=== PATIENT | male | born 1955 | race Caucasian/White ===

== ENCOUNTER 2021-02-18 14:30 | Outpatient (RCR) | payer MEDICARE, SELFPAY ==
[2021-02-10 12:07] VITALS: BMI 35.0
[2021-02-10 12:09] VITALS: BMI 35.0
== END 2021-04-06 13:52 | disposition home or self-care (01) ==
LOC: ANHDMC 14:30
PROVIDERS: PCP Family Medicine Adolescent Medicine; Visit Provider Family Medicine Adolescent Medicine
DX: E11.65 Type 2 diabetes mellitus with hyperglycemia (principal); Z71.89 Other specified counseling; Z71.3 Dietary counseling and surveillance
CPT/HCPCS: 97802; 99199; G0108; G0109

== ENCOUNTER 2021-04-21 11:14 | Outpatient (RCR) | payer MEDICARE, SELFPAY | END 2021-04-21 14:58 | disposition home or self-care (01) | LOC: ANHDMC 11:14 | PROVIDERS: PCP Family Medicine Adolescent Medicine; Visit Provider Family Medicine Adolescent Medicine | DX: E11.65 Type 2 diabetes mellitus with hyperglycemia (principal); Z71.89 Other specified counseling | CPT/HCPCS: G0108 ==

== ENCOUNTER 2021-04-26 16:53 | Emergency (ER) | payer OTHER, MEDICARE, BC, SELFPAY ==
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
[2021-04-26 16:54] VITALS: BP 166/64; PULSE 76; RESP 15; TEMP 36.5; O2SAT 100
--- NOTE | 2021-04-26 16:59 | PC.NURSE ---
C-collar applied prior to arrival by EMS.
[2021-04-26 19:33] VITALS: BP 147/72; PULSE 82; RESP 17; TEMP 36.2; O2SAT 94
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
== END 2021-04-26 21:48 | disposition home or self-care (01) ==
PROVIDERS: Emergency Provider Emergency Medicine; PCP Family Medicine Adolescent Medicine
DX: S16.1XXA Strain of muscle, fascia and tendon at neck level, initial encounter (principal); J44.9 Chronic obstructive pulmonary disease, unspecified; E11.9 Type 2 diabetes mellitus without complications; Z87.891 Personal history of nicotine dependence; M47.812 Spondylosis without myelopathy or radiculopathy, cervical region; M43.06 Spondylolysis, lumbar region; E27.8 Other specified disorders of adrenal gland; Z79.82 Long term (current) use of aspirin; Z79.84 Long term (current) use of oral hypoglycemic drugs; V53.5XXA Driver of pick-up truck or van injured in collision with car, pick-up truck or van in traffic accident, initial encounter
CPT/HCPCS: 70450; 72125; 72131; 99284

== ENCOUNTER 2021-06-11 09:34 | Outpatient (CLI) | payer OTHER, MEDICARE, BC, SELFPAY ==
--- NOTE | ~2021-06-11 | MR_ITS ---
EXAMINATION: MR cervical spine wo con EXAM DATE: 06/11/2021 10:35 INDICATION: Neck Pain. TECHNIQUE: Multi-sequential, multiplanar MR images of the cervical spine were obtained without contra st. Axial T2, axial T2 MERGE sequence. Sagittal T1, T2, T2 fat saturation images also obtained. Cor relation is made to CT cervical spine 04/26/2021. FINDINGS: There is moderate disc disease at C5-6, and C7-T1, mild to moderate at C3-4, 4-5 and C6-7. Cord is being flattened at C4-5, C5-6 and 6-7, but no definite cord edema suspected, no acute cord c ompression. The vertebral bodies are aligned in the AP dimension. There are no suspicious marrow sign al abnormalities. Paraspinal soft tissue is unremarkable. Level by level evaluation: C2-C3: Disc does not extend beyond the endplate margin. Uncovertebral joint arthropathy: None. Facet joint arthropathy: Moderate bilateral. Neural foraminal stenosis: No stenosis. Central canal stenosis: No stenosis. C3-C4: There is a minimal diffuse disc bulge. Uncovertebral joint arthropathy: Mild bilateral. Facet joint arthropathy: Moderate to severe right, mild to moderate left. Neural foraminal stenosis: Mild to moderate right, mild left. Central canal stenosis: Mild. C4-C5: There is a moderate diffuse disc bulge asymmetric to the right Uncovertebral joint arthropathy: Moderate to severe right, moderate left. Facet joint arthropathy: Moderate bilateral. Neural foraminal stenosis: Moderate to severe right. Central canal stenosis: Moderate . Central canal measures 6 mm in mid sagittal AP diameter . C5-C6: There is a moderate diffuse disc bulge. Uncovertebral joint arthropathy: Severe right, moderate to severe left. Facet joint arthropathy: Moderate right, mild to moderate left. Neural foraminal stenosis: Severe right, moderate left. Central canal stenosis: Moderate . Central canal measures 6 mm in mid sagittal AP diameter . C6-C7: There is a moderate diffuse disc bulge. Uncovertebral joint arthropathy: Moderate right, mild to moderate left. Facet joint arthropathy: Mild bilateral. Neural foraminal stenosis: Mild to moderate bilateral. Central canal stenosis: Mild to moderate. C7-T1: There is a mild to moderate diffuse disc bulge. Uncovertebral joint arthropathy: Severe right, moderate to severe left. Facet joint arthropathy: Mild. Neural foraminal stenosis: Moderate to severe right, moderate left. Central canal stenosis: Mild. IMPRESSION: Moderate to severe cervical spondylosis as detailed above. Reviewed, dictated and finalized at location G.
--- NOTE | ~2021-06-11 | MR_ITS ---
EXAMINATION: MR lumbar spine wo [facility] EXAM DATE: 06/11/2021 10:35 INDICATION: Lumbar radiculopathy. TECHNIQUE: Multi-sequential, multiplanar MR images of the lumbar spine were obtained without contrast . Sagittal T1, T2, T2 fat saturation images. Axial T2 weighted images. Comparison is made to prior examination from 07/28/2017. FINDINGS: There is moderate loss of the L4-5 disc height, mild to moderate at L3-4. Otherwise mild natali mbar disc disease. The conus medullaris terminates at the L1/2 level and has normal signal intensity and morphology. There are no suspicious marrow signal abnormalities. Paraspinal soft tissue is unrem arkable. Level by level evaluation: T12-L1: Disc does not extend beyond the endplate margin. Facet arthropathy: Mild. Neural foraminal stenosis: No stenosis. Central canal stenosis: No stenosis. L1-L2: There is a minimal diffuse disc bulge. Facet arthropathy: Mild to moderate. Neural foraminal stenosis: No stenosis. Central canal stenosis: No stenosis. L2-L3: There is a mild diffuse disc bulge. Facet arthropathy: Mild to moderate. Neural foraminal stenosis: Mild bilateral. Central canal stenosis: No stenosis. L3-L4: There is a moderate diffuse disc bulge. Facet arthropathy: Moderate. Neural foraminal stenosis: Mild to moderate bilateral. Central canal stenosis: Mild to moderate. L4-L5: There is a moderate to large diffuse disc bulge asymmetric to the left Facet arthropathy: Moderate. Neural foraminal stenosis: Moderate right, mild to moderate left. Central canal stenosis: Mild to moderate. L5-S1: There is a mild diffuse disc bulge. Facet arthropathy: Mild. Neural foraminal stenosis: Mild to moderate left, mild right. Central canal stenosis: No stenosis. Mild interval progression compared to 2018 examination. IMPRESSION: 1. Moderate lower lumbar spondylosis. Reviewed, dictated and finalized at location G.
== END 2021-06-11 09:35 | disposition home or self-care (01) ==
LOC: ANHIMG 09:38
PROVIDERS: PCP Family Medicine Adolescent Medicine
DX: M54.16 Radiculopathy, lumbar region (principal); M54.2 Cervicalgia; M47.816 Spondylosis without myelopathy or radiculopathy, lumbar region; M47.812 Spondylosis without myelopathy or radiculopathy, cervical region
CPT/HCPCS: 72141; 72148

== ENCOUNTER 2021-06-20 16:28 | Emergency (ER) | payer MEDICARE, BC, SELFPAY ==
--- NOTE | 2021-06-20 16:30 | ED.URI ---
HPI - URI/Sore Throat General Chief Complaint: Upper Respiratory Infection Stated Complaint: sorethroat,rt ear pain Time Seen by Provider: 06/20/21 16:40 Source: patient Mode of arrival: ambulatory Limitations: no limitations History of Present Illness HPI Narrative: Mr. Hartley is a 65-year-old male patient presenting to the clinic today with complaints of productive cough, sore throat, right ear pain, and generalized weakness for the past 2 days. He does not know if he has had any fever or chills. No known exposure to anyone with Covid or influenza. Does have a history of COPD and is a former smoker. Reports that he has had a productive cough with green phlegm. Denies any increased shortness of breath currently. Denies any chest pain. MD elicited complaint: sore throat, nasal congestion and other (right ear pain) Related Data Home Medications Medication Instructions Recorded Confirmed aspirin 325 mg tablet 325 mg PO DAILY 10/01/20 06/20/21 atorvastatin 20 mg tablet 20 mg PO DAILY 10/01/20 06/20/21 enalapril maleate 20 mg tablet 20 mg PO DAILY 10/01/20 06/20/21 magnesium 250 mg tablet 250 mg PO DAILY 10/01/20 06/20/21 melatonin 10 mg tablet,extended 10 mg PO HS 10/01/20 06/20/21 release trazodone 100 mg tablet 100 mg PO QHS 10/01/20 06/20/21 insulin glargine 100 unit/mL (3 70 unit SUBCUT QPM ml 05/19/21 06/20/21 mL) subcutaneous pen Allergies Allergy/AdvReac Type Severity Reaction Status Date / Time No Known Allergies Allergy Verified 06/20/21 16:48 Review of Systems Review of Systems: Pertinent positives per HPI. Patient denies any fever, chills, rash, headache, visual changes, dizziness, cough, shortness of breath, chest pain, palpitations, nausea, vomiting, diarrhea, constipation, abdominal pain, or any urinary issues. [facility] Past Medical History Medical History Chronic low back pain COPD (chronic obstructive pulmonary disease) Diabetes Diabetes type 2, uncontrolled Erectile dysfunction Generalized anxiety disorder GERD (gastroesophageal reflux disease) Hepatic steatosis History of colon polyps Hypertension Insomnia Long-term use of aspirin therapy Mixed hyperlipidemia Obstructive sleep apnea on CPAP Personal history of nicotine dependence Testicular hypofunction Surgical History Surgical History History of carpal tunnel surgery 2002 History of vasectomy 2001 Family History Family History Father Lung cancer Hypertension Mother Diabetes mellitus Heart disease Sibling Lung cancer Other Alcoholism Grandparent Alcoholism Grandparent FHx: kidney cancer Other Family history of malignant neoplasm Social History Social History Years smoked: 45 Smoking status: Former smoker Second hand tobacco smoke exposure: No Smoking end date: 04/19/17 Alcohol intake: current Alcohol use details: Rarely Substance use: never Substance use type: does not use Gender identity (if verbalized by the patient): Male Sexual Orientation (if Verbalized by the Patient): Straight or Heterosexual Spiritual care concerns: No Agree to blood products: Yes Comments At the time of my signature, I reviewed and agree with the nursing past medical, surgical, social, and family history. There is no relevant family history pertinent to the patient complaint. Exam Narrative: General: Well-developed, obese, in no apparent distress Head: Normocephalic, atraumatic Eyes: Pupils equally round and reactive to light bilaterally, EOM intact, sclera and conjunctive clear, no discharge, lids normal Ears: Right TMs intact, mild bulging, and cloudy, left TM intact and clear, ear canals clear, no drainage, grossly hearing normal. Nose: Nares paten
[2021-06-20 16:39] VITALS: BP 156/51; PULSE 85; RESP 18; TEMP 36.6; O2SAT 98
== END 2021-06-20 17:13 | disposition home or self-care (01) ==
PROVIDERS: Emergency Provider Nurse Practitioner Family; PCP Family Medicine Adolescent Medicine
DX: J44.0 Chronic obstructive pulmonary disease with (acute) lower respiratory infection (principal); J20.9 Acute bronchitis, unspecified; H69.91 Unspecified Eustachian tube disorder, right ear; Z20.822 Contact with and (suspected) exposure to COVID-19; Z87.891 Personal history of nicotine dependence; E11.9 Type 2 diabetes mellitus without complications; K21.9 Gastro-esophageal reflux disease without esophagitis; I10 Essential (primary) hypertension; E78.2 Mixed hyperlipidemia; G47.33 Obstructive sleep apnea (adult) (pediatric); Z98.52 Vasectomy status; Z79.82 Long term (current) use of aspirin; Z79.4 Long term (current) use of insulin; F41.1 Generalized anxiety disorder
CPT/HCPCS: 87081; 87426; 87804; 87880; 99213; C9803; G0463

== ENCOUNTER 2022-05-13 13:26 | Outpatient (CLI) | payer MEDICARE, SELFPAY ==
--- NOTE | 2022-05-13 13:38 | ECHO_ITS ---
Patient Info Name: Devante Hartley Age: 66 years : 1955 Gender: Male Ht: 69 in Wt: 248 lbs BSA: 2.38 m2 HR: 86 bpm BP: 154 / 81 mmHg Heart Rhythm: Sinus Rhythm Technical Quality: Fair Exam Date: 05/13/2022 1:50 PM Exam Location: [facility] Patient Status: Outpatient Admit Date: 05/13/2022 Staff Ordering Physician: Josie Mcleod PA-C Casino [employer]ot Supervisor: Promise Rivera RDCS Attending Provider: Josie Mcleod PA-C Referring Physician: Harsha HE; Exam Type: CA echo doppler color flow Study Info Indications R01.1 - Cardiac murmur, unspecified Complete two-dimensional, color flow and Doppler transthoracic echocardiogram is performed. Summary 1. Complete two-dimensional, color flow and Doppler transthoracic echocardiogram is performed. 2. Left ventricular chamber dimension is normal. 3. Left ventricular systolic function is normal, estimated at 60-65%. 4. There is mildly increased left ventricular wall thickness. 5. The left ventricular diastolic function is grade I diastolic dysfunction. 6. Left atrial chamber dimension is mildly enlarged. 7. There is mild mitral valve regurgitation. 8. There is mild tricuspid valve regurgitation. Left Ventricle Left ventricular chamber dimension is normal. Left ventricular systolic function is normal, estimated at 60-65%. There is mildly increased left ventricular wall thickness. The left ventricular diastolic function is grade I diastolic dysfunction. Right Ventricle Right ventricular chamber dimension is normal. Right ventricular systolic function is normal. Left Atria Left atrial chamber dimension is mildly enlarged. Right Atria Right atrial chamber dimension is normal. Atrial Septum Intact interatrial septum visualized by color flow imaging. Aortic Valve The aortic valve is trileaflet. There is mild aortic valve sclerosis. There is no aortic valve stenosis. There is trace aortic valve regurgitation. Pulmonic Valve The pulmonic valve is normal. There is no pulmonic valve stenosis. There is trace pulmonic regurgitation. Mitral Valve The mitral valve has normal leaflets. There is no mitral valve stenosis. There is mild mitral valve regurgitation. Tricuspid Valve The tricuspid valve leaflets are normal. There is no significant tricuspid valve stenosis. There is mild tricuspid valve regurgitation. No pulmonary hypertension, estimated pulmonary arterial systolic pressure is 26 mmHg. Pericardium/Pleural The pericardium appears normal. There is trivial pericardial effusion. Inferior Vena Cava Normal inferior vena cava with >50% collapse upon inspiration consistent with normal right atrial pressure, 10 mmHg. Aorta The aortic root size at the sinus of Valsalva is normal. The prox ascending aorta size is normal. Left Ventricular Outflow Tract Name Value Normal LVOT 2D LVOT Diameter 2.1 cm LVOT Doppler LVOT Peak Gradient 5 mmHg LVOT Mean Gradient 3 mmHg LVOT VTI 22 cm LVOT VTI/AV VTI Ratio
== END 2022-05-13 13:27 | disposition home or self-care (01) ==
PROVIDERS: PCP Family Medicine Adolescent Medicine; Visit Provider Physician Assistant
DX: R06.02 Shortness of breath (principal); R01.1 Cardiac murmur, unspecified; I08.1 Rheumatic disorders of both mitral and tricuspid valves
CPT/HCPCS: 93306

== ENCOUNTER 2023-09-29 06:38 | Outpatient (CLI) | payer MEDICARE, SELFPAY ==
--- NOTE | ~2023-09-29 | CT_ITS ---
CT Scan of the Chest without Contrast: Clinical Indication: Lung cancer screening, nicotine dependence Technique: Contiguous sections were acquired throughout the chest without intravenous contrast. Dose reduction technique was used on this scan by utilizing automated exposure control and iterative recon struction technique. The dose-length product (DLP) was 362.61 mGy-cm. Findings: Enrique calcite mediastinal lymph nodes are present. Coronary artery calcifications are present. No aortic aneurysm. There is no evidence of pleural or pericardial effusion. 3 mm posterior right upper lobe pulmonary nodule present. Images through the upper abdomen reveal no abnormalities. Impression: Lung RADS 2: Benign appearance. 12 month follow-up screening CT advised. Reviewed, dictated and finalized at location . Impression: Lung RADS 2: Benign appearance. 12 month follow-up screening CT advised.
--- NOTE | 2023-09-29 13:38 | P.PCNPFT_ITS ---
PFT Procedure Performed PFT Procedure Performed Spirometry with Pre/Post Bronchodilator Plethysmography (Lung Vol) Diffusing Cap (DLCO) Flow Vol Loop PFT Interpretation This is a pulmonary function test with pre and post-bronchodilator spirometry, plethysmography and diffusing capacity. The test was performed and results interpreted in accordance with the 2019 and 2005 ATS/ERS Task Force guidelines respectively using the Global Lung Function Initiative-2012 reference equations. Patient demonstrated good effort and cooperation. Reproducibility criteria were met. The quality of the pre bronchodilator spirometry maneuver was Grade B and post bronchodilator spirometry maneuver was Grade A. Findings: Spirometry:There is decreased maximal expiratory airflow at low lung volumes with a concave expiratory flow tracing. The contour the inspiratory flow tracing is normal. The pre bronchodilator FVC is 2.15 L, 53% predicted. The pre bronchodilator FEV1 is 1.63 L, 53% predicted. The pre bronchodilator FEV1: FVC ratio 75%. The post bronchodilator FVC is 2.06 L, representing a 5% decrease. The post bronchodilator FEV1 is 1.59 L, representing a 2% decrease. The post bronchodilator FEV1: FVC ratio 77%. Plethysmography: The total lung capacity is 6.61 L, 100% predicted. The functional residual capacity is 4.16 L, 119% predicted. The residual volume is 4.09 L, 177% predicted. The residual volume: Total lung capacity ratio 62%. The slow vital capacity is 2.52 L. Diffusing capacity: The diffusing capacity unadjusted for hemoglobin and carboxyhemoglobin is 12.8, 50% predicted. The diffusing capacity adjusted for alveolar volume is 3.56, 86% predicted. In comparison to previous pulmonary function testing on 06/06/2017 in which only pre bronchodilator spirometry was performed the pre bronchodilator FVC has decreased from 2.66 L to 2.15 L. The pre bronchodilator FEV1 has decreased from 2.05 L to 1.63 L. the pre bronchodilator FEV1: FVC ratio is unchanged from 77% to 75%. the total lung capacity is decreased from 7.39 L to 6.61 L. The functional residual capacity is decreased from 5.34 L to 4.16 L. The residual volume is unchanged from 4.58 L to 4.09 L. The residual volume: Total lung capacity ratio is unchanged from 62% to 62%. the slow vital capacity is unchan ged from 2.81 L to 2.52 L. The diffusing capacity unadjusted for hemoglobin and carboxyhemoglobin is decreased from 17.5 to 12.8. The diffusing capacity adjusted for alveolar volume is decreased from 4.63 to 3.56. Impression: The slow vital capacity is greater than forced vital capacity with a mildly concave expiratory tracing and a normal FEV1: FVC ratio with a moderately severe decreased FVC and FEV1. This is suggestive of small airways disease. There is no significant improvement after inhaling a single dose of albuterol. The increase in residual volume to total lung volume ratio is consistent with hyperinflation from an obstructive abnormality. The diffusing capacity unadjusted for hemoglobin and carboxyhemoglobin is moderately decreased and normalizes when adjusted for alveolar volume. In comparison to previous pulmonary function testing on 06/06/2017 there has been a greater than anticipated time dependent decrease in the FVC, FEV1, total lung capacity, functional residual capacity and DLCO with no significant change in the FEV1: FVC ratio, residual volume, residual volume: Total lung capacity ratio or slow vital capacity. Clinical correlation is recommended.
--- NOTE | 2023-09-29 13:51 | WPDSIXMINUTE ---
Six Minute Walk Procedure Procedure Performed Pulmonary Stress Test (6 min walk) Six Minute Walk Six Minute Walk: This is a 6 minute walk test. The test was performed and interpreted in accordance with the 2014 ERS/ATS task force guidelines. Findings: The patient's resting room air oxygen saturation measured by pulse oximetry was 97% and heart rate was 91 bpm. Patient ambulated for 365 meters and oxygen saturation remained 92 to 94%. Heart rate at the end of the study was 121 bpm. The patient did not qualify for supplemental oxygen at rest or with ambulation. There are no prior studies for comparison.
== END 2023-09-29 06:39 | disposition home or self-care (01) ==
LOC: ANHIMG 06:41
PROVIDERS: PCP Family Medicine Adolescent Medicine; Visit Provider Nurse Practitioner Family
DX: J44.9 Chronic obstructive pulmonary disease, unspecified (principal); R06.09 Other forms of dyspnea; Z87.891 Personal history of nicotine dependence
CPT/HCPCS: 71271; 94060; 94618; 94726; 94729

== ENCOUNTER 2023-11-11 07:32 | Outpatient (CLI) | payer MEDICARE, SELFPAY ==
--- NOTE | ~2023-11-11 | NM_ITS ---
EXAMINATION: NM ky stress w perfusion DATE: 11/11/2023 12:40 INDICATION: Other forms of dyspnea TECHNIQUE: Rest images were obtained following intravenous administration of 9.44 mCi Tc99m tetrofosm in (Myoview). The patient was infused intravenously with Lexiscan (Regadenoson). Then, 31.8 mCi Tc99m tetrofosmin (Myoview) was administered intravenously, and stress images were obtained. Data was ray nstructed into short axis and horizontal and vertical long axis SPECT images. Gated SPECT images were also obtained. COMPARISON: None. FINDINGS: There is no definite reversible or fixed perfusion abnormality to suggest ischemia or infar ction. There is normal left ventricular chamber size, wall motion and ejection fraction. Left ventr icular ejection fraction measures 69%. IMPRESSION: 1. Normal myocardial perfusion at rest and during stress. 2. Left ventricular ejection fraction measuring 69%. Reviewed, dictated and finalized at location A.
--- NOTE | 2023-11-11 07:45 | ECHO_ITS ---
Patient Info Name: Devante Hartley Age: 68 years : 1955 Gender: Male Ht: 68 in Wt: 245 lbs BSA: 2.36 m2 BP: 158 / 68 mmHg Technical Quality: Fair Exam Date: 11/11/2023 7:55 AM Exam Location: Echo Lab Patient Status: Outpatient Admit Date: 11/11/2023 Staff Ordering Physician: Hermann Benitez DO Mold Preparer: Flor Swann RDCS Attending Provider: Hermann Benitez DO Referring Physician: Emmanuel ASHFORD; Exam Type: CA echo doppler color flow Study Info Indications R06.09 - Other forms of dyspnea Complete two-dimensional, color flow and Doppler transthoracic echocardiogram is performed. Summary 1. Complete two-dimensional, color flow and Doppler transthoracic echocardiogram is performed. 2. Left ventricular chamber dimension is normal. 3. Left ventricular systolic function is hyperdynamic, estimated at >70%. 4. There is mild concentric increased left ventricular wall thickness. 5. The left ventricular diastolic function is abnormal. 6. E/e' 13 is mildly elevated. 7. Left atrial chamber dimension is moderately enlarged. 8. Right atrial chamber dimension is moderately enlarged. 9. There is mild aortic valve sclerosis. 10. There is trace aortic valve regurgitation. 11. There is mild mitral valve regurgitation. 12. There is trace tricuspid valve regurgitation. 13. Moderate pulmonary hypertension, estimated pulmonary arterial systolic pressure is 53 mmHg. 14. There is trivial pericardial effusion. Left Ventricle E/e' 13 is mildly elevated. Left ventricular chamber dimension is normal. Left ventricular systolic function is hyperdynamic, estimated at >70%. There is mild concentric increased left ventricular wall thickness. The left ventricular diastolic function is abnormal. Right Ventricle Right ventricular systolic function is normal and with normal TAPSE 2.7 cm. Right ventricular chamber dimension is normal. Left Atria Left atrial chamber dimension is moderately enlarged. Right Atria Right atrial chamber dimension is moderately enlarged. Aortic Valve The aortic valve is trileaflet. There is mild aortic valve sclerosis. There is no aortic valve stenosis. There is trace aortic valve regurgitation. Pulmonic Valve There is no pulmonic regurgitation. Mitral Valve There is no mitral valve stenosis. There is mild mitral valve regurgitation. Tricuspid Valve There is trace tricuspid valve regurgitation. Moderate pulmonary hypertension, estimated pulmonary arterial systolic pressure is 53 mmHg. Pericardium/Pleural There is trivial pericardial effusion. Inferior Vena Cava Normal inferior vena cava with >50% collapse upon inspiration consistent with normal right atrial pressure, 5 mmHg. Aorta The aortic root size at the sinus of Valsalva is normal. Left Ventricular Outflow Tract Name Value Normal LVOT 2D LVOT Diameter 2.0 cm LVOT Doppler LVOT Peak Gradient 6 mmHg LVOT Mean Gradient 4 mmHg LVOT VTI 27 cm LVOT VTI/AV VTI Ratio 0.6 LVOT Stroke Volume 87 ml LVOT CO 7.1 l/min LVOT CI
--- NOTE | 2023-11-11 07:45 | EST_ITS ---
Patient Info Name: Devante Hartley Age: 68 years : 1955 Gender: Male Ht: 68 in Wt: 245 lbs BSA: 2.36 m2 HR: 85 bpm BP: 148 / 66 mmHg Exam Date: 11/11/2023 9:45 AM Exam Location: Echo Lab Patient Status: Outpatient Admit Date: 11/11/2023 Staff Ordering Physician: Hermann Benitez DO Attending Provider: Hermann Benitez DO Exercise Technologist: Selena Freeman RDCS Exercise Physician: Hermann Benitez DO Exam Type: CA stress ky w NM Study Info A regadenoson stress test was performed. Summary 1. 1. Negative lexiscan stress test for ischemic ST changes by ECG criteria. 2. 2. Baseline hypertension. 3. 3. Nuclear scan to follow and will be reported separately. Please correlate with it. 4. 4. Patient informed of the above results. Protocol: Lexiscan Stress ECG Details Stage: REST Duration (min): 1 min : 44 sec HR (bpm): 86 SBP (mmHg): 148 DBP (mmHg): 66 Stage: REST Duration (min): 7 min : 14 sec HR (bpm): 85 SBP (mmHg): 148 DBP (mmHg): 66 Stage: STAGE 1 Duration (min): 0 min : 59 sec HR (bpm): 97 SBP (mmHg): 148 DBP (mmHg): 66 Stage: RECOVERY Duration (min): 1 min : 0 sec HR (bpm): 97 SBP (mmHg): 152 DBP (mmHg): 65 Stage: RECOVERY Duration (min): 2 min : 0 sec HR (bpm): 95 SBP (mmHg): 152 DBP (mmHg): 65 Stage: RECOVERY Duration (min): 2 min : 52 sec HR (bpm): --- SBP (mmHg): 156 DBP (mmHg): 66 Rest HR: 85 bpm Peak HR: 99 bpm Rest Sys BP: 148 mmHg Peak Sys BP: 156 mmHg Max Pred HR: 152 bpm % Max Pred HR: 65 % Target HR: 129 bpm Max RPP: 15,444 bpm*mmHg Termination Reason: Completed protocol Cardiac Symptoms: Shortness of breath Total Time: 1 min : 0 sec Rest Spears BP: 66 mmHg Peak Spears BP: 66 mmHg Total Dose: 0.4 mg Resting ECG Sinus rhythm. Stress ECG No ST changes. Arrhythmias None. Report Signatures
== END 2023-11-11 07:33 | disposition home or self-care (01) ==
LOC: ANHCARD 07:35
PROVIDERS: PCP Family Medicine Adolescent Medicine; Visit Provider Internal Medicine Cardiovascular Disease
DX: R06.09 Other forms of dyspnea (principal); I08.3 Combined rheumatic disorders of mitral, aortic and tricuspid valves
CPT/HCPCS: 78452; 93017; 93306; A9502; J2785

== ENCOUNTER 2024-03-08 12:54 | Emergency (ER) | payer MEDICARE, SELFPAY ==
[2024-03-08 12:56] VITALS: BP 105/83; PULSE 96; RESP 18; TEMP 36.6; O2SAT 95
[2024-03-08 13:13] VITALS: BP 154/82; O2SAT 97
--- NOTE | 2024-03-08 13:23 | ED_ITS ---
HPI - General Adult General Chief complaint: Urogenital-Male Stated complaint: urinary retention Time Seen by Provider: 03/08/24 13:09 History of Present Illness HPI narrative: 68-year-old male presents to the emergency department for evaluation for urinary retention. Patient states that Tuesday he began having some increased urinary retention. Patient did present to Urgent Care was started on Bactrim for a presumed urinary tract infection. Patient denies any prior history of urinary retention but states he has had decreased urinary caliber over the last week. Related Data Home Medications ?Medication ?Instructions ?Recorded ?Confirmed ?Last Taken ?Type albuterol sulfate 2.5 mg/3 mL 2.5 mg inhalation Q4H PRN 01/10/23 02/20/24 Unknown History (0.083 %) solution for nebulization shortness of breath or wheezing aspirin 81 mg tablet,delayed 81 mg PO DAILY 09/23/23 02/20/24 Unknown History release (Adult Low Dose Aspirin) Allergies Allergy/AdvReac Type Severity Reaction Status Date / Time No Known Allergies Allergy Verified 02/20/24 13:18 Review of Systems Review of Systems: All systems reviewed & are unremarkable except as noted in HPI and below PMFSH Past Medical History Medical History (Updated 03/08/24 @ 15:26 by Armond Guzmán MD) Erectile dysfunction Hypertension Personal history of nicotine dependence Chronic low back pain Long-term use of aspirin therapy Hepatic steatosis Generalized anxiety disorder Insomnia Obstructive sleep apnea on CPAP Testicular hypofunction GERD (gastroesophageal reflux disease) Diabetes type 2, uncontrolled Mixed hyperlipidemia History of colon polyps COPD (chronic obstructive pulmonary disease) Surgical History Surgical History History of fusion of cervical spine (08/2021) C2-T2 History of carpal tunnel surgery 2002 History of vasectomy 2002 Family History Family History Father Lung cancer Hypertension Mother Diabetes mellitus Heart disease Sibling Lung cancer Other Alcoholism Grandparent Alcoholism Grandparent FHx: kidney cancer Other Family history of malignant neoplasm Social History Social History Smoking packs per day: 2 Smoking cigarettes per day: 40.0 Years smoked: 50 Smoking pack-years: 100.00 Smoking status: Former smoker Second hand tobacco smoke exposure: No Smoking end date: 04/19/17 Alcohol intake: current Alcohol use details: Rarely Substance use: never Substance use type: does not use Do You Feel Safe in your Home?: Yes Lack of Transportation: No Lack of Food: Never True Current Housing: I Have Housing Concerned About Future Housing: No Difficulty Paying Gas/Electric Bills: No Difficulty Paying for Meds: No Currently Unemployed: No Education: High School Diploma/GED Difficulty w/ Childcare or Family Care: No Living arrangements: with family Occupation/Education: retired Gender identity (if verbalized by the patient): Male Sexual Orientation (if Verbalized by the Patient): Straight or Heterosexual Spiritual care concerns: No Agree to blood products: Yes Exam Narrative: APPEARANCE: Well appearing, no pain, no distress, well-nourished. HEAD: normocephalic, atraumatic. EYES: PERRLA/EOMI, conjunctivae clear. NOSE: Normal no drainage EARS:TMS clear with good light reflex. THROAT: Pharynx clear, no exudate. NECK: Supple. No adenopathy, no masses. RESPIRATORY: Airway patent, respirations nonlabored. Clear to auscultation bilaterally, no rales, rhonchi, wheezing. CARDIOVASCULAR: Regular rate and rhythm without murmurs rubs or gallops. ABDOMINAL: Soft, nontender, nondistended, normal bowel sounds MUSCULOSKELETAL: Moves all extremities. Strength/ROM intact, No edema, No calf tenderness. NEURO: Alert. Cranial nerves II through XII intact. SKIN: Warm, dry. Normal Color Course Vital Signs Vital signs: Vital Signs Temperature 97.8 F 03/08/24 12:56 Pulse Rate 96 03/08/24 12:56 Respiratory Rate 18 03/08/24 12:56 Blood Pressure 105/83 03/08/24 12:56 Pulse Oximetry 95 03/08/24 12:56 Oxygen Delivery Room Air 03/08/24 12:56 Temperature 97.9 F 03/08/24 18:03 Pulse Rate 88 03/08/24 18:03 Respiratory Rate 19 03/08/24 18:03 Blood Pressure 160/93 H 03/08/24 18:03 Pulse Oximetry 97 03/08/24 18:03 Oxygen Delivery Room Air 03/08/24 12:56 Medical Decision Making MDM Narrative Medical decision making narrative: 60-year-old male presents emergency department for evaluation for urinary retention. On bedside bladder scan patient did have 620 mL postvoid. Méndez catheter was placed and patient did feel an improvement. Patient had approximately 650 mL of urinary output. UA was positive for leukocyte esterase and high white blood cells but patient is also currently on Bactrim for another 7 days. Differential Diagnosis Differential Diagnosis: UTI, acute kidney injury, urinary retention, CHF Vital Signs Vital Signs: Vital Signs Temperature 97.8 F 03/08/24 12:56 Pulse Rate 96 03/08/24 12:56 Respiratory Rate 18 03/08/24 12:56 Blood Pressure 105/83 03/08/24 12:56 Pulse Oximetry 95 03/08/24 12:56 Oxygen Delivery Room Air 03/08/24 12:56 Temperature 97.9 F 03/08/24 18:03 Pulse Rate 88 03/08/24 18:03 Respiratory Rate 19 03/08/24 18:03 Blood Pressure 160/93 H 03/08/24 18:03 Pulse Oximetry 97 03/08/24 18:03 Oxygen Delivery Room Air 03/08/24 12:56 Lab Data Labs: Lab Results 03/08/24 Range/Units 14:57 Urine Color Yellow (Yellow) Urine Appearance Clear (Clear) Urine pH 5.0 (5.0-9.0) Ur Specific [place] 1.012 (1.001-1.035) Urine Protein Negative (Negative) mg/dL Urine Glucose (UA) Negative (Negative) mg/dL Urine Ketones Negative (Negative) mg/dL Ur Blood (Man) Negative (Negative) Urine Nitrate Negative (Negative) Urine Bilirubin Negative (Negative) Urine Urobilinogen 1.0 (<2.0) mg/dL Add Ur Microanalysis Reviewed Leukocyte Esterase Rfl 1+ H (Negative) CHRISTIANE/UL Urine RBC 0-2 (0-2) /hpf Urine WBC 11-20 H (0-3) /hpf Ur Squamous Epith Cells None seen (Few) /hpf Urine Bacteria None seen /hpf Urine Casts 6-10 Hyaline Casts Present (None) /lpf Discharge Plan Discharge Clinical Impression: Acute urinary retention Patient Disposition: Home, Self-Care Condition: Stable Instructions: Antibiotic Form, Méndez Catheter Placement and Care (ED) Additional Instructions: Continue to take your antibiotic as directed. Méndez catheter care as directed. You will need to have close follow-up with Urology to have the Méndez catheter removed. Flomax to help with urinary retention. If you have any worsening symptoms then please call or return to the emergency department. Patient Language: Croatian Prescriptions: New tamsulosin [Flomax] 0.4 mg capsule 0.4 mg PO DAILY Qty: 14 0RF No Action albuterol sulfate 2.5 mg /3 mL (0.083 %) solution for nebulization 2.5 mg inhalation Q4H PRN (Reason: shortness of breath or wheezing) aspirin [Adult Low Dose Aspirin] 81 mg tablet,delayed release (DR/EC) 81 mg PO DAILY Trelegy Ellipta 200-62.5-25 mcg blister with device 1 inh inhalation DAILY Qty: 60 0RF albuterol sulfate 90 mcg/actuation HFA aerosol inhaler 2 inh inhalation Q4H PRN (Reason: shortness of breath or wheezing) Qty: 8.5 5RF metformin 500 mg tablet extended release 24 hr See Rx Instructions .ROUTE .COMPLEX Qty: 360 3RF Dose Instruction: TAKE 2 TABLETS BY MOUTH TWICE DAILY Rx Instructions: TAKE 2 TABLETS BY MOUTH TWICE DAILY trazodone 100 mg tablet 100 mg PO QHS Qty: 90 3RF pantoprazole 40 mg tablet,delayed release (DR/EC) 40 mg PO DAILY Qty: 90 1RF sertraline 100 mg tablet 100 mg PO DAILY Qty: 90 1RF (DME) pen needle, diabetic [BD Ultra-Fine Ankita Pen Needle] 32 gauge x 5/32 needle See Rx Instructions .Route Qty: 100 3RF Rx Instructions: use once daily to inject insulin (DME) lancets 30 gauge misc See Rx Instructions .Route Qty: 100 0RF Rx Instructions: As directed insulin glargine [Lantus Solostar U-100 Insulin] 100 unit/mL (3 mL) insulin pen 80 unit subcut QPM Qty: 24 4RF atorvastatin 20 mg tablet 20 mg PO DAILY Qty: 90 2RF clonazepam 1 mg tablet 1 mg PO QHS Qty: 30 2RF Rx Instructions: administer 30 minutes before bedtime enalapril maleate 20 mg tablet See Rx Instructions .ROUTE .COMPLEX Qty: 90 3RF Dose Instruction: TAKE 1 TABLET BY MOUTH DAILY Rx Instructions: TAKE 1 TABLET BY MOUTH DAILY furosemide 40 mg tablet 40 mg PO QAM Qty: 90 3RF pioglitazone 30 mg tablet 30 mg PO DAILY Qty: 90 3RF sulfamethoxazole-trimethoprim [Bactrim DS] 800-160 mg tablet 1 tablet PO Q12H Qty: 20 0RF Follow-up/Referrals: Brenton Cid MD [Physician] - Rip Andrea MD [Primary Care Provider] -
[2024-03-08 13:31] VITALS: BP 145/67; PULSE 86; RESP 19; O2SAT 95
[2024-03-08 15:26] LABS: Add Urine Microscopic? YES; Appearance Urine Clear (Clear); Bacteria Urine None Seen /hpf; Bilirubin Urine Negative (Negative); Blood Urine Negative (Negative); Color Urine Yellow (Yellow); Glucose Urine UA Negative (Negative); Hyaline Casts Urine Present /lpf; Ketones Urine Negative (Negative); Leukocyte Esterase Ur 1+ LEU/UL (Negative); Need Manual Microscopic Reviewed; Nitrate Urine Negative (Negative); Protein Urine Negative (Negative); RBC Urine 0-2 /hpf (0-2); Specific Grav Ur 1.012 (1.001-1.035); Squamous Epithelial Cell Urine None Seen /hpf (Few)
[2024-03-08 15:30] VITALS: BP 144/91; PULSE 83; RESP 19; O2SAT 97
[2024-03-08 17:20] VITALS: BP 152/89; PULSE 70; RESP 21; O2SAT 98
[2024-03-08 18:03] VITALS: BP 160/93; PULSE 88; RESP 19; TEMP 36.6; O2SAT 97
== END 2024-03-08 18:05 | disposition home or self-care (01) ==
PROVIDERS: Emergency Provider Emergency Medicine; PCP Family Medicine Adolescent Medicine
DX: R33.9 Retention of urine, unspecified (principal); Z79.82 Long term (current) use of aspirin; I10 Essential (primary) hypertension; F41.1 Generalized anxiety disorder; G47.33 Obstructive sleep apnea (adult) (pediatric); Z99.89 Dependence on other enabling machines and devices; E78.2 Mixed hyperlipidemia; E11.9 Type 2 diabetes mellitus without complications; J44.9 Chronic obstructive pulmonary disease, unspecified; Z87.891 Personal history of nicotine dependence
CPT/HCPCS: 81001; 87086; 99283

== ENCOUNTER 2024-04-11 10:02 | Outpatient (CLI) | payer MEDICARE, SELFPAY ==
--- NOTE | ~2024-04-11 | XR_ITS ---
Clinical Indication: Dyspnea PA and lateral views of the chest: Comparison: 06/03/2012 Findings: There is small right pleural effusion with hazy bibasilar airspace disease.. Cardiomediast inal silhouette is within normal limits. Bones and soft tissues are unremarkable. Impression: Small right pleural effusion with probable bibasilar pulmonary edema. Correlate clinically for pneumo vicki. Reviewed, dictated and finalized at [facility]. NUE STAMPER Impression: Small right pleural effusion with probable bibasilar pulmonary edema. Correlate clinically for pneumonia.
--- OUTSIDE RECORDS SUMMARY | 2024-04-12 23:02 | XMS_ITS | Encounter Summary ---
Author Organization [facility] Address [address] [place] [address] Care Team Providers Care Towboat Captain Name Role Phone Rip Andrea MD Primary Care Provider + Reason for Visit * Reason Comments Refill Request Encounter Details Date Type Department Care Team (Late st Contact Info) Description 10/07/2021 Refill [facility] Neuro[facility] [address] [place] [address] Rachael Blancas, DIESEL FLEET MECHANIC-LETTER OF CREDIT CLERK [address] [address] Refill Request Social History Tobacco Use Types Packs/Day Years Used Date Smoking Tobacco: Former Cigarettes 0 04/19/1972 - 04/19/2017 Smokeless Tobacco: Never Alcohol Use Standard Drinks/Week Comments Yes 1 (1 standard drink = 0.6 oz pur e alcohol) rarely Hunger Vital Sign Answer Date Recorded Within the past 12 months, y ou worried that your food would run out before you got the money to buy more. Never true 08/24/19 22 Within the past 12 months, t he food you bought just didn't last and you didn't have money to get more. Never true 08/23/2021 Sex and Gender Information Value Date Recorded Sex Assigned at Not on file Gender Identity Not on file Sexual Orientation Not on file documented as of this encounter Functional Status Functional Status Response Date of Assess ment Is person deaf or have serious hearing difficult y? No 08/21/2021 Is person blind or have serious difficulty seein g? No 08/21/2021 Does person have serious dif ficulty walking/climbing stairs? No 08/21/2021 Does person have difficulty dressing/bathing? No 08/21/2021 Does person have difficulty doing errands alone? No 08/21/2021 Cognitive Status Response Date of Assessm ent Does person have difficulty concentrating/remembering/making decisions? No 08/21/2021 documented as of this encounter Plan of Treatment Not on file documented as of this encounter Visit Diagnoses Not on filedocumented in this encounter Care Teams Towboat Captain Relationship Specialty Start Date End Date Rip Andrea MD [address] [address] PCP - General 08/22/17 documented as of this encounter
--- OUTSIDE RECORDS SUMMARY | 2024-04-12 23:02 | XMS_ITS | Encounter Summary ---
Author Organization [facility] Address [address] [place] [address]. [place] [address] [place] [address] Care Team Providers Care Metal Hanger Name Role Phone Rip Andrea MD Primary Care Provider [phone] Encounter Details Date Type Department Care Team (Late st Contact Info) Description 07/14/2020 Telephone [facility] [place], [place] [id number] Blanca Gold MD [address] [facility] [address] [place] [address] Social History Tobacco Use Types Packs/Day Years Used Date Smoking Tobacco: Former Cigarettes Q uit: 04/18/2016 Smokeless Tobacco: Never Comments:Quit March 2017 w ith use of Chantix. Encouraged to remain off cigarettes. 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
--- OUTSIDE RECORDS SUMMARY | 2024-04-12 23:02 | XMS_ITS | Encounter Summary ---
Author Organization [facility] Address [address] [place] [address] Care Team Providers Care Credit Coordinator Name Role Phone Rip Andrea MD Primary Care Provider + Reason for Visit * Reason Comments Refill Request Encounter Details Date Type Department Care Team (Late st Contact Info) Description 10/03/2021 Refill [facility] Neurosurgery [address] [place] [address] Rachael Blancas, DIRECTOR OUTPATIENT SERVICES-BUSINESS SYSTEMS DEVELOPER [address] [address] Refill Request Social History Tobacco Use Types [...] on filedocumented in this encounter Care Teams Credit Coordinator Relationship Specialty Start Date End Date Rip Andrea MD [address] [address] PCP - General 08/22/17 documented as of this encounter
--- OUTSIDE RECORDS SUMMARY | 2024-04-12 23:02 | XMS_ITS | Referral Summary ---
Author Organization [facility] Address [address] [place] [address] Care Team Providers Care Crystal Gazer Name Role Phone Rip Andrea MD Primary Care Provider + Source Comments [facility],non-owned Affiliates and Associated Physician Practices is amultiple site organization consisting of ambulatory clinics and hospital sitesin [place], [place], [place] and [place]. This disclosure is being madepursuant to the Care Everywhere program and may not contain all information available regarding this patient. Last updated 17.[facility] Allergies No known active allergies Medications * Be aware that medications may not be up to date on this document. Alwaysverify current medications with the patient. Medication Sig Dispensed Refills Start Date End Date Status atorvastatin (LIPITOR) 20 MG tablet Take 1 (one) tablet by mouth once daily 2 8 Active metFORMIN (GLUCOPHAGE) 500 MG tablet Take 1 (one) tablet by mouth 2 times daily 3 8 Active pantoprazole EC (PROTONIX) 40 MG tablet Take 1 (one) tablet by mouth once daily Active enalapril (VASOTEC) 20 MG tablet Take 1 (one) tablet by mouth once daily Active sertraline (ZOLOFT) 100 MG tablet Take 1 (one) tablet by mouth once daily Active BREZTRI AEROSPHERE 160-9-4.8 MCG/ACT AERO Inhale 2 puffs by mouth 2 times daily 2 Active Basaglar KwikPen (BASAGLAR) pen Inject 80 (eighty) Units subcutaneously at bedtime 2 Active traZODone (DESYREL) 100 MG tablet Take 1 (one) tablet by mouth once daily 1 Active magnesium 250 MG tablet Take 250 mg by mouth once daily Active melatonin 10 MG capsule Take 1 (one) capsule by mouth at bedtime Active tadalafil (CIALIS) 20 MG tablet Take 20 mg by mouth once daily 2 Active calcium carbonate (TUMS) 500 MG chew tablet Take 1 (one) tablet by mouth every 4 hours as needed 2 Active Additional Information Patient not taking.Reported on 10/05/2023 diphenhydrAMINE (BENADRYL ALLERGY) 25 MG capsule Take 1 (one) capsule by mouth every 6 hours as needed for Allergies or Insomnia 2 Active Additional Information Patient not taking.Reported on 03/31/2022 bisacodyl (DULCOLAX) 10 MG suppository Insert 1 (one) suppository into the rectum once daily as needed for Constipation 2 Active Additional Information Patient not taking.Reported on 03/31/2022 polyethylene glycol 3350 (MIRALAX) 17 g packetIndications:Ce rvical radiculopathy Take 17 (seventeen) g by mouth once daily as needed for Constipation 2 Active Additional Information Patient not taking.Reported on 03/31/2022 multivitamin daily tabletIndications:Ce rvical radiculopathy Take 1 (one) tablet by mouth once daily 2 Active LORazepam (ATIVAN) 1 MG tablet TAKE 1 TABLET BY MOUTH EVERY DAY AT BEDTIME NEEDED FOR SLEEP 2 Active Algramo CONTOUR NEXT TEST test strip FOR E11.9 TEST BLOOD SUGAR DAILY 2 Active hydrOXYzine HCl (ATARAX) 25 MG tablet Take 25 mg by mouth Activ e gabapentin (NEURONTIN) 300 MG capsule Take 1 (one) capsule by mouth 3 times daily 90 capsule 2 Active Additional Information Patient not taking.Reported on 03/31/2022 oxyCODONE-Acetaminop hen (PERCOCET PO) Take 325 mg by mouth once daily Active BACLOFEN PO Take 10 mg by mouth 3 times daily Active Cyclobenzaprine HCl (FLEXERIL PO) Take 5 mg by mouth 3 times daily Active Nerve Stimulator (TENS THERAPY PAIN RELIEF) DEVIIndications:Fusi on of spine of cervicothoracic region Use 1 device as needed (Apply to posterior spine as needed) 1 device 2 Active Additional Information Patient not taking.Reported on 10/05/2023 Elastic Bandages & Supports (ADJUSTABLE ARM SLING) MISCIndications:Righ t arm weakness,Fusion of spine of cervicothoracic region Use 1 device as needed 1 Each 2 Active Additional Information Patient not taking.Reported on 10/05/2023 gabapentin (NEURONTIN) 300 MG capsule Take 1 (one) capsule by mouth 3 times daily 270 capsule 2 2 Active Additional Information Patient not taking.Reported on 10/05/2023 oxyCODONE-acetaminop hen (PERCOCET) 5-325 MG tablet Take 1 (one) tablet by mouth every 8 hours as needed for Pain 90 tablet 2 Active Additional Information Patient not taking.Reported on 10/05/2023 Farxiga 10 MG tablet Take 1 (one) tablet by mouth once daily 2 Active BD Pen Needle Micro U/F 32G X 6 MM MISC USE ONE DAILY TO INJECT INSULIN 2 Active cyclobenzaprine (Flexeril) 5 MG tabletIndications:Sp asm of muscle TAKE 1 TABLET BY MOUTH THREE TIMES A DAY NEEDED 90 tablet 1 2 Active Additional Information Patient not taking.Reported on 10/05/2023 tiZANidine (Zanaflex) 2 MG capsuleIndications:S pasm of muscle TAKE 1 CAPSULE BY MOUTH EVERY 8 HOURS NEEDED FOR MUSCLE SPASMS 60 capsule 3 Active Additional Information Patient not taking.Reported on 10/05/2023 albuterol HFA (Proventil; Ventolin; Proair) 108 (90 Base) MCG/ACT inhaler Inhale 2 (two) puffs by mouth every 6 hours as needed for Shortness of Breath (As needed) 3 Active clonazePAM (KlonoPIN) 1 MG tablet Take 1 (one) tablet by mouth daily with breakfast 4 Active furosemide (Lasix) 40 MG tablet Take 1 (one) tablet by mouth every morning 4 Active pioglitazone (Actos) 30 MG tablet Take 1 (one) tablet by mouth once daily 4 Active Active Problems Problem Noted Date Diagnosed Date Cervical radiculopathy 07/01/2021 Lumbar radiculopathy 01/16/2018 Cervical myelopathy Immunizations Name Administration Dates Next Due Nubia Ortiz primary monoval ent 12+ yr 0.3mL Purple cap 12/19/2020,06/06/2020,05/16/2020 INFLUENZA VACCINE 01/15/2022,12/19/2020 Social History Tobacco Use Types Packs/Day Years Used Date Smoking Tobacco: Former Cigarettes 0 04/19/1972 - 04/19/2017 Smokeless Tobacco: Never Tobacco Cessation:Counseling Given: No Alcohol Use Standard Drinks/Week Comments Yes 1 [...] on file Sexual Orientation Not on file Last Filed Vital Signs Vital Sign Reading Time Taken Comments Blood Pressure 147/72 10/05/2023 10:17 AM CDT Patient reports he took BP meds today. Stated he is always short of breath, but no blurred vision nor dizziness. Pulse 93 10/05/2023 10:15 AM CDT Temperature 36.6 ??C (97.9 ??F) 10/05/2023 1 0:15 AM CDT Respiratory Rate 18 10/14/2021 9:54 AM CDT Oxygen Saturation 93% 10/05/2023 10: 15 AM CDT Inhaled Oxygen Concentration - - Weight 112.9 kg (249 lb) 10/05/2023 10: 15 AM CDT Height 172.7 cm (5' 8 ) 10/05/2023 10:1 5 AM CDT Body Mass Index 37.86 10/05/2023 10:15 AM CDT Functional Status Functional Status Response Date of [...] person have difficulty concentrating/remembering/making decisions? No 08/21/2021 Plan of Treatment Not on file Medical Devices Implanted Type Area Client Experience Administrator Device Identifier Shelf Expiration Date Model / Serial / Lot Stimulan Rapid Cure Implanted:Qty: 1 on 08/21/2021 by Karson Fournier MD at [facility] N/A: Spine Cervical Biocompstes 03/20/2024 620-005 / / [id number] Description:MIXED WITH 500MG VANCOMYCIN POWDER Screw 4.5mm 28mm Ma Spne Bone Implanted:Qty: 3 on 08/21/2021 by Karson Fournier MD at [facility] N/A: Spine Cervical Med[employer]onic Inc [id number] / / Dayo Spnl 240mm 3.5mm Std Implanted:Qty: 2 on 08/21/2021 by Karson Fournier MD at [facility] N/A: Spine Cervical Med[employer]onic Inc [id number] / / Lev Bone Void 10ml Dbm Grftn Algrf Ptty - [id number] Implanted:Qty: 1 on 08/21/2021 by Karson Fournier MD at [facility] N/A: Spine Cervical Med[employer]onic Inc 06/30/2024 [id number] / [id number] / Screw Set M6 Spne Oc Upr Thor Infnt Implanted:Qty: 16 on 08/21/2021 by Karson Fournier MD at [facility] N/A: Spine Cervical Medtronic Sofamor Danek Spine [id number] / / Screw 4mm 26mm Ma Spne Bone Implanted:Qty: 1 on 08/21/2021 by Karson Fournier MD at [facility] N/A: Spine Cervical Med[employer]onic Inc [id number] / / Screw 4mm 22mm Ma Spne Bone Implanted:Qty: 1 on 08/21/2021 by Karson Fournier MD at [facility] N/A: Spine Cervical Med[employer]onic Inc [id number] / / Screw 3.5mm 16mm Ma Spne Bone Implanted:Qty: 3 on 08/21/2021 by Karson Fournier MD at [facility] N/A: Spine Cervical Med[employer]onic Inc [id number] / / Screw 3.5mm 18mm Ma Spne Bone Implanted:Qty: 2 on 08/21/2021 by Karson Fournier MD at [facility] N/A: Spine Cervical Med[employer]onic Inc [id number] / / Screw 3.5mm 20mm Ma Spne Bone Implanted:Qty: 3 on 08/21/2021 by Karson Fournier MD at [facility] N/A: Spine Cervical Med[employer]onic Inc [id number] / / Screw 3.5mm 22mm Ma Spne Bone Implanted:Qty: 2 on 08/21/2021 by Karson Fournier MD at [facility] N/A: Spine Cervical Med[employer]onic Inc [id number] / / Screw 4.5mm 26mm Ma Spne Bone Implanted:Qty: 1 on 08/21/2021 by Karson Fournier MD at [facility] N/A: Spine Cervical Med[employer]onic Inc [id number] / / Procedures Procedure Name Priority Date/Time Associated Diagnosis Comments GLUCOSE - POINT OF CARE Routine 08/25/2021 1:56 AM CDT from Last 3 Months or Most Recently Relevant to Health Maintenance Results * (ABNORMAL) GLUCOSE - POINT OF CARE (08/25/2021 1:56 AM CDT) Glucose WB/POC 209(H) 70 - 115 mg/dL 08/25/2021 2:00 AM CDT [facility] Specimen Type Cap Fingerstick 2021 2:00 AM CDT [facility] Blood BLOOD SPECIMEN / Unknown 08/25/2021 1:56 AM CDT 08/25/2021 2:00 AM CDT Karson Fournier MD LAB - POINT OF CARE ORDERABLES [facility] [address] [place] [address], [facility] [phone] from Last 3 Months or Most Recently Relevant to Health Maintenance Advance Directives * Full Code (Latest Code Status on File) Date Activated Date Inactivated Comments 08/21/2021 12:41 PM 08/25/2021 2:23 PM Care Teams Crystal Gazer Relationship Specialty Start Date End Date Rip Andrea MD [address] [place] [id number] PCP - General 08/22/17
--- OUTSIDE RECORDS SUMMARY | 2024-04-12 23:02 | XMS_ITS | Clinical Summary ---
Author Organization [facility] Address [address] [place] [address] Care Team Providers Care Binitrotoluene Operator Name Role Phone Rip Andrea MD Primary Care Provider + Source Comments [facility],non-owned Affiliates and Associated Physician Practices is amultiple site organization consisting of ambulatory clinics and hospital sitesin [place], [place], [place] and [place]. This disclosure is being madepursuant to the Care Everywhere program and may not contain all information available regarding this patient. Last updated 17.[facility] Allergies No known active allergies Medications * [...] AT BEDTIME NEEDED FOR SLEEP 2 Active TrendBent CONTOUR NEXT TEST test strip FOR E11.9 [...] Immunizations Name Administration Dates Next Due Nubia Diana primary monoval ent 12+ yr 0.3mL Purple cap 12/19/2020,06/06/2020,05/16/2020 INFLUENZA VACCINE 01/15/2022,12/19/2020 Family History Medical History Relation Name Comments Cancer - Lung Father Hypertension Father Arthritis - Osteo Mother COPD - Chronic Obstructive Pulmonary Disease Mother Diabetes - Type 2 Mother Hearing Loss - Unspecified Mother Other - Cardiac Mother heart diseas e Relation Name Status Comments Father (Age 55) Mother (Age 66) Social History Tobacco Use Types Packs/Day Years [...] Mass Index 37.86 10/05/2023 10:15 AM CDT Plan of Treatment Health Maintenance Due Date Last Done Comments COLOGUARD (AGES 45-75) - COLON CA SCREENING 1955 COLON MONITORING 1955 COLONOSCOPY - COLON CA SCREENING 1955 CT COLONOGRAPHY - COLON CA SCREENING 1955 Colorectal Cancer Screening 1955 FIT - COLON CA SCREENING 1955 FLEX SIG - COLON CA SCREENING 1955 HEPATITIS C SCREENING 09/01/1973 DTAP/TDAP/TD VACCINES (1 - Tdap) 09/05/1974 PNEUMOCOCCAL VACCINE 50+ (1 of 1 - PCV) 09/05/2005 ZOSTER VACCINE (1 of 2) 09/05/2005 Respiratory Syncytial Virus (RSV) Vaccine Pt: or over 60 yrs (1 - Risk 60-74 years 1-dose series) 2015 AAA SCREENING 09/05/2020 COVID-19 VACCINE ( season) 2023 12/19/2020, 06/06/2020, 05/16/2020 INFLUENZA VACCINE (#1) 2023 01/15/2022, 2020 DEPRESSION SCREENING 03/21/2024 MEDICARE AWV ? CALENDAR YEAR 2024 SCREENING FOR DIABETES 08/25/2024 , 08/25/2021, 08/24/2021, Additional history exists HEPATITIS B VACCINE Aged Out No longe r eligible based on patient's age to complete this topic HIB VACCINE Aged Out No longer eligi ble based on patient's age to complete this topic HPV VACCINE Aged Out No longer eligi ble based on patient's age to complete this topic MENINGOCOCCAL (Group B) VACCINE Aged Out No longer eligible based on patient's age to complete this topic MENINGOCOCCAL VACCINE Aged Out No candis rosemary eligible based on patient's age to complete this topic Medical Devices Implanted Type Area Curator Of Manuscripts Device Identifier Shelf Expiration Date Model / Serial / Lot Stimulan Rapid Cure Implanted:Qty: 1 on 08/21/2021 by Karson Fournier MD at [facility] N/A: Spine Cervical Biocompstes 03/20/2024 620-005 / / [id number] Description:MIXED WITH 500MG VANCOMYCIN POWDER Screw 4.5mm 28mm Ma Spne Bone Implanted:Qty: 3 on 08/21/2021 by Karson Fournier MD at [facility] N/A: Spine Cervical Medtronic Inc [id number] / / Dayo Spnl 240mm 3.5mm Std Implanted:Qty: 2 on 08/21/2021 by Karson Fournier MD at [facility] N/A: Spine Cervical Medtronic Inc [id number] / / Lev Bone Void 10ml Dbm Grftn Algrf Ptty - [id number] Implanted:Qty: 1 on 08/21/2021 by Karson Fournier MD at [facility] N/A: Spine Cervical Medtronic Inc 06/30/2024 [id number] / [id number] / Screw Set M6 Spne Oc Upr Thor Infnt Implanted:Qty: 16 on 08/21/2021 by Karson Fournier MD at [facility] N/A: Spine Cervical Medtronic Sofamor Danek Spine [id number] / / Screw 4mm 26mm Ma Spne Bone Implanted:Qty: 1 on 08/21/2021 by Karson Fournier MD at [facility] N/A: Spine Cervical Medtronic Inc [id number] / / Screw 4mm 22mm Ma Spne Bone Implanted:Qty: 1 on 08/21/2021 by Karson Fournier MD at [facility] N/A: Spine Cervical Medtronic Inc [id number] / / Screw 3.5mm 16mm Ma Spne Bone Implanted:Qty: 3 on 08/21/2021 by Karson Fournier MD at [facility] N/A: Spine Cervical Medtronic Inc [id number] / / Screw 3.5mm 18mm Ma Spne Bone Implanted:Qty: 2 on 08/21/2021 by Karson Fournier MD at [facility] N/A: Spine Cervical Medtronic Inc [id number] / / Screw 3.5mm 20mm Ma Spne Bone Implanted:Qty: 3 on 08/21/2021 by Karson Fournier MD at [facility] N/A: Spine Cervical Medtronic Inc [id number] / / Screw 3.5mm 22mm Ma Spne Bone Implanted:Qty: 2 on 08/21/2021 by Karson Fournier MD at [facility] N/A: Spine Cervical Medtronic Inc [id number] / / Screw 4.5mm 26mm Ma Spne Bone Implanted:Qty: 1 on 08/21/2021 by Karson Fournier MD at [facility] N/A: Spine Cervical Medtronic Inc [id number] / / Procedures Procedure Name Priority Date/Time Associated Diagnosis Comments GLUCOSE - POINT OF CARE Routine 08/25/2021 1:56 AM CDT from Last 3 Months or Most Recently Relevant to Health Maintenance Results * (ABNORMAL) GLUCOSE - POINT OF CARE (08/25/2021 1:56 AM CDT) [facility] Glucose WB/POC 209(H) 70 - 115 mg/dL 08/25/2021 2:00 AM CDT [facility] Specimen Type Cap Fingerstick 2021 2:00 AM CDT [facility] Blood BLOOD SPECIMEN / Unknown 08/25/2021 1:56 AM CDT 08/25/2021 2:00 AM CDT Karson Fournier MD LAB - POINT OF CARE ORDERABLES Performing Organization Address [facility]/State/ZIP Co de Phone Number [facility] [address] [place] [id number], [facility] [phone] from Last 3 Months or Most Recently Relevant to Health Maintenance Advance Directives * Full Code (Latest Code Status on File) Date Activated Date Inactivated Comments 08/21/2021 12:41 PM 08/25/2021 2:23 PM Care Teams Binitrotoluene Operator Relationship Specialty Start Date End Date Rip Adnrea MD [address] [address] PCP - General 08/22/17
--- OUTSIDE RECORDS SUMMARY | 2024-04-12 23:02 | XMS_ITS | Clinical Summary ---
Author Organization [facility] Address [address] [place] [address]. [place], [place] [address] [place] [address] Care Team Providers Care Underground Utility Locator Name Role Phone Rip Andrea MD Primary Care Provider [phone] Allergies No known active allergies Medications PROAIR HFA 108 (90 Base) MCG/ACT inhaler INHALE 2 PUFFS PO Q 4 H PRF WHEEZING. 1 11/12/19 18 Active tiotropium bromide-olodatero l (STIOLTO RESPIMAT) 2.5-2.5 MCG/ACT inhaler Inhale 2 puffs into the lungs. 08/12/19 18 Active aspirin 325 MG tablet Take 325 mg by mouth. Active atorvastatin 20 MG tablet Take 1 tablet by mouth. 08/12/19 18 Active BYDUREON 2 MG Suspension Reconstituted ER INJECT 1 VIAL SUBCUTANEOUS WEEKLY UTD 5 03/26/19 18 Active FARXIGA 10 MG Tab TK 1 T PO D 1 12/23/19 18 Active enalapril 20 MG tablet TK 1 T PO D FOR HYPERTENSION 1 12/04/19 18 Active gabapentin 300 MG capsule Take 1 capsule by mouth. 08/27/19 18 Active glimepiride 1 MG tablet Take 1 mg by mouth. Active hydrocodone-aceta minophen 5-325 MG tablet Take 1 tablet by mouth every 4 (four) hours. Active metFORMIN 500 MG tablet TK 2 TS PO BID 3 11/05/19 18 Active pantoprazole 40 MG tablet Take 40 mg by mouth. Active sertraline 100 MG tablet Take 100 mg by mouth. Active trazodone 50 MG tablet Take 1 tablet by mouth. 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 Not on file Not on f ile Not on file Last Filed Vital Signs Vital Sign Reading Time Taken Comments Blood Pressure 132/61 02/23/2018 11:28 AM TILE AND MARBLE SETTER Pulse 80 02/23/2018 11:23 AM TILE AND MARBLE SETTER Temperature 36.8 ??C (98.2 ??F) 02/23/2018 1 0:49 AM TILE AND MARBLE SETTER Respiratory Rate 18 02/23/2018 11:2 3 AM TILE AND MARBLE SETTER Oxygen Saturation 95% 02/23/2018 11: 23 AM TILE AND MARBLE SETTER Inhaled Oxygen Concentration - - Weight 113.9 kg (251 lb 3.2 oz) 018 10:49 AM TILE AND MARBLE SETTER Height 175.3 cm (5' 9 ) 02/23/2018 10:4 9 AM TILE AND MARBLE SETTER Body Mass Index 37.1 02/23/2018 10:49 AM TILE AND MARBLE SETTER Plan of Treatment Health Maintenance Due Date Last Done Comments Colorectal Cancer Screening Colonoscopy (10 Years) 1955 Hepatitis C 09/05/1973 DTaP, Tdap and Td Vaccines ( 1 - Tdap) 09/05/1974 Zoster Vaccines (1 of 2) 09/05/2005 Pneumococcal Vaccine: 65+ Ye ars (1 of 1 - PCV) 09/05/2020 COVID-19 Vaccine ( - 2023-2 5 season) 2023 Influenza Adult (#1) 2023 RSV Immunization or 60+ Years (1 - 1-dose 75+ series) 09/05/2030 Meningococcal Vaccine Aged Out No candis rosemary eligible based on patient's age to complete this topic RSV Immunizations Under 20 Months Aged Out No longer eligible based on patient's age to complete this topic Insurance [facility] Member Subscriber Plan / Payer (Ef fective 2017-Present) Name:Devante BARBER Relation to Subscriber:Self Name:Devante BARBER Payer ID:Not on file Type:Not on file Address: [place] [id number] Care Teams Underground Utility Locator Relationship Specialty Start Date End Date Rip Andrea MD [address] [address] PCP - General FAMILY PRACTICE 01/16/18
--- OUTSIDE RECORDS SUMMARY | 2024-04-12 23:02 | XMS_ITS | Clinical Summary ---
Author Organization [facility] Address [address], [address] [address] Phone Care Team Providers Care Physician Assistant Primary Care Name Role Phone Rip Andrea MD Primary Care Provider + Medications polyethylene glycol (MIRALAX) Powder Use entire bottle of 255 grams of miralax for Colon prep as directed by office. 255 g 06/23/2017 Active Social History Tobacco Use Types Packs/Day Years Used Date Smoking Tobacco: Never Assessed Sex and Gender Information Value Date Recorded Sex Assigned at Not on file Legal Sex Male 7:59 PM CDT Gender Identity Not on file Sexual Orientation Not on file Plan of Treatment Health Maintenance Due Date Last Done Comments Hepatitis C Virus (HCV) Screening 1955 TdaP Immunization 1955 Colonoscopy 09/05/2000 Colorectal Cancer Screening 09/05/2000 Cologuard 09/05/2005 Immunochemical Fecal Occult Blood 09/05/2005 Pneumococcal Immunization (5 0+ years) (1 of 1 - PCV) 09/05/2005 Zoster Immunization (1 of 2) 09/05/2005 PSA Discussion 09/05/2010 Influenza Immunization (#1) 2023 SARS-COV-2 Immunization ( - 2023-25 season) 2023 Respiratory Syncytial Virus (RSV) Immunization (Adult) (1 - 1-dose 75+ series) 09/05/2030 Hepatitis B Immunization Aged Out No longer eligible based on patient's age to complete this topic Meningococcal Immunization (ACWY) Aged Out No longer eligible based on patient's age to complete this topic Rotavirus Immunization Aged Out No lo nger eligible based on patient's age to complete this topic Insurance [facility] Care Teams Physician Assistant Primary Care Relationship Specialty Start Date End Date Rip Andrea MD [address] [place] [address] PCP - General Family Medicine 04/13/17
--- OUTSIDE RECORDS SUMMARY | 2024-04-12 23:02 | XMS_ITS | Continuity of Care Document ---
Author Organization [facility] Address [address] [place] [address] [facility] [address] [place] [address] Phone Care Team Providers Care Jewish History Professor Name Role Phone Brandon Vergara Unavailable Unavailable Procedures Procedure Date Office/outpatient Visit, Est Office/outpatient Visit, Est Eye Exam & Treatment Advance Directives Directive Yes / No Effective Date File Name No Information Encounters Encounter Description Practice Location Reason(s) For Visit Diagnoses Date Provider Providers Copied on Encounter Office/outpat ient Visit, [facility], [address] [place] [address] [address], [place], [place], [id number], tel:[phone] [facility] No Information [address] Krishnasamy Brandon. [address] [place] [address], Formerly named [facility], [place]. tel:[phone] Referring Provider: Rip Andrea MD, [address] [place] [address], [id number]. tel:[phone] Office/outpat ient Visit, [facility], [address] [place] [address] [address], [place], [place], [id number], tel:[phone] [facility] No Information [address] Krishnasamy Brandon. [address] [place] [address], Formerly named [facility], [place]. tel:[phone] Referring Provider: Rip Andrea MD, [address] [place] [address], [id number]. tel:[phone] [facility], [address], [place], [place], [id number], [place] tel:[phone] [facility] No Information 7 William Low. [address] [facility], [address], [place], [place], [id number], [place]. tel:[phone] Referring Provider: Rip Andrea MD, [address] [place] [address], [id number]. tel:[phone] Family History Family Member Type Diagnosis Age At Onset No Information Payers Payer name Insurance type Covered constitution party ID Authoriza tion(s) No Information Social [...]
--- OUTSIDE RECORDS SUMMARY | 2024-04-12 23:02 | XMS_ITS | Patient Health Summary ---
Author Organization [facility] Address [address] [place] [address] Care Team Providers Care Label Pinker Name Role Phone Rip Andrea MD Primary Care Provider + Note from [facility],non-owned Affiliates and Associated Physician Practices is amultiple site organization consisting of ambulatory clinics and hospital sitesin [place], [place], [place] and [place]. This disclosure is being madepursuant to the Care Everywhere program and may not contain all information available regarding this patient. Last updated 17.[facility] Allergies No known active allergies Medications * Be aware that medications may not be up to date on this document. Alwaysverify current medications with the patient. * atorvastatin (LIPITOR) 20 MG tablet(Started 08/11/2017) Take 1 (one) tablet by mouth once daily 2 refills left * metFORMIN (GLUCOPHAGE) 500 MG tablet(Started 08/12/2017) Take 1 (one) tablet by mouth 2 times daily 3 refills left * pantoprazole EC (PROTONIX) 40 MG tablet Take 1 (one) tablet by mouth once daily * enalapril (VASOTEC) 20 MG tablet Take 1 (one) tablet by mouth once daily * sertraline (ZOLOFT) 100 MG tablet Take 1 (one) tablet by mouth once daily * BREZTRI AEROSPHERE 160-9-4.8 MCG/ACT AERO(Started 05/25/2021) Inhale 2 puffs by mouth 2 times daily * Basaglar KwikPen (BASAGLAR) pen(Started 05/15/2021) Inject 80 (eighty) Units subcutaneously at bedtime * traZODone (DESYREL) 100 MG tablet(Started 03/16/2021) Take 1 (one) tablet by mouth once daily * magnesium 250 MG tablet Take 250 mg by mouth once daily * melatonin 10 MG capsule Take 1 (one) capsule by mouth at bedtime * tadalafil (CIALIS) 20 MG tablet(Started 06/18/2021) Take 20 mg by mouth once daily * calcium carbonate (TUMS) 500 MG chew tablet(Started 08/25/2021) Take 1 (one) tablet by mouth every 4 hours as needed * diphenhydrAMINE (BENADRYL ALLERGY) 25 MG capsule(Started 08/25/2021) Take 1 (one) capsule by mouth every 6 hours as needed for Allergies or Insomnia * bisacodyl (DULCOLAX) 10 MG suppository(Started 08/25/2021) Insert 1 (one) suppository into the rectum once daily as needed for Constipation * polyethylene glycol 3350 (MIRALAX) 17 g packet(Started 08/25/2021) Take 17 (seventeen) g by mouth once daily as needed for Constipation * multivitamin daily tablet(Started 08/26/2021) Take 1 (one) tablet by mouth once daily * LORazepam (ATIVAN) 1 MG tablet(Started 09/01/2021) TAKE 1 TABLET BY MOUTH EVERY DAY AT BEDTIME NEEDED FOR SLEEP * KAROL CONTOUR NEXT TEST test strip(Started 07/03/2021) FOR E11.9 TEST BLOOD SUGAR DAILY * hydrOXYzine HCl (ATARAX) 25 MG tablet Take 25 mg by mouth * gabapentin (NEURONTIN) 300 MG capsule(Started 09/10/2021) Take 1 (one) capsule by mouth 3 times daily * oxyCODONE-Acetaminophen (PERCOCET PO) Take 325 mg by mouth once daily * BACLOFEN PO Take 10 mg by mouth 3 times daily * Cyclobenzaprine HCl (FLEXERIL PO) Take 5 mg by mouth 3 times daily * Nerve Stimulator (TENS THERAPY PAIN RELIEF) JANET(Started 10/14/2021) Use 1 device as needed (Apply to posterior spine as needed) * Elastic Bandages & Supports (ADJUSTABLE ARM SLING) MISC(Started 10/14/2021) Use 1 device as needed * gabapentin (NEURONTIN) 300 MG capsule(Started 10/14/2021) Take 1 (one) capsule by mouth 3 times daily 2 refills by 10/14/2022 * oxyCODONE-acetaminophen (PERCOCET) 5-325 MG tablet(Started 10/19/2021) Take 1 (one) tablet by mouth every 8 hours as needed for Pain * Farxiga 10 MG tablet(Started 12/21/2021) Take 1 (one) tablet by mouth once daily * BD Pen Needle Micro U/F 32G X 6 MM MISC(Started 12/22/2021) USE ONE DAILY TO INJECT INSULIN * cyclobenzaprine (Flexeril) 5 MG tablet(Started 02/22/2022) TAKE 1 TABLET BY MOUTH THREE TIMES A DAY NEEDED 1 refill by 02/22/2023 * tiZANidine (Zanaflex) 2 MG capsule(Started 05/03/2022) TAKE 1 CAPSULE BY MOUTH EVERY 8 HOURS NEEDED FOR MUSCLE SPASMS * albuterol HFA (Proventil; Ventolin; Proair) 108 (90 Base) MCG/ACT inhaler (Started 01/29/2023) Inhale 2 (two) puffs by mouth every 6 hours as needed for Shortness of Breath (As needed) * clonazePAM (KlonoPIN) 1 MG tablet(Started 09/15/2023) Take 1 (one) tablet by mouth daily with breakfast * furosemide (Lasix) 40 MG tablet(Started 09/15/2023) Take 1 (one) tablet by mouth every morning * pioglitazone (Actos) 30 MG tablet(Started 08/22/2023) Take 1 (one) tablet by mouth once daily Active Problems Problem Noted Date Diagnosed Date Cervical radiculopathy 07/01/2021 Lumbar radiculopathy 01/16/2018 Cervical myelopathy Immunizations * Covid Pfizer primary monovalent 12+ yr 0.3mL Purple cap(Given 12/19/2020, 06/06/2020, 05/16/2020) * INFLUENZA VACCINE(Given 01/15/2022, 12/19/2020) Social History Tobacco Use Types Packs/Day Years [...] Mass Index 37.86 10/05/2023 10:15 AM CDT Medical Devices Implanted Type Area Shift Mgr Device Identifier Shelf Expiration Date Model / Serial / Lot Stimulan Rapid Cure Implanted:Qty: 1 on 08/21/2021 by Karson Fournier MD at [facility] N/A: Spine Cervical Biocompstes 03/20/2024 [id number] / / [id number] Description:MIXED WITH 500MG VANCOMYCIN POWDER Screw 4.5mm 28mm Ma Spne Bone Implanted:Qty: 3 on 08/21/2021 by Karson Fournier MD at [facility] N/A: Spine Cervical [employer] [id number] / / Dayo Spnl 240mm 3.5mm Std Implanted:Qty: 2 on 08/21/2021 by Karson Fournier MD at [facility] N/A: Spine Cervical [employer] [id number] / / Lev Bone Void 10ml Dbm Grftn Algrf Ptty - [id number] Implanted:Qty: 1 on 08/21/2021 by Karson Fournier MD at [facility] N/A: Spine Cervical [employer] Inc 06/30/2024 [id number] / [id number] / Screw Set M6 Spne Oc Upr Thor Infnt Implanted:Qty: 16 on 08/21/2021 by Karson Fournier MD at [facility] N/A: Spine Cervical Medtronic Sofamor Danek Spine [id number] / / Screw 4mm 26mm Ma Spne Bone Implanted:Qty: 1 on 08/21/2021 by Karson Fournier MD at [facility] N/A: Spine Cervical [employer] [id number] / / Screw 4mm 22mm Ma Spne Bone Implanted:Qty: 1 on 08/21/2021 by Karson Fournier MD at [facility] N/A: Spine Cervical [employer] [id number] / / Screw 3.5mm 16mm Ma Spne Bone Implanted:Qty: 3 on 08/21/2021 by Karson Fournier MD at [facility] N/A: Spine Cervical [employer] [id number] / / Screw 3.5mm 18mm Ma Spne Bone Implanted:Qty: 2 on 08/21/2021 by Karson Fournier MD at [facility] N/A: Spine Cervical [employer] [id number] / / Screw 3.5mm 20mm Ma Spne Bone Implanted:Qty: 3 on 08/21/2021 by Karson Fournier MD at [facility] N/A: Spine Cervical [employer] [id number] / / Screw 3.5mm 22mm Ma Spne Bone Implanted:Qty: 2 on 08/21/2021 by Karson Fournier MD at [facility] N/A: Spine Cervical [employer] [id number] / / Screw 4.5mm 26mm Ma Spne Bone Implanted:Qty: 1 on 08/21/2021 by Karson Fournier MD at [facility] N/A: Spine Cervical [employer] [id number] / / Procedures * XR SKULL TO ANKLE PARUL(Performed 10/05/2023) Performed for Chronic bilateral low back pain without sciatica * XR CERVICAL SPINE 4 OR 5VW(Performed 10/05/2023) Performed for S/P cervical spinal fusion * XR CERVICAL SPINE 2 OR 3VW(Performed 03/31/2022) Performed for Fusion of spine of cervicothoracic region * XR CERVICAL SPINE 2 OR 3VW(Performed 10/14/2021) Performed for S/P cervical spinal fusion * CARDIAC EKG ORDER(Performed 08/28/2021) * GLUCOSE - POINT OF CARE(Performed 08/25/2021) * GLUCOSE - POINT OF CARE(Performed 08/25/2021) * GLUCOSE - POINT OF CARE(Performed 08/24/2021) * GLUCOSE - POINT OF CARE(Performed 08/24/2021) * GLUCOSE - POINT OF CARE(Performed 08/24/2021) * GLUCOSE - POINT OF CARE(Performed 08/24/2021) * PHOSPHORUS BLOOD(Performed 08/24/2021) Performed for Cervical radiculopathy * MAGNESIUM BLOOD(Performed 08/24/2021) Performed for Cervical radiculopathy * CBC W AUTO DIFFERENTIAL(Performed 08/24/2021) Performed for Cervical radiculopathy * BASIC METABOLIC PANEL (CALCIUM TOTAL)(Performed 08/24/2021) Performed for Cervical radiculopathy * GLUCOSE - POINT OF CARE(Performed 08/24/2021) * GLUCOSE - POINT OF CARE(Performed 08/23/2021) * GLUCOSE - POINT OF CARE(Performed 08/23/2021) * GLUCOSE - POINT OF CARE(Performed 08/23/2021) * GLUCOSE - POINT OF CARE(Performed 08/23/2021) * PHOSPHORUS BLOOD(Performed 08/23/2021) Performed for Cervical radiculopathy * MAGNESIUM BLOOD(Performed 08/23/2021) Performed for Cervical radiculopathy * CBC W AUTO DIFFERENTIAL(Performed 08/23/2021) Performed for Cervical radiculopathy * BASIC METABOLIC PANEL (CALCIUM TOTAL)(Performed 08/23/2021) Performed for Cervical radiculopathy * GLUCOSE - POINT OF CARE(Performed 08/23/2021) * GLUCOSE - POINT OF CARE(Performed 08/22/2021) * GLUCOSE - POINT OF CARE(Performed 08/22/2021) * GLUCOSE - POINT OF CARE(Performed 08/22/2021) * XR CERVICAL SPINE 2 OR 3VW(Performed 08/22/2021) Performed for Cervical radiculopathy * GLUCOSE - POINT OF CARE(Performed 08/22/2021) * PHOSPHORUS BLOOD(Performed 08/22/2021) Performed for Cervical radiculopathy * MAGNESIUM BLOOD(Performed 08/22/2021) Performed for Cervical radiculopathy * CBC W AUTO DIFFERENTIAL(Performed 08/22/2021) Performed for Cervical radiculopathy * BASIC METABOLIC PANEL (CALCIUM TOTAL)(Performed 08/22/2021) Performed for Cervical radiculopathy * GLUCOSE - POINT OF CARE(Performed 08/21/2021) * GLUCOSE - POINT OF CARE(Performed 08/21/2021) * FL OARM SURGERY(Performed 08/21/2021) Performed for Cervical radiculopathy * FL KANU SURGERY(Performed 08/21/2021) Performed for Cervical radiculopathy * FUSION POSTERIOR CERVICAL (PCF)(Performed 08/21/2021) Performed for Cervical radiculopathy * PERIPHERAL IV NOTE(Performed 08/21/2021) * ENDOTRACHEAL TUBE NOTE(Performed 08/21/2021) * BLOOD TYPE VERIFICATION(Performed 08/21/2021) * GLUCOSE - POINT OF CARE(Performed 08/21/2021) * TYPE + SCREEN PANEL(Performed 08/21/2021) Performed for Pre-op evaluation * CBC W/O DIFFERENTIAL(Performed 08/19/2021) Performed for Pre-op evaluation * BASIC METABOLIC PANEL (CALCIUM TOTAL)(Performed 08/19/2021) Performed for Pre-op evaluation * EKG 12-LEAD(Performed 08/19/2021) Performed for Pre-op evaluation * XR SKULL TO ANKLE PARUL(Performed 07/01/2021) Performed for Lumbar radiculopathy * XR LUMBAR SPINE 4VW OR MORE(Performed 12/07/2017) Performed for Back pain, unspecified back location, unspecified back pain laterality, unspecified chronicity Results * XR SKULL TO ANKLE PARUL (10/05/2023 11:26 AM CDT) Only the most recent of2 resultswithin the time period is included. Anatomical Region Laterality Modality Radiographic Zenobia ging 10/05/2023 12:4 0 PM CDT Impressions 10/05/2023 12:44 PM CDT IMPRESSION: Instrumented cervicothoracic spinal fusion. Mild thoracolumbar scoliosis. > Interpreting Provider: Logan Porras MD on 10/05/2023 12:44 PM Narrative 10/05/2023 12:44 PM CDT PROCEDURE: ??XR SKULL TO ANKLE PARUL DATE/TIME OF EXAM: ??10/05/2023 11:26 AM CLINICAL INFORMATION: None relevant/not provided if blank. Indication: M54.50: Chronic bilateral low back pain without sciatica G89.29: Chronic bilateral low back pain without sciatica Additional History: COMPARISON: 07/01/2021. TECHNIQUE: FINDINGS: There is dextroscoliosis measuring 12 degrees from the midthoracic to the midlumbar spine. There is posterior instrumented fusion from C2 to T2 with rods and screws. Moderate degenerative changes are present throughout the spine. There is grade 1 anterolisthesis at L5-S1. The visualized skull and lower extremities are unremarkable. A chronic appearing left rib fracture is noted. Procedure Note Logan Porras MD - 10/05/2023 PROCEDURE: XR SKULL TO ANKLE PARUL DATE/TIME OF EXAM: 10/05/2023 11:26 AM CLINICAL INFORMATION: None relevant/not provided if blank. Indication: M54.50: Chronic bilateral low back pain without sciatica G89.29: Chronic bilateral low back pain without sciatica Additional History: COMPARISON: 07/01/2021. TECHNIQUE: FINDINGS: There is dextroscoliosis measuring 12 degrees from the midthoracic tothe midlumbar spine. There is posterior instrumented fusion from C2 to T2with rods and screws. Moderate degenerative changes are present throughoutthe spine. There is grade 1 anterolisthesis at L5-S1. The visualized skulland lower extremities are unremarkable. A chronic appearing left ribfracture is noted. IMPRESSION: Instrumented cervicothoracic spinal fusion. Mild thoracolumbar scoliosis. > Interpreting Provider: Logan Porras MD on 10/05/2023 12:44 PM Karson Fournier MD DIAGNOSTIC IMAGING O RDERABLES * XR CERVICAL SPINE 4 OR 5VW (10/05/2023 9:52 AM CDT) Anatomical Region Laterality Modality Spine Radiographic Zenobia ging 10/05/2023 11:3 6 AM CDT Impressions 10/05/2023 7:05 PM CDT IMPRESSION: 1.Redemonstration of postsurgical changes from posterior decompression and instrumented spinal fusion of C2-T2 with paired rods and associated fixation screws. The hardware is intact and unchanged in alignment compared to prior. 2.Trace retrolisthesis at C3-4, unchanged from prior and without worsening on flexion or extension. Report dictated by Lacho Bill MD (vice president of nursing). IMinh MD have personally reviewed and interpreted this examination/study. > Interpreting Provider: Minh Montes MD on 10/05/2023 7:05 PM Narrative 10/05/2023 7:05 PM CDT PROCEDURE: ??XR CERVICAL SPINE 4 OR 5VW, DATE/TIME OF EXAM: ??10/05/2023 9:53 AM, LOCATION ??[facility] INDICATION: Z98.1: S/P cervical spinal fusion COMPARISON: Cervical spine radiographs 03/31/2022 FINDINGS: There is redemonstration of postsurgical changes from posterior decompression and instrumented spinal fusion of C2-T2 with paired rods and associated fixation screws. The hardware appears intact and unchanged in alignment compared to prior. There is trace retrolisthesis at C3-4, which appears unchanged from prior. No evidence of worsening malalignment with flexion or extension. There is multilevel intervertebral disc space narrowing with associated marginal osteophytic spurring, most prominent at C5-6. No prevertebral soft tissue edema. Prominent calcification in the nuchal ligament. Procedure Note Minh Montes MD - 10/05/2023 PROCEDURE: XR CERVICAL SPINE 4 OR 5VW, DATE/TIME OF EXAM: 49:53 AM, LOCATION [facility] INDICATION: Z98.1: S/P cervical spinal fusion COMPARISON: Cervical spine radiographs 03/31/2022 FINDINGS: There is redemonstration of postsurgical changes from posterior decompression and instrumented spinal fusion of C2-T2 with paired rodsand associated fixation screws. The hardware appears intact and unchanged in alignment compared to prior. There is trace retrolisthesis at C3-4,which appears unchanged from prior. No evidence of worsening malalignment with flexion or extension. There is multilevel intervertebral disc space narrowing with associated marginal osteophytic spurring, most prominentat C5-6. No prevertebral soft tissue edema. Prominent calcification in the nuchal ligament. IMPRESSION: 1.Redemonstration of postsurgical changes from posterior decompressionand instrumented spinal fusion of C2-T2 with paired rods and associated fixation screws. The hardware is intact and unchanged in alignmentcompared to prior. 2.Trace retrolisthesis at C3-4, unchanged from prior and withoutworsening on flexion or extension. Report dictated by Lacho Bill MD (vice president of nursing). IMinh MD have personally reviewed and interpreted this examination/study. > Interpreting Provider: Minh Montes MD on 10/05/2023 7:05 PM Karson Fournier MD DIAGNOSTIC IMAGING O RDERABLES * XR CERVICAL SPINE 2 OR 3VW (03/31/2022 8:52 AM STAFF ATTORNEY) Only the most recent of3 resultswithin the time period is included. Anatomical Region Laterality Modality Spine Radiographic Zenobia ging 03/31/2022 11:0 2 AM STAFF ATTORNEY Impressions 03/31/2022 3:37 PM STAFF ATTORNEY IMPRESSION: 1.Posterior instrumented spinal fusion at C2-T2 levels, unchanged in appearance and alignment. 2.Degenerative disc disease of cervical spine, more prominent at C5-C6 level. Report dictated by Manav Concepcion MD (vice president of nursing). Gilda Livingston MD have personally reviewed and interpreted this examination/study. > Interpreting Provider: Gilda Farmer MD on 03/31/2022 3:37 PM Narrative 03/31/2022 3:37 PM STAFF ATTORNEY PROCEDURE: ??XR CERVICAL SPINE 2 OR 3VW, DATE/TIME OF EXAM: ??03/31/2022 8:53 AM, LOCATION ??[facility] INDICATION: M43.23: Fusion of spine of cervicothoracic region ADDITIONAL CLINICAL INFORMATION: Ordering Provider Reason For Exam: ??C2-T2 PSF COMPARISON: Multiple prior cervical x-rays, with most recent on 10/14/2021. FINDINGS: Again noted, there is posterior instrumented fusion of cervico-thoracic spine at C2-T2 levels, with 2 parallel rods and [address] The surgical hardware appears intact and unchanged in positioning. There is straightening of cervical spine. The vertebral bodies alignment is otherwise unremarkable. No acute fracture or compression deformity is identified. There is moderate decrease in intervertebral disc space at C5-C6 level. The dens is intact and the lateral masses are normally aligned. The predental interval and prevertebral soft tissues are normal. Bone density and texture are normal, other than lack of teeth. Procedure Note Gilda Farmer MD - 03/31/2022 PROCEDURE: XR CERVICAL SPINE 2 OR 3VW, DATE/TIME OF EXAM: 38:53 AM, LOCATION [facility] INDICATION: M43.23: Fusion of spine of cervicothoracic region ADDITIONAL CLINICAL INFORMATION: Ordering Provider Reason For Exam: C2-T2 PSF COMPARISON: Multiple prior cervical x-rays, with most recent on10/14/2021. FINDINGS: Again noted, there is posterior instrumented fusion of cervico-thoracic spine at C2-T2 levels, with 2 parallel rods and 8 [address]. The surgical hardware appears intact and unchanged in positioning. Thereis straightening of cervical spine. The vertebral bodies alignment is otherwise unremarkable. No acute fracture or compression deformity is identified. There is moderate decrease in intervertebral disc space at C5-C6 level. The dens is intact and the lateral masses are normally aligned. The predental interval and prevertebral soft tissues arenormal. Bone density and texture are normal, other than lack of teeth. IMPRESSION: 1.Posterior instrumented spinal fusion at C2-T2 levels, unchanged in appearance and alignment. 2.Degenerative disc disease of cervical spine, more prominent at C5-C6 level. Report dictated by Manav Concepcion MD (vice president of nursing). Gilda Livingston MD have personally reviewed and interpreted this examination/study. > Interpreting Provider: Gilda Farmer MD on 33:37 PM Karson Fournier MD DIAGNOSTIC IMAGING O RDERABLES * CARDIAC EKG ORDER (08/28/2021 1:48 PM CDT) Narrative 08/28/2021 1:48 PM CDT Ordered by an unspecified provider. Scanned Document CARDIAC SERVICES ORD ERABLES * (ABNORMAL) GLUCOSE - POINT OF CARE (08/25/2021 7:51 AM CDT) Only the most recent of19 resultswithin the time period is included. [facility] Glucose WB/POC 180(H) 70 - 115 mg/dL 08/25/2021 7:55 AM CDT [facility] Specimen Type Venous 08/25/2021 7:55 AM [facility] Blood BLOOD SPECIMEN / Unknown 08/25/2021 7:51 AM CDT 08/25/2021 7:55 AM CDT Karson Fournier MD LAB - POINT OF CARE ORDERABLES [address] [id number], [facility] [phone] * (ABNORMAL) CBC W AUTO DIFFERENTIAL (08/24/2021 1:44 AM CDT) Only the most recent of3 resultswithin the time period is included. [facility] WBC 6.2 3.5 - 10.5 10? 3 /uL 08/24/2021 4:05 AM [facility] RBC 4.04(L) 4.30 - 5.70 10? 6 /uL 08/24/2021 4:05 AM [facility] Hemoglobin 9.3(L) 12.0 - 17.6 g/dL 08/24/2021 4:05 AM [facility] Hematocrit 30.7(L) 35.2 - 51.7 % 08/24/2021 4:05 AM [facility] MCV 76.0(L) 80.7 - 98.3 fL 08/24/2021 4:05 AM [facility] MCH 23.0(L) 26.7 - 34.0 pg 08/24/2021 4:05 AM [facility] MCHC 30.3(L) 30.8 - 35.9 g/dL 08/24/2021 4:05 AM [facility] Platelet Count 133(L) 150 - 400 10? 3 /uL 08/24/2021 4:05 AM [facility] RDW-SD 49.4 36.0 - 50.0 fL 08/24/2021 4:05 AM [facility] RDW-CV 18.4(H) 11.2 - 14.8 % 08/24/2021 4:05 AM [facility] MPV 08/24/2021 4:05 AM [facility] Comment:Unable to Report nRBC Absolute 0.00 0 10? 3 /uL 08/24/2021 4:05 AM [facility] nRBC Auto 0.0 0 /100 WBC 08/24/2021 4:05 AM [facility] Neutrophils % 71.2(H) 35.0 - 70.0 % 08/24/2021 4:05 AM [facility] Lymphocytes % 18.0(L) 20.0 - 43.0 % 08/24/2021 4:05 AM [facility] Monocytes % 8.5 5.0 - 13.0 % 08/24/2021 4:05 AM [facility] Eosinophils % 0.7 0.0 - 6.0 % 08/24/2021 4:05 AM [facility] Basophil % 0.5 0.0 - 2.0 % 08/24/2021 4:05 AM [facility] Neutrophils Absolute 4.4 1.6 - 7.0 10? 3 /uL 08/24/2021 4:05 AM [facility] Lymphocyte Absolute 1.1 1.1 - 3.9 10? 3 /uL 08/24/2021 4:05 AM [facility] Monocytes Absolute 0.52 0.26 - 1.07 10? 3 /uL 08/24/2021 4:05 AM [facility] Eosinophils Absolute 0.04 0.00 - 0.47 10? 3 /uL 08/24/2021 4:05 AM [facility] Basophils Absolute 0.03 0.00 - 0.08 10? 3 /uL 08/24/2021 4:05 AM [facility] Immature Granulocytes % 1.1(H) 0.0 - 1.0 % 08/24/2021 4:05 AM [facility] Immature Granulocytes Absolute 0.07 08/24/2021 4:05 AM [facility] Immature Platelet Fraction 4.1 1.1 - 6.2 % 08/24/2021 4:05 AM [facility] Blood BLOOD SPECIMEN / Unknown Lab Venipuncture / Unknown 08/24/2021 1:44 AM CDT 08/24/2021 3:40 AM CDT Karson Fournier MD LAB - HEMATOLOGY ORD ERABLES [facility] [address] [place] [id number], [facility] [phone] * (ABNORMAL) BASIC METABOLIC PANEL (CALCIUM TOTAL) (08/24/2021 1:44 AM CDT) Only the most recent of4 resultswithin the time period is included. BUN 12 7 - 26 mg/dL 08/24/2021 4:14 AM [facility] Creatinine 0.87 0.71 - 1.16 mg/dL 08/24/2021 4:14 AM [facility] Sodium 139 136 - 145 mmol/L 08/24/2021 4:14 AM [facility] Potassium 3.7 3.5 - 4.5 mmol/L 08/24/2021 4:14 AM [facility] Chloride 107 98 - 107 mmol/L 08/24/2021 4:14 AM [facility] CO2 24 22 - 29 mmol/L 08/24/2021 4:14 AM [facility] Glucose 161(H) 70 - 115 mg/dL 08/24/2021 4:14 AM [facility] Calcium 8.5 8.4 - 10.2 mg/dL 08/24/2021 4:14 AM [facility] Anion Gap 12 8 - 18 08/24/2021 4:14 AM [facility] BUN/Creatinine Ratio 14 7 - 23 08/24/2021 4:14 AM [facility] Osmolality Calculated 291 270 - 300 mOsm/kg 08/24/2021 4:14 AM [facility] eGFR by CKD-EPI >90 >=90 mL/min/1.7 3 m2 08/24/2021 4:14 AM [facility] Blood BLOOD SPECIMEN / Unknown Lab Venipuncture / Unknown 08/24/2021 1:44 AM CDT 08/24/2021 3:40 AM CDT Karson Fournier MD LAB - CHEMISTRY GALI SAAVEDRA [facility] [address] [place] [phone], [facility] [phone] * (ABNORMAL) PHOSPHORUS BLOOD (08/24/2021 1:44 AM CDT) Only the most recent of3 resultswithin the time period is included. Phosphorus 2.5(L) 2.8 - 5.1 mg/dL 08/24/2021 4:13 AM T [facility] Blood BLOOD SPECIMEN / Unknown Lab Venipuncture / Unknown 08/24/2021 1:44 AM CDT 08/24/2021 3:40 AM CDT Karson Fournier MD LAB - CHEMISTRY GALI SAAVEDRA [facility] [address] [place] [phone], [facility] [phone] * MAGNESIUM BLOOD (08/24/2021 1:44 AM CDT) Only the most recent of3 resultswithin the time period is included. Magnesium 1.8 1.6 - 2.6 mg/dL 08/24/2021 4:14 AM CDT [facility] Blood BLOOD SPECIMEN / Unknown Lab Venipuncture / Unknown 08/24/2021 1:44 AM CDT 08/24/2021 3:40 AM CDT Karson Fournier MD LAB - CHEMISTRY GALI SAAVEDRA Performing Organization Address [facility] Co de Phone Number [facility] [address] [place] [address], [facility] [phone] * FL OARM SURGERY (08/21/2021 11:48 AM CDT) Narrative [facility] - 08/21/2021 11:49 AM CDT Fluoroscopy was used for this exam in the OR. Please see the Operative report. Karson Fournier MD FLUOROSCOPY ORDERABL ES Performing Organization Address [facility] Co de Phone Number [facility] * FL KANU SURGERY (08/21/2021 11:48 AM CDT) Narrative [facility] - 08/21/2021 11:48 AM CDT Fluoroscopy was used for this exam in the OR. Please see the Operative report. Karson Fournier MD FLUOROSCOPY ORDERABL ES Performing Organization Address [facility] Co de Phone Number [facility] * IV PLACEMENT PERFORMABLE (08/21/2021 8:47 AM CDT) Narrative Jaylen Vargas Anes Asst - 08/21/2021 8:47 AM CDT Jaylen Vargas Anes Asst ? 08/21/2021 ??8:47 AM Peripheral IV Line Placement: Patient Location: ??OR Procedure: IV start ([id number]). Procedure Section: ?? Skin Prep: Chloraprep. Orientation: left Location: antecubital Catheter Gauge: 18 Number of Attempts: 1. Adjuncts: backlight Procedure Tolerance: performed while patient under general anesthesia. Procedure Start Time: 08/21/2021 7:50 AM. Procedure End Time: 08/21/2021 7:50 AM. Procedure Total Time: 0 ??minutes. Staff Section ? Anesthesia Provider: Jaylen Vargas Anes Asst, Performed the procedure Michael Bernard II, DO GENERAL ANESTH ESIA ORDERABLES * ETT LINE PERFORMABLE (08/21/2021 8:10 AM CDT) Narrative Jaylen Vargas Anes Asst - 08/21/2021 8:10 AM CDT Jaylen Vargas Anes Asst ? 08/21/2021 ??8:13 AM Endotracheal Tube Placement: ? Patient Location: OR. Intubation Event Date/Time: ??08/21/2021 7:47 AM Procedure: intubation ([id number]). Procedure Section: ?? Sedation: under general anesthesia. Indications for Airway Management: ??anesthesia Procedure pretreatments used? ??No Induction: standard IV Patient Position: ??supine Mask Ventilation: difficult and required 2 people (2 handed). Blade Type: Adelita Blade Size: 3 Laryngoscopy View: grade 1 (full cords) Tube: endotracheal tube Placement: oral Tube type: cuff - inflated Tube Size (MM): 8 Depth of Insertion (CM): 22.5 Measured From: gums Cuff Inflated With: air Number of Attempts: 1. Placement Verified By: direct visualization CXR Findings: ETT in proper place. Tube secured with: ??ETT sol and adhesive tape. Dentition unchanged? ??Yes Difficult Airway? ??No. Procedure Start Time: 08/21/2021 7:47 AM. Procedure End Time: 08/21/2021 7:47 AM. Procedure Total Time: 0 ??minutes. Staff Section ? Anesthesia Provider: Jaylen Vargas Anes Asst, Performed the procedure Michael Bernard II, DO GENERAL ANESTH ESIA ORDERABLES * BLOOD TYPE VERIFICATION (08/21/2021 6:24 AM CDT) ABO Rh B NEG 08/21/2021 7:2 1 AM CDT [facility] Blood Bank BLOOD SPECIMEN / Unknown Venipuncture / Unknown 08/21/2021 6:24 AM CDT 08/21/2021 6:38 AM CDT Karson Fournier MD LAB - BLOOD BANK ORD ERABLES [facility] [address] [place] [address], [facility] [phone] * TYPE + SCREEN PANEL (08/21/2021 6:02 AM CDT) Antibody Screen NEG 7:01 AM CDT [facility] ABO Rh B NEG 08/21/2021 7:01 AM CDT [facility] Blood Bank BLOOD SPECIMEN / Unknown Venipuncture / Unknown 08/21/2021 6:02 AM CDT 08/21/2021 6:08 AM CDT Suzy Mathias HOUSE PRINCIPAL-RISK ASSESSMENT ANALYST LAB - BLO OD BANK ORDERABLES Performing Organization Address [facility]/ZIP Co de Phone Number [facility] [address] [place] [address], [facility] [phone] * (ABNORMAL) CBC W/O DIFFERENTIAL (08/19/2021 4:15 PM CDT) WBC 7.9 3.5 - 10.5 10? 3 /uL 08/19/2021 5:29 PM CDT [facility] RBC 5.34 4.30 - 5.70 10? 6 /uL 08/19/2021 5:29 PM [facility] Hemoglobin 12.1 12.0 - 17.6 g/dL 08/19/2021 5:29 PM T [facility] Hematocrit 40.0 35.2 - 51.7 % 08/19/2021 5:29 PM T [facility] MCV 74.9(L) 80.7 - 98.3 fL 08/19/2021 5:29 PM T [facility] MCH 22.7(L) 26.7 - 34.0 pg 08/19/2021 5:29 PM [facility] MCHC 30.3(L) 30.8 - 35.9 g/dL 08/19/2021 5:29 PM T [facility] Platelet Count 180 150 - 400 10? 3 /uL 08/19/2021 5:29 PM CDT [facility] RDW-SD 46.6 36.0 - 50.0 fL 08/19/2021 5:29 PM CDT [facility] RDW-CV 18.9(H) 11.2 - 14.8 % 08/19/2021 5:29 PM CDT [facility] MPV 11.5 9.4 - 12.9 fL 08/19/2021 5:29 PM CDT [facility] nRBC Absolute 0.00 0 10? 3 /uL 08/19/2021 5:29 PM CDT [facility] nRBC Auto 0.0 0 /100 WBC 08/19/2021 5:29 PM CDT [facility] Blood BLOOD SPECIMEN / Unknown Lab Venipuncture / Unknown 08/19/2021 4:15 PM CDT 08/19/2021 5:07 PM CDT Suzy Mathias HOUSE PRINCIPAL-RISK ASSESSMENT ANALYST LAB - HEM ATOLOGY ORDERABLES Performing Organization Address City/State/[facility] Co de Phone Number [facility] [address] [place] [phone], [facility] [phone] * EKG 12-LEAD (08/19/2021 3:38 PM CDT) Ventricular Rate 79 BPM [facility] MUSE Atrial Rate 79 BPM [facility] P-R Interval 226 ms [facility] QRS Duration ms 90 ms [facility] Q-T Interval ms 368 ms [facility] QTC Calculation (Bezet) 421 ms [facility] Calculated P [place] 31 degrees [facility] Calculated R [place] 79 degrees [facility] Calculated T [place] 63 degrees [facility] Interpretation EKG SINUS RHYTHM WITH 1ST DEGREE A-V BLOCK POSSIBLE SEPTAL INFARCT , AGE UNDETERMINED ABNORMAL ECG NO PREVIOUS ECGS AVAILABLE Confirmed by fellow CORAZON DAMON MD ([id number]) on 08/20/2021 11:30:48 AM Confirmed by Koby Hernandez ([id number]) on 08/21/2021 8:40:38 AM [facility] 08/19/2021 3:38 PM CDT 08/21/2021 8:40 AM CDT Suzy Mathias HOUSE PRINCIPAL-RISK ASSESSMENT ANALYST ECG ORDER [facility]USE * XR LUMBAR SPINE 4VW OR MORE (12/07/2017 7:29 AM CDT) Anatomical Region Laterality Modality Spine Radiographic Zenobia ging 12/07/2017 8:28 AM CDT Impressions 12/07/2017 1:31 PM CDT IMPRESSION: Grade 1 anterolisthesis of L5 on S1 with mild anterior subluxation on flexion and reduction to neutral on extension. 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 Dictated by Gabe Lazar DO (vice president of nursing). This report was approved ??by Gabe Lazar ?? on 12/07/2017 10:40 AM . I, Dr. Dr. LUIS ANGEL CASAREZ MD have personally reviewed and interpreted this examination/study. This report was electronically signed by Dr. LUIS ANGEL CASAREZ MD ??on 12/07/2017 1:31 PM . Narrative 12/07/2017 1:31 PM CDT EXAMINATION: XR LUMBAR SPINE 4VW OR MORE HISTORY: Back pain COMPARISON: No prior study is available for comparison. FINDINGS: There is grade 1 anterolisthesis of L5 on S1. There is mild anterior subluxation of L5 on S1 on flexion with return to neutral at extension. There is no fracture or compression deformity. There is mild intervertebral disc disease at L4-5. Moderate facet osteoarthritis is present in the lower lumbar spine. The sacroiliac joints are normal. Procedure Note Luis Angel Casarez MD - 12/07/2017 EXAMINATION: XR LUMBAR SPINE 4VW OR MORE HISTORY: Back pain COMPARISON: No prior study is available for comparison. FINDINGS: There is grade 1 anterolisthesis of L5 on S1. There is mild anterior subluxation of L5 on S1 on flexion with return to neutral at extension. There is no fracture or compression deformity. There is mild intervertebral disc disease at L4-5. Moderate facet osteoarthritis is present in the lower lumbar spine. The sacroiliac joints are normal. IMPRESSION: Grade 1 anterolisthesis of L5 on S1 with mild anterior subluxation on flexion and reduction to neutral on extension. 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 Dictated by Gabe Laazr DO (vice president of nursing). This report was approved by Gabe Lazar on 12/07/2017 10:40 AM . I, Dr. Dr. LUIS ANGEL CASAREZ MD have personally reviewed and interpretedthis examination/study. This report was electronically signed by Dr. LUIS ANGEL CASAREZ MD on 12/07/2017 1:31 PM . Carina Montanez PA-C DIAGNOSTIC ZENOBIA GING ORDERABLES Care Teams Label Pinker Relationship Specialty Start Date End Date Rip Andrea MD [address] [address] PCP - General 08/22/17
== END 2024-04-11 10:03 | disposition home or self-care (01) ==
PROVIDERS: PCP Family Medicine Adolescent Medicine; Visit Provider Nurse Practitioner Family
DX: R06.09 Other forms of dyspnea (principal)
CPT/HCPCS: 71046

== ENCOUNTER 2024-06-18 09:00 | Inpatient (IN) | payer MEDICARE, SELFPAY ==
[2024-06-18] VITALS (37 sets, daily range): BP systolic 122–150; BP diastolic 41–75; PULSE 71–102; RESP 15–32; TEMP 36.4–36.9; O2SAT 91–100; BMI 38.7
--- NOTE | ~2024-06-18 | CT_ITS ---
EXAMINATION: CT abdomen pelvis w con DATE: 06/18/2024 15:59 INDICATION: Anemia. TECHNIQUE: Computed tomography (CT) of the abdomen and pelvis was performed with 100 mL Omnipaque 350 intravenous contrast. Automated exposure control and iterative reconstruction technique were employe d. The dose-length product was 1457.55 mGy-cm. COMPARISON: Chest CT 09/29/2023 FINDINGS: The visualized portions of lung bases demonstrate septal thickening, consistent mild pulmon nova edema. There is a small right pleural effusion. Cardiomegaly is noted. There are coronary artery calcifications. There is a small pericardial effusion. The liver and gallbladder are normal. There is mild splenomegaly, which may be secondary to obesity. Calcifications in the spleen are consistent wi th old granulomatous disease. The pancreas, adrenal glands, and kidneys are normal. There is diffuse bladder wall thickening, likely secondary to chronic outlet obstruction from the mildly enlarged pros saul. There is a right inguinal hernia containing fat. There is diverticulosis of the colon without e vidence of diverticulitis. There are no dilated loops of bowel. The appendix is normal. There are no pathologically enlarged lymph nodes. There is a moderate volume of ascites. Body wall edema is noted. There are old left-sided rib fractures. There is severe lumbar spondylosis. IMPRESSION: 1. Mild pulmonary edema. 2. Small right pleural effusion. 3. Small pericardial effusion. 4. Moderate volume of ascites. Reviewed, dictated and finalized at location A.
--- NOTE | ~2024-06-18 | US_ITS ---
EXAMINATION: US paracentesis abd w/image DATE: 06/20/2024 15:56 INDICATION: Ascites. TECHNIQUE: The procedure and its risks and benefits were discussed with the patient. Potential risks discussed included bleeding and infection. The skin was prepped and draped in sterile fashion. 1% lid ocaine was used for local anesthesia. Under ultrasound guidance, a 5 Fr catheter with trochar was adv anced into the ascites in the lateral mid right abdomen. Fluid was aspirated into vacuum bottles. The catheter was removed, and a dressing was applied. There were no immediate complications. FINDINGS: Ultrasound images demonstrate ascites and the catheter within the fluid. IMPRESSION: 1. Successful ultrasound-guided paracentesis yielding 1000 mL of yellow fluid. Reviewed, dictated and finalized at location A.
--- OUTSIDE RECORDS SUMMARY | 2024-06-18 09:35 | XMS_ITS | Continuity of Care Document ---
Author Organization [facility] Address [address] [place] [address] [facility] [address] [place] [address] Phone Care Team Providers Care Bale Breaker Operator Name Role Phone Brandon Vergara Unavailable Unavailable Procedures Procedure Date Office/outpatient Visit, Est Office/outpatient Visit, Est Eye Exam & Treatment Advance Directives Directive Yes / No Effective Date File Name No Information Encounters Encounter Description Practice Location Reason(s) For Visit Diagnoses Date Provider Providers Copied on Encounter Office/outpat ient Visit, [facility], [address] [place] [address] [address], [place], [place], [id number], tel:[phone] [facility] No Information [address] [place] [address], [facility], [place]. tel:[phone] Referring Provider: Rip Andrea MD, [address] [place] [address], [address]. tel:[phone] Office/outpat ient Visit, [facility], [address] [place] [address] [address], [place], [place], [id number], tel:[phone] [facility] No Information [address] [place] [address], [facility], [place]. tel:[phone] Referring Provider: Rip Andrea MD, [address] [place] [address], [address]. tel:[phone] [facility], [address], [place], [place], [id number], [place] tel:[phone] [facility] No Information [address]. [address] [facility], [address], [place], [place], [id number], [place]. tel:[phone] Referring Provider: Rip Andrea MD, [address] [place] [address], [address]. tel:[phone] Family History Family Member Type Diagnosis Age [...]
--- OUTSIDE RECORDS SUMMARY | 2024-06-18 09:35 | XMS_ITS | Clinical Summary ---
Author Organization [facility] Address [address], [address] [address] Phone Care Team Providers Care Retail Merchandising Manager Name Role Phone Rip Andrea MD Primary [...] patient's age to complete this topic Insurance [facility] Care Teams Retail Merchandising Manager Relationship Specialty Start Date End Date Rip Andrea MD [address] [place] [address] PCP - General Family Medicine 04/13/17
--- OUTSIDE RECORDS SUMMARY | 2024-06-18 09:35 | XMS_ITS | Encounter Summary ---
Author Organization [facility] Address [address] [facility] [place] [address] Care Team Providers Care Weaving Supervisor Name Role Phone Rip Andrea MD Primary Care Provider + Reason for Visit * Reason Comments Refill Request Encounter Details Date Type Department Care Team (Late st Contact Info) Description 10/07/2021 Refill [facility] Neurosurgery [address] [place] [address] Rachael Blancas, ERP PROJECT MANAGER-LAY MIDWIFE [address] [address] Refill Request Social History Tobacco Use Types [...] on filedocumented in this encounter Care Teams Weaving Supervisor Relationship Specialty Start Date End Date Rip Andrea MD [address] [address] PCP - General 08/22/17 documented as of this encounter
--- OUTSIDE RECORDS SUMMARY | 2024-06-18 09:35 | XMS_ITS | Clinical Summary ---
Author Organization [facility] Address [address] [place] [address] Care Team Providers Care Sales Mgr Name Role Phone Rip Andrea MD Primary Care Provider + Source Comments [facility],non-owned Affiliates and Associated Physician Practices is amultiple site organization consisting of ambulatory clinics and hospital sitesin [place], [place], [place] and [place]. This disclosure is being madepursuant to the Care Everywhere program and may not contain all information available regarding this patient. Last updated 17.[facility] Allergies No known active allergies Medications * [...] AT BEDTIME NEEDED FOR SLEEP 2 Active [employer] CONTOUR NEXT TEST test strip FOR E11.9 [...] 93 10/05/2023 10:15 AM CDT Temperature 36.6 C (97.9 F) 10/05/2023 10:15 AM CDT Respiratory Rate 18 10/14/2021 9:54 [...] 01/15/2022, 2020 DEPRESSION SCREENING 03/21/2024 MEDICARE AWV CALENDAR YEAR 2024 SCREENING FOR DIABETES 08/25/2024 [...] complete this topic MENINGOCOCCAL (Group B) VACCINE SHARED DECISION-MAKING Aged Out No longer eligible based on patient's age to complete this topic MENINGOCOCCAL GROUPS A/C/Y/W VACCINE Aged Out No longer eligible based on patient's age to complete this topic Medical Devices Implanted Type Area Dye Feeder Device Identifier Shelf Expiration Date Model / Serial / Lot Stimulan Rapid Cure Implanted:Qty: 1 on 08/21/2021 by Karson Fournier MD at [facility] N/A: Spine Cervical Biocompstes 03/20/2024 [id number] / / [id number] Description:MIXED WITH 500MG VANCOMYCIN POWDER Screw 4.5mm 28mm Ma Spne Bone Implanted:Qty: 3 on 08/21/2021 by Karson Fournier MD at [facility] N/A: Spine Cervical [employer] [id number] / / Dayo Spnl 240mm 3.5mm Std Implanted:Qty: 2 on 08/21/2021 by Karson Fournier MD at [facility] N/A: Spine Cervical [employer] [id number] / / Lev Bone Void 10ml Dbm Grftn Algrf Ptty - [id number] Implanted:Qty: 1 on 08/21/2021 by Karson Fournier MD at [facility] N/A: Spine Cervical [employer] Inc 06/30/2024 [id number] / [id number] / Screw Set M6 Spne Oc Upr Thor Infnt Implanted:Qty: 16 on 08/21/2021 by Karson Fournier MD at [facility] N/A: Spine Cervical Medtronic Sofamor Danek Spine [id number] / / Screw 4mm 26mm Ma Spne Bone Implanted:Qty: 1 on 08/21/2021 by Karson Fournier MD at [facility] N/A: Spine Cervical [employer] Inc [id number] / / Screw 4mm 22mm Ma Spne Bone Implanted:Qty: 1 on 08/21/2021 by Karson Fournier MD at [facility] N/A: Spine Cervical [employer] Inc [id number] / / Screw 3.5mm 16mm Ma Spne Bone Implanted:Qty: 3 on 08/21/2021 by Karson Fournier MD at [facility] N/A: Spine Cervical [employer] Inc [id number] / / Screw 3.5mm 18mm Ma Spne Bone Implanted:Qty: 2 on 08/21/2021 by Karson Fournier MD at [facility] N/A: Spine Cervical [employer] Inc [id number] / / Screw 3.5mm 20mm Ma Spne Bone Implanted:Qty: 3 on 08/21/2021 by Karson Fournier MD at [facility] N/A: Spine Cervical [employer] Inc [id number] / / Screw 3.5mm 22mm Ma Spne Bone Implanted:Qty: 2 on 08/21/2021 by Karson Fournier MD at [facility] N/A: Spine Cervical [employer] Inc [id number] / / Screw 4.5mm 26mm Ma Spne Bone Implanted:Qty: 1 on 08/21/2021 by Karson Fournier MD at [facility] N/A: Spine Cervical [employer] Inc [id number] / / Procedures Procedure Name Priority Date/Time Associated Diagnosis Comments GLUCOSE - POINT OF CARE Routine 08/25/2021 1:56 AM CDT from Last 3 Months or Most Recently Relevant to Health Maintenance Results * (ABNORMAL) GLUCOSE - POINT OF CARE (08/25/2021 1:56 AM CDT) [facility] Glucose WB/POC 209(H) 70 - 115 mg/dL 08/25/2021 2:00 AM CDT [facility] Specimen Type Cap Fingerstick 2021 2:00 AM CDT [facility] Blood BLOOD SPECIMEN / Unknown 08/25/2021 1:56 AM CDT 08/25/2021 2:00 AM CDT Karson Fournier MD LAB - POINT OF CARE ORDERABLES Performing Organization Address [facility]/State/ZIP Co de Phone Number [facility] [address] [place] [phone], [facility] [phone] from Last 3 Months or Most Recently Relevant to Health Maintenance Advance Directives * Full Code (Latest Code Status on File) Date Activated Date Inactivated Comments 08/21/2021 12:41 PM 08/25/2021 2:23 PM Care Teams Sales Mgr Relationship Specialty Start Date End Date Rip Andrea MD [address] [place] [address] PCP - General 08/22/17
--- OUTSIDE RECORDS SUMMARY | 2024-06-18 09:35 | XMS_ITS | Clinical Summary ---
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 Not on file Not on f ile Not on file Last Filed Vital Signs Vital Sign Reading Time Taken Comments Blood Pressure 132/61 02/23/2018 11:28 AM SANITARY INSPECTOR Pulse 80 02/23/2018 11:23 AM SANITARY INSPECTOR Temperature 36.8 C (98.2 F) 02/23/2018 10:49 AM SANITARY INSPECTOR Respiratory Rate 18 02/23/2018 11:2 3 AM SANITARY INSPECTOR Oxygen Saturation 95% 02/23/2018 11: 23 AM SANITARY INSPECTOR Inhaled Oxygen Concentration - - Weight 113.9 kg (251 lb 3.2 oz) 018 10:49 AM SANITARY INSPECTOR Height 175.3 cm (5' 9 ) 02/23/2018 10:4 9 AM SANITARY INSPECTOR Body Mass Index 37.1 02/23/2018 10:49 AM SANITARY INSPECTOR Plan of Treatment Health Maintenance Due Date Last Done Comments Colorectal Cancer Screening Colonoscopy (10 Years) 1955 Hepatitis C 09/05/1973 DTaP, Tdap and Td Vaccines ( 1 - Tdap) 09/05/1974 Zoster Vaccines (1 of 2) 09/05/2005 Pneumococcal Vaccine: 65+ Ye ars (1 of 1 - PCV) 09/05/2020 COVID-19 Vaccine ( - 2023-2 5 season) 2023 RSV Immunization or 60+ Years (1 - 1-dose 75+ series) 09/05/2030 Meningococcal B Vaccine Aged Out No l onger eligible based on patient's age to complete this topic Meningococcal Vaccine Aged Out No candis rosemary eligible based on patient's age to complete this topic RSV Immunizations Under 20 Months Aged Out No longer eligible based on patient's age to complete this topic Insurance Care Teams Medical Administrator Relationship Specialty Start Date End Date Rip Andrea MD [address] [address] PCP - General FAMILY PRACTICE 01/16/18
--- OUTSIDE RECORDS SUMMARY | 2024-06-18 09:35 | XMS_ITS | Encounter Summary ---
Author Organization [facility] Address [address] [place] [address] Care Team Providers Care Manager Public Name Role Phone Rip Andrea MD Primary Care Provider + Reason for Visit * Reason Comments Refill Request Encounter Details Date Type Department Care Team (Late st Contact Info) Description 10/03/2021 Refill [facility] Neurosurgery [address] [place] [address] Rachael Blancas, RHEUMATOLOGIST-GROUP HOME PARAPROFESSIONAL [address] [address] Refill Request Social History Tobacco Use Types [...] on filedocumented in this encounter Care Teams Manager Public Relationship Specialty Start Date End Date Rip Andrea MD [address] [address] PCP - General 08/22/17 documented as of this encounter
--- NOTE | 2024-06-18 10:40 | ECG_ITS ---
Test Date: 2024-06-18 10:54:45 Measurements Intervals [place] Rate: 82 P: 144 MT: 177 QRS: 82 QRSD: 93 T: 22 QT: 369 QTc: 433 Interpretive Statements SINUS RHYTHM POSSIBLE INFERIOR MYOCARDIAL INFARCTION , PROBABLY OLD [30 ms Q WAVE IN II/aVF] NONSPECIFIC T-WAVE ABNORMALITY ABNORMAL ECG No previous ECG available for comparison Electronically Signed On 06-18-2024 14:03:54 CDT by Jaylen Perez M.D.
[2024-06-18 11:01] LABS: Basophils Percent Auto 0.5 % (0.2-1.2); Eosinophils Absolute Auto 0.1 K/mm3 (0-0.3); Eosinophils Percent Auto 0.6 % (0-4.4); Immature Granulocyte Absolute 0.05 K/mm3 (0.00-0.031); Immature Granulocyte Percent A 0.6 % (0-0.5); Lymphocytes Absolute Auto 0.59 K/mm3 (0.9-3.2); Lymphocytes Percent Auto 6.9 % (18.3-44.2); Mean Corpuscular HGB Conc 26.4 g/dl (32-36); Mean Corpuscular Hemoglobin 19.8 pg (26-34); Mean Corpuscular Volume 74.9 fl (80-100); Monocytes Absolute Auto 0.4 K/mm3 (0.1-0.6); Monocytes Percent Auto 4.7 % (2.6-8.5); Neutrophils Absolute Auto 7.4 K/mm3 (1.3-6.7); Neutrophils Percent Auto 86.7 % (45.5-73.1); Platelet Count Result 145 k/mm3 (150-375); Red Blood Count 2.63 M/mm3 (4.6-6.20); White Blood Count 8.6 K/mm3 (4.5-10.0)
[2024-06-18 11:12] LABS: INR 1.3; Partial Thromboplastin Time 31.6 Seconds (22.3-36.8); Prothrombin Time 16.4 Seconds (11.1-14.7)
[2024-06-18 11:28] LABS: Alanine Aminotransferase 15 U/L (6-50); Albumin Level 4.2 g/dL (3.5-5.1); Alkaline Phosphatase 70 U/L (38-126); Anion Gap 13 mmol/L (4-12); Aspartate Amino Transferase 20 U/L (17-59); Bilirubin,Total 1.1 mg/dL (0.2-1.3); Blood Urea Nitrogen 31 mg/dL (9-20); Calcium 8.7 mg/dL (8.4-10.2); Carbon Dioxide 21 mmol/L (22-30); Chloride 106 mmol/L (98-107); Estimated CRCL calculation 69 ml/min; Estimated Glomerular Filt Rate > 60; Glucose 125 mg/dL (65-110); Potassium 3.8 mmol/L (3.4-5.0); Sodium 140 mmol/L (137-145)
[2024-06-18 11:29] LABS: Hematocrit 19.7 % (42.0-52.0); Hemoglobin 5.2 g/dL (14.0-18.0)
[2024-06-18 11:34] LABS: Hypochromasia 2+; Microcytosis 1+ (NORMAL); Platelet Estimate Adequate (Adequate); Schistocytes None Seen
[2024-06-18 11:35] LABS: Anisocytosis 2+
--- NOTE | 2024-06-18 11:58 | ED.RECABL ---
HPI - Recheck/Abnormal Lab/Rx General Chief Complaint: Recheck/Abnormal Lab/Rx Stated Complaint: need a blood transfusion Time Seen by Provider: 06/18/24 11:07 Source: patient and family () Mode of arrival: ambulatory Limitations: no limitations History of Present Illness HPI narrative: Patient presents with reportedly needing a blood transfusion. Saw his PCP Dr Lunsford and had routine labs drawn 3 days ago. Told low Hgb. Has been short of breath and had previously seen cardiology and pulmonology for this. He is on a multivitamin, doesn't know if/how much iron it contains. Not taking Pepto Bismol. History of COPD. Has been dizzy and lightheaded and has been feeling very tired. Has never required blood transfusion before .Denies any obvious blood loss - no hematuria, hematochezia, melena, BRBPR or other obvious GIB, no hematemesis or hemoptysis. No prior GIB. No trauma/injury. Denies abdominal pain, fevers. Has been having chills. No night sweats. Last colonoscopy was approximately 5 years ago. Not on anticoagulation, steroids, or NSAIDs, only aspirin. Takes Tylenol for aches/pains/fevers when they occur. Related Data Home Medications ?Medication ?Instructions ?Recorded ?Confirmed ?Last Taken ?Type albuterol sulfate 2.5 mg/3 mL 2.5 mg inhalation Q4H PRN 01/10/23 06/18/24 Unknown History (0.083 %) solution for nebulization shortness of breath or wheezing aspirin 81 mg tablet,delayed 81 mg PO DAILY 09/23/23 06/18/24 06/17/24 21:49 History release (Adult Low Dose Aspirin) enalapril maleate 20 mg tablet 10 mg PO DAILY 06/18/24 06/18/24 06/18/24 20:00 History furosemide 40 mg tablet 40 mg PO BID 06/18/24 06/18/24 06/18/24 20:00 History Allergies Allergy/AdvReac Type Severity Reaction Status Date / Time fluticasone furoate (From AdvReac Intermediate Other Verified 06/18/24 11:00 Trelegy Ellipta) umeclidinium (From Trelegy AdvReac Intermediate Other Verified 06/18/24 11:00 Ellipta) vilanterol (From Trelegy AdvReac Intermediate Other Verified 06/18/24 11:00 Ellipta) [facility] Past Medical History Medical History (Updated 06/19/24 @ 06:08 by Mary Manley DO) Moderate pulmonary hypertension RVSP of 53 on echocardiogram 10/2023 Diastolic dysfunction (04/2022) Echocardiogram October 2023: EF greater than 70, mild concentric increased left ventricular wall thickness, abnormal diastolic dysfunction, E/E mildly elevated 13, moderate biatrial enlargement, trace aortic valve regurgitation, mild mitral valve regurgitation, trace tricuspid regurgitation, moderate pulmonary hypertension with RVSP of 53 Erectile dysfunction Hypertension Chronic low back pain Long-term use of aspirin therapy Hepatic steatosis Generalized anxiety disorder Insomnia Obstructive sleep apnea on CPAP Testicular hypofunction GERD (gastroesophageal reflux disease) Mixed hyperlipidemia History of colon polyps COPD (chronic obstructive pulmonary disease) Surgical History Surgical History H/O colonoscopy ~2019 History of fusion of cervical spine (08/2021) C2-T2 History of carpal tunnel surgery 2001 History of vasectomy 2001 Family History Family History Father Lung cancer Hypertension Mother Diabetes mellitus Heart disease Sibling Lung cancer Other Alcoholism Grandparent Alcoholism Grandparent FHx: kidney cancer Other Family history of malignant neoplasm Social History Social History (Updated 06/19/24 @ 05:37 by Mary Manley DO) Social History: Patient lives with his 31 years, Abbey. He had 3 children 1 of which in a car accident. He still has 1 living son and 1 daughter. He used to smoke up to 3 packs of cigarettes per day but quit in 2017. He used to drink alcohol on the weekends somewhat in moderation to sometimes heavy but quit drinking about 20 years ago. He denies illicit substance use. He used to work for the [employer]. Code status: Full code Surrogate decision maker: Abbey () Smoking packs per day: 3 Smoking cigarettes per day: 60.0 Years smoked: 50 Smoking pack-years: 150.00 Smoking status: Former smoker Tobacco type: cigarettes Second hand tobacco smoke exposure: Yes Smoking end date: 03/21/17 Alcohol intake: former Alcohol use details: Rarely Substance use: never Substance use type: does not use Do You Feel Safe in your Home?: Yes Lack of Transportation: YES Lack of Food: Sometimes True Current Housing: I Have Housing Concerned About Future Housing: YES Difficulty Paying Gas/Electric Bills: YES Difficulty Paying for Meds: YES Currently Unemployed: No Education: High School Diploma/GED Difficulty w/ Childcare or Family Care: No Living arrangements: with family Occupation/Education: retired Gender identity (if verbalized by the patient): Male Sexual Orientation (if Verbalized by the Patient): Straight or Heterosexual Spiritual care concerns: No Agree to blood products: Yes Exam Narrative: GENERAL: Well-appearing, well-nourished, and in no acute distress. HEAD: Normocephalic, atraumatic. EYES: Non injected, non icteric ENT: Nares clear, no rhinorrhea or epistaxis. NECK: Supple. CHEST: Breathing somewhat rapidly after returning from the restroom, slightly labored but able to speak in full sentences. HEART: Tachycardic rate and rhythm. . ABDOMEN: Soft, nondistended. No TTP. TRISHA: Normal rectal tone. No palpable masses. Normal colored stool. FOBT/guiaic negative. EXTREMITIES: Normal range of motion. No lower extremity edema. SKIN: Warm, dry, no rash. NEURO: No focal deficits. Alert and oriented x3. PSYCH: Normal mood and affect. Course Vital Signs Vital signs: Vital Signs Temperature 98.2 F 06/18/24 09:13 Pulse Rate 102 H 06/18/24 09:13 Respiratory Rate 16 06/18/24 09:13 Blood Pressure 130/44 L 06/18/24 09:13 Pulse Oximetry 96 06/18/24 09:13 Temperature 97.1 F L 06/19/24 06:00 Pulse Rate 81 06/19/24 06:00 Respiratory Rate 16 06/19/24 06:00 Blood Pressure 156/70 H 06/19/24 06:00 Pulse Oximetry 93 06/19/24 06:00 Oxygen Delivery CPAP 06/18/24 22:30 MDM - Recheck/Abnormal Lab/Rx MDM Narrative Medical decision making narrative: Patient sent for blood transfusion due to low Hgb on routine labs. Has been short of breath and has seen cardiology and pulmonology. PCP Dr Lunsford. History COPD. Has also been fatigued. No obvious source/etiology. ROS negative. In the emergency department he is afebrile with vital signs notable for mild tachycardia with an acceptable blood pressure although low diastolic, MAP 73mmHg. He has a microcytic anemia and thrombocytopenia. Hgb was 5.7 on 06/15/24 and 5.2 today. Blood product transfusion I have discussed the proposed blood product transfusion with the patient. I have informed the patient regarding potential risks of blood product transfusion which, though rare, include transfusion reaction, hepatitis, and HIV. The patient has been given the opportunity to ask questions about the need to be transfused and possible outcomes of not receiving this treatment. Patient has verbally agreed to undergo transfusion. Nurse will obtain signed consent and place it in the patient's chart. Order was placed for transfusion of 2 units of packed red blood cells. Rest of patient's work up unremarkakble. No obvious blood loss on CT abd/pelvis though there are fiindings as below that I discussed with the patient. Repeat h/H is drawn nearly an hour after 2nd transfusion finished, still <7. Given this, recommend obs admission for 3rd unit and continued monitoring and work up. Pre-transfusion labs had been drawn. Patient verifies understanding and is in agreement. He is nervous about needing to eat given his history of DM, needing nightly insulin (ordered his Lantus 80U QHS, not on short acting), and his CPAP (states his setting is 10, this is also ordered). Discussed with Laure Bravo, hospitalist NAOMY. Differential Diagnosis Differential diagnosis: Likely other (anemia - considered various etiologies (blood loss, production, storage, destruction / maglignancy); considered TTP) Lab Data Attestation: I reviewed the patient's lab results. 06/19/24 07:56 06/19/24 07:56 Labs: Lab Results 06/18/24 06/18/24 06/18/24 Range/Units 10:45 11:29 18:01 WBC 8.6 (4.5-10.0) K/mm3 RBC 2.63 L (4.6-6.20) M/mm3 Hgb 5.2 L* 6.6 L* (14.0-18.0) g/dL Hct 19.7 L* 23.8 L (42.0-52.0) % MCV 74.9 L (80-100) fl MCH 19.8 L (26-34) pg MCHC 26.4 L (32-36) g/dl RDW 21.0 H (11.5-14.5) % Plt Count 145 L (150-375) k/mm3 MPV TNP Immature Gran % (Auto) 0.6 H (0-0.5) % Neut % (Auto) 86.7 H (45.5-73.1) % Lymph % (Auto) 6.9 L (18.3-44.2) % [place] % (Auto) 4.7 (2.6-8.5) % Eos % (Auto) 0.6 (0-4.4) % Baso % (Auto) 0.5 (0.2-1.2) % Lymph # (Auto) 0.59 L (0.9-3.2) K/mm3 [place] # (Auto) 0.4 (0.1-0.6) K/mm3 Eos # (Auto) 0.1 (0-0.3) K/mm3 Baso # (Auto) 0.0 (0.0-0.1) K/mm3 Abs Immat Gran (auto) 0.05 H (0.00-0.031) K/mm3 Absolute Neuts (auto) 7.4 H (1.3-6.7) K/mm3 Absolute Nucleated RBC 0.000 (0.0-0.012) K/mm3 Band Neutrophils % Not Reportable Nucleated RBC % 0.0 (0.0-0.2) % Platelet Estimate Adequate (Adequate) % Immature Plt Fraction 8.0 (0.9-11.2) % Hypochromasia 2+ Anisocytosis 2+ Microcytosis 1+ (NORMAL) Schistocytes None seen PT 16.4 H (11.1-14.7) Seconds INR 1.3 APTT 31.6 (22.3-36.8) Seconds Sodium 140 (137-145) mmol/L Potassium 3.8 (3.4-5.0) mmol/L Chloride 106 (98-107) mmol/L Carbon Dioxide 21 L (22-30) mmol/L Anion Gap 13 H (4-12) mmol/L BUN 31 H (9-20) mg/dL Creatinine 1.13 (0.7-1.3) mg/dL Estim Creat Clear Calc 69 ml/min Estimated GFR > 60 (59 - ) Glucose 125 H (65-110) mg/dL Calcium 8.7 (8.4-10.2) mg/dL Iron 22 L (49-181) ug/dL TIBC 394 (265-497) ug/dL % Saturation 6 L (20-50) % Ferritin 4.92 L (11.1-264) ng/mL Total Bilirubin 1.1 (0.2-1.3) mg/dL AST 20 (17-59) U/L ALT 15 (6-50) U/L Alkaline Phosphatase 70 (38-126) U/L Total Protein 7.0 (6.3-8.2) g/dL Albumin 4.2 (3.5-5.1) g/dL Blood Type B Negative Antibody Screen Negative Crossmatch See Detail Imaging Data Radiologist's impression: Impressions Abdomen/Pelvis CT 06/18/24 16:02 IMPRESSION: 1. Mild pulmonary edema. 2. Small right pleural effusion. 3. Small pericardial effusion. 4. Moderate volume of ascites. ECG Data EKG #1: Attestation: I personally reviewed and interpreted this ECG as follows: ECG completion date: 06/18/24 ECG completion time: 10:54 Interpretation: Normal sinus rhythm at a rate of 82 beats per minute. ME interval 177. QRS 93. QT/QTC 369/408. R-wave progression across the precordial leads. No raisa T-wave inversions of possibly in lead 3 however contiguous inferior leads are normal Discharge Plan Discharge Clinical Impression: Microcytic anemia, Thrombocytopenia, Transfusion of blood during current hospitalisation, Pulmonary edema, Pleural effusion on right, Pericardial effusion Ascites Qualifiers: Ascites type: other type Qualified Code(s): R18.8 - Other ascites Patient Disposition: Still a Patient Condition: Stable
[2024-06-18 12:29] LABS: Iron 22 ug/dL (49-181)
[2024-06-18 12:39] LABS: Percent Iron Saturation 6 % (20-50)
--- OUTSIDE RECORDS SUMMARY | 2024-06-18 12:46 | XMS_ITS | Clinical Summary ---
Author Organization [facility] Address [address] [place] [address] Care Team Providers Care Solvent Station Attendant Name Role Phone Rip Andrea MD Primary Care Provider + Source Comments [facility],non-owned Affiliates and Associated Physician Practices is amultiple site organization consisting of ambulatory clinics and hospital sitesin [place], [place], [place] and [place]. This disclosure is being madepursuant to the Care Everywhere program and may not contain all information available regarding this patient. Last updated 17.[facility] Allergies No known active allergies Medications * [...] AT BEDTIME NEEDED FOR SLEEP 2 Active Hello! Messenger CONTOUR NEXT TEST test strip FOR E11.9 [...] this topic Medical Devices Implanted Type Area Cart Pusher Device Identifier Shelf Expiration Date Model / Serial / Lot Stimulan Rapid Cure Implanted:Qty: 1 on 08/21/2021 by Karson Fournier MD at [facility] N/A: Spine Cervical Biocompstes 03/20/2024 [id number] / / [id number] Description:MIXED WITH 500MG VANCOMYCIN POWDER Screw 4.5mm 28mm Ma Spne Bone Implanted:Qty: 3 on 08/21/2021 by Karson Fournier MD at [facility] N/A: Spine Cervical [employer] Inc [id number] / / Dayo Spnl 240mm 3.5mm Std Implanted:Qty: 2 on 08/21/2021 by Karson Fournier MD at [facility] N/A: Spine Cervical [employer] Inc [id number] / / Lev Bone Void 10ml Dbm Grftn Algrf Ptty - [id number] Implanted:Qty: 1 on 08/21/2021 by Karson Fournier MD at [facility] N/A: Spine Cervical Med[employer] Inc 06/30/2024 [id number] / [id number] / Screw Set M6 Spne Oc Upr Thor Infnt Implanted:Qty: 16 on 08/21/2021 by Karson Fournier MD at [facility] N/A: Spine Cervical Medtronic Sofamor Danek Spine [id number] / / Screw 4mm 26mm Ma Spne Bone Implanted:Qty: 1 on 08/21/2021 by Karson Fournier MD at [facility] N/A: Spine Cervical Med[employer] Inc [id number] / / Screw 4mm 22mm Ma Spne Bone Implanted:Qty: 1 on 08/21/2021 by Karson Fournier MD at [facility] N/A: Spine Cervical Med[employer] Inc [id number] / / Screw 3.5mm 16mm Ma Spne Bone Implanted:Qty: 3 on 08/21/2021 by Karson Fournier MD at [facility] N/A: Spine Cervical Med[employer] Inc [id number] / / Screw 3.5mm 18mm Ma Spne Bone Implanted:Qty: 2 on 08/21/2021 by Karson Fournier MD at [facility] N/A: Spine Cervical Med[employer] Inc [id number] / / Screw 3.5mm 20mm Ma Spne Bone Implanted:Qty: 3 on 08/21/2021 by Karson Fournier MD at [facility] N/A: Spine Cervical Med[employer] Inc [id number] / / Screw 3.5mm 22mm Ma Spne Bone Implanted:Qty: 2 on 08/21/2021 by Karson Fournier MD at [facility] N/A: Spine Cervical Med[employer] Inc [id number] / / Screw 4.5mm 26mm Ma Spne Bone Implanted:Qty: 1 on 08/21/2021 by Karson Fournier MD at [facility] N/A: Spine Cervical Med[employer] Inc [id number] / / Procedures Procedure Name Priority Date/Time Associated Diagnosis Comments GLUCOSE - POINT OF CARE Routine 08/25/2021 1:56 AM CDT from Last 3 Months or Most Recently Relevant to Health Maintenance Results * (ABNORMAL) GLUCOSE - POINT OF CARE (08/25/2021 1:56 AM CDT) [facility] Glucose WB/POC 209(H) 70 - 115 mg/dL 08/25/2021 2:00 AM CDT [facility] Specimen Type Cap Fingerstick 2021 2:00 AM CDT [facility] Blood BLOOD SPECIMEN / Unknown 08/25/2021 1:56 AM CDT 08/25/2021 2:00 AM CDT Karson Fournier MD LAB - POINT OF CARE ORDERABLES Performing Organization Address [facility]/State/ZIP Co de Phone Number [facility] [address] [place] [id number], [facility] [phone] from Last 3 Months or Most Recently Relevant to Health Maintenance Advance Directives * Full Code (Latest Code Status on File) Date Activated Date Inactivated Comments 08/21/2021 12:41 PM 08/25/2021 2:23 PM Care Teams Solvent Station Attendant Relationship Specialty Start Date End Date Rip Andrea MD [address] [place] [id number] PCP - General 08/22/17
--- OUTSIDE RECORDS SUMMARY | 2024-06-18 12:46 | XMS_ITS | Continuity of Care Document ---
Author Organization [facility] Address [address] [place] [address] [facility] [address] [place] [address] Phone Care Team Providers Care Scalehouse Attendant Name Role Phone Brandon Vergara Unavailable Unavailable Procedures Procedure Date Office/outpatient Visit, Est Office/outpatient Visit, Est Eye Exam & Treatment Advance Directives Directive Yes / No Effective Date File Name No Information Encounters Encounter Description Practice Location Reason(s) For Visit Diagnoses Date Provider Providers Copied on Encounter Office/outpat ient Visit, [facility], [address] [place] [address] [address], [place], [place], [id number], tel:[phone] [facility] No Information [address]. [address] [place] [address], [facility], [place]. tel:[phone] Referring Provider: Rip Andrea MD, [address] [place] [address], [address]. tel:[phone] Office/outpat ient Visit, [facility], [address] [place] [address] [address], [place], [place], [id number], tel:[phone] [facility] No Information [address] Krishnasamy Brandon. [address] [place] [address], [facility], [place]. tel:[phone] Referring Provider: Rip Andrea MD, [address] [place] [address], [address]. tel:[phone] [facility], [address], [place], [place], [id number], [place] tel:[phone] [facility] No Information [address]. [address] [facility], [address], [place], [place], [id number], [place]. tel:[phone] Referring Provider: Rip Andrea MD, [address] [place] [address], [address]. tel:[phone] Family History Family Member Type Diagnosis Age [...]
--- OUTSIDE RECORDS SUMMARY | 2024-06-18 12:46 | XMS_ITS | Clinical Summary ---
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 Not on file Not on f ile Not on file Last Filed Vital Signs Vital Sign Reading Time Taken Comments Blood Pressure 132/61 02/23/2018 11:28 AM WARDROBE CUSTODIAN Pulse 80 02/23/2018 11:23 AM WARDROBE CUSTODIAN Temperature 36.8 C (98.2 F) 02/23/2018 10:49 AM WARDROBE CUSTODIAN Respiratory Rate 18 02/23/2018 11:2 3 AM WARDROBE CUSTODIAN Oxygen Saturation 95% 02/23/2018 11: 23 AM WARDROBE CUSTODIAN Inhaled Oxygen Concentration - - Weight 113.9 kg (251 lb 3.2 oz) 018 10:49 AM WARDROBE CUSTODIAN Height 175.3 cm (5' 9 ) 02/23/2018 10:4 9 AM WARDROBE CUSTODIAN Body Mass Index 37.1 02/23/2018 10:49 AM WARDROBE CUSTODIAN Plan of Treatment Health Maintenance Due Date [...] to complete this topic Insurance Care Teams Smelter Operator Relationship Specialty Start Date End Date Rip Andrea MD [address] [address] PCP - General FAMILY PRACTICE 01/16/18
--- OUTSIDE RECORDS SUMMARY | 2024-06-18 12:46 | XMS_ITS | Encounter Summary ---
Author Organization [facility] Address [address] [place] [address] Care Team Providers Care Gasoline Catalyst Operator Name Role Phone Rip Andrea MD Primary Care Provider + Reason for Visit * Reason Comments Refill Request Encounter Details Date Type Department Care Team (Late st Contact Info) Description 10/07/2021 Refill [facility] [address] [place] [address] Rachael Blancas, PROCUREMENT REPRESENTATIVE-BRAZER FURNACE [address] [address] Refill Request Social History Tobacco Use Types [...] on filedocumented in this encounter Care Teams Gasoline Catalyst Operator Relationship Specialty Start Date End Date Rip Andrea MD [address] [address] PCP - General 08/22/17 documented as of this encounter
--- OUTSIDE RECORDS SUMMARY | 2024-06-18 12:46 | XMS_ITS | Clinical Summary ---
Author Organization [facility] Address [address], [address] [address] Phone Care Team Providers Care Survey Research Analyst Name Role Phone Rip Andrea MD Primary [...] patient's age to complete this topic Insurance [facility] Care Teams Survey Research Analyst Relationship Specialty Start Date End Date Rip Andrea MD [address] [place] [address] PCP - General Family Medicine 04/13/17
--- OUTSIDE RECORDS SUMMARY | 2024-06-18 12:46 | XMS_ITS | Encounter Summary ---
Author Organization [facility] Address [address] [place] [address] Care Team Providers Care Energy Efficient Site Manager Name Role Phone Rip Andrea MD Primary Care Provider + Reason for Visit * Reason Comments Refill Request Encounter Details Date Type Department Care Team (Late st Contact Info) Description 10/03/2021 Refill [facility] [address] [place] [address] Rachael Blancas, STREET CLEANER-PERSONNEL AND PAYROLL TECHNICIAN [address] [address] Refill Request Social History Tobacco Use Types [...] on filedocumented in this encounter Care Teams Energy Efficient Site Manager Relationship Specialty Start Date End Date Rip Andrea MD [address] [address] PCP - General 08/22/17 documented as of this encounter
[2024-06-18] MEDS: SODIUM CHLORIDE 0.9% IV 250 ML 30 ML IV CONT ×2 (13:03→19:35)
[2024-06-18] MEDS: TUBING, BLOOD PLUM PUMP TUBING 1 EACH XX ×3 (13:08→19:35)
[2024-06-18 13:27] LABS: Ferritin 4.92 ng/mL (11.1-264)
[2024-06-18 18:08] LABS: Hematocrit 23.8 % (42.0-52.0)
[2024-06-18 18:38] LABS: Hemoglobin 6.6 g/dL (14.0-18.0)
[2024-06-18 20:49] LABS: Glucose Point of Care 65 mg/dl (65-105)
--- NOTE | 2024-06-18 21:01 | ADMGEN ---
This patient, Devante Hartley Angie, was admitted to [facility] Room 312-01. Patient/family oriented to hospital policies and general routines including ID bracelet, bed and alarms, visiting hours, pain management, procedures, bathroom and other care routines, personal items, smoking policy, room service/diet, and visiting hours. Information on how to activate the Rapid Response Team has been discussed. Patient/Family are encouraged to report perceived risks to care and to ask questions if they do not understand what they are told or what they should do.
[2024-06-18] MEDS: IRON SUCROSE COMPLEX 400 MG, IRON SUCROSE COMPLEX 100 MG in SODIUM CHLORIDE 0.9% IV 250 ML 78.57 MG IVPB (22:24)
--- NOTE | 2024-06-18 23:11 | PM.IMHP ---
H&P: HPI History of Present Illness Date/Time: 06/18/24 23:11 Chief Complaint: Low hemoglobin on outpatient labs Narrative: 68-year-old male with a past medical history of COPD, obstructive sleep apnea, GERD, diastolic dysfunction, BPH and type 2 diabetes mellitus on insulin therapy who presented to the ER from home due to low hemoglobin on outpatient labs. The patient reports that he had gone to his primary care doctor just for routine follow-up labs which were drawn on the . His CBC incidentally demonstrated hemoglobin of 5.7. He denies having any hematochezia, melena or hematuria. His Hemoccult performed on rectal exam by ER was negative for occult blood. He reports that he eats red meat frequently. He does not take any iron supplements. He has never had a history of anemia that he knows of any has no prior labs within the system as he usually gets his labs drawn through [facility]. He has not been taking any ibuprofen or naproxen. He had an EGD probably close to 20 years ago or more so that his insurance would pay for PPI therapy. He does not recall when he had his last colonoscopy but he has had several. He denies history of prior GI bleed. He has not been having any abdominal pain. Repeat hemoglobin here was 5.2. He received 2 units of packed red blood cells and repeat hemoglobin was 6.6. 1/3 unit was administered. Iron studies that were obtained prior to the patient receiving transfusion demonstrated ferritin less than 5 and% saturation of 6% and a low iron level of 22. He is only on aspirin for anti-platelet effect and is not on any other blood thinners. He does have a history of diastolic dysfunction. He reports that he has had increased lower extremity swelling for about 6 months. It has not acutely worsened in recent weeks but it was a definite change about 6 months ago. 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 He reports that his weight has been stable at around 250 lb for several months. He does have some dyspnea on exertion that is chronic with occasional episodes of exacerbation. He denies any increased cough. He has not had any fevers or chills. His abdomen is quite distended but he states that this is unchanged from baseline. He states that his lung disease wearing his CPAP he is not short of breath when he lays down. He is compliant with his CPAP. His last polysomnogram was about [address] of the abdomen with contrast Imaging in the ER demonstrated moderate volume of ascites, mild pulmonary edema, small right pleural effusion, small pericardial effusion. He reports that he has been compliant with his cardiac medications. His glucoses were well controlled in the ER. He has not had anything the for most of the day due to his ER visit. He received his full dose of home Lantus in the ER and subsequently on arrival to the IMU he had some mild hypoglycemia. Review of Systems Review of Systems: 12 systems were reviewed with pertinent positives and negatives per HPI. Except as documented in the HPI, all other systems were reviewed and are negative. [facility] Past Medical History Medical History (Updated 06/19/24 @ 06:08 by Mary Manley DO) Moderate pulmonary hypertension RVSP of 53 on echocardiogram 10/2023 Diastolic dysfunction (04/2022) Echocardiogram October 2023: EF greater than 70, mild concentric increased left ventricular wall thickness, abnormal diastolic dysfunction, E/E mildly elevated 13, moderate biatrial enlargement, trace aortic valve regurgitation, mild mitral valve regurgitation, trace tricuspid regurgitation, moderate pulmonary hypertension with RVSP of 53 Erectile dysfunction Hypertension Chronic low back pain Long-term use of aspirin therapy Hepatic steatosis Generalized anxiety disorder Insomnia Obstructive sleep apnea on CPAP Testicular hypofunction GERD (gastroesophageal reflux disease) Mixed hyperlipidemia History of colon polyps COPD (chronic obstructive pulmonary disease) Surgical History Surgical History History of fusion of cervical spine (08/2021) C2-T2 History of carpal tunnel surgery 2002 History of vasectomy 2002 Family History Family History Father Lung cancer Hypertension Mother Diabetes mellitus Heart disease Sibling Lung cancer Other Alcoholism Grandparent Alcoholism Grandparent FHx: kidney cancer Other Family history of malignant neoplasm Social History Social History (Updated 06/19/24 @ 05:37 by Mary Manley DO) Social History: Patient lives with his 31 years, Abbey. He had 3 children 1 of which in a car accident. He still has 1 living son and 1 daughter. He used to smoke up to 3 packs of cigarettes per day but quit in 2018. He used to drink alcohol on the weekends somewhat in moderation to sometimes heavy but quit drinking about 20 years ago. He denies illicit substance use. He used to work for the [employer]. Code status: Full code Surrogate decision maker: Abbey () Smoking packs per day: 3 Smoking cigarettes per day: 60.0 Years smoked: 50 Smoking pack-years: 150.00 Smoking status: Former smoker Tobacco type: cigarettes Second hand tobacco smoke exposure: Yes Smoking end date: 03/21/17 Alcohol intake: former Alcohol use details: Rarely Substance use: never Substance use type: does not use Do You Feel Safe in your Home?: Yes Lack of Transportation: YES Lack of Food: Sometimes True Current Housing: I Have Housing Concerned About Future Housing: YES Difficulty Paying Gas/Electric Bills: YES Difficulty Paying for Meds: YES Currently Unemployed: No Education: High School Diploma/GED Difficulty w/ Childcare or Family Care: No Living arrangements: with family Occupation/Education: retired Gender identity (if verbalized by the patient): Male Sexual Orientation (if Verbalized by the Patient): Straight or Heterosexual Spiritual care concerns: No Agree to blood products: Yes Meds Home Medications and Allergies Home Medications ?Medication ?Instructions ?Recorded ?Confirmed ?Type albuterol sulfate 2.5 mg/3 mL 2.5 mg inhalation Q4H PRN 01/10/23 06/18/24 History (0.083 %) solution for nebulization shortness of breath or wheezing trazodone 100 mg tablet 100 mg PO QHS #90 tabs 08/30/23 06/18/24 Rx aspirin 81 mg tablet,delayed 81 mg PO DAILY 09/23/23 06/18/24 History release (Adult Low Dose Aspirin) sertraline 100 mg tablet 100 mg PO DAILY #90 tabs 12/08/23 06/18/24 Rx pen needle, diabetic 32 gauge x #100 ea 12/09/23 06/14/24 Rx 5/32 (BD Ultra-Fine Ankita Pen Needle) lancets 30 gauge #100 ea 12/29/23 06/14/24 Rx atorvastatin 20 mg tablet 20 mg PO DAILY #90 tabs 01/16/24 06/18/24 Rx pioglitazone 30 mg tablet 30 mg PO DAILY #90 tabs 02/13/24 06/18/24 Rx tamsulosin 0.4 mg capsule (Flomax) 0.4 mg PO DAILY #14 caps 03/08/24 06/18/24 Rx clonazepam 1 mg tablet 1 mg PO QHS #30 tabs 05/17/24 06/18/24 Rx metformin 500 mg tablet,extended See Rx Instructions .Route 05/22/24 06/18/24 Rx release 24 hr .COMPLEX #360 tabs albuterol sulfate 90 mcg/actuation 2 inh inhalation Q4H PRN shortness 05/23/24 06/18/24 Rx aerosol inhaler of breath or wheezing #8.5 grams insulin glargine 100 unit/mL (3 80 unit (0.8 mL) subcut QPM #24 mL 06/06/24 06/18/24 Rx mL) subcutaneous pen (Lantus Solostar U-100 Insulin) enalapril maleate 20 mg tablet 10 mg PO DAILY 06/18/24 06/18/24 History furosemide 40 mg tablet 40 mg PO BID 06/18/24 06/18/24 History pantoprazole 40 mg tablet,delayed 40 mg PO DAILY #90 tabs 06/18/24 06/18/24 Rx release Allergies Allergy/AdvReac Type Severity Reaction Status Date / Time fluticasone furoate (From AdvReac Intermediate Other Verified 06/18/24 11:00 Trelegy Ellipta) umeclidinium (From Trelegy AdvReac Intermediate Other Verified 06/18/24 11:00 Ellipta) vilanterol (From Trelegy AdvReac Intermediate Other Verified 06/18/24 11:00 Ellipta) Vital Signs Vital Signs - 24 hr 06/18/24 09:13 06/18/24 10:44 06/18/24 10:56 Temperature 98.2 F Pulse Rate 102 H 83 82 Respiratory Rate 16 27 H Blood Pressure 130/44 L 142/59 H Pulse Oximetry 96 96 Oxygen Delivery 06/18/24 10:56 06/18/24 10:56 06/18/24 11:01 Temperature Pulse Rate 82 85 Respiratory Rate 22 H 22 H 30 H Blood Pressure 142/59 H 122/49 L Pulse Oximetry 95 95 Oxygen Delivery 06/18/24 12:48 06/18/24 13:02 06/18/24 13:03 Temperature 98.4 F Pulse Rate 89 88 Respiratory Rate 30 H 32 H Blood Pressure 127/52 L 135/49 L 135/49 L Pulse Oximetry 95 95 93 Oxygen Delivery 06/18/24 13:16 06/18/24 13:16 06/18/24 13:18 Temperature 98.4 F Pulse Rate 78 80 78 Respiratory Rate 26 H 30 H 26 H Blood Pressure 131/51 L 131/51 L 128/53 L Pulse Oximetry 92 92 92 Oxygen Delivery 06/18/24 13:18 06/18/24 13:31 06/18/24 14:01 Temperature Pulse Rate 78 77 76 Respiratory Rate 26 H 26 H 29 H Blood Pressure 127/53 L 132/52 L 142/60 H Pulse Oximetry 91 92 94 Oxygen Delivery 06/18/24 14:18 06/18/24 14:18 06/18/24 14:32 Temperature 98.1 F Pulse Rate 80 76 78 Respiratory Rate 24 H 25 H 25 H Blood Pressure 128/53 L 128/53 L 143/62 H Pulse Oximetry 98 97 94 Oxygen Delivery 06/18/24 15:01 06/18/24 15:18 06/18/24 15:18 Temperature 98.2 F Pulse Rate 78 76 78 Respiratory Rate 29 H 24 H 23 H Blood Pressure 131/51 L 123/61 123/41 L Pulse Oximetry 98 98 98 Oxygen Delivery 06/18/24 15:20 06/18/24 16:04 06/18/24 16:06 Temperature 98.0 F Pulse Rate 75 79 75 Respiratory Rate 26 H 28 H 23 H Blood Pressure 123/61 132/56 L 132/56 L Pulse Oximetry 100 96 97 Oxygen Delivery 06/18/24 16:18 06/18/24 16:19 06/18/24 16:20 Temperature 98.0 F 98.0 F Pulse Rate 83 80 80 Respiratory Rate 24 H 24 H 25 H Blood Pressure 126/60 126/60 150/65 H Pulse Oximetry 95 95 96 Oxygen Delivery 06/18/24 16:22 06/18/24 16:31 06/18/24 16:46 Temperature Pulse Rate 78 77 76 Respiratory Rate 25 H 26 H 23 H Blood Pressure 126/60 125/54 L 129/60 Pulse Oximetry 94 97 97 Oxygen Delivery 06/18/24 17:01 06/18/24 17:16 06/18/24 17:19 Temperature 98.2 F Pulse Rate 80 74 83 Respiratory Rate 18 23 H 20 Blood Pressure 137/57 L 136/69 136/75 Pulse Oximetry 96 99 100 Oxygen Delivery 06/18/24 17:19 06/18/24 17:31 06/18/24 17:42 Temperature 98.2 F Pulse Rate 83 75 75 Respiratory Rate 19 24 H 18 Blood Pressure 136/75 140/65 140/65 Pulse Oximetry 100 99 99 Oxygen Delivery 06/18/24 17:47 06/18/24 19:35 06/18/24 19:37 Temperature 98.4 F Pulse Rate 75 72 71 Respiratory Rate 29 H 26 H 27 H Blood Pressure 142/65 H 134/57 L 134/57 L Pulse Oximetry 100 98 100 Oxygen Delivery 06/18/24 19:50 06/18/24 20:08 06/18/24 20:50 Temperature 98.4 F 98.4 F 97.5 F L Pulse Rate 71 72 77 Respiratory Rate 22 H 20 18 Blood Pressure 136/62 139/62 145/58 H Pulse Oximetry 98 100 97 Oxygen Delivery 06/18/24 20:50 06/18/24 21:50 Temperature 97.7 F Pulse Rate 80 Respiratory Rate 15 Blood Pressure 144/61 H Pulse Oximetry 93 Oxygen Delivery Room Air Exam Narrative: Weight 116 kg BMI 38.9 Const: Other: No acute distress, obese, appears stated age HENMT: Other: Large neck circumference, markedly crowded posterior oropharynx, no oral pharyngeal erythema Eyes: Other: Positive conjunctival pallor, no scleral icterus, pupils are equal and reactive Neck: Other: Large neck circumference, no JVD, no lymphadenopathy Resp: Other: Decreased breath sounds at the bases, conversational dyspnea Cardio: Other: Regular rate, regular rhythm, 2+ bilateral radial pedal pulses, no JVD, no murmur GI: Other: Obese, distended, nontender, positive bowel sounds Skin: Other: Mild pallor, non jaundice Neuro: Other: Alert oriented x4, speech is clear, no facial asymmetry, no localizing neurologic deficits noted during the course of conversation Extrem: Other: Patient has pitting edema through the ease into the mid thigh bilaterally, moves all extremities equally, no clubbing, no cyanosis Psych: Other: Appropriate mood and affect, pleasant and cooperative, judgment and insight intact H&P: Results Labs Labs: Laboratory Tests 06/18/24 18:01 06/18/24 10:45 06/18/24 06/18/24 06/18/24 10:45 11:29 18:01 WBC 8.6 RBC 2.63 L Hgb 5.2 L* 6.6 L* Hct 19.7 L* 23.8 L MCV 74.9 L MCH 19.8 L MCHC 26.4 L RDW 21.0 H Plt Count 145 L MPV TNP Immature Gran % (Auto) 0.6 H Neut % (Auto) 86.7 H Lymph % (Auto) 6.9 L Prentiss % (Auto) 4.7 Eos % (Auto) 0.6 Baso % (Auto) 0.5 Lymph # (Auto) 0.59 L Prentiss # (Auto) 0.4 Eos # (Auto) 0.1 Baso # (Auto) 0.0 Abs Immat Gran (auto) 0.05 H Absolute Neuts (auto) 7.4 H Absolute Nucleated RBC 0.000 Band Neutrophils % Not Reportable Nucleated RBC % 0.0 Platelet Estimate Adequate % Immature Plt Fraction 8.0 Hypochromasia 2+ Anisocytosis 2+ Microcytosis 1+ Schistocytes None seen PT 16.4 H INR 1.3 APTT 31.6 Sodium 140 Potassium 3.8 Chloride 106 Carbon Dioxide 21 L Anion Gap 13 H BUN 31 H Creatinine 1.13 Estim Creat Clear Calc 69 Estimated GFR > 60 Glucose 125 H POC Capillary Glucose Calcium 8.7 Iron 22 L TIBC 394 % Saturation 6 L Ferritin 4.92 L Total Bilirubin 1.1 AST 20 ALT 15 Alkaline Phosphatase 70 Total Protein 7.0 Albumin 4.2 Blood Type B Negative Antibody Screen Negative Crossmatch See Detail 06/18/24 20:45 WBC RBC Hgb Hct MCV MCH MCHC RDW Plt Count MPV Immature Gran % (Auto) Neut % (Auto) Lymph % (Auto) Prentiss % (Auto) Eos % (Auto) Baso % (Auto) Lymph # (Auto) Prentiss # (Auto) Eos # (Auto) Baso # (Auto) Abs Immat Gran (auto) Absolute Neuts (auto) Absolute Nucleated RBC Band Neutrophils % Nucleated RBC % Platelet Estimate % Immature Plt Fraction Hypochromasia Anisocytosis Microcytosis Schistocytes PT INR APTT Sodium Potassium Chloride Carbon Dioxide Anion Gap BUN Creatinine Estim Creat Clear Calc Estimated GFR Glucose POC Capillary Glucose 65 Calcium Iron TIBC % Saturation Ferritin Total Bilirubin AST ALT Alkaline Phosphatase Total Protein Albumin Blood Type Antibody Screen Crossmatch Impressions Abdomen/Pelvis CT 06/18/24 16:02 IMPRESSION: 1. Mild pulmonary edema. 2. Small right pleural effusion. 3. Small pericardial effusion. 4. Moderate volume of ascites. [id number] 10:54:45 Measurements Intervals [place] Rate: 82 P: 144 SC: 177 QRS: 82 QRSD: 93 T: 22 QT: 369 QTc: 433 Interpretive Statements SINUS RHYTHM POSSIBLE INFERIOR MYOCARDIAL INFARCTION , PROBABLY OLD [30 ms Q WAVE IN II/aVF] NONSPECIFIC T-WAVE ABNORMALITY ABNORMAL ECG No previous ECG available for comparison Assessment and Plan Assessment and plan (1) Iron deficiency anemia: Qualifiers: Iron deficiency anemia type: unspecified iron deficiency Qualified Code(s): D50.9 - Iron deficiency anemia, unspecified Code(s): D50.9 - Iron deficiency anemia, unspecified Status: Acute (2) Transfusion of blood during current hospitalisation: Status: Acute (3) Pericardial effusion: Code(s): I31.39 - Other pericardial effusion (noninflammatory) Status: Acute (4) Ascites: Qualifiers: Ascites type: other type Qualified Code(s): R18.8 - Other ascites Code(s): R18.8 - Other ascites Status: Acute (5) Hypertension: Qualifiers: Hypertension type: primary hypertension Qualified Code(s): I10 - Essential (primary) hypertension Code(s): I10 - Essential (primary) hypertension Status: Chronic (6) Obstructive sleep apnea on CPAP: Code(s): G47.33 - Obstructive sleep apnea (adult) (pediatric); Z99.89 - Dependence on other enabling machines and devices Status: Chronic (7) BPH loc w urin obs/LUTS: Code(s): N40.1 - Benign prostatic hyperplasia with lower urinary tract symptoms Status: Acute (8) Insulin dependent diabetes mellitus: Status: Acute Plan It is unclear whether not the patient's iron deficiency anemia is due to malabsorption, intermittent microscopic GI losses or just poor iron intake. However it sounds like the patient has adequate iron intake has these plenty of red meat among other fortified foods. He is not on any medications beyond 81 mg aspirin that would precipitate and blood loss. His Hemoccult stool was negative in the ER but patient would likely benefit from eventual evaluation by Gastroenterology whether inpatient versus outpatient given his longstanding history of GERD. He may have some chronic gastritis. Patient received 3 units of blood transfusion. I will order 500 mg of Venofer infusion. Will repeat CBC in a.m.. Patient also has chronic dyspnea on exertion lower extremity swelling and evidence of moderate ascites which patient denies history of previously. Could be due to decompensated heart failure from symptomatic anemia verses ascites being due to some possible cirrhosis. Patient does have a long history of hepatic steatosis. Will consult Gastroenterology. Will hold the patient's oral Lasix and give patient IV Lasix 40 mg b.i.d. to see if this does not help with some of his symptoms as well. It specially in the setting of transfusing multiple units of blood. Will repeat echocardiogram to evaluate cardiac structure and function is if there may have been a change the patient's exam compared to last year. Will monitor strict I&O's and daily weights. Will repeat electrolyte panel in a.m.. Will decrease the patient's Lantus dose down to 70 units while hospitalized. Will add moderate dose sliding scale insulin with Accu-Cheks a.c. HS hypoglycemia protocol has been added as needed. Patient has been admitted as observation status. Quality VTE Prophylaxis VTE prophylaxis: mechanical ordered (SCDs) Hospitalist MIPS Advance Care Plan I have confirmed that the patient's Advanced Care Plan is present, code status is documented, or surrogate decision maker is listed in patient medical record.: Yes Medication Reconciliation I have utilized all available resources to obtain, update and review the patients current medications (includes all prescriptions, OTC, herbals, cannabis, and nutritional supplements).: Yes
[2024-06-18] MEDS: clonazePAM (*CRX) 0.5 MG TABLET 1 MG PO (23:58)
[2024-06-18] MEDS: FUROSEMIDE INJ 40 MG/4 ML VIAL IV PUSH (23:58)
[2024-06-18] MEDS: traZODone HCL 50 MG TABLET 100 MG PO (23:58)
[2024-06-19] VITALS (8 sets, daily range): BP systolic 122–156; BP diastolic 50–70; PULSE 81–99; RESP 16–26; TEMP 36.2–37; O2SAT 88–95
--- NOTE | 2024-06-19 | ECHO_ITS ---
Patient Info Name: Devante Hartley Age: 68 years : 1955 Gender: Male Ht: 68 in Wt: 254 lbs BSA: 2.40 m2 HR: 88 bpm BP: 156 / 70 mmHg Exam Date: 06/19/2024 9:19 AM Exam Location: Echo Lab Patient Status: Outpatient Admit Date: 06/18/2024 Staff Ordering Physician: Mary Manley DO Complaint Specialist: Snow Macias RDCS Attending Provider: Mirza Santana MD Referring Physician: Vineet CALI; Exam Type: CA echo doppler color flow Study Info Indications - CHF Complete two-dimensional, color flow and Doppler transthoracic echocardiogram is performed. Summary 1. Complete two-dimensional, color flow and Doppler transthoracic echocardiogram is performed. 2. Left ventricular chamber dimension is normal. 3. Left ventricular systolic function is normal, estimated at 65-70%. 4. There is moderate concentric increased left ventricular wall thickness. 5. The left ventricular diastolic function is abnormal. 6. E/e' 15 is elevated. 7. Right ventricular chamber dimension is moderately enlarged. 8. Right ventricular systolic function is mildly reduced. 9. Left atrial chamber dimension is moderately enlarged. 10. Right atrial chamber dimension is moderately enlarged. 11. There is mild aortic valve sclerosis. 12. There is mild mitral valve regurgitation. 13. There is mild tricuspid valve regurgitation. 14. Severe pulmonary hypertension, estimated pulmonary arterial systolic pressure is 63 mmHg. 15. There is trivial pericardial effusion. Left Ventricle E/e' 15 is elevated. Left ventricular chamber dimension is normal. Left ventricular systolic function is normal, estimated at 65-70%. There is moderate concentric increased left ventricular wall thickness. The left ventricular diastolic function is abnormal. Right Ventricle Right ventricular systolic function is mildly reduced. Right ventricular chamber dimension is moderately enlarged. Left Atria Left atrial chamber dimension is moderately enlarged. Right Atria Right atrial chamber dimension is moderately enlarged. Aortic Valve The aortic valve is trileaflet. There is mild aortic valve sclerosis. There is no aortic valve stenosis. There is no aortic valve regurgitation. Pulmonic Valve There is no pulmonic regurgitation. Mitral Valve There is no mitral valve stenosis. There is mild mitral valve regurgitation. Tricuspid Valve There is mild tricuspid valve regurgitation. Severe pulmonary hypertension, estimated pulmonary arterial systolic pressure is 63 mmHg. Pericardium/Pleural There is trivial pericardial effusion. Inferior Vena Cava Normal inferior vena cava with >50% collapse upon inspiration consistent with normal right atrial pressure, 5 mmHg. Aorta The aortic root size at the sinus of Valsalva is normal. Left Ventricular Outflow Tract Name Value Normal LVOT 2D LVOT Diameter 2.0 cm LVOT Doppler LVOT Peak Gradient 8 mmHg LVOT Mean Gradient 5 mmHg LVOT VTI 31 cm LVOT VTI/AV VTI Ratio 0.6 LVOT Stroke Volume 97 ml LVOT CO 20.7 l/min LVOT CI 8.6 l/min/m2 Pulmonic Valve Name Value Normal PV Doppler PV Peak Gradient 7 mmHg Mitral Valve Name Value Normal MV Doppler MV Decel Culberson 996 cm/s2 MV PHT 41 ms MV Area (PHT) 5.3 cm2 4.0-5.0 MV Diastolic Function MV E Peak Velocity 141 cm/s MV A Peak Velocity 86 cm/s MV E/A 1.6 MV Decel Time 142 ms MV Annular TDI MV E/e' (Septal) 16.0 <=8.0 MV E/e' (Lateral) 15.8 <=8.0 MV E/e' (Average) 15.9 Tricuspid Valve Name Value Normal TV Regurgitation Doppler TR Peak Velocity 382 cm/s TR Peak Gradient 58 mmHg Estimated PAP/RSVP RA Pressure 5 mmHg <=5 PA Systolic Pressure 63 mmHg <36 RV Systolic Pressure 63 mmHg <36 Aorta Name Value Normal Ascending Aorta Ao Root Diameter (MM) 3.6 cm Ao Root Diam Index (MM) 1.5 cm/m2 Aortic Valve Name Value Normal AV Doppler AV Peak Velocity 239 cm/s AV Peak Gradient 23 mmHg AV Mean Gradient 13 mmHg AV VTI 52 cm AV Area (Cont Eq VTI) 1.9 cm2 >=3.0 AV Area (Cont Eq Marc) 1.9 cm2 AV Regurgitation 2D LVOT Area 3.1 cm2 Ventricles Name Value Normal LV Dimensions 2D/MM IVS Diastolic Thickness (2D) 1.8 cm 0.6-1.0 LVID Diastole (2D) 5.3 cm 4.2-5.8 LVIW Diastolic Thickness (2D) 1.6 cm 0.6-1.0 LVID Systole (2D) 3.2 cm 2.5-4.0 LVOT Diameter 2.0 cm LV Mass (2D Cubed) 425.27 g 88.00-224.00 LV Mass Index (2D Cubed) 177 g/m2 49-115 Relative Wall Thickness (2D) 0.61 LV Fractional Shortening/Ejection Fraction 2D/MM LV Fractional Shortening (2D) 38 % 25-43 LV EF (2D Teicholz) 68 % 52-72 LV Diastolic Volume (4C MOD) 113 ml LV EF (4C MOD) 55 % LV Diastolic Volume (2C MOD) 149 ml LV EF (2C MOD) 65 % LV Diastolic Volume (BP MOD) 132 ml 62-150 LV Diastolic Volume Index (BP MOD) 55 ml/m2 34-74 LV Systolic Volume (BP MOD) 54 ml 21-61 LV Systolic Volume Index (BP MOD) 22 ml/m2 11-31 LV EF (BP MOD) 59 % 52-72 LV Diastolic Length (4C) 8.2 cm LV Systolic Length (4C) 6.3 cm LV Stroke Volume (4C MOD) 62 ml Atria Name Value Normal LA Dimensions LA Dimension (MM) 5.1 cm 3.0-4.1 LA Volume (4C A-L) 87 ml LA Volume (BP A-L) 81 ml RA Dimensions RA Area (4C) 31.0 cm2 <=18.0 Report Signatures
[2024-06-19 07:52] LABS: Glucose Point of Care 123 mg/dl (65-105)
[2024-06-19 08:05] LABS: Basophils Absolute Auto 0.1 K/mm3 (0.0-0.1); Basophils Percent Auto 0.7 % (0.2-1.2); Eosinophils Absolute Auto 0.1 K/mm3 (0-0.3); Eosinophils Percent Auto 1.3 % (0-4.4); Hematocrit 24.5 % (42.0-52.0); Immature Granulocyte Absolute 0.04 K/mm3 (0.00-0.031); Immature Granulocyte Percent A 0.6 % (0-0.5); Immature Platelet Fraction Pct 5.6 % (0.9-11.2); Lymphocytes Absolute Auto 0.73 K/mm3 (0.9-3.2); Lymphocytes Percent Auto 10.6 % (18.3-44.2); Mean Corpuscular HGB Conc 28.6 g/dl (32-36); Mean Corpuscular Hemoglobin 21.9 pg (26-34); Mean Corpuscular Volume 76.6 fl (80-100); Monocytes Absolute Auto 0.5 K/mm3 (0.1-0.6); Monocytes Percent Auto 6.7 % (2.6-8.5); Neutrophils Absolute Auto 5.5 K/mm3 (1.3-6.7); Neutrophils Percent Auto 80.1 % (45.5-73.1); Platelet Count Result 126 k/mm3 (150-375); Red Cell Distribution Width 19.9 % (11.5-14.5); White Blood Count 6.9 K/mm3 (4.5-10.0)
[2024-06-19 08:13] LABS: Platelet Estimate Slightly Decreased (Adequate)
[2024-06-19 08:15] LABS: Hypochromasia 2+; Microcytosis 1+ (NORMAL)
[2024-06-19 08:16] LABS: Anisocytosis 2+; Schistocytes None Seen
[2024-06-19 08:21] LABS: Alanine Aminotransferase 13 U/L (6-50); Alkaline Phosphatase 64 U/L (38-126); Anion Gap 9 mmol/L (4-12); Aspartate Amino Transferase 22 U/L (17-59); Bilirubin,Total 1.5 mg/dL (0.2-1.3); Blood Urea Nitrogen 25 mg/dL (9-20); Calcium 8.9 mg/dL (8.4-10.2); Carbon Dioxide 26 mmol/L (22-30); Chloride 106 mmol/L (98-107); Estimated CRCL calculation 74 ml/min; Estimated Glomerular Filt Rate > 60; Glucose 111 mg/dL (65-110); Magnesium 1.6 mg/dL (1.6-2.3); Sodium 141 mmol/L (137-145)
[2024-06-19] MEDS: ASPIRIN 81 MG ENTERIC TABLET PO (09:15)
[2024-06-19] MEDS: PANTOPRAZOLE 40 MG TABLET PO (09:15)
[2024-06-19] MEDS: ATORVASTATIN 20 MG TABLET PO (09:15)
[2024-06-19] MEDS: TAMSULOSIN HCL 0.4 MG CAPSULE PO (09:15)
[2024-06-19] MEDS: FUROSEMIDE INJ 40 MG/4 ML VIAL IV PUSH ×2 (09:15→17:33)
[2024-06-19] MEDS: SERTRALINE HCL 50 MG TABLET 100 MG PO (09:15)
[2024-06-19] MEDS: ENALAPRIL MALEATE 10 MG TABLET PO (09:15)
[2024-06-19 10:01] LABS: NT Pro B Type Natriuretic Pept 1810 pg/mL (19.9-100)
[2024-06-19] MEDS: MAGNESIUM SULF 2 GM/WATER 50ML 2 GM/50 ML BAG IVPB (10:30)
[2024-06-19 10:54] LABS: IFOB Positive Control Positive; Immunochemical Fecal Occult Bl Positive (N)
[2024-06-19] MEDS: ACETAMINOPHEN 325 MG TABLET 650 MG PO (10:58)
[2024-06-19 11:30] LABS: Glucose Point of Care 114 mg/dl (65-105)
--- NOTE | 2024-06-19 12:13 | P.PNIM_ITS ---
Progress Note: A&P Assessment and Plan (1) Iron deficiency anemia: Qualifiers: Iron deficiency anemia type: unspecified iron deficiency Qualified Code(s): D50.9 - Iron deficiency anemia, unspecified Code(s): D50.9 - Iron deficiency anemia, unspecified Status: Acute Assessment and Plan: * H&H trend: 5.2/19.7>6.6/23.8>7.0/24.5 (post 3 units of PRBc's). Current H&H 7.3/25.4. * Iron 22, TIBC 394, % saturation 6, Ferritin 4.92. Patient received Iron sucrose 400 mg/ iron sucrose 100 mg IVPB x 1. * Trend labs. (2) Transfusion of blood during current hospitalisation: Status: Acute Assessment and Plan: * H&H trend: 5.2/19.7>6.6/23.8>7.0/24.5 (post 3 units of PRBc's). Current H&H 7.3/25.4. * Trend CBC. (3) Pericardial effusion: Code(s): I31.39 - Other pericardial effusion (noninflammatory) Status: Acute Assessment and Plan: * CT showed a small pericardial effusion. * Echo showed: Summary 1. Complete two-dimensional, color flow and Doppler transthoracic echocardiogram is performed. 2. Left ventricular chamber dimension is normal. 3. Left ventricular systolic function is normal, estimated at 65-70%. 4. There is moderate concentric increased left ventricular wall thickness. 5. The left ventricular diastolic function is abnormal. 6. E/e' 15 is elevated. 7. Right ventricular chamber dimension is moderately enlarged. 8. Right ventricular systolic function is mildly reduced. 9. Left atrial chamber dimension is moderately enlarged. 10. Right atrial chamber dimension is moderately enlarged. 11. There is mild aortic valve sclerosis. 12. There is mild mitral valve regurgitation. 13. There is mild tricuspid valve regurgitation. 14. Severe pulmonary hypertension, estimated pulmonary arterial systolic pressure is 63 mmHg. 15. There is trivial pericardial effusion. * BNP 1810. Lasix 40 mg ivp BID. (4) Ascites: Qualifiers: Ascites type: other type Qualified Code(s): R18.8 - Other ascites Code(s): R18.8 - Other ascites Status: Acute Assessment and Plan: * Strict I&O's, daily weights. * Abdominal pelvis CT showed a moderate volume of ascities. (5) Insulin dependent diabetes mellitus: Status: Acute Assessment and Plan: * Decrease the patient's Lantus dose down to 70 units while hospitalized. * Moderate dose sliding scale insulin with Accu-Cheks a.c. * HS hypoglycemia protocol has been added as needed. (6) Occult blood positive stool: Code(s): R19.5 - Other fecal abnormalities Status: Acute Assessment and Plan: * Stool positive for occult blood. * GI consulted. * Pantoprazole 40 mg PO BID. * Hold ASA (7) Severe pulmonary hypertension: Code(s): I27.20 - Pulmonary hypertension, unspecified Status: Acute Assessment and Plan: * Echo showed: Summary 1. Complete two-dimensional, color flow and Doppler transthoracic echocardiogram is performed. 2. Left ventricular chamber dimension is normal. 3. Left ventricular systolic function is normal, estimated at 65-70%. 4. There is moderate concentric increased left ventricular wall thickness. 5. The left ventricular diastolic function is abnormal. 6. E/e' 15 is elevated. 7. Right ventricular chamber dimension is moderately enlarged. 8. Right ventricular systolic function is mildly reduced. 9. Left atrial chamber dimension is moderately enlarged. 10. Right atrial chamber dimension is moderately enlarged. 11. There is mild aortic valve sclerosis. 12. There is mild mitral valve regurgitation. 13. There is mild tricuspid valve regurgitation. 14. Severe pulmonary hypertension, estimated pulmonary arterial systolic pressure is 63 mmHg. 15. There is trivial pericardial effusion. * Cardiology consult * Enalapril 10 mg PO daily. * Lasix 40 mg IV BID (8) Obstructive sleep apnea on CPAP: Code(s): G47.33 - Obstructive sleep apnea (adult) (pediatric); Z99.89 - Dependence on other enabling machines and devices Status: Chronic Assessment and Plan: * CPAP (9) BPH loc w urin obs/LUTS: Code(s): N40.1 - Benign prostatic hyperplasia with lower urinary tract symptoms Status: Acute Assessment and Plan: * Flomax 0.4 mg PO daily. Subjective Date/time seen: 06/19/24 12:13 Interval history: Patient sitting up on the side of the bed. Patient denies chest pain, palpitations, headache, dizziness, nausea, or vomiting. Patient reports that he feels a little stronger after blood transfusions. Review of Systems Review of Systems: All systems reviewed & are unremarkable except as noted in HPI and below Exam Const: General: comfortable and no acute distress Resp: Effort & Inspection: normal respiratory effort Auscultation: diminished lung sounds Cardio: Rate: regular rate Rhythm: regular rhythm GI: Inspection: distended GI Palp: No Tenderness to palpation present (GI) Auscultation: normal bowel sounds Neuro: Speech: normal speech Extrem: General: no pedal edema Psych: Mental Status: mental status grossly normal Affect: normal affect Objective Data Vital Signs Vital Signs: Vital Signs - 24 hr 06/18/24 12:48 06/18/24 13:02 06/18/24 13:03 Temperature 98.4 F Pulse Rate 89 88 Respiratory Rate 30 H 32 H Blood Pressure 127/52 L 135/49 L 135/49 L Pulse Oximetry 95 95 93 Oxygen Delivery 06/18/24 13:16 06/18/24 13:16 06/18/24 13:18 Temperature 98.4 F Pulse Rate 78 80 78 Respiratory Rate 26 H 30 H 26 H Blood Pressure 131/51 L 131/51 L 128/53 L Pulse Oximetry 92 92 92 Oxygen Delivery 06/18/24 13:18 06/18/24 13:31 06/18/24 14:01 Temperature Pulse Rate 78 77 76 Respiratory Rate 26 H 26 H 29 H Blood Pressure 127/53 L 132/52 L 142/60 H Pulse Oximetry 91 92 94 Oxygen Delivery 06/18/24 14:18 06/18/24 14:18 06/18/24 14:32 Temperature 98.1 F Pulse Rate 80 76 78 Respiratory Rate 24 H 25 H 25 H Blood Pressure 128/53 L 128/53 L 143/62 H Pulse Oximetry 98 97 94 Oxygen Delivery 06/18/24 15:01 06/18/24 15:18 06/18/24 15:18 Temperature 98.2 F Pulse Rate 78 76 78 Respiratory Rate 29 H 24 H 23 H Blood Pressure 131/51 L 123/61 123/41 L Pulse Oximetry 98 98 98 Oxygen Delivery 06/18/24 15:20 06/18/24 16:04 06/18/24 16:06 Temperature 98.0 F Pulse Rate 75 79 75 Respiratory Rate 26 H 28 H 23 H Blood Pressure 123/61 132/56 L 132/56 L Pulse Oximetry 100 96 97 Oxygen Delivery 06/18/24 16:18 06/18/24 16:19 06/18/24 16:20 Temperature 98.0 F 98.0 F Pulse Rate 83 80 80 Respiratory Rate 24 H 24 H 25 H Blood Pressure 126/60 126/60 150/65 H Pulse Oximetry 95 95 96 Oxygen Delivery 06/18/24 16:22 06/18/24 16:31 06/18/24 16:46 Temperature Pulse Rate 78 77 76 Respiratory Rate 25 H 26 H 23 H Blood Pressure 126/60 125/54 L 129/60 Pulse Oximetry 94 97 97 Oxygen Delivery 06/18/24 17:01 06/18/24 17:16 06/18/24 17:19 Temperature 98.2 F Pulse Rate 80 74 83 Respiratory Rate 18 23 H 20 Blood Pressure 137/57 L 136/69 136/75 Pulse Oximetry 96 99 100 Oxygen Delivery 06/18/24 17:19 06/18/24 17:31 06/18/24 17:42 Temperature 98.2 F Pulse Rate 83 75 75 Respiratory Rate 19 24 H 18 Blood Pressure 136/75 140/65 140/65 Pulse Oximetry 100 99 99 Oxygen Delivery 06/18/24 17:47 06/18/24 19:35 06/18/24 19:37 Temperature 98.4 F Pulse Rate 75 72 71 Respiratory Rate 29 H 26 H 27 H Blood Pressure 142/65 H 134/57 L 134/57 L Pulse Oximetry 100 98 100 Oxygen Delivery 06/18/24 19:50 06/18/24 20:08 06/18/24 20:50 Temperature 98.4 F 98.4 F 97.5 F L Pulse Rate 71 72 77 Respiratory Rate 22 H 20 18 Blood Pressure 136/62 139/62 145/58 H Pulse Oximetry 98 100 97 Oxygen Delivery 06/18/24 20:50 06/18/24 21:50 06/18/24 22:30 Temperature 97.7 F Pulse Rate 80 Respiratory Rate 15 Blood Pressure 144/61 H Pulse Oximetry 93 95 Oxygen Delivery Room Air CPAP 06/19/24 06:00 06/19/24 09:15 Temperature 97.1 F L Pulse Rate 81 Respiratory Rate 16 Blood Pressure 156/70 H Pulse Oximetry 93 Oxygen Delivery Room Air Intake/Output Intake/Output: Intake & Output 06/16/24 06/17/24 06/18/24 06/19/24 23:59 23:59 23:59 23:59 Intake Total 1150 790 Balance 1150 790 Meds/Results Medications: Active Medications Generic Name Dose Route Start Last Admin Trade Name Freq PRN Reason Stop Dose Admin Acetaminophen 650 mg 06/18/24 18:53 06/19/24 10:58 Acetaminophen 325 Mg Tablet PO 650 mg Q4H PRN Administration Mild Pain (1-3) or Fever Albuterol 2.5 mg 06/18/24 23:14 Albuterol Sulfate Neb 2.5 Mg/3 Ml Inh INHALATION Q4H PRN shortness of breath or wheezing Aspirin 81 mg 06/19/24 09:00 06/19/24 09:15 Aspirin 81 Mg Enteric Tablet PO 81 mg DAILY GARRY Administration Atorvastatin Calcium 20 mg 06/19/24 09:00 06/19/24 09:15 Atorvastatin 20 Mg Tablet PO 20 mg DAILY GARRY Administration Clonazepam 1 mg 06/18/24 23:30 06/18/24 23:58 Clonazepam (*Crx) 0.5 Mg Tablet PO 1 mg QHS GARRY Administration Dextrose 12.5 gm 06/18/24 23:19 Dextrose 50% 25 Gm/50 Ml Syringe IV PUSH PRN PRN Hypoglycemia Protocol Enalapril Maleate 10 mg 06/19/24 09:00 06/19/24 09:15 Enalapril Maleate 10 Mg Tablet PO 10 mg DAILY GARRY Administration Furosemide 40 mg 06/19/24 09:00 06/19/24 09:15 Furosemide Inj 40 Mg/4 Ml Vial IV PUSH 40 mg BID GARRY Administration Glucagon 1 mg 06/18/24 23:19 Glucagon For Inj 1 Mg Vial IM PRN PRN Hypoglycemia Protocol Glucose 15 gm 06/18/24 23:19 Glucose Oral Gel 15 Gm Of Glucse In 37.5 Gm Tube PO PRN PRN Hypoglycemia Protocol Dextrose 1,000 mls @ 100 mls/hr 06/18/24 23:19 Dextrose 5% 1,000 Ml IVPB PRN PRN Hypoglycemia Protocol Insulin Aspart 3 - 6 units 06/19/24 08:00 06/19/24 11:39 Insulin Aspart (*Bkc) 100 Units/Ml SUB-Q Not Given TIDWM GARRY Protocol Insulin Glargine 70 units 06/19/24 21:00 Insulin Glargine (*Bkc) 100 Units/Ml SUB-Q HS GARRY Ondansetron HCl 4 mg 06/18/24 18:53 Ondansetron Inj 4 Mg/2 Ml Vial IV PUSH Q4H PRN Nausea Pantoprazole Sodium 40 mg 06/19/24 09:00 06/19/24 09:15 Pantoprazole 40 Mg Tablet PO 40 mg DAILY GARRY Administration Perflutren Lipid Microsphere 0 ml 06/19/24 06:06 Perflutren Lipid Microspheres 1.5 Ml Vial Diluted To 10 Ml Total Volume IV PUSH 06/22/24 06:06 ONCE PRN adequate visualization Protocol Sertraline HCl 100 mg 06/19/24 09:00 06/19/24 09:15 Sertraline Hcl 50 Mg Tablet PO 100 mg DAILY GARRY Administration Tamsulosin HCl 0.4 mg 06/19/24 09:00 06/19/24 09:15 Tamsulosin Hcl 0.4 Mg Capsule PO 0.4 mg DAILY GARRY Administration Trazodone HCl 100 mg 06/18/24 23:20 06/18/24 23:58 Trazodone Hcl 50 Mg Tablet PO 100 mg QHS GARRY Administration Radiology Results: ITS Impressions Abdomen/Pelvis CT 06/18/24 16:02 IMPRESSION: 1. Mild pulmonary edema. 2. Small right pleural effusion. 3. Small pericardial effusion. 4. Moderate volume of ascites. Labs Labs: Laboratory Results - last 24 hr 06/18/24 06/18/24 06/18/24 10:45 11:29 18:01 WBC RBC Hgb 6.6 L* Hct 23.8 L MCV MCH MCHC RDW Plt Count MPV Immature Gran % (Auto) Neut % (Auto) Lymph % (Auto) Hood % (Auto) Eos % (Auto) Baso % (Auto) Lymph # (Auto) Hood # (Auto) Eos # (Auto) Baso # (Auto) Abs Immat Gran (auto) Absolute Neuts (auto) Absolute Nucleated RBC Band Neutrophils % Nucleated RBC % Platelet Estimate % Immature Plt Fraction Hypochromasia Anisocytosis Microcytosis Schistocytes Sodium Potassium Chloride Carbon Dioxide Anion Gap BUN Creatinine Estim Creat Clear Calc Estimated GFR Glucose POC Capillary Glucose Calcium Magnesium Iron 22 L TIBC 394 % Saturation 6 L Ferritin 4.92 L Total Bilirubin AST ALT Alkaline Phosphatase NT-Pro-B Natriuret Pep Total Protein Albumin Stl Occult Blood (IFOB) Blood Type B Negative Antibody Screen Negative Crossmatch See Detail 06/18/24 06/19/2425 20:45 07:49 07:56 WBC 6.9 RBC 3.20 L Hgb 7.0 L Hct 24.5 L MCV 76.6 L MCH 21.9 L D MCHC 28.6 L RDW 19.9 H Plt Count 126 L MPV TNP Immature Gran % (Auto) 0.6 H Neut % (Auto) 80.1 H Lymph % (Auto) 10.6 L Hood % (Auto) 6.7 Eos % (Auto) 1.3 Baso % (Auto) 0.7 Lymph # (Auto) 0.73 L Hood # (Auto) 0.5 Eos # (Auto) 0.1 Baso # (Auto) 0.1 Abs Immat Gran (auto) 0.04 H Absolute Neuts (auto) 5.5 Absolute Nucleated RBC 0.000 Band Neutrophils % Not Reportable Nucleated RBC % 0.0 Platelet Estimate Slightly decreased % Immature Plt Fraction 5.6 Hypochromasia 2+ Anisocytosis 2+ Microcytosis 1+ Schistocytes None seen Sodium 141 Potassium 4.0 Chloride 106 Carbon Dioxide 26 Anion Gap 9 BUN 25 H Creatinine 1.04 Estim Creat Clear Calc 74 Estimated GFR > 60 Glucose 111 H POC Capillary Glucose 65 123 H Calcium 8.9 Magnesium 1.6 Iron TIBC % Saturation Ferritin Total Bilirubin 1.5 H AST 22 ALT 13 Alkaline Phosphatase 64 NT-Pro-B Natriuret Pep 1810 H Total Protein 7.0 Albumin 4.0 Stl Occult Blood (IFOB) Blood Type Antibody Screen Crossmatch 06/19/24 06/19/24 10:23 11:24 WBC RBC Hgb Hct MCV MCH MCHC RDW Plt Count MPV Immature Gran % (Auto) Neut % (Auto) Lymph % (Auto) Hood % (Auto) Eos % (Auto) Baso % (Auto) Lymph # (Auto) Hood # (Auto) Eos # (Auto) Baso # (Auto) Abs Immat Gran (auto) Absolute Neuts (auto) Absolute Nucleated RBC Band Neutrophils % Nucleated RBC % Platelet Estimate % Immature Plt Fraction Hypochromasia Anisocytosis Microcytosis Schistocytes Sodium Potassium Chloride Carbon Dioxide Anion Gap BUN Creatinine Estim Creat Clear Calc Estimated GFR Glucose POC Capillary Glucose 114 H Calcium Magnesium Iron TIBC % Saturation Ferritin Total Bilirubin AST ALT Alkaline Phosphatase NT-Pro-B Natriuret Pep Total Protein Albumin Stl Occult Blood (IFOB) Positive H Blood Type Antibody Screen Crossmatch Quality VTE Prophylaxis VTE prophylaxis: mechanical ordered (SCDs)
[2024-06-19 14:44] LABS: Basophils Percent Auto 0.5 % (0.2-1.2); Eosinophils Absolute Auto 0.1 K/mm3 (0-0.3); Eosinophils Percent Auto 0.8 % (0-4.4); Hematocrit 25.4 % (42.0-52.0); Hemoglobin 7.3 g/dL (14.0-18.0); Immature Granulocyte Absolute 0.05 K/mm3 (0.00-0.031); Immature Granulocyte Percent A 0.7 % (0-0.5); Immature Platelet Fraction Pct 6.1 % (0.9-11.2); Lymphocytes Absolute Auto 0.55 K/mm3 (0.9-3.2); Lymphocytes Percent Auto 7.5 % (18.3-44.2); Mean Corpuscular HGB Conc 28.7 g/dl (32-36); Mean Corpuscular Hemoglobin 22.1 pg (26-34); Mean Corpuscular Volume 76.7 fl (80-100); Monocytes Absolute Auto 0.4 K/mm3 (0.1-0.6); Monocytes Percent Auto 5.5 % (2.6-8.5); Neutrophils Absolute Auto 6.2 K/mm3 (1.3-6.7); Nucleated Red Blood Cells Perc 0.3 % (0.0-0.2); Platelet Count Result 142 k/mm3 (150-375); Red Blood Count 3.31 M/mm3 (4.6-6.20); Red Cell Distribution Width 20.4 % (11.5-14.5); White Blood Count 7.3 K/mm3 (4.5-10.0)
[2024-06-19 15:10] LABS: Hypochromasia 1+; Ovalocytes 1+; Platelet Estimate Adequate (Adequate); Schistocytes None Seen
[2024-06-19 16:36] LABS: Glucose Point of Care 169 mg/dl (65-105)
--- NOTE | 2024-06-19 18:21 | P.CONGI_ITS ---
Assessment and Plan Assessment and plan (1) Ascites: Qualifiers: Ascites type: other type Qualified Code(s): R18.8 - Other ascites Code(s): R18.8 - Other ascites Status: Acute Assessment and Plan: The patient's new-onset ascites, thrombocytopenia, and prolonged INR raise strong suspicion for underlying cirrhosis. 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 A paracentesis is indicated and scheduled for tomorrow mainly to r/o spontaneous bacterial peritonitis like in any hospitalized patient with ascites, epecially new onset. Following the procedure, standard oral diuretic therapy for chronic liver disease and cirrhosis will be initiated: spironolactone 100 mg daily and furosemide 40 mg daily. Intravenous diuretics will be discontinued as the patient does not exhibit acute pulmonary edema. A low-sodium, heart-healthy diet, ideally under the guidance of a inventory control specialist, is recommended. The severe iron-deficiency anemia warrants investigation for potential chronic gastrointestinal blood loss. In the context of suspected cirrhosis, portal hypertensive gastropathy, gastric antral vascular ectasia , peptic ulcer disease, neoplasms, or arteriovenous malformations are strong possibilities. An EGD and colonoscopy are scheduled for morning. Pantoprazole will be discontinued as the patient does not present with acute bleeding and it may be a risk factor for SBP in cirrhotics. (2) Iron deficiency anemia: Code(s): D50.9 - Iron deficiency anemia, unspecified Status: Acute GI Consult Note Consult date/time: 06/19/24 18:21 HPI: Devante Diony Hartley Jr., a 68-year-old male with a history of COPD and significant prior alcohol consumption (12 pack of beer per weekend for decades until a few years ago) , was admitted on 06/18/2024 for severe anemia, identified by his primary care physician. He denies any prior GI bleeding, nausea, vomiting, abdominal pain, or unintentional weight loss, and reports a history of obesity. Admission laboratory findings revealed a hemoglobin of 5.2 , INR of 1.3, prothrombin time of 16.4 seconds, AST of 20 , ALT of , albumin of 4.2 , iron saturation of 6%, and ferritin of 4.[address] scan of the abdomen showed moderate ascites, a small right pleural effusion, and a small pericardial effusion. Currently, the patient is comfortable and afebrile, with no abdominal pain. Review of Systems 2 Review of Systems: All systems reviewed & are unremarkable except as noted in HPI and below [facility] Past Medical History Medical History (Updated 06/19/24 @ 18:28 by Nav Crews MD) Moderate pulmonary hypertension RVSP of 53 on echocardiogram 10/2023 Diastolic dysfunction (04/2022) Echocardiogram October 2023: EF greater than 70, mild concentric increased left ventricular wall thickness, abnormal diastolic dysfunction, E/E mildly elevated 13, moderate biatrial enlargement, trace aortic valve regurgitation, mild mitral valve regurgitation, trace tricuspid regurgitation, moderate pulmonary hypertension with RVSP of 53 Erectile dysfunction Hypertension Chronic low back pain Long-term use of aspirin therapy Hepatic steatosis Generalized anxiety disorder Insomnia Obstructive sleep apnea on CPAP Testicular hypofunction GERD (gastroesophageal reflux disease) Mixed hyperlipidemia History of colon polyps COPD (chronic obstructive pulmonary disease) Surgical History Surgical History H/O colonoscopy ~2019 History of fusion of cervical spine (08/2021) C2-T2 History of carpal tunnel surgery 2002 History of vasectomy 2001 Family History Family History Father Lung cancer Hypertension Mother Diabetes mellitus Heart disease Sibling Lung cancer Other Alcoholism Grandparent Alcoholism Grandparent FHx: kidney cancer Other Family history of malignant neoplasm Social History Social History (Updated 06/19/24 @ 05:37 by Mary Manley DO) Social History: Patient lives with his 31 years, Abbey. He had 3 children 1 of which in a car accident. He still has 1 living son and 1 daughter. He used to smoke up to 3 packs of cigarettes per day but quit in 2018. He used to drink alcohol on the weekends somewhat in moderation to sometimes heavy but quit drinking about 20 years ago. He denies illicit substance use. He used to work for the [employer]. Code status: Full code Surrogate decision maker: Abbey () Smoking packs per day: 3 Smoking cigarettes per day: 60.0 Years smoked: 50 Smoking pack-years: 150.00 Smoking status: Former smoker Tobacco type: cigarettes Second hand tobacco smoke exposure: Yes Smoking end date: 03/21/17 Alcohol intake: former Alcohol use details: Rarely Substance use: never Substance use type: does not use Do You Feel Safe in your Home?: Yes Lack of Transportation: YES Lack of Food: Sometimes True Current Housing: I Have Housing Concerned About Future Housing: YES Difficulty Paying Gas/Electric Bills: YES Difficulty Paying for Meds: YES Currently Unemployed: No Education: High School Diploma/GED Difficulty w/ Childcare or Family Care: No Living arrangements: with family Occupation/Education: retired Gender identity (if verbalized by the patient): Male Sexual Orientation (if Verbalized by the Patient): Straight or Heterosexual Spiritual care concerns: No Agree to blood products: Yes Meds Home Medications and Allergies Home Medications ?Medication ?Instructions ?Recorded ?Confirmed ?Type albuterol sulfate 2.5 mg/3 mL 2.5 mg inhalation Q4H PRN 01/10/23 06/18/24 History (0.083 %) solution for nebulization shortness of breath or wheezing trazodone 100 mg tablet 100 mg PO QHS #90 tabs 08/30/23 06/18/24 Rx aspirin 81 mg tablet,delayed 81 mg PO DAILY 09/23/23 06/18/24 History release (Adult Low Dose Aspirin) sertraline 100 mg tablet 100 mg PO DAILY #90 tabs 12/08/23 06/18/24 Rx pen needle, diabetic 32 gauge x #100 ea 12/09/23 06/19/24 Rx 5/32 (BD Ultra-Fine Ankita Pen Needle) lancets 30 gauge #100 ea 12/29/23 06/19/24 Rx atorvastatin 20 mg tablet 20 mg PO DAILY #90 tabs 01/16/24 06/18/24 Rx pioglitazone 30 mg tablet 30 mg PO DAILY #90 tabs 02/13/24 06/18/24 Rx tamsulosin 0.4 mg capsule (Flomax) 0.4 mg PO DAILY #14 caps 03/08/24 06/18/24 Rx clonazepam 1 mg tablet 1 mg PO QHS #30 tabs 05/17/24 06/18/24 Rx metformin 500 mg tablet,extended See Rx Instructions .Route 05/22/24 06/18/24 Rx release 24 hr .COMPLEX #360 tabs albuterol sulfate 90 mcg/actuation 2 inh inhalation Q4H PRN shortness 05/23/24 06/18/24 Rx aerosol inhaler of breath or wheezing #8.5 grams insulin glargine 100 unit/mL (3 80 unit (0.8 mL) subcut QPM #24 mL 06/06/24 06/18/24 Rx mL) subcutaneous pen (Lantus Solostar U-100 Insulin) enalapril maleate 20 mg tablet 10 mg PO DAILY 06/18/24 06/18/24 History furosemide 40 mg tablet 40 mg PO BID 06/18/24 06/18/24 History pantoprazole 40 mg tablet,delayed 40 mg PO DAILY #90 tabs 06/18/24 06/18/24 Rx release Allergies Allergy/AdvReac Type Severity Reaction Status Date / Time fluticasone furoate (From AdvReac Intermediate Other Verified 06/18/24 11:00 Trelegy Ellipta) umeclidinium (From Trelegy AdvReac Intermediate Other Verified 06/18/24 11:00 Ellipta) vilanterol (From Trelegy AdvReac Intermediate Other Verified 06/18/24 11:00 Ellipta) Vital Signs Vital Signs - 24 hr 06/18/24 19:35 06/18/24 19:37 06/18/24 19:50 Temperature 98.4 F 98.4 F Pulse Rate 72 71 71 Respiratory Rate 26 H 27 H 22 H Blood Pressure 134/57 L 134/57 L 136/62 Pulse Oximetry 98 100 98 Oxygen Delivery 06/18/24 20:08 06/18/24 20:50 06/18/24 20:50 Temperature 98.4 F 97.5 F L Pulse Rate 72 77 Respiratory Rate 20 18 Blood Pressure 139/62 145/58 H Pulse Oximetry 100 97 Oxygen Delivery Room Air 06/18/24 21:50 06/18/24 22:30 06/19/24 06:00 Temperature 97.7 F 97.1 F L Pulse Rate 80 81 Respiratory Rate 15 16 Blood Pressure 144/61 H 156/70 H Pulse Oximetry 93 95 93 Oxygen Delivery CPAP 06/19/24 09:15 06/19/24 13:10 06/19/24 13:12 Temperature 98.5 F 97.9 F Pulse Rate 88 91 Respiratory Rate 24 H 24 H Blood Pressure 132/59 L 122/50 L Pulse Oximetry 88 L 88 L Oxygen Delivery Room Air 06/19/24 13:14 Temperature 97.9 F Pulse Rate 99 Respiratory Rate 26 H Blood Pressure 126/50 L Pulse Oximetry 89 L Oxygen Delivery Exam 2 Narrative: Alert oriented x3, not jaundiced, no acute distress. Lungs: Clear to auscultation. Abdomen: Prominent, fluid wave sign positive. No hepatomegaly, no collateral circulation, no tenderness, no masses. Extremities: 1+ pitting edema pedal and pretibial. Neurologically grossly intact. Results Labs 06/19/24 14:32 06/19/24 07:56 Labs: Short CBC 06/18/24 06/19/24 06/19/24 Range/Units 18:01 07:56 14:32 WBC 6.9 7.3 (4.5-10.0) K/mm3 Hgb 6.6 L* 7.0 L 7.3 L (14.0-18.0) g/dL Hct 23.8 L 24.5 L 25.4 L (42.0-52.0) % Plt Count 126 L 142 L (150-375) k/mm3 BMP 06/19/24 07:56 Sodium 141 Potassium 4.0 Chloride 106 Carbon Dioxide 26 BUN 25 H Creatinine 1.04 Glucose 111 H Calcium 8.9 Liver Function 06/19/24 Range/Units 07:56 Total Bilirubin 1.5 H (0.2-1.3) mg/dL AST 22 (17-59) U/L ALT 13 (6-50) U/L Alkaline Phosphatase 64 (38-126) U/L Albumin 4.0 (3.5-5.1) g/dL
--- NOTE | 2024-06-19 18:53 | P.CONCA_ITS ---
Assessment and Plan Assessment and plan (1) Diastolic dysfunction: Onset Date: 04/2022 Code(s): I51.89 - Other ill-defined heart diseases Status: Acute Assessment and Plan: On diuretics including Lasix and may add Spironolactone which would also benefit ascites that could be related to cirrhosis of liver. (2) Mixed hyperlipidemia: Code(s): E78.2 - Mixed hyperlipidemia Status: Chronic Assessment and Plan: On Atorvastatin. (3) Hypertension: Qualifiers: Hypertension type: primary hypertension Qualified Code(s): I10 - Essential (primary) hypertension Code(s): I10 - Essential (primary) hypertension Status: Chronic Assessment and Plan: Stable. (4) Severe pulmonary hypertension: Code(s): I27.20 - Pulmonary hypertension, unspecified Status: Acute Assessment and Plan: Due to ESTHER and COPD. (5) Pulmonary edema: Code(s): J81.1 - Chronic pulmonary edema Status: Acute Assessment and Plan: Probably due to high out heart failure from anemia. Correct underlying cause for anemia in progress. GI related with hemoccult positive stool or other. History of Present Illness History of Present Illness Consult date/time: 06/19/24 18:53 Reason For Visit: Anemia requiring blood transfusion: on 3rd unit Narrative: 68 yr old man who is a my regular cardiology patient and a patient of Eduarda Mccabe presents to hospital with anemia with Hb 5.7. He has a history of DM, hypertension, dyslipidemia, COPD, ESTHER on CPAP (Sees PCP), former smoker, anxiety. States he felt weak, sob. He was found to have CHF, ascites, anemia, and given 3 units PRBC and afterwards his symptoms improved. He has been diuresed with Lasix 40 mg IV BID. Previously, he had urinary retention due to enlarged prostate, had dhillon placed, developed pneumonia and sob, and was diuresed due to volume overload. He feels weak and sob that has not completely resolved. Reports recently more sob walking short distances. He drinks about 40 ounces of fluid a day. Denies orthopnea, PND, dizziness, palpitations, chest pains. Cardiovascular Procedures Echo/MUGA:: 06/19/24 Echo: EF 65-70%, mod LVH, diastolic dysfunction (E/e' 15), mod RVE, mod biatrial enlargement, mild MR/TR, RVSP 63 mmHg, trace pericardia effusion. 11/11/23 Echo: EF>70%, mild LVH, diastolic dysfunction (E/e' 13), mod biatrial enlargement, trace AI/TR, mild MR, RVSP 53 mmHg, trace pericardial effusion. 05/13/22 Echo: EF 60-65%, mild LVH, grade I diastolic dysfunction, mild LAE, mild MR/TR. Electrophysiology:: 09/23/23 EKG: Sinus rhythm with first degree AV block. Stress Tests:: 11/11/23 Lexiscan myoview: Negative. Review of Systems 2 Review of Systems: All systems reviewed & are unremarkable except as noted in HPI and below Constitutional: Constitutional: Reports as per HPI, Denies chills and Denies fever(s) Cardiovascular: Cardiovascular: Reports as per HPI, Denies chest pain and Denies irregular heart rhythm Respiratory: Respiratory: Reports as per HPI and Reports dyspnea Gastrointestinal: Gastrointestinal: Reports as per HPI and Denies abdominal pain Genitourinary: Genitourinary: Reports as per HPI and Denies dysuria Musculoskeletal: Musculoskeletal: Reports as per HPI Neurologic: Reports as per HPI, Denies dizziness and Denies syncope [facility] Past Medical History Medical History (Updated 06/19/24 @ 19:05 by Hermann Benitez DO) Diastolic dysfunction (04/2022) Echocardiogram October 2023: EF greater than 70, mild concentric increased left ventricular wall thickness, abnormal diastolic dysfunction, E/E mildly elevated 13, moderate biatrial enlargement, trace aortic valve regurgitation, mild mitral valve regurgitation, trace tricuspid regurgitation, moderate pulmonary hypertension with RVSP of 53 Moderate pulmonary hypertension RVSP of 53 on echocardiogram 10/2023 Erectile dysfunction Hypertension Chronic low back pain Long-term use of aspirin therapy Hepatic steatosis Generalized anxiety disorder Insomnia Obstructive sleep apnea on CPAP Testicular hypofunction GERD (gastroesophageal reflux disease) Mixed hyperlipidemia History of colon polyps COPD (chronic obstructive pulmonary disease) Surgical History Surgical History H/O colonoscopy ~2019 History of fusion of cervical spine (08/2021) C2-T2 History of carpal tunnel surgery 2002 History of vasectomy 2001 Family History Family History Father Lung cancer Hypertension Mother Diabetes mellitus Heart disease Sibling Lung cancer Other Alcoholism Grandparent Alcoholism Grandparent FHx: kidney cancer Other Family history of malignant neoplasm Social History Social History (Updated 06/19/24 @ 05:37 by Mary Manley DO) Social History: Patient lives with his 31 years, Abbey. He had 3 children 1 of which in a car accident. He still has 1 living son and 1 daughter. He used to smoke up to 3 packs of cigarettes per day but quit in 2018. He used to drink alcohol on the weekends somewhat in moderation to sometimes heavy but quit drinking about 20 years ago. He denies illicit substance use. He used to work for the [employer]. Code status: Full code Surrogate decision maker: Abbey () Smoking packs per day: 3 Smoking cigarettes per day: 60.0 Years smoked: 50 Smoking pack-years: 150.00 Smoking status: Former smoker Tobacco type: cigarettes Second hand tobacco smoke exposure: Yes Smoking end date: 03/21/17 Alcohol intake: former Alcohol use details: Rarely Substance use: never Substance use type: does not use Do You Feel Safe in your Home?: Yes Lack of Transportation: YES Lack of Food: Sometimes True Current Housing: I Have Housing Concerned About Future Housing: YES Difficulty Paying Gas/Electric Bills: YES Difficulty Paying for Meds: YES Currently Unemployed: No Education: High School Diploma/GED Difficulty w/ Childcare or Family Care: No Living arrangements: with family Occupation/Education: retired Gender identity (if verbalized by the patient): Male Sexual Orientation (if Verbalized by the Patient): Straight or Heterosexual Spiritual care concerns: No Agree to blood products: Yes Meds Home Medications and Allergies Home Medications ?Medication ?Instructions ?Recorded ?Confirmed ?Type albuterol sulfate 2.5 mg/3 mL 2.5 mg inhalation Q4H PRN 01/10/23 06/18/24 History (0.083 %) solution for nebulization shortness of breath or wheezing trazodone 100 mg tablet 100 mg PO QHS #90 tabs 08/30/23 06/18/24 Rx aspirin 81 mg tablet,delayed 81 mg PO DAILY 09/23/23 06/18/24 History release (Adult Low Dose Aspirin) sertraline 100 mg tablet 100 mg PO DAILY #90 tabs 12/08/23 06/18/24 Rx pen needle, diabetic 32 gauge x #100 ea 12/09/23 06/19/24 Rx 5/32 (BD Ultra-Fine Ankita Pen Needle) lancets 30 gauge #100 ea 12/29/23 06/19/24 Rx atorvastatin 20 mg tablet 20 mg PO DAILY #90 tabs 01/16/24 06/18/24 Rx pioglitazone 30 mg tablet 30 mg PO DAILY #90 tabs 02/13/24 06/18/24 Rx tamsulosin 0.4 mg capsule (Flomax) 0.4 mg PO DAILY #14 caps 03/08/24 06/18/24 Rx clonazepam 1 mg tablet 1 mg PO QHS #30 tabs 05/17/24 06/18/24 Rx metformin 500 mg tablet,extended See Rx Instructions .Route 05/22/24 06/18/24 Rx release 24 hr .COMPLEX #360 tabs albuterol sulfate 90 mcg/actuation 2 inh inhalation Q4H PRN shortness 05/23/24 06/18/24 Rx aerosol inhaler of breath or wheezing #8.5 grams insulin glargine 100 unit/mL (3 80 unit (0.8 mL) subcut QPM #24 mL 06/06/24 06/18/24 Rx mL) subcutaneous pen (Lantus Solostar U-100 Insulin) enalapril maleate 20 mg tablet 10 mg PO DAILY 06/18/24 06/18/24 History furosemide 40 mg tablet 40 mg PO BID 06/18/24 06/18/24 History pantoprazole 40 mg tablet,delayed 40 mg PO DAILY #90 tabs 06/18/24 06/18/24 Rx release Allergies Allergy/AdvReac Type Severity Reaction Status Date / Time fluticasone furoate (From AdvReac Intermediate Other Verified 06/18/24 11:00 Trelegy Ellipta) umeclidinium (From Trelegy AdvReac Intermediate Other Verified 06/18/24 11:00 Ellipta) vilanterol (From Trelegy AdvReac Intermediate Other Verified 06/18/24 11:00 Ellipta) Vital Signs Vital Signs - 24 hr 06/18/24 19:35 06/18/24 19:37 06/18/24 19:50 Temperature 98.4 F 98.4 F Pulse Rate 72 71 71 Respiratory Rate 26 H 27 H 22 H Blood Pressure 134/57 L 134/57 L 136/62 Pulse Oximetry 98 100 98 Oxygen Delivery 06/18/24 20:08 06/18/24 20:50 06/18/24 20:50 Temperature 98.4 F 97.5 F L Pulse Rate 72 77 Respiratory Rate 20 18 Blood Pressure 139/62 145/58 H Pulse Oximetry 100 97 Oxygen Delivery Room Air 06/18/24 21:50 06/18/24 22:30 06/19/24 06:00 Temperature 97.7 F 97.1 F L Pulse Rate 80 81 Respiratory Rate 15 16 Blood Pressure 144/61 H 156/70 H Pulse Oximetry 93 95 93 Oxygen Delivery CPAP 06/19/24 09:15 06/19/24 13:10 06/19/24 13:12 Temperature 98.5 F 97.9 F Pulse Rate 88 91 Respiratory Rate 24 H 24 H Blood Pressure 132/59 L 122/50 L Pulse Oximetry 88 L 88 L Oxygen Delivery Room Air 06/19/24 13:14 Temperature 97.9 F Pulse Rate 99 Respiratory Rate 26 H Blood Pressure 126/50 L Pulse Oximetry 89 L Oxygen Delivery Exam 2 Const: General: cooperative, healthy appearing and comfortable Resp: Auscultation: crackles, no rales, no rhonchi and no wheezes Cardio: Rate: regular rate Rhythm: regular rhythm Heart sounds: no murmurs Peripheral pulses: dorsalis pedis present GI: GI Palp: Yes Soft to palpation Neuro: General: oriented to person, oriented to place and oriented to time Extrem: Right lower extremity: edema Left lower extremity: no edema O ther: Mod right leg edema Results Labs and Meds 06/19/24 14:32 06/19/24 07:56 Lab results: Cardiac Enzymes 06/19/24 Range/Units 07:56 AST 22 (17-59) U/L CBC 06/19/24 06/19/24 Range/Units 07:56 14:32 WBC 6.9 7.3 (4.5-10.0) K/mm3 RBC 3.20 L 3.31 L (4.6-6.20) M/mm3 Hgb 7.0 L 7.3 L (14.0-18.0) g/dL Hct 24.5 L 25.4 L (42.0-52.0) % Plt Count 126 L 142 L (150-375) k/mm3 Lymph # (Auto) 0.73 L 0.55 L (0.9-3.2) K/mm3 [place] # (Auto) 0.5 0.4 (0.1-0.6) K/mm3 Eos # (Auto) 0.1 0.1 (0-0.3) K/mm3 Baso # (Auto) 0.1 0.0 (0.0-0.1) K/mm3 Comprehensive Metabolic Panel 06/19/24 Range/Units 07:56 Sodium 141 (137-145) mmol/L Potassium 4.0 (3.4-5.0) mmol/L Chloride 106 (98-107) mmol/L Carbon Dioxide 26 (22-30) mmol/L BUN 25 H (9-20) mg/dL Creatinine 1.04 (0.7-1.3) mg/dL Glucose 111 H (65-110) mg/dL Calcium 8.9 (8.4-10.2) mg/dL AST 22 (17-59) U/L ALT 13 (6-50) U/L Alkaline Phosphatase 64 (38-126) U/L Total Protein 7.0 (6.3-8.2) g/dL Albumin 4.0 (3.5-5.1) g/dL Intake and Output 06/19/24 06/19/24 06/19/24 07:59 15:59 23:59 Intake Total 550 290 Balance 550 290 Intake: IV 50 Magnesium Sulf 2 gm/Water 50Ml 50 2 gm In 50 ml @ 25 mls/hr IVPB ONCE ONE Rx#:[id number] Oral 550 240 Other: # Unmeasured Voids 2 Patient Weight 06/19/24 23:59 Weight 115 kg
[2024-06-19 20:08] LABS: Glucose Point of Care 224 mg/dl (65-105)
[2024-06-19] MEDS: INSULIN GLARGINE (*BKC) 100 UNITS/ML 70 UNITS SUB-Q (20:22)
[2024-06-19] MEDS: traZODone HCL 50 MG TABLET 100 MG PO (20:22)
[2024-06-19] MEDS: clonazePAM (*CRX) 0.5 MG TABLET 1 MG PO (20:22)
[2024-06-19 21:37] LABS: Hepatitis B Surface Antigen Negative (Negative)
[2024-06-19 21:54] LABS: Hepatitis C Virus Antibody Negative (Negative)
[2024-06-20] VITALS (9 sets, daily range): BP systolic 137–148; BP diastolic 53–73; PULSE 71–74; RESP 16–20; TEMP 36.3–36.8; O2SAT 91–100
[2024-06-20 06:07] LABS: Basophils Percent Auto 0.7 % (0.2-1.2); Eosinophils Absolute Auto 0.1 K/mm3 (0-0.3); Eosinophils Percent Auto 2.2 % (0-4.4); Hematocrit 23.6 % (42.0-52.0); Immature Granulocyte Absolute 0.04 K/mm3 (0.00-0.031); Immature Granulocyte Percent A 0.7 % (0-0.5); Immature Platelet Fraction Pct 6.1 % (0.9-11.2); Lymphocytes Absolute Auto 0.64 K/mm3 (0.9-3.2); Lymphocytes Percent Auto 11.7 % (18.3-44.2); Mean Corpuscular HGB Conc 28.4 g/dl (32-36); Mean Corpuscular Volume 77.6 fl (80-100); Mean Platelet Volume 11.2 fl (7.4-10.4); Monocytes Absolute Auto 0.4 K/mm3 (0.1-0.6); Monocytes Percent Auto 6.7 % (2.6-8.5); Neutrophils Absolute Auto 4.3 K/mm3 (1.3-6.7); Platelet Count Result 121 k/mm3 (150-375); Red Blood Count 3.04 M/mm3 (4.6-6.20); Red Cell Distribution Width 20.6 % (11.5-14.5); White Blood Count 5.5 K/mm3 (4.5-10.0)
[2024-06-20 06:18] LABS: Alanine Aminotransferase 12 U/L (6-50); Albumin Level 3.8 g/dL (3.5-5.1); Alkaline Phosphatase 59 U/L (38-126); Anion Gap 9 mmol/L (4-12); Aspartate Amino Transferase 17 U/L (17-59); Bilirubin,Total 1.3 mg/dL (0.2-1.3); Blood Urea Nitrogen 18 mg/dL (9-20); Calcium 8.7 mg/dL (8.4-10.2); Carbon Dioxide 25 mmol/L (22-30); Chloride 108 mmol/L (98-107); Estimated CRCL calculation 81 ml/min; Estimated Glomerular Filt Rate > 60; Glucose 87 mg/dL (65-110); Potassium 3.4 mmol/L (3.4-5.0); Sodium 142 mmol/L (137-145)
[2024-06-20 07:37] LABS: Hemoglobin 6.7 g/dL (14.0-18.0)
[2024-06-20 07:39] LABS: Band Neutrophils Percent 0 % (0-6)
[2024-06-20 07:40] LABS: Anisocytosis 1+; Hypochromasia 1+; Platelet Estimate Slightly Decreased (Adequate); Schistocytes None Seen
--- NOTE | 2024-06-20 07:43 | P.PNIM_ITS ---
Progress Note: A&P Assessment and Plan (1) Iron deficiency anemia: Qualifiers: Iron deficiency anemia type: unspecified iron deficiency Qualified Code(s): D50.9 - Iron deficiency anemia, unspecified Code(s): D50.9 - Iron deficiency anemia, unspecified Status: Acute Assessment and Plan: * H&H trend: 5.2/19.7>6.6/23.8>7.0/24.5 (post 3 units of PRBc's). Current H&H 6.7/23.6 * One unit PRBC ordered * Occult blood positive * GI consulted thank you for your help * Start oral iron when appropiate * Iron 22, TIBC 394, % saturation 6, Ferritin 4.92. Patient received Iron sucrose 400 mg/ iron sucrose 100 mg IVPB x 1. * Continue to trend labs * Transfuse if Hgb <7.0 * Trend labs. . (2) MetALD: Code(s): K76.0 - Fatty (change of) liver, not elsewhere classified; F10.90 - Alcohol use, unspecified, uncomplicated Status: Acute Assessment and Plan: * Presented with significant amount of ascites * CT shows moderate ascities * AST/ALT stable at 17/12 * Paracentesis ordered for today * Continue spironolactone * Trend In and Outs * GI on board * Trend labs and vitals (3) Pericardial effusion: Code(s): I31.39 - Other pericardial effusion (noninflammatory) Status: Acute Assessment and Plan: * CT showed a small pericardial effusion. * Echo with ED of 65-70% * Most likely related to liver disease * BNP 1810 * Lasix orderd 40mg IVP daily for now * Would benefit from adding spirnolactone as well * GI and cardiology on consult (4) Insulin dependent diabetes mellitus: Status: Acute Assessment and Plan: * Glucose is 87 * hold home pioglitazone for now * Decrease the patient's Lantus dose down to 70 units while hospitalized. * Moderate dose sliding scale insulin with Accu-Cheks a.c. * HS hypoglycemia protocol has been added as needed. * Trend glucose * Adjust therapy as indicated (5) Occult blood positive stool: Code(s): R19.5 - Other fecal abnormalities Status: Acute Assessment and Plan: * Stool positive for occult blood. * GI consulted. * Pantoprazole 40 mg PO BID. * Hold ASA * Hgb low again today * Might need to be scoped to rule out GI bleed (6) Severe pulmonary hypertension: Code(s): I27.20 - Pulmonary hypertension, unspecified Status: Acute Assessment and Plan: * Echo showed: EF of 65-70% * Cardiology consult * Enalapril 10 mg PO daily. * Lasix 40 mg IV BID * Spironolactone added * Strict I and Os * Daily weights (7) Obstructive sleep apnea on CPAP: Code(s): G47.33 - Obstructive sleep apnea (adult) (pediatric); Z99.89 - Dependence on other enabling machines and devices Status: Chronic Assessment and Plan: * CPAP (8) BPH loc w urin obs/LUTS: Code(s): N40.1 - Benign prostatic hyperplasia with lower urinary tract symptoms Status: Acute Assessment and Plan: * Flomax 0.4 mg PO daily. * Trend urine output * Consider bladder scans (9) Acute on chronic heart failure with preserved ejection fraction (HFpEF): Code(s): I50.33 - Acute on chronic diastolic (congestive) heart failure Status: Acute Assessment and Plan: * Patient noted to have some pretty significant breathing changes with accessory muscle using * Monitor vital signs, I&Os, BUN/creatinine, daily weights, neuro status and patient is a fall risk * Monitor serum electrolytes, Keep serum Potassium>4 and serum Magnesium>2 and CBC * Echo from 06/19/2024 showed EF of 65-70% with a abnormal diastolic function * Lasix 40 mg IV q12H * Continue EMT with spironolactone, enalapril Time Spent With Patient Time: 58 minutes Time with patient: Greater than 35 minutes Subjective Date/time seen: 06/20/24 07:43 Interval history: 06/20/2024 Patient is currently lying in bed. was present. There was a lot of questions regarding his care as they felt that his plan of care as of been communicated well however did explain to them the current change of events. Patient is post have a paracentesis today and will need a EGD colonoscopy in the a.m.. Currently he is feeling okay. He is concerned that he had an oxygen bleed 1 dose of Lasix has been given. Patient also got 3 units of blood will give another unit today. Currently patient denies any chest pain, shortness a breath, nausea, vomiting, diarrhea constipation. Patient is more concerned that he wants to eat. 06/19/2024 Patient sitting up on the side of the bed. Patient denies chest pain, palpitations, headache, dizziness, nausea, or vomiting. Patient reports that he feels a little stronger after blood transfusions. 06/18/24 23:11 68-year-old male with a past medical history of COPD, obstructive sleep apnea, GERD, diastolic dysfunction, BPH and type 2 diabetes mellitus on insulin therapy who presented to the ER from home due to low hemoglobin on outpatient labs. The patient reports that he had gone to his primary care doctor just for routine follow-up labs which were drawn on the . His CBC incidentally demonstrated hemoglobin of 5.7. He denies having any hematochezia, melena or hematuria. His Hemoccult performed on rectal exam by ER was negative for occult blood. He reports that he eats red meat frequently. He does not take any iron mena pplements. He has never had a history of anemia that he knows of any has no prior labs within the system as he usually gets his labs drawn through [facility]. He has not been taking any ibuprofen or naproxen. He had an EGD probably close to 20 years ago or more so that his insurance would pay for PPI therapy. He does not recall when he had his last colonoscopy but he has had several. He denies history of prior GI bleed. He has not been having any abdominal pain. Repeat hemoglobin here was 5.2. He received 2 units of packed red blood cells and repeat hemoglobin was 6.6. 1/3 unit was administered. Iron studies that were obtained prior to the patient receiving transfusion demonstrated ferritin less than 5 and% saturation of 6% and a low iron level of 22. He is only on aspirin for anti-platelet effect and is not on any other blood thinners. He does have a history of diastolic dysfunction. He reports that he has had increased lower extremity swelling for about 6 months. It has not acutely worsened in recent weeks but it was a definite change about 6 months ago. 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 He reports that his weight has been stable at around 250 lb for several months. He does have some dyspnea on exertion that is chronic with occasional episodes of exacerbation. He denies any increased cough. He has not had any fevers or chills. His abdomen is quite distended but he states that this is unchanged from baseline. He states that his lung disease wearing his CPAP he is not short of breath when he lays down. He is compliant with his CPAP. His last polysomnogram was about [address] of the abdomen with contrast Imaging in the ER demonstrated moderate volume of ascites, mild pulmonary edema, small right pleural effusion, small pericardial effusion. He reports that he has been compliant with his cardiac medications. His glucoses were well controlled in the ER. He has not had anything the for most of the day due to his ER visit. He received his full dose of home Lantus in the ER and subsequently on arrival to the IMU he had some mild hypoglycemia. Review of Systems Review of Systems: All systems reviewed & are unremarkable except as noted in HPI and below Exam Narrative: General: well-nourished, well-appearing 68-year-old male, sitting up in bed, comfortable, NARD Neuro: awake, alert and oriented x4, speech clear, no focal neuro deficits noted HEENMT: normocephalic, atraumatic, EOMI, sclerae anicteric, moist oral mucosa Respiratory: Crackles noted bilateral lower lobes Cardio: regular rate, regular rhythm with S1-S2 Abdomen: distended, normoactive bowel sounds, soft, nontender to palpation Extremities: 4+ pitting edema bilateral lower extremities Skin: Ashen and mildly jaundiced see appearing Psych: appropriate mood and affect, judgment and insight intact Objective Data Vital Signs Vital Signs: Vital Signs - 24 hr 06/19/24 09:15 06/19/24 13:10 06/19/24 13:12 Temperature 98.5 F 97.9 F Pulse Rate 88 91 Respiratory Rate 24 H 24 H Blood Pressure 132/59 L 122/50 L Pulse Oximetry 88 L 88 L Oxygen Delivery Room Air Oxygen Flow Rate 06/19/24 13:14 06/19/24 14:00 06/19/24 20:20 Temperature 97.9 F 97.7 F Pulse Rate 99 87 85 Respiratory Rate 26 H 20 20 Blood Pressure 126/50 L 143/59 H Pulse Oximetry 89 L 90 91 Oxygen Delivery Room Air Oxygen Flow Rate 06/19/24 20:25 06/19/24 22:45 06/19/24 22:45 Temperature 98.6 F Pulse Rate 85 92 Respiratory Rate 20 Blood Pressure 142/62 H Pulse Oximetry 91 88 L 95 Oxygen Delivery CPAP CPAP Oxygen Flow Rate 2 06/20/24 04:55 Temperature 97.4 F L Pulse Rate 74 Respiratory Rate 20 Blood Pressure 144/65 H Pulse Oximetry 99 Oxygen Delivery Oxygen Flow Rate Intake/Output Intake/Output: Intake & Output 06/17/24 06/18/24 06/19/24 06/20/24 23:59 23:59 23:59 23:59 Intake Total 1150 2320 450 Balance 1150 2320 450 Meds/Results Medications: Active Medications Generic Name Dose Route Start Last Admin Trade Name Freq PRN Reason Stop Dose Admin Acetaminophen 650 mg 06/18/24 18:53 06/19/24 10:58 Acetaminophen 325 Mg Tablet PO 650 mg Q4H PRN Administration Mild Pain (1-3) or Fever Albuterol 2.5 mg 06/18/24 23:14 Albuterol Sulfate Neb 2.5 Mg/3 Ml Inh INHALATION Q4H PRN shortness of breath or wheezing Aspirin 81 mg 06/19/24 09:00 06/19/24 09:15 Aspirin 81 Mg Enteric Tablet PO 81 mg DAILY GARRY Administration Atorvastatin Calcium 20 mg 06/19/24 09:00 06/19/24 09:15 Atorvastatin 20 Mg Tablet PO 20 mg DAILY GARRY Administration Clonazepam 1 mg 06/18/24 23:30 06/19/24 20:22 Clonazepam (*Crx) 0.5 Mg Tablet PO 1 mg QHS GARRY Administration Dextrose 12.5 gm 06/18/24 23:19 Dextrose 50% 25 Gm/50 Ml Syringe IV PUSH PRN PRN Hypoglycemia Protocol Enalapril Maleate 10 mg 06/19/24 09:00 06/19/24 09:15 Enalapril Maleate 10 Mg Tablet PO 10 mg DAILY GARRY Administration Furosemide 40 mg 06/20/24 09:00 Furosemide 40 Mg Tablet PO DAILY GARRY Glucagon 1 mg 06/18/24 23:19 Glucagon For Inj 1 Mg Vial IM PRN PRN Hypoglycemia Protocol Glucose 15 gm 06/18/24 23:19 Glucose Oral Gel 15 Gm Of Glucse In 37.5 Gm Tube PO PRN PRN Hypoglycemia Protocol Dextrose 1,000 mls @ 100 mls/hr 06/18/24 23:19 Dextrose 5% 1,000 Ml IVPB PRN PRN Hypoglycemia Protocol Insulin Aspart 3 - 6 units 06/19/24 08:00 06/19/24 17:33 Insulin Aspart (*Bkc) 100 Units/Ml SUB-Q Not Given TIDWM [facility] Protocol Insulin Glargine 70 units 06/19/24 21:00 06/19/24 20:22 Insulin Glargine (*Bkc) 100 Units/Ml SUB-Q 70 units HS GARRY Administration Ondansetron HCl 4 mg 06/18/24 18:53 Ondansetron Inj 4 Mg/2 Ml Vial IV PUSH Q4H PRN Nausea Perflutren Lipid Microsphere 0 ml 06/19/24 06:06 Perflutren Lipid Microspheres 1.5 Ml Vial Diluted To 10 Ml Total Volume IV PUSH 06/22/24 06:06 ONCE PRN adequate visualization Protocol Polyethylene Glycol 119 gm 06/20/24 20:00 Polyethylene Glycol 3350 238 Gm Bottle PO 06/21/24 05:01 BID@0500,2000 [facility] Sertraline HCl 100 mg 06/19/24 09:00 06/19/24 09:15 Sertraline Hcl 50 Mg Tablet PO 100 mg DAILY GARRY Administration Spironolactone 100 mg 06/20/24 09:00 Spironolactone 50 Mg Tablet PO QAM AGRRY Tamsulosin HCl 0.4 mg 06/19/24 09:00 06/19/24 09:15 Tamsulosin Hcl 0.4 Mg Capsule PO 0.4 mg DAILY GARRY Administration Trazodone HCl 100 mg 06/18/24 23:20 06/19/24 20:22 Trazodone Hcl 50 Mg Tablet PO 100 mg QHS GARRY Administration Radiology Results: ITS Impressions Abdomen/Pelvis CT 06/18/24 16:02 IMPRESSION: 1. Mild pulmonary edema. 2. Small right pleural effusion. 3. Small pericardial effusion. 4. Moderate volume of ascites. Labs Labs: Laboratory Results - last 24 hr 06/19/24 06/19/24 06/19/24 07:49 07:56 10:23 WBC 6.9 RBC 3.20 L Hgb 7.0 L Hct 24.5 L MCV 76.6 L MCH 21.9 L D MCHC 28.6 L RDW 19.9 H Plt Count 126 L MPV TNP Immature Gran % (Auto) 0.6 H Neut % (Auto) 80.1 H Lymph % (Auto) 10.6 L Mckean % (Auto) 6.7 Eos % (Auto) 1.3 Baso % (Auto) 0.7 Lymph # (Auto) 0.73 L Mckean # (Auto) 0.5 Eos # (Auto) 0.1 Baso # (Auto) 0.1 Abs Immat Gran (auto) 0.04 H Absolute Neuts (auto) 5.5 Absolute Nucleated RBC 0.000 Band Neutrophils % Not Reportable Nucleated RBC % 0.0 Platelet Estimate Slightly decreased % Immature Plt Fraction 5.6 Hypochromasia 2+ Anisocytosis 2+ Microcytosis 1+ Ovalocytes Schistocytes None seen Sodium 141 Potassium 4.0 Chloride 106 Carbon Dioxide 26 Anion Gap 9 BUN 25 H Creatinine 1.04 Estim Creat Clear Calc 74 Estimated GFR > 60 Glucose 111 H POC Capillary Glucose 123 H Calcium 8.9 Magnesium 1.6 Total Bilirubin 1.5 H AST 22 ALT 13 Alkaline Phosphatase 64 NT-Pro-B Natriuret Pep 1810 H Total Protein 7.0 Albumin 4.0 Stl Occult Blood (IFOB) Positive H Hep Bs Antigen Hepatitis C Ab Screen 06/19/24 06/19/24 06/19/24 11:24 14:32 16:33 WBC 7.3 RBC 3.31 L Hgb 7.3 L Hct 25.4 L MCV 76.7 L MCH 22.1 L MCHC 28.7 L RDW 20.4 H Plt Count 142 L MPV Not Reportable Immature Gran % (Auto) 0.7 H Neut % (Auto) 85.0 H Lymph % (Auto) 7.5 L Mckean % (Auto) 5.5 Eos % (Auto) 0.8 Baso % (Auto) 0.5 Lymph # (Auto) 0.55 L Mckean # (Auto) 0.4 Eos # (Auto) 0.1 Baso # (Auto) 0.0 Abs Immat Gran (auto) 0.05 H Absolute Neuts (auto) 6.2 Absolute Nucleated RBC 0.020 H Band Neutrophils % Not Reportable Nucleated RBC % 0.3 H Platelet Estimate Adequate % Immature Plt Fraction 6.1 Hypochromasia 1+ Anisocytosis Microcytosis Ovalocytes 1+ Schistocytes None seen Sodium Potassium Chloride Carbon Dioxide Anion Gap BUN Creatinine Estim Creat Clear Calc Estimated GFR Glucose POC Capillary Glucose 114 H 169 H Calcium Magnesium Total Bilirubin AST ALT Alkaline Phosphatase NT-Pro-B Natriuret Pep Total Protein Albumin Stl Occult Blood (IFOB) Hep Bs Antigen Hepatitis C Ab Screen 06/19/24 06/19/24 06/20/24 20:05 20:19 05:49 WBC 5.5 RBC 3.04 L Hgb 6.7 L* Hct 23.6 L MCV 77.6 L MCH 22.0 L MCHC 28.4 L RDW 20.6 H Plt Count 121 L MPV 11.2 H Immature Gran % (Auto) 0.7 H Neut % (Auto) 78.0 H Lymph % (Auto) 11.7 L Mckean % (Auto) 6.7 Eos % (Auto) 2.2 Baso % (Auto) 0.7 Lymph # (Auto) 0.64 L Mckean # (Auto) 0.4 Eos # (Auto) 0.1 Baso # (Auto) 0.0 Abs Immat Gran (auto) 0.04 H Absolute Neuts (auto) 4.3 Absolute Nucleated RBC 0.000 Band Neutrophils % 0 Nucleated RBC % 0.0 Platelet Estimate Slightly decreased % Immature Plt Fraction 6.1 Hypochromasia 1+ Anisocytosis 1+ Microcytosis Ovalocytes Schistocytes None seen Sodium 142 Potassium 3.4 Chloride 108 H Carbon Dioxide 25 Anion Gap 9 BUN 18 Creatinine 0.95 Estim Creat Clear Calc 81 Estimated GFR > 60 Glucose 87 POC Capillary Glucose 224 H Calcium 8.7 Magnesium 2.0 Total Bilirubin 1.3 AST 17 ALT 12 Alkaline Phosphatase 59 NT-Pro-B Natriuret Pep Total Protein 6.0 L Albumin 3.8 Stl Occult Blood (IFOB) Hep Bs Antigen Negative Hepatitis C Ab Screen Negative Quality VTE Prophylaxis VTE prophylaxis: mechanical ordered (SCDs) Hospitalist MIPS Advance Care Plan I have confirmed that the patient's Advanced Care Plan is present, code status is documented, or surrogate decision maker is listed in patient medical record.: Yes Medication Reconciliation I have utilized all available resources to obtain, update and review the patients current medications (includes all prescriptions, OTC, herbals, cannabis, and nutritional supplements).: Yes
[2024-06-20 07:46] LABS: Glucose Point of Care 75 mg/dl (65-105)
--- NOTE | 2024-06-20 07:48 | PM.PNCARD ---
Progress Note: A&P Assessment and Plan (1) Diastolic dysfunction: Onset Date: 04/2022 Code(s): I51.89 - Other ill-defined heart diseases Status: Acute Assessment and Plan: Acute on chronic. On diuretics including Lasix 40 mg PO daily and may added Spironolactone 100 mg daily which would benefit ascites that could be related to cirrhosis of liver. (2) Mixed hyperlipidemia: Code(s): E78.2 - Mixed hyperlipidemia Status: Chronic Assessment and Plan: On Atorvastatin. (3) Hypertension: Qualifiers: Hypertension type: primary hypertension Qualified Code(s): I10 - Essential (primary) hypertension Code(s): I10 - Essential (primary) hypertension Status: Chronic Assessment and Plan: Stable. (4) Severe pulmonary hypertension: Code(s): I27.20 - Pulmonary hypertension, unspecified Status: Acute Assessment and Plan: Due to ESTHER and COPD. (5) Pulmonary edema: Code(s): J81.1 - Chronic pulmonary edema Status: Acute Assessment and Plan: Probably due to high out heart failure from anemia. Correct underlying cause for anemia in progress which could be GI related with hemoccult positive stool or other. Subjective Date/time seen: 06/20/24 07:48 Interval history: Denies chest pain or sob or abdominal pain. Exam Const: General: cooperative, healthy appearing and comfortable Orientation/consciousness: oriented to person, oriented to place and oriented to time Resp: Auscultation: crackles, no rales, no rhonchi and no wheezes Cardio: Rate: regular rate Rhythm: regular rhythm Heart sounds: no murmurs Peripheral pulses: dorsalis pedis present Neuro: General: oriented to person, oriented to place and oriented to time Extrem: Right lower extremity: edema Left lower extremity: edema Other: Mild edema of both legs Objective Data Vital Signs Vital Signs: Vital Signs - 24 hr 06/19/24 09:15 06/19/24 13:10 06/19/24 13:12 Temperature 98.5 F 97.9 F Pulse Rate 88 91 Respiratory Rate 24 H 24 H Blood Pressure 132/59 L 122/50 L Pulse Oximetry 88 L 88 L Oxygen Delivery Room Air Oxygen Flow Rate 06/19/24 13:14 06/19/24 14:00 06/19/24 20:20 Temperature 97.9 F 97.7 F Pulse Rate 99 87 85 Respiratory Rate 26 H 20 20 Blood Pressure 126/50 L 143/59 H Pulse Oximetry 89 L 90 91 Oxygen Delivery Room Air Oxygen Flow Rate 06/19/24 20:25 06/19/24 22:45 06/19/24 22:45 Temperature 98.6 F Pulse Rate 85 92 Respiratory Rate 20 Blood Pressure 142/62 H Pulse Oximetry 91 88 L 95 Oxygen Delivery CPAP CPAP Oxygen Flow Rate 2 06/20/24 04:55 Temperature 97.4 F L Pulse Rate 74 Respiratory Rate 20 Blood Pressure 144/65 H Pulse Oximetry 99 Oxygen Delivery Oxygen Flow Rate Intake/Output Intake/Output: Intake & Output 06/17/24 06/18/24 06/19/24 06/20/24 23:59 23:59 23:59 23:59 Intake Total 1150 2320 450 Balance 1150 2320 450 Meds/Results Medications: Active Medications Generic Name Dose Route Start Last Admin Trade Name Freq PRN Reason Stop Dose Admin Acetaminophen 650 mg 06/18/24 18:53 06/19/24 10:58 Acetaminophen 325 Mg Tablet PO 650 mg Q4H PRN Administration Mild Pain (1-3) or Fever Albuterol 2.5 mg 06/18/24 23:14 Albuterol Sulfate Neb 2.5 Mg/3 Ml Inh INHALATION Q4H PRN shortness of breath or wheezing Aspirin 81 mg 06/19/24 09:00 06/19/24 09:15 Aspirin 81 Mg Enteric Tablet PO 81 mg DAILY GARRY Administration Atorvastatin Calcium 20 mg 06/19/24 09:00 06/19/24 09:15 Atorvastatin 20 Mg Tablet PO 20 mg DAILY GARRY Administration Clonazepam 1 mg 06/18/24 23:30 06/19/24 20:22 Clonazepam (*Crx) 0.5 Mg Tablet PO 1 mg QHS GARRY Administration Dextrose 12.5 gm 06/18/24 23:19 Dextrose 50% 25 Gm/50 Ml Syringe IV PUSH PRN PRN Hypoglycemia Protocol Enalapril Maleate 10 mg 06/19/24 09:00 06/19/24 09:15 Enalapril Maleate 10 Mg Tablet PO 10 mg DAILY GARRY Administration Furosemide 40 mg 06/20/24 09:00 Furosemide 40 Mg Tablet PO DAILY GARRY Glucagon 1 mg 06/18/24 23:19 Glucagon For Inj 1 Mg Vial IM PRN PRN Hypoglycemia Protocol Glucose 15 gm 06/18/24 23:19 Glucose Oral Gel 15 Gm Of Glucse In 37.5 Gm Tube PO PRN PRN Hypoglycemia Protocol Dextrose 1,000 mls @ 100 mls/hr 06/18/24 23:19 Dextrose 5% 1,000 Ml IVPB PRN PRN Hypoglycemia Protocol Sodium Chloride 250 mls @ 30 mls/hr 06/20/24 07:42 Normal Saline Iv IV CONT 06/20/24 16:01 .Q8H20M STA Insulin Aspart 3 - 6 units 06/19/24 08:00 06/19/24 17:33 Insulin Aspart (*Bkc) 100 Units/Ml SUB-Q Not Given TIDWM GARRY Protocol Insulin Glargine 70 units 06/19/24 21:00 06/19/24 20:22 Insulin Glargine (*Bkc) 100 Units/Ml SUB-Q 70 units HS GARRY Administration Ondansetron HCl 4 mg 06/18/24 18:53 Ondansetron Inj 4 Mg/2 Ml Vial IV PUSH Q4H PRN Nausea Perflutren Lipid Microsphere 0 ml 06/19/24 06:06 Perflutren Lipid Microspheres 1.5 Ml Vial Diluted To 10 Ml Total Volume IV PUSH 06/22/24 06:06 ONCE PRN adequate visualization Protocol Polyethylene Glycol 119 gm 06/20/24 20:00 Polyethylene Glycol 3350 238 Gm Bottle PO 06/21/24 05:01 BID@0500,2000 [facility] Sertraline HCl 100 mg 06/19/24 09:00 06/19/24 09:15 Sertraline Hcl 50 Mg Tablet PO 100 mg DAILY GARRY Administration Spironolactone 100 mg 06/20/24 09:00 Spironolactone 50 Mg Tablet PO QAM GARRY Tamsulosin HCl 0.4 mg 06/19/24 09:00 06/19/24 09:15 Tamsulosin Hcl 0.4 Mg Capsule PO 0.4 mg DAILY GARRY Administration Trazodone HCl 100 mg 06/18/24 23:20 06/19/24 20:22 Trazodone Hcl 50 Mg Tablet PO 100 mg QHS GARRY Administration Radiology Results: ITS Impressions Abdomen/Pelvis CT 06/18/24 16:02 IMPRESSION: 1. Mild pulmonary edema. 2. Small right pleural effusion. 3. Small pericardial effusion. 4. Moderate volume of ascites. Labs Labs: Laboratory Results - last 24 hr 06/19/24 06/19/24 06/19/24 07:49 07:56 10:23 WBC 6.9 RBC 3.20 L Hgb 7.0 L Hct 24.5 L MCV 76.6 L MCH 21.9 L D MCHC 28.6 L RDW 19.9 H Plt Count 126 L MPV TNP Immature Gran % (Auto) 0.6 H Neut % (Auto) 80.1 H Lymph % (Auto) 10.6 L [place] % (Auto) 6.7 Eos % (Auto) 1.3 Baso % (Auto) 0.7 Lymph # (Auto) 0.73 L [place] # (Auto) 0.5 Eos # (Auto) 0.1 Baso # (Auto) 0.1 Abs Immat Gran (auto) 0.04 H Absolute Neuts (auto) 5.5 Absolute Nucleated RBC 0.000 Band Neutrophils % Not Reportable Nucleated RBC % 0.0 Platelet Estimate Slightly decreased % Immature Plt Fraction 5.6 Hypochromasia 2+ Anisocytosis 2+ Microcytosis 1+ Ovalocytes Schistocytes None seen Sodium 141 Potassium 4.0 Chloride 106 Carbon Dioxide 26 Anion Gap 9 BUN 25 H Creatinine 1.04 Estim Creat Clear Calc 74 Estimated GFR > 60 Glucose 111 H POC Capillary Glucose 123 H Calcium 8.9 Magnesium 1.6 Total Bilirubin 1.5 H AST 22 ALT 13 Alkaline Phosphatase 64 NT-Pro-B Natriuret Pep 1810 H Total Protein 7.0 Albumin 4.0 Stl Occult Blood (IFOB) Positive H Hep Bs Antigen Hepatitis C Ab Screen 06/19/24 06/19/24 06/19/24 11:24 14:32 16:33 WBC 7.3 RBC 3.31 L Hgb 7.3 L Hct 25.4 L MCV 76.7 L MCH 22.1 L MCHC 28.7 L RDW 20.4 H Plt Count 142 L MPV Not Reportable Immature Gran % (Auto) 0.7 H Neut % (Auto) 85.0 H Lymph % (Auto) 7.5 L [place] % (Auto) 5.5 Eos % (Auto) 0.8 Baso % (Auto) 0.5 Lymph # (Auto) 0.55 L [place] # (Auto) 0.4 Eos # (Auto) 0.1 Baso # (Auto) 0.0 Abs Immat Gran (auto) 0.05 H Absolute Neuts (auto) 6.2 Absolute Nucleated RBC 0.020 H Band Neutrophils % Not Reportable Nucleated RBC % 0.3 H Platelet Estimate Adequate % Immature Plt Fraction 6.1 Hypochromasia 1+ Anisocytosis Microcytosis Ovalocytes 1+ Schistocytes None seen Sodium Potassium Chloride Carbon Dioxide Anion Gap BUN Creatinine Estim Creat Clear Calc Estimated GFR Glucose POC Capillary Glucose 114 H 169 H Calcium Magnesium Total Bilirubin AST ALT Alkaline Phosphatase NT-Pro-B Natriuret Pep Total Protein Albumin Stl Occult Blood (IFOB) Hep Bs Antigen Hepatitis C Ab Screen 06/19/24 06/19/24 06/20/24 20:05 20:19 05:49 WBC 5.5 RBC 3.04 L Hgb 6.7 L* Hct 23.6 L MCV 77.6 L MCH 22.0 L MCHC 28.4 L RDW 20.6 H Plt Count 121 L MPV 11.2 H Immature Gran % (Auto) 0.7 H Neut % (Auto) 78.0 H Lymph % (Auto) 11.7 L [place] % (Auto) 6.7 Eos % (Auto) 2.2 Baso % (Auto) 0.7 Lymph # (Auto) 0.64 L [place] # (Auto) 0.4 Eos # (Auto) 0.1 Baso # (Auto) 0.0 Abs Immat Gran (auto) 0.04 H Absolute Neuts (auto) 4.3 Absolute Nucleated RBC 0.000 Band Neutrophils % 0 Nucleated RBC % 0.0 Platelet Estimate Slightly decreased % Immature Plt Fraction 6.1 Hypochromasia 1+ Anisocytosis 1+ Microcytosis Ovalocytes Schistocytes None seen Sodium 142 Potassium 3.4 Chloride 108 H Carbon Dioxide 25 Anion Gap 9 BUN 18 Creatinine 0.95 Estim Creat Clear Calc 81 Estimated GFR > 60 Glucose 87 POC Capillary Glucose 224 H Calcium 8.7 Magnesium 2.0 Total Bilirubin 1.3 AST 17 ALT 12 Alkaline Phosphatase 59 NT-Pro-B Natriuret Pep Total Protein 6.0 L Albumin 3.8 Stl Occult Blood (IFOB) Hep Bs Antigen Negative Hepatitis C Ab Screen Negative 06/20/24 07:29 WBC RBC Hgb Hct MCV MCH MCHC RDW Plt Count MPV Immature Gran % (Auto) Neut % (Auto) Lymph % (Auto) [place] % (Auto) Eos % (Auto) Baso % (Auto) Lymph # (Auto) [place] # (Auto) Eos # (Auto) Baso # (Auto) Abs Immat Gran (auto) Absolute Neuts (auto) Absolute Nucleated RBC Band Neutrophils % Nucleated RBC % Platelet Estimate % Immature Plt Fraction Hypochromasia Anisocytosis Microcytosis Ovalocytes Schistocytes Sodium Potassium Chloride Carbon Dioxide Anion Gap BUN Creatinine Estim Creat Clear Calc Estimated GFR Glucose POC Capillary Glucose 75 Calcium Magnesium Total Bilirubin AST ALT Alkaline Phosphatase NT-Pro-B Natriuret Pep Total Protein Albumin Stl Occult Blood (IFOB) Hep Bs Antigen Hepatitis C Ab Screen
[2024-06-20] MEDS: TAMSULOSIN HCL 0.4 MG CAPSULE PO (08:39)
[2024-06-20] MEDS: ATORVASTATIN 20 MG TABLET PO (08:39)
[2024-06-20] MEDS: SPIRONOLACTONE 50 MG TABLET 100 MG PO (08:39)
[2024-06-20] MEDS: SERTRALINE HCL 50 MG TABLET 100 MG PO (08:39)
[2024-06-20] MEDS: ENALAPRIL MALEATE 10 MG TABLET PO (08:39)
[2024-06-20] MEDS: FUROSEMIDE 40 MG TABLET PO (08:39)
[2024-06-20 11:31] LABS: Glucose Point of Care 72 mg/dl (65-105)
[2024-06-20 11:50] LABS: Albumin Level 4.1 g/dL (3.5-5.1)
[2024-06-20] MEDS: SODIUM CHLORIDE 0.9% IV 250 ML 30 ML IV CONT (12:35)
[2024-06-20] MEDS: ACETAMINOPHEN 325 MG TABLET 650 MG PO (13:01)
--- NOTE | 2024-06-20 15:46 | WPDGIPROGNO ---
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 Ascitic fluid analysis is currently underway to evaluate for spontaneous bacterial peritonitis. Intravenous furosemide will be discontinued now and we will initiate the oral diuretic regimen planned for discharge: Spironolactone 100 mg + Furosemide 40 mg daily. This regimen will be continued post-discharge, alongside a low-sodium diet, with follow-up in our office. The patient is scheduled for a colonoscopy and EGD tomorrow, prep orders placed. (2) MetALD: Code(s): K76.0 - Fatty (change of) liver, not elsewhere classified; F10.90 - Alcohol use, unspecified, uncomplicated Status: Acute Subjective Date/time seen: 06/20/24 15:46 Interval history: The patient is currently undergoing diagnostic paracentesis. No chest pain or shortness of breath. Exam Narrative: Unchanged from yesterday -evident ascites on physical examination, fluid wave positive Objective Data Vital Signs Vital Signs: Vital Signs - 24 hr 06/19/24 20:20 06/19/24 20:25 06/19/24 22:45 Temperature 98.6 F Pulse Rate 85 85 92 Respiratory Rate 20 20 Blood Pressure 142/62 H Pulse Oximetry 91 91 88 L Oxygen Delivery Room Air CPAP Oxygen Flow Rate 06/19/24 22:45 06/20/24 01:55 06/20/24 04:55 Temperature 97.7 F 97.4 F L Pulse Rate 71 74 Respiratory Rate 20 20 Blood Pressure 138/59 L 144/65 H Pulse Oximetry 95 99 99 Oxygen Delivery CPAP Oxygen Flow Rate 2 06/20/24 12:37 06/20/24 12:52 06/20/24 12:52 Temperature 98.1 F 98.1 F 98.1 F Pulse Rate 71 72 71 Respiratory Rate 16 18 18 Blood Pressure 141/61 H 137/53 L 137/53 L Pulse Oximetry 95 94 Oxygen Delivery Oxygen Flow Rate 06/20/24 13:52 06/20/24 14:52 06/20/24 15:20 Temperature 97.7 F 98.2 F 98.0 F Pulse Rate 71 74 74 Respiratory Rate 20 18 20 Blood Pressure 138/59 L 147/67 H 148/70 H Pulse Oximetry 100 96 94 Oxygen Delivery Oxygen Flow Rate Intake/Output Intake/Output: Intake & Output 06/17/24 06/18/24 06/19/24 06/20/24 23:59 23:59 23:59 23:59 Intake Total 1150 2320 800 Balance 1150 2320 800 Meds/Results Medications: Active Medications Generic Name Dose Route Start Last Admin Trade Name Freq PRN Reason Stop Dose Admin Acetaminophen 650 mg 06/18/24 18:53 06/20/24 13:01 Acetaminophen 325 Mg Tablet PO 650 mg Q4H PRN Administration Mild Pain (1-3) or Fever Albuterol 2.5 mg 06/18/24 23:14 Albuterol Sulfate Neb 2.5 Mg/3 Ml Inh INHALATION Q4H PRN shortness of breath or wheezing Aspirin 81 mg 06/19/24 09:00 06/19/24 09:15 Aspirin 81 Mg Enteric Tablet PO 81 mg DAILY GARRY Administration Atorvastatin Calcium 20 mg 06/19/24 09:00 06/20/24 08:39 Atorvastatin 20 Mg Tablet PO 20 mg DAILY GARRY Administration Clonazepam 1 mg 06/18/24 23:30 06/19/24 20:22 Clonazepam (*Crx) 0.5 Mg Tablet PO 1 mg QHS GARRY Administration Dextrose 12.5 gm 06/18/24 23:19 Dextrose 50% 25 Gm/50 Ml Syringe IV PUSH PRN PRN Hypoglycemia Protocol Enalapril Maleate 10 mg 06/19/24 09:00 06/20/24 08:39 Enalapril Maleate 10 Mg Tablet PO 10 mg DAILY GARRY Administration Furosemide 40 mg 06/21/24 09:00 Furosemide 40 Mg Tablet PO DAILY GARRY Glucagon 1 mg 06/18/24 23:19 Glucagon For Inj 1 Mg Vial IM PRN PRN Hypoglycemia Protocol Glucose 15 gm 06/18/24 23:19 Glucose Oral Gel 15 Gm Of Glucse In 37.5 Gm Tube PO PRN PRN Hypoglycemia Protocol Dextrose 1,000 mls @ 100 mls/hr 06/18/24 23:19 Dextrose 5% 1,000 Ml IVPB PRN PRN Hypoglycemia Protocol Sodium Chloride 250 mls @ 30 mls/hr 06/20/24 07:42 06/20/24 12:35 Normal Saline Iv IV CONT 06/20/24 16:01 30 mls/hr .Q8H20M STA Administration Insulin Aspart 3 - 6 units 06/19/24 08:00 06/20/24 08:35 Insulin Aspart (*Bkc) 100 Units/Ml SUB-Q Not Given TIDWM GARRY Protocol Insulin Glargine 70 units 06/19/24 21:00 06/19/24 20:22 Insulin Glargine (*Bkc) 100 Units/Ml SUB-Q 70 units HS GARRY Administration Ondansetron HCl 4 mg 06/18/24 18:53 Ondansetron Inj 4 Mg/2 Ml Vial IV PUSH Q4H PRN Nausea Perflutren Lipid Microsphere 0 ml 06/19/24 06:06 Perflutren Lipid Microspheres 1.5 Ml Vial Diluted To 10 Ml Total Volume IV PUSH 06/22/24 06:06 ONCE PRN adequate visualization Protocol Polyethylene Glycol 119 gm 06/20/24 20:00 Polyethylene Glycol 3350 238 Gm Bottle PO 06/21/24 05:01 BID@0500,2000 GARRY Sertraline HCl 100 mg 06/19/24 09:00 06/20/24 08:39 Sertraline Hcl 50 Mg Tablet PO 100 mg DAILY GARRY Administration Spironolactone 100 mg 06/20/24 09:00 06/20/24 08:39 Spironolactone 50 Mg Tablet PO 100 mg QAM GARRY Administration Tamsulosin HCl 0.4 mg 06/19/24 09:00 06/20/24 08:39 Tamsulosin Hcl 0.4 Mg Capsule PO 0.4 mg DAILY GARRY Administration Trazodone HCl 100 mg 06/18/24 23:20 06/19/24 20:22 Trazodone Hcl 50 Mg Tablet PO 100 mg QHS GARRY Administration Radiology Results: ITS Impressions Abdomen/Pelvis CT 06/18/24 16:02 IMPRESSION: 1. Mild pulmonary edema. 2. Small right pleural effusion. 3. Small pericardial effusion. 4. Moderate volume of ascites. Labs Labs: Laboratory Results - last 24 hr 06/18/24 06/19/24 06/19/24 10:45 16:33 20:05 WBC RBC Hgb Hct MCV MCH MCHC RDW Plt Count MPV Immature Gran % (Auto) Neut % (Auto) Lymph % (Auto) [place] % (Auto) Eos % (Auto) Baso % (Auto) Lymph # (Auto) [place] # (Auto) Eos # (Auto) Baso # (Auto) Abs Immat Gran (auto) Absolute Neuts (auto) Absolute Nucleated RBC Band Neutrophils % Nucleated RBC % Platelet Estimate % Immature Plt Fraction Hypochromasia Anisocytosis Schistocytes Sodium Potassium Chloride Carbon Dioxide Anion Gap BUN Creatinine Estim Creat Clear Calc Estimated GFR Glucose POC Capillary Glucose 169 H 224 H Calcium Magnesium Total Bilirubin AST ALT Alkaline Phosphatase Total Protein Albumin Hep Bs Antigen Hepatitis C Ab Screen Blood Type B Negative Antibody Screen Negative Crossmatch See Detail 06/19/24 06/20/24 06/20/24 20:19 05:49 07:29 WBC 5.5 RBC 3.04 L Hgb 6.7 L* Hct 23.6 L MCV 77.6 L MCH 22.0 L MCHC 28.4 L RDW 20.6 H Plt Count 121 L MPV 11.2 H Immature Gran % (Auto) 0.7 H Neut % (Auto) 78.0 H Lymph % (Auto) 11.7 L [place] % (Auto) 6.7 Eos % (Auto) 2.2 Baso % (Auto) 0.7 Lymph # (Auto) 0.64 L [place] # (Auto) 0.4 Eos # (Auto) 0.1 Baso # (Auto) 0.0 Abs Immat Gran (auto) 0.04 H Absolute Neuts (auto) 4.3 Absolute Nucleated RBC 0.000 Band Neutrophils % 0 Nucleated RBC % 0.0 Platelet Estimate Slightly decreased % Immature Plt Fraction 6.1 Hypochromasia 1+ Anisocytosis 1+ Schistocytes None seen Sodium 142 Potassium 3.4 Chloride 108 H Carbon Dioxide 25 Anion Gap 9 BUN 18 Creatinine 0.95 Estim Creat Clear Calc 81 Estimated GFR > 60 Glucose 87 POC Capillary Glucose 75 Calcium 8.7 Magnesium 2.0 Total Bilirubin 1.3 AST 17 ALT 12 Alkaline Phosphatase 59 Total Protein 6.0 L Albumin 3.8 Hep Bs Antigen Negative Hepatitis C Ab Screen Negative Blood Type Antibody Screen Crossmatch 06/20/24 06/20/24 10:46 11:28 WBC RBC Hgb Hct MCV MCH MCHC RDW Plt Count MPV Immature Gran % (Auto) Neut % (Auto) Lymph % (Auto) [place] % (Auto) Eos % (Auto) Baso % (Auto) Lymph # (Auto) [place] # (Auto) Eos # (Auto) Baso # (Auto) Abs Immat Gran (auto) Absolute Neuts (auto) Absolute Nucleated RBC Band Neutrophils % Nucleated RBC % Platelet Estimate % Immature Plt Fraction Hypochromasia Anisocytosis Schistocytes Sodium Potassium Chloride Carbon Dioxide Anion Gap BUN Creatinine Estim Creat Clear Calc Estimated GFR Glucose POC Capillary Glucose 72 Calcium Magnesium Total Bilirubin AST ALT Alkaline Phosphatase Total Protein Albumin 4.1 Hep Bs Antigen Hepatitis C Ab Screen Blood Type Antibody Screen Crossmatch
[2024-06-20 16:34] LABS: Source Peritoneal Fluid Peritoneal Fluid
[2024-06-20 16:35] LABS: Appearance Peritoneal Fluid Hazy (Clear); Color Peritoneal Fluid Yellow (Colorless); Nucleated Cells Peritoneal Flu 229 /uL (0-500); RBC Peritoneal Fluid 2000 /uL (0-10000)
[2024-06-20 16:49] LABS: Glucose Point of Care 76 mg/dl (65-105)
[2024-06-20 16:52] LABS: Lymphocytes Peritoneal Fluid 64 %; Macrophages Peritoneal Fluid 1 %; Mesothelial Cells Peritoneal Fluid 3 %; Monocytes Peritoneal Fluid 20 %; Neutrophils Peritoneal Fluid 12 % (0-25)
[2024-06-20 20:09] LABS: Hepatitis A Antibody Total REACTIVE (NON-REACTIVE); Hepatitis B Core Ab Total NON-REACTIVE (NON-REACTIVE)
[2024-06-20 20:22] LABS: Glucose Point of Care 135 mg/dl (65-105)
[2024-06-20] MEDS: clonazePAM (*CRX) 0.5 MG TABLET 1 MG PO (20:34)
[2024-06-20] MEDS: traZODone HCL 50 MG TABLET 100 MG PO (20:34)
[2024-06-20] MEDS: polyethylene glycoL 3350 238 GM BOTTLE 119 GM PO (20:35)
[2024-06-21] VITALS (9 sets, daily range): BP systolic 101–147; BP diastolic 54–69; PULSE 67–86; RESP 16–20; TEMP 36.1–36.4; O2SAT 90–100
[2024-06-21] MEDS: polyethylene glycoL 3350 238 GM BOTTLE 119 GM PO (05:10)
[2024-06-21 05:31] LABS: Glucose Point of Care 105 mg/dl (65-105)
[2024-06-21 06:19] LABS: Basophils Absolute Auto 0.1 K/mm3 (0.0-0.1); Basophils Percent Auto 0.8 % (0.2-1.2); Eosinophils Absolute Auto 0.1 K/mm3 (0-0.3); Hematocrit 31.8 % (42.0-52.0); Hemoglobin 8.8 g/dL (14.0-18.0); Immature Granulocyte Absolute 0.05 K/mm3 (0.00-0.031); Immature Granulocyte Percent A 0.8 % (0-0.5); Immature Platelet Fraction Pct 6.9 % (0.9-11.2); Lymphocytes Percent Auto 12.3 % (18.3-44.2); Mean Corpuscular HGB Conc 27.7 g/dl (32-36); Mean Corpuscular Hemoglobin 21.9 pg (26-34); Mean Corpuscular Volume 79.3 fl (80-100); Monocytes Absolute Auto 0.4 K/mm3 (0.1-0.6); Monocytes Percent Auto 5.5 % (2.6-8.5); Neutrophils Absolute Auto 5.1 K/mm3 (1.3-6.7); Neutrophils Percent Auto 78.6 % (45.5-73.1); Platelet Count Result 149 k/mm3 (150-375); Red Blood Count 4.01 M/mm3 (4.6-6.20); Red Cell Distribution Width 20.1 % (11.5-14.5); White Blood Count 6.5 K/mm3 (4.5-10.0)
[2024-06-21 06:32] LABS: Alanine Aminotransferase 15 U/L (6-50); Albumin Level 4.4 g/dL (3.5-5.1); Alkaline Phosphatase 70 U/L (38-126); Anion Gap 11 mmol/L (4-12); Aspartate Amino Transferase 24 U/L (17-59); Blood Urea Nitrogen 12 mg/dL (9-20); Calcium 9.3 mg/dL (8.4-10.2); Carbon Dioxide 28 mmol/L (22-30); Chloride 105 mmol/L (98-107); Estimated CRCL calculation 86 ml/min; Estimated Glomerular Filt Rate > 60; Glucose 103 mg/dL (65-110); Potassium 3.6 mmol/L (3.4-5.0); Sodium 144 mmol/L (137-145)
--- NOTE | 2024-06-21 07:34 | P.PNIM_ITS ---
Progress Note: A&P Assessment and Plan (1) Iron deficiency anemia: Qualifiers: Iron deficiency anemia type: unspecified iron deficiency Qualified Code(s): D50.9 - Iron deficiency anemia, unspecified Code(s): D50.9 - Iron deficiency anemia, unspecified Status: Acute Assessment and Plan: * H&H trend: 5.2/19.7>6.6/23.8>7.0/24.5 (post 3 units of PRBc's). Current H&H 6.7/23.6 * One unit PRBC ordered * Occult blood positive * GI consulted thank you for your help * Start oral iron when appropiate * Iron 22, TIBC 394, % saturation 6, Ferritin 4.92. Patient received Iron sucrose 400 mg/ iron sucrose 100 mg IVPB x 1. * Continue to trend labs * Transfuse if Hgb <7.0 * Trend labs. . (2) MetALD: Code(s): K76.0 - Fatty (change of) liver, not elsewhere classified; F10.90 - Alcohol use, unspecified, uncomplicated Status: Acute Assessment and Plan: * Presented with significant amount of ascites * CT shows moderate ascities * AST/ALT stable at 24/15 * Paracentesis with 1L removal * Continue spironolactone * Trend In and Outs * GI on board * Trend labs and vitals (3) Pericardial effusion: Code(s): I31.39 - Other pericardial effusion (noninflammatory) Status: Acute Assessment and Plan: * CT showed a small pericardial effusion. * Echo with ED of 65-70% * Most likely related to liver disease * BNP 1810 * Lasix ordered 40mg IVP daily for now * spironolactone continued * GI and cardiology on consult (4) Insulin dependent diabetes mellitus: Status: Acute Assessment and Plan: * Glucose is 103 * hold home pioglitazone for now * Decrease the patient's Lantus dose down to 70 units while hospitalized. * Moderate dose sliding scale insulin with Accu-Cheks a.c. * HS hypoglycemia protocol has been added as needed. * Trend glucose * Adjust therapy as indicated (5) Occult blood positive stool: Code(s): R19.5 - Other fecal abnormalities Status: Acute Assessment and Plan: * Stool positive for occult blood. * GI consulted. * Pantoprazole 40 mg PO BID. * Hold ASA * Hgb low again today * EGD and Colonoscopy for today (6) Severe pulmonary hypertension: Code(s): I27.20 - Pulmonary hypertension, unspecified Status: Acute Assessment and Plan: * Echo showed: EF of 65-70% * Cardiology consult * Enalapril 10 mg PO daily. * Lasix 40 mg IV BID * Spironolactone added * Strict I and Os * Daily weights (7) Obstructive sleep apnea on CPAP: Code(s): G47.33 - Obstructive sleep apnea (adult) (pediatric); Z99.89 - Dependence on other enabling machines and devices Status: Chronic Assessment and Plan: * CPAP (8) BPH loc w urin obs/LUTS: Code(s): N40.1 - Benign prostatic hyperplasia with lower urinary tract symptoms Status: Acute Assessment and Plan: * Flomax 0.4 mg PO daily. * Trend urine output * Consider bladder scans (9) Acute on chronic heart failure with preserved ejection fraction (HFpEF): Code(s): I50.33 - Acute on chronic diastolic (congestive) heart failure Status: Acute Assessment and Plan: * Patient noted to have some pretty significant breathing changes with accessory muscle using * Monitor vital signs, I&Os, BUN/creatinine, daily weights, neuro status and patient is a fall risk * Monitor serum electrolytes, Keep serum Potassium>4 and serum Magnesium>2 and CBC * Echo from 06/19/2024 showed EF of 65-70% with a abnormal diastolic function * Lasix 40 mg PO daily * Continue GDMT with spironolactone, enalapril Time Spent With Patient Time: 56 minutes Time with patient: Greater than 35 minutes Subjective Date/time seen: 06/21/24 07:34 Interval history: 06/21/2024 patient was lying in bed upon arrival to the room. Patient states he feels okay today. He stated did feel better it to the paracentesis. He denies any current chest pain, shortness a breath, nausea, vomiting, diarrhea constipation. Patient's biggest complaint was that he is very hungry. 06/20/2024 Patient is currently lying in bed. was present. There was a lot of questions regarding his care as they felt that his plan of care as of been communicated well however did explain to them the current change of events. Patient is post have a paracentesis today and will need a EGD colonoscopy in the a.m.. Currently he is feeling okay. He is concerned that he had an oxygen bleed 1 dose of Lasix has been given. Patient also got 3 units of blood will give another unit today. Currently patient denies any chest pain, shortness a breath, nausea, vomiting, diarrhea constipation. Patient is more concerned that he wants to eat. 06/19/2024 Patient sitting up on the side of the bed. Patient denies chest pain, palpitations, headache, dizziness, nausea, or vomiting. Patient reports that he feels a little stronger after blood transfusions. 06/18/24 23:11 68-year-old male with a past medical history of COPD, obstructive sleep apnea, GERD, diastolic dysfunction, BPH and type 2 diabetes mellitus on insulin therapy who presented to the ER from home due to low hemoglobin on outpatient labs. The patient reports that he had gone to his primary care doctor just for routine follow-up labs which were drawn on the . His CBC incidentally demonstrated hemoglobin of 5.7. He denies having any hematochezia, melena or hematuria. His Hemoccult performed on rectal exam by ER was negative for occult blood. He reports that he eats red meat frequently. He does not take any iron supplements. He has never had a history of anemia that he knows of any has no prior labs within the system as he usually gets his labs drawn through [facility]. He has not been taking any ibuprofen or naproxen. He had an EGD probably close to 20 years ago or more so that his insurance would pay for PPI therapy. He does not recall when he had his last colonoscopy but he has had several. He denies history of prior GI bleed. He has not been having any abdominal pain. Repeat hemoglobin here was 5.2. He received 2 units of packed red blood cells and repeat hemoglobin was 6.6. 1/3 unit was administered. Iron studies that were obtained prior to the patient receiving transfusion demonstrated ferritin less than 5 and% saturation of 6% and a low iron level of 22. He is only on aspirin for anti-platelet effect and is not on any other blood thinners. He does have a history of diastolic dysfunction. He reports that he has had increased lower extremity swelling for about 6 months. It has not acutely worsened in recent weeks but it was a definite change about 6 months ago. 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 He reports that his weight has been stable at around 250 lb for several months. He does have some dyspnea on exertion that is chronic with occasional episodes of exacerbation. He denies any increased cough. He has not had any fevers or chills. His abdomen is quite distended but he states that this is unchanged from baseline. He states that his lung disease wearing his CPAP he is not short of breath when he lays down. He is compliant with his CPAP. His last polysomnogram was about [address] of the abdomen with contrast Imaging in the ER demonstrated moderate volume of ascites, mild pulmonary edema, small right pleural effusion, small pericardial effusion. He reports that he has been compliant with his cardiac medications. His glucoses were well controlled in the ER. He has not had anything the for most of the day due to his ER visit. He received his full dose of home Lantus in the ER and subsequently on arrival to the IMU he had some mild hypoglycemia. Review of Systems Review of Systems: All systems reviewed & are unremarkable except as noted in HPI and below Exam Narrative: General: well-nourished, well-appearing 68-year-old male, sitting up in bed, comfortable, NARD Neuro: awake, alert and oriented x4, speech clear, no focal neuro deficits noted HEENMT: normocephalic, atraumatic, EOMI, sclerae anicteric, moist oral mucosa Respiratory: Crackles noted bilateral lower lobes Cardio: regular rate, regular rhythm with S1-S2 Abdomen: distended, normoactive bowel sounds, soft, nontender to palpation Extremities: 3+ pitting edema bilateral lower extremities Skin: Ashen and mildly jaundiced see appearing Psych: appropriate mood and affect, judgment and insight intact Objective Data Vital Signs Vital Signs: Vital Signs - 24 hr 06/20/24 12:37 06/20/24 12:52 06/20/24 12:52 Temperature 98.1 F 98.1 F 98.1 F Pulse Rate 71 72 71 Respiratory Rate 16 18 18 Blood Pressure 141/61 H 137/53 L 137/53 L Pulse Oximetry 95 94 Oxygen Delivery 06/20/24 13:52 06/20/24 14:52 06/20/24 15:20 Temperature 97.7 F 98.2 F 98.0 F Pulse Rate 71 74 74 Respiratory Rate 20 18 20 Blood Pressure 138/59 L 147/67 H 148/70 H Pulse Oximetry 100 96 94 Oxygen Delivery 06/20/24 20:00 06/20/24 21:48 06/21/24 06:00 Temperature 97.7 F 96.9 F L Pulse Rate 74 76 Respiratory Rate 16 16 Blood Pressure 140/73 147/65 H Pulse Oximetry 92 100 Oxygen Delivery Room Air Intake/Output Intake/Output: Intake & Output 06/18/24 06/19/24 06/20/24 06/21/24 23:59 23:59 23:59 23:59 Intake Total 1150 2320 800 200 Output Total 1000 600 Balance 1150 2320 -200 -400 Meds/Results Medications: Active Medications Generic Name Dose Route Start Last Admin Trade Name Freq PRN Reason Stop Dose Admin Acetaminophen 650 mg 06/18/24 18:53 06/20/24 13:01 Acetaminophen 325 Mg Tablet PO 650 mg Q4H PRN Administration Mild Pain (1-3) or Fever Albuterol 2.5 mg 06/18/24 23:14 Albuterol Sulfate Neb 2.5 Mg/3 Ml Inh INHALATION Q4H PRN shortness of breath or wheezing Aspirin 81 mg 06/19/24 09:00 06/19/24 09:15 Aspirin 81 Mg Enteric Tablet PO 81 mg DAILY GARRY Administration Atorvastatin Calcium 20 mg 06/19/24 09:00 06/20/24 08:39 Atorvastatin 20 Mg Tablet PO 20 mg DAILY GARRY Administration Clonazepam 1 mg 06/18/24 23:30 06/20/24 20:34 Clonazepam (*Crx) 0.5 Mg Tablet PO 1 mg QHS GARRY Administration Dextrose 12.5 gm 06/18/24 23:19 Dextrose 50% 25 Gm/50 Ml Syringe IV PUSH PRN PRN Hypoglycemia Protocol Enalapril Maleate 10 mg 06/19/24 09:00 06/20/24 08:39 Enalapril Maleate 10 Mg Tablet PO 10 mg DAILY GARRY Administration Furosemide 40 mg 06/21/24 09:00 Furosemide 40 Mg Tablet PO DAILY GARRY Glucagon 1 mg 06/18/24 23:19 Glucagon For Inj 1 Mg Vial IM PRN PRN Hypoglycemia Protocol Glucose 15 gm 06/18/24 23:19 Glucose Oral Gel 15 Gm Of Glucse In 37.5 Gm Tube PO PRN PRN Hypoglycemia Protocol Dextrose 1,000 mls @ 100 mls/hr 06/18/24 23:19 Dextrose 5% 1,000 Ml IVPB PRN PRN Hypoglycemia Protocol Insulin Aspart 3 - 6 units 06/19/24 08:00 06/20/24 16:51 Insulin Aspart (*Bkc) 100 Units/Ml SUB-Q Not Given TIDWM GARRY Protocol Insulin Glargine 70 units 06/19/24 21:00 06/20/24 20:42 Insulin Glargine (*Bkc) 100 Units/Ml SUB-Q Not Given HS GARRY Ondansetron HCl 4 mg 06/18/24 18:53 Ondansetron Inj 4 Mg/2 Ml Vial IV PUSH Q4H PRN Nausea Perflutren Lipid Microsphere 0 ml 06/19/24 06:06 Perflutren Lipid Microspheres 1.5 Ml Vial Diluted To 10 Ml Total Volume IV PUSH 06/22/24 06:06 ONCE PRN adequate visualization Protocol Sertraline HCl 100 mg 06/19/24 09:00 06/20/24 08:39 Sertraline Hcl 50 Mg Tablet PO 100 mg DAILY GARRY Administration Spironolactone 100 mg 06/20/24 09:00 06/20/24 08:39 Spironolactone 50 Mg Tablet PO 100 mg QAM GARRY Administration Tamsulosin HCl 0.4 mg 06/19/24 09:00 06/20/24 08:39 Tamsulosin Hcl 0.4 Mg Capsule PO 0.4 mg DAILY GARRY Administration Trazodone HCl 100 mg 06/18/24 23:20 06/20/24 20:34 Trazodone Hcl 50 Mg Tablet PO 100 mg QHS GARRY Administration Radiology Results: ITS Impressions Abdomen/Pelvis CT 06/18/24 16:02 IMPRESSION: 1. Mild pulmonary edema. 2. Small right pleural effusion. 3. Small pericardial effusion. 4. Moderate volume of ascites. Paracentesis Ultrasound 06/20/24 15:56 IMPRESSION: 1. Successful ultrasound-guided paracentesis yielding 1000 mL of yellow fluid. Labs Labs: Laboratory Results - last 24 hr 06/18/24 06/19/24 06/20/24 10:45 20:19 05:49 WBC 5.5 RBC 3.04 L Hgb 6.7 L* Hct 23.6 L MCV 77.6 L MCH 22.0 L MCHC 28.4 L RDW 20.6 H Plt Count 121 L MPV 11.2 H Immature Gran % (Auto) 0.7 H Neut % (Auto) 78.0 H Lymph % (Auto) 11.7 L Bryan % (Auto) 6.7 Eos % (Auto) 2.2 Baso % (Auto) 0.7 Lymph # (Auto) 0.64 L Bryan # (Auto) 0.4 Eos # (Auto) 0.1 Baso # (Auto) 0.0 Abs Immat Gran (auto) 0.04 H Absolute Neuts (auto) 4.3 Absolute Nucleated RBC 0.000 Band Neutrophils % 0 Nucleated RBC % 0.0 Platelet Estimate Slightly decreased % Immature Plt Fraction 6.1 Hypochromasia 1+ Anisocytosis 1+ Schistocytes None seen Sodium Potassium Chloride Carbon Dioxide Anion Gap BUN Creatinine Estim Creat Clear Calc Estimated GFR Glucose POC Capillary Glucose Calcium Magnesium Total Bilirubin AST ALT Alkaline Phosphatase Total Protein Albumin Peritoneal Source Peritoneal Color Peritoneal Appearance Peritoneal RBC Periton Nuc Cells Periton Neutrophils Periton Lymphocytes Peritoneal Monocytes Periton Mesothelial Periton Macrophages Hepatitis A Ab Total Reactive A Hep B Core Total Ab Non-reactive Blood Type B Negative Antibody Screen Negative Crossmatch See Detail 06/20/24 06/20/24 06/20/24 07:29 10:46 11:28 WBC RBC Hgb Hct MCV MCH MCHC RDW Plt Count MPV Immature Gran % (Auto) Neut % (Auto) Lymph % (Auto) Bryan % (Auto) Eos % (Auto) Baso % (Auto) Lymph # (Auto) Bryan # (Auto) Eos # (Auto) Baso # (Auto) Abs Immat Gran (auto) Absolute Neuts (auto) Absolute Nucleated RBC Band Neutrophils % Nucleated RBC % Platelet Estimate % Immature Plt Fraction Hypochromasia Anisocytosis Schistocytes Sodium Potassium Chloride Carbon Dioxide Anion Gap BUN Creatinine Estim Creat Clear Calc Estimated GFR Glucose POC Capillary Glucose 75 72 Calcium Magnesium Total Bilirubin AST ALT Alkaline Phosphatase Total Protein Albumin 4.1 Peritoneal Source Peritoneal Color Peritoneal Appearance Peritoneal RBC Periton Nuc Cells Periton Neutrophils Periton Lymphocytes Peritoneal Monocytes Periton Mesothelial Periton Macrophages Hepatitis A Ab Total Hep B Core Total Ab Blood Type Antibody Screen Crossmatch 06/20/24 06/20/24 06/20/24 15:36 16:31 20:18 WBC RBC Hgb Hct MCV MCH MCHC RDW Plt Count MPV Immature Gran % (Auto) Neut % (Auto) Lymph % (Auto) Bryan % (Auto) Eos % (Auto) Baso % (Auto) Lymph # (Auto) Bryan # (Auto) Eos # (Auto) Baso # (Auto) Abs Immat Gran (auto) Absolute Neuts (auto) Absolute Nucleated RBC Band Neutrophils % Nucleated RBC % Platelet Estimate % Immature Plt Fraction Hypochromasia Anisocytosis Schistocytes Sodium Potassium Chloride Carbon Dioxide Anion Gap BUN Creatinine Estim Creat Clear Calc Estimated GFR Glucose POC Capillary Glucose 76 135 H Calcium Magnesium Total Bilirubin AST ALT Alkaline Phosphatase Total Protein Albumin Peritoneal Source Peritoneal fluid Peritoneal Color Yellow Peritoneal Appearance Hazy A Peritoneal RBC 2000 Periton Nuc Cells 229 Periton Neutrophils 12 Periton Lymphocytes 64 Peritoneal Monocytes 20 Periton Mesothelial 3 Periton Macrophages 1 Hepatitis A Ab Total Hep B Core Total Ab Blood Type Antibody Screen Crossmatch 06/21/24 06/21/24 05:24 05:34 WBC RBC Hgb Hct MCV MCH MCHC RDW Plt Count MPV Immature Gran % (Auto) Neut % (Auto) Lymph % (Auto) Bryan % (Auto) Eos % (Auto) Baso % (Auto) Lymph # (Auto) Bryan # (Auto) Eos # (Auto) Baso # (Auto) Abs Immat Gran (auto) Absolute Neuts (auto) Absolute Nucleated RBC Band Neutrophils % Nucleated RBC % Platelet Estimate % Immature Plt Fraction Hypochromasia Anisocytosis Schistocytes Sodium 144 Potassium 3.6 Chloride 105 Carbon Dioxide 28 Anion Gap 11 BUN 12 D Creatinine 0.88 Estim Creat Clear Calc 86 Estimated GFR > 60 Glucose 103 POC Capillary Glucose 105 Calcium 9.3 Magnesium 2.0 Total Bilirubin 2.0 H AST 24 ALT 15 Alkaline Phosphatase 70 Total Protein 7.0 Albumin 4.4 Peritoneal Source Peritoneal Color Peritoneal Appearance Peritoneal RBC Periton Nuc Cells Periton Neutrophils Periton Lymphocytes Peritoneal Monocytes Periton Mesothelial Periton Macrophages Hepatitis A Ab Total Hep B Core Total Ab Blood Type Antibody Screen Crossmatch Quality VTE Prophylaxis VTE prophylaxis: mechanical ordered (SCDs)
[2024-06-21 07:37] LABS: Glucose Point of Care 132 mg/dl (65-105)
[2024-06-21 07:51] LABS: Giant Platelets Present; Hypochromasia 1+; Large Platelets Present; Platelet Estimate Adequate (Adequate)
--- NOTE | 2024-06-21 07:51 | P.PNCA_ITS ---
Progress Note: A&P Assessment and Plan (1) Diastolic dysfunction: Onset Date: 04/2022 Code(s): I51.89 - Other ill-defined heart diseases Status: Acute Assessment and Plan: Acute on chronic. On diuretics including Lasix 40 mg PO daily and may added Spironolactone 100 mg daily which would benefit ascites that could be related to cirrhosis of liver. (2) Mixed hyperlipidemia: Code(s): E78.2 - Mixed hyperlipidemia Status: Chronic Assessment and Plan: On Atorvastatin. (3) Hypertension: Qualifiers: Hypertension type: primary hypertension Qualified Code(s): I10 - Essential (primary) hypertension Code(s): I10 - Essential (primary) hypertension Status: Chronic Assessment and Plan: Stable. (4) Severe pulmonary hypertension: Code(s): I27.20 - Pulmonary hypertension, unspecified Status: Acute Assessment and Plan: Due to ESTHER and COPD. (5) Pulmonary edema: Code(s): J81.1 - Chronic pulmonary edema Status: Acute Assessment and Plan: Probably due to high out heart failure from anemia. Correct underlying cause for anemia in progress which could be GI related with hemoccult positive stool or other. He is scheduled for EGD and colonoscopy today. Subjective Date/time seen: 06/21/24 07:51 Interval history: Denies chest pain or sob or abdominal pain. Exam Const: General: cooperative, healthy appearing and comfortable Orientation/consciousness: oriented to person, oriented to place and oriented to time Resp: Auscultation: clear to auscultation bilaterally, no crackles, no rales, no rhonchi and no wheezes Cardio: Rate: regular rate Rhythm: regular rhythm Heart sounds: no murmurs Peripheral pulses: dorsalis pedis present Neuro: General: oriented to person, oriented to place and oriented to time Extrem: Right lower extremity: edema Left lower extremity: edema Other: Mild edema of both legs Objective Data Vital Signs Vital Signs: Vital Signs - 24 hr 06/20/24 12:37 06/20/24 12:52 06/20/24 12:52 Temperature 98.1 F 98.1 F 98.1 F Pulse Rate 71 72 71 Respiratory Rate 16 18 18 Blood Pressure 141/61 H 137/53 L 137/53 L Pulse Oximetry 95 94 Oxygen Delivery 06/20/24 13:52 06/20/24 14:52 06/20/24 15:20 Temperature 97.7 F 98.2 F 98.0 F Pulse Rate 71 74 74 Respiratory Rate 20 18 20 Blood Pressure 138/59 L 147/67 H 148/70 H Pulse Oximetry 100 96 94 Oxygen Delivery 06/20/24 20:00 06/20/24 21:48 06/21/24 06:00 Temperature 97.7 F 96.9 F L Pulse Rate 74 76 Respiratory Rate 16 16 Blood Pressure 140/73 147/65 H Pulse Oximetry 92 100 Oxygen Delivery Room Air Intake/Output Intake/Output: Intake & Output 06/18/24 06/19/24 06/20/24 06/21/24 23:59 23:59 23:59 23:59 Intake Total 1150 2320 800 200 Output Total 1000 600 Balance 1150 2320 -200 -400 Meds/Results Medications: Active Medications Generic Name Dose Route Start Last Admin Trade Name Freq PRN Reason Stop Dose Admin Acetaminophen 650 mg 06/18/24 18:53 06/20/24 13:01 Acetaminophen 325 Mg Tablet PO 650 mg Q4H PRN Administration Mild Pain (1-3) or Fever Albuterol 2.5 mg 06/18/24 23:14 Albuterol Sulfate Neb 2.5 Mg/3 Ml Inh INHALATION Q4H PRN shortness of breath or wheezing Aspirin 81 mg 06/19/24 09:00 06/19/24 09:15 Aspirin 81 Mg Enteric Tablet PO 81 mg DAILY GARRY Administration Atorvastatin Calcium 20 mg 06/19/24 09:00 06/20/24 08:39 Atorvastatin 20 Mg Tablet PO 20 mg DAILY GARRY Administration Clonazepam 1 mg 06/18/24 23:30 06/20/24 20:34 Clonazepam (*Crx) 0.5 Mg Tablet PO 1 mg QHS GARRY Administration Dextrose 12.5 gm 06/18/24 23:19 Dextrose 50% 25 Gm/50 Ml Syringe IV PUSH PRN PRN Hypoglycemia Protocol Enalapril Maleate 10 mg 06/19/24 09:00 06/20/24 08:39 Enalapril Maleate 10 Mg Tablet PO 10 mg DAILY GARRY Administration Furosemide 40 mg 06/21/24 09:00 Furosemide 40 Mg Tablet PO DAILY GARRY Glucagon 1 mg 06/18/24 23:19 Glucagon For Inj 1 Mg Vial IM PRN PRN Hypoglycemia Protocol Glucose 15 gm 06/18/24 23:19 Glucose Oral Gel 15 Gm Of Glucse In 37.5 Gm Tube PO PRN PRN Hypoglycemia Protocol Dextrose 1,000 mls @ 100 mls/hr 06/18/24 23:19 Dextrose 5% 1,000 Ml IVPB PRN PRN Hypoglycemia Protocol Insulin Aspart 3 - 6 units 06/19/24 08:00 06/20/24 16:51 Insulin Aspart (*Bkc) 100 Units/Ml SUB-Q Not Given TIDWM GARRY Protocol Insulin Glargine 70 units 06/19/24 21:00 06/20/24 20:42 Insulin Glargine (*Bkc) 100 Units/Ml SUB-Q Not Given HS GARRY Ondansetron HCl 4 mg 06/18/24 18:53 Ondansetron Inj 4 Mg/2 Ml Vial IV PUSH Q4H PRN Nausea Perflutren Lipid Microsphere 0 ml 06/19/24 06:06 Perflutren Lipid Microspheres 1.5 Ml Vial Diluted To 10 Ml Total Volume IV PUSH 06/22/24 06:06 ONCE PRN adequate visualization Protocol Sertraline HCl 100 mg 06/19/24 09:00 06/20/24 08:39 Sertraline Hcl 50 Mg Tablet PO 100 mg DAILY GARRY Administration Spironolactone 100 mg 06/20/24 09:00 06/20/24 08:39 Spironolactone 50 Mg Tablet PO 100 mg QAM GARRY Administration Tamsulosin HCl 0.4 mg 06/19/24 09:00 06/20/24 08:39 Tamsulosin Hcl 0.4 Mg Capsule PO 0.4 mg DAILY GARRY Administration Trazodone HCl 100 mg 06/18/24 23:20 06/20/24 20:34 Trazodone Hcl 50 Mg Tablet PO 100 mg QHS GARRY Administration Radiology Results: ITS Impressions Abdomen/Pelvis CT 06/18/24 16:02 IMPRESSION: 1. Mild pulmonary edema. 2. Small right pleural effusion. 3. Small pericardial effusion. 4. Moderate volume of ascites. Paracentesis Ultrasound 06/20/24 15:56 IMPRESSION: 1. Successful ultrasound-guided paracentesis yielding 1000 mL of yellow fluid. Labs Labs: Laboratory Results - last 24 hr 06/18/24 06/19/24 06/20/24 10:45 20:19 10:46 WBC RBC Hgb Hct MCV MCH MCHC RDW Plt Count MPV Immature Gran % (Auto) Neut % (Auto) Lymph % (Auto) [place] % (Auto) Eos % (Auto) Baso % (Auto) Lymph # (Auto) [place] # (Auto) Eos # (Auto) Baso # (Auto) Abs Immat Gran (auto) Absolute Neuts (auto) Absolute Nucleated RBC Nucleated RBC % % Immature Plt Fraction Sodium Potassium Chloride Carbon Dioxide Anion Gap BUN Creatinine Estim Creat Clear Calc Estimated GFR Glucose POC Capillary Glucose Calcium Magnesium Total Bilirubin AST ALT Alkaline Phosphatase Total Protein Albumin 4.1 Peritoneal Source Peritoneal Color Peritoneal Appearance Peritoneal RBC Periton Nuc Cells Periton Neutrophils Periton Lymphocytes Peritoneal Monocytes Periton Mesothelial Periton Macrophages Hepatitis A Ab Total Reactive A Hep B Core Total Ab Non-reactive Blood Type B Negative Antibody Screen Negative Crossmatch See Detail 06/20/24 06/20/24 06/20/24 11:28 15:36 16:31 WBC RBC Hgb Hct MCV MCH MCHC RDW Plt Count MPV Immature Gran % (Auto) Neut % (Auto) Lymph % (Auto) [place] % (Auto) Eos % (Auto) Baso % (Auto) Lymph # (Auto) [place] # (Auto) Eos # (Auto) Baso # (Auto) Abs Immat Gran (auto) Absolute Neuts (auto) Absolute Nucleated RBC Nucleated RBC % % Immature Plt Fraction Sodium Potassium Chloride Carbon Dioxide Anion Gap BUN Creatinine Estim Creat Clear Calc Estimated GFR Glucose POC Capillary Glucose 72 76 Calcium Magnesium Total Bilirubin AST ALT Alkaline Phosphatase Total Protein Albumin Peritoneal Source Peritoneal fluid Peritoneal Color Yellow Peritoneal Appearance Hazy A Peritoneal RBC 2000 Periton Nuc Cells 229 Periton Neutrophils 12 Periton Lymphocytes 64 Peritoneal Monocytes 20 Periton Mesothelial 3 Periton Macrophages 1 Hepatitis A Ab Total Hep B Core Total Ab Blood Type Antibody Screen Crossmatch 06/20/24 06/21/24 06/21/24 20:18 05:24 05:34 WBC 6.5 RBC 4.01 L Hgb 8.8 L Hct 31.8 L MCV 79.3 L MCH 21.9 L MCHC 27.7 L RDW 20.1 H Plt Count 149 L MPV TNP Immature Gran % (Auto) 0.8 H Neut % (Auto) 78.6 H Lymph % (Auto) 12.3 L [place] % (Auto) 5.5 Eos % (Auto) 2.0 Baso % (Auto) 0.8 Lymph # (Auto) 0.80 L [place] # (Auto) 0.4 Eos # (Auto) 0.1 Baso # (Auto) 0.1 Abs Immat Gran (auto) 0.05 H Absolute Neuts (auto) 5.1 Absolute Nucleated RBC 0.000 Nucleated RBC % 0.0 % Immature Plt Fraction 6.9 Sodium 144 Potassium 3.6 Chloride 105 Carbon Dioxide 28 Anion Gap 11 BUN 12 D Creatinine 0.88 Estim Creat Clear Calc 86 Estimated GFR > 60 Glucose 103 POC Capillary Glucose 135 H 105 Calcium 9.3 Magnesium 2.0 Total Bilirubin 2.0 H AST 24 ALT 15 Alkaline Phosphatase 70 Total Protein 7.0 Albumin 4.4 Peritoneal Source Peritoneal Color Peritoneal Appearance Peritoneal RBC Periton Nuc Cells Periton Neutrophils Periton Lymphocytes Peritoneal Monocytes Periton Mesothelial Periton Macrophages Hepatitis A Ab Total Hep B Core Total Ab Blood Type Antibody Screen Crossmatch 06/21/24 07:33 WBC RBC Hgb Hct MCV MCH MCHC RDW Plt Count MPV Immature Gran % (Auto) Neut % (Auto) Lymph % (Auto) [place] % (Auto) Eos % (Auto) Baso % (Auto) Lymph # (Auto) [place] # (Auto) Eos # (Auto) Baso # (Auto) Abs Immat Gran (auto) Absolute Neuts (auto) Absolute Nucleated RBC Nucleated RBC % % Immature Plt Fraction Sodium Potassium Chloride Carbon Dioxide Anion Gap BUN Creatinine Estim Creat Clear Calc Estimated GFR Glucose POC Capillary Glucose 132 H Calcium Magnesium Total Bilirubin AST ALT Alkaline Phosphatase Total Protein Albumin Peritoneal Source Peritoneal Color Peritoneal Appearance Peritoneal RBC Periton Nuc Cells Periton Neutrophils Periton Lymphocytes Peritoneal Monocytes Periton Mesothelial Periton Macrophages Hepatitis A Ab Total Hep B Core Total Ab Blood Type Antibody Screen Crossmatch
[2024-06-21 07:52] LABS: Anisocytosis 2+; Ovalocytes 1+
[2024-06-21 07:54] LABS: Schistocytes None Seen
[2024-06-21] MEDS: ENALAPRIL MALEATE 10 MG TABLET PO (09:23)
[2024-06-21] MEDS: ATORVASTATIN 20 MG TABLET PO (09:23)
[2024-06-21] MEDS: FUROSEMIDE 40 MG TABLET PO (09:23)
[2024-06-21] MEDS: SERTRALINE HCL 50 MG TABLET 100 MG PO (09:23)
[2024-06-21] MEDS: SPIRONOLACTONE 50 MG TABLET 100 MG PO (09:23)
[2024-06-21] MEDS: TAMSULOSIN HCL 0.4 MG CAPSULE PO (09:23)
[2024-06-21 12:12] LABS: Glucose Point of Care 91 mg/dl (65-105)
[2024-06-21 14:01] LABS: Glucose Point of Care 96 mg/dl (65-105)
[2024-06-21] MEDS: LACTATED RINGERS 1,000 ML 150 ML IV CONT (14:16)
--- NOTE | 2024-06-21 14:22 | P.PNAN_ITS ---
Anes - Initial Pre Proc Eval Procedure: Operation Date: 06/21/24 15:45 Proposed Procedures p Esophagogastroduodenoscopy - Nav Crews MD s Colonoscopy - Nav Crews MD Date/Time: 06/21/24 14:22 Surgeon: Corey Santana MD Pre Op Diagnosis: Anemia requiring blood transfusion: on 3rd unit Patient Data Age: 68 Gender: M Height: 1.73 m Weight: 113.3 kg Last Vital Signs Temp 97 F L 06/21/24 13:58 Pulse 86 06/21/24 13:58 Resp 18 06/21/24 13:58 BP 146/69 H 06/21/24 13:58 Pulse Ox 90 06/21/24 13:58 O2 Del Method Room Air 06/21/24 13:58 O2 Flow Rate 2 06/19/24 22:45 Allergies Allergy/AdvReac Type Severity Reaction Status Date / Time fluticasone furoate (From AdvReac Intermediate Other Verified 06/21/24 13:56 Trelegy Ellipta) umeclidinium (From Trelegy AdvReac Intermediate Other Verified 06/21/24 13:56 Ellipta) vilanterol (From Trelegy AdvReac Intermediate Other Verified 06/21/24 13:56 Ellipta) Home Medications ?Medication ?Instructions ?Recorded ?Confirmed ?Type albuterol sulfate 2.5 mg/3 mL 2.5 mg inhalation Q4H PRN 01/10/23 06/18/24 History (0.083 %) solution for nebulization shortness of breath or wheezing trazodone 100 mg tablet 100 mg PO QHS #90 tabs 08/30/23 06/18/24 Rx aspirin 81 mg tablet,delayed 81 mg PO DAILY 09/23/23 06/18/24 History release (Adult Low Dose Aspirin) pen needle, diabetic 32 gauge x #100 ea 12/09/23 06/19/24 Rx 5/32 (BD Ultra-Fine Ankita Pen Needle) lancets 30 gauge #100 ea 12/29/23 06/19/24 Rx atorvastatin 20 mg tablet 20 mg PO DAILY #90 tabs 01/16/24 06/18/24 Rx pioglitazone 30 mg tablet 30 mg PO DAILY #90 tabs 02/13/24 06/18/24 Rx tamsulosin 0.4 mg capsule (Flomax) 0.4 mg PO DAILY #14 caps 03/08/24 06/18/24 Rx clonazepam 1 mg tablet 1 mg PO QHS #30 tabs 05/17/24 06/18/24 Rx metformin 500 mg tablet,extended See Rx Instructions .Route 05/22/24 06/18/24 Rx release 24 hr .COMPLEX #360 tabs albuterol sulfate 90 mcg/actuation 2 inh inhalation Q4H PRN shortness 05/23/24 06/18/24 Rx aerosol inhaler of breath or wheezing #8.5 grams insulin glargine 100 unit/mL (3 80 unit (0.8 mL) subcut QPM #24 mL 06/06/24 06/18/24 Rx mL) subcutaneous pen (Lantus Solostar U-100 Insulin) enalapril maleate 20 mg tablet 10 mg PO DAILY 06/18/24 06/18/24 History furosemide 40 mg tablet 40 mg PO BID 06/18/24 06/18/24 History pantoprazole 40 mg tablet,delayed 40 mg PO DAILY #90 tabs 06/18/24 06/18/24 Rx release sertraline 100 mg tablet 100 mg PO DAILY #90 tabs 06/20/24 Rx Laboratory Tests 06/18/24 06/19/24 06/20/24 10:45 20:19 15:36 WBC RBC Hgb Hct MCV MCH MCHC RDW Plt Count MPV Immature Gran % (Auto) Neut % (Auto) Lymph % (Auto) [place] % (Auto) Eos % (Auto) Baso % (Auto) Lymph # (Auto) [place] # (Auto) Eos # (Auto) Baso # (Auto) Abs Immat Gran (auto) Absolute Neuts (auto) Absolute Nucleated RBC Band Neutrophils % Nucleated RBC % Platelet Estimate Large Platelets Giant Platelets % Immature Plt Fraction Hypochromasia Anisocytosis Ovalocytes Schistocytes Sodium Potassium Chloride Carbon Dioxide Anion Gap BUN Creatinine Estim Creat Clear Calc Estimated GFR Glucose POC Capillary Glucose Calcium Magnesium Total Bilirubin AST ALT Alkaline Phosphatase Total Protein Albumin Peritoneal Source Peritoneal fluid Peritoneal Color Yellow (Colorless) Peritoneal Appearance Hazy A (Clear) Peritoneal RBC 2000 /uL (0-47649) Periton Nuc Cells 229 /uL (0-500) Periton Neutrophils 12 % (0-25) Periton Lymphocytes 64 % Peritoneal Monocytes 20 % Periton Mesothelial 3 % Periton Macrophages 1 % Peritoneal Tot Protein Pending Hepatitis A Ab Total Reactive A (NON-REACTIVE) Hep B Core Total Ab Non-reactive (NON-REACTIVE) Crossmatch See Detail 06/20/24 06/20/24 06/21/24 16:31 20:18 05:24 WBC RBC Hgb Hct MCV MCH MCHC RDW Plt Count MPV Immature Gran % (Auto) Neut % (Auto) Lymph % (Auto) [place] % (Auto) Eos % (Auto) Baso % (Auto) Lymph # (Auto) [place] # (Auto) Eos # (Auto) Baso # (Auto) Abs Immat Gran (auto) Absolute Neuts (auto) Absolute Nucleated RBC Band Neutrophils % Nucleated RBC % Platelet Estimate Large Platelets Giant Platelets % Immature Plt Fraction Hypochromasia Anisocytosis Ovalocytes Schistocytes Sodium Potassium Chloride Carbon Dioxide Anion Gap BUN Creatinine Estim Creat Clear Calc Estimated GFR Glucose POC Capillary Glucose 76 mg/dl 135 H mg/dl 105 mg/dl (65-105) (65-105) (65-105) Calcium Magnesium Total Bilirubin AST ALT Alkaline Phosphatase Total Protein Albumin Peritoneal Source Peritoneal Color Peritoneal Appearance Peritoneal RBC Periton Nuc Cells Periton Neutrophils Periton Lymphocytes Peritoneal Monocytes Periton Mesothelial Periton Macrophages Peritoneal Tot Protein Hepatitis A Ab Total Hep B Core Total Ab Crossmatch 06/21/24 06/21/24 06/21/24 05:34 07:33 12:09 WBC 6.5 K/mm3 (4.5-10.0) RBC 4.01 L M/mm3 (4.6-6.20) Hgb 8.8 L g/dL (14.0-18.0) Hct 31.8 L % (42.0-52.0) MCV 79.3 L fl (80-100) MCH 21.9 L pg (26-34) MCHC 27.7 L g/dl (32-36) RDW 20.1 H % (11.5-14.5) Plt Count 149 L k/mm3 (150-375) MPV TNP Immature Gran % (Auto) 0.8 H % (0-0.5) Neut % (Auto) 78.6 H % (45.5-73.1) Lymph % (Auto) 12.3 L % (18.3-44.2) [place] % (Auto) 5.5 % (2.6-8.5) Eos % (Auto) 2.0 % (0-4.4) Baso % (Auto) 0.8 % (0.2-1.2) Lymph # (Auto) 0.80 L K/mm3 (0.9-3.2) [place] # (Auto) 0.4 K/mm3 (0.1-0.6) Eos # (Auto) 0.1 K/mm3 (0-0.3) Baso # (Auto) 0.1 K/mm3 (0.0-0.1) Abs Immat Gran (auto) 0.05 H K/mm3 (0.00-0.031) Absolute Neuts (auto) 5.1 K/mm3 (1.3-6.7) Absolute Nucleated RBC 0.000 K/mm3 (0.0-0.012) Band Neutrophils % Not Reportable Nucleated RBC % 0.0 % (0.0-0.2) Platelet Estimate Adequate (Adequate) Large Platelets Present Giant Platelets Present % Immature Plt Fraction 6.9 % (0.9-11.2) Hypochromasia 1+ Anisocytosis 2+ Ovalocytes 1+ Schistocytes None seen Sodium 144 mmol/L (137-145) Potassium 3.6 mmol/L (3.4-5.0) Chloride 105 mmol/L (98-107) Carbon Dioxide 28 mmol/L (22-30) Anion Gap 11 mmol/L (4-12) BUN 12 D mg/dL (9-20) Creatinine 0.88 mg/dL (0.7-1.3) Estim Creat Clear Calc 86 ml/min Estimated GFR > 60 (59 - ) Glucose 103 mg/dL (65-110) POC Capillary Glucose 132 H mg/dl 91 mg/dl (65-105) (65-105) Calcium 9.3 mg/dL (8.4-10.2) Magnesium 2.0 mg/dL (1.6-2.3) Total Bilirubin 2.0 H mg/dL (0.2-1.3) AST 24 U/L (17-59) ALT 15 U/L (6-50) Alkaline Phosphatase 70 U/L (38-126) Total Protein 7.0 g/dL (6.3-8.2) Albumin 4.4 g/dL (3.5-5.1) Peritoneal Source Peritoneal Color Peritoneal Appearance Peritoneal RBC Periton Nuc Cells Periton Neutrophils Periton Lymphocytes Peritoneal Monocytes Periton Mesothelial Periton Macrophages Peritoneal Tot Protein Hepatitis A Ab Total Hep B Core Total Ab Crossmatch 06/21/24 13:58 WBC RBC Hgb Hct MCV MCH MCHC RDW Plt Count MPV Immature Gran % (Auto) Neut % (Auto) Lymph % (Auto) [place] % (Auto) Eos % (Auto) Baso % (Auto) Lymph # (Auto) [place] # (Auto) Eos # (Auto) Baso # (Auto) Abs Immat Gran (auto) Absolute Neuts (auto) Absolute Nucleated RBC Band Neutrophils % Nucleated RBC % Platelet Estimate Large Platelets Giant Platelets % Immature Plt Fraction Hypochromasia Anisocytosis Ovalocytes Schistocytes Sodium Potassium Chloride Carbon Dioxide Anion Gap BUN Creatinine Estim Creat Clear Calc Estimated GFR Glucose POC Capillary Glucose 96 mg/dl (65-105) Calcium Magnesium Total Bilirubin AST ALT Alkaline Phosphatase Total Protein Albumin Peritoneal Source Peritoneal Color Peritoneal Appearance Peritoneal RBC Periton Nuc Cells Periton Neutrophils Periton Lymphocytes Peritoneal Monocytes Periton Mesothelial Periton Macrophages Peritoneal Tot Protein Hepatitis A Ab Total Hep B Core Total Ab Crossmatch Patient hx anesthesia problems: none Family hx anesthesia problems: none Results Review: All pre-operative results and documents have been reviewed as part of the pre- operative evaluation. [facility] Past Medical History Medical History (Updated 06/20/24 @ 13:41 by SUSAN Dixon) Diastolic dysfunction (04/2022) Echocardiogram October 2023: EF greater than 70, mild concentric increased left ventricular wall thickness, abnormal diastolic dysfunction, E/E mildly elevated 13, moderate biatrial enlargement, trace aortic valve regurgitation, mild mitral valve regurgitation, trace tricuspid regurgitation, moderate pulmonary hypertension with RVSP of 53 Moderate pulmonary hypertension RVSP of 53 on echocardiogram 10/2023 Erectile dysfunction Hypertension Chronic low back pain Long-term use of aspirin therapy Hepatic steatosis Generalized anxiety disorder Insomnia Obstructive sleep apnea on CPAP Testicular hypofunction GERD (gastroesophageal reflux disease) Mixed hyperlipidemia History of colon polyps COPD (chronic obstructive pulmonary disease) Surgical History Surgical History H/O colonoscopy ~2019 History of fusion of cervical spine (08/2021) C2-T2 History of carpal tunnel surgery 2002 History of vasectomy 2001 Family History Family History Father Lung cancer Hypertension Mother Diabetes mellitus Heart disease Sibling Lung cancer Other Alcoholism Grandparent Alcoholism Grandparent FHx: kidney cancer Other Family history of malignant neoplasm Social History Social History (Updated 06/19/24 @ 05:37 by Mary Manley DO) Social History: Patient lives with his 31 years, Abbey. He had 3 children 1 of which in a car accident. He still has 1 living son and 1 daughter. He used to smoke up to 3 packs of cigarettes per day but quit in 2018. He used to drink alcohol on the weekends somewhat in moderation to sometimes heavy but quit drinking about 20 years ago. He denies illicit substance use. He used to work for the [employer]. Code status: Full code Surrogate decision maker: Abbey () Smoking packs per day: 3 Smoking cigarettes per day: 60.0 Years smoked: 50 Smoking pack-years: 150.00 Smoking status: Former smoker Tobacco type: cigarettes Second hand tobacco smoke exposure: Yes Smoking end date: 03/21/17 Alcohol intake: former Alcohol use details: Rarely Substance use: never Substance use type: does not use Do You Feel Safe in your Home?: Yes Lack of Transportation: YES Lack of Food: Sometimes True Current Housing: I Have Housing Concerned About Future Housing: YES Difficulty Paying Gas/Electric Bills: YES Difficulty Paying for Meds: YES Currently Unemployed: No Education: High School Diploma/GED Difficulty w/ Childcare or Family Care: No Living arrangements: with family Occupation/Education: retired Gender identity (if verbalized by the patient): Male Sexual Orientation (if Verbalized by the Patient): Straight or Heterosexual Spiritual care concerns: No Agree to blood products: Yes Anes - Eval Final PreProcedure Day of Procedure 06/21/24 14:22 Patient weight: obese Heart: regular rate and rhythm Lungs: clear to auscultation Airway: Mallampati scale class III Neurological: alert and oriented Last oral intake: >/= 8 hours ASA classification: IV Emergent: no Anesthetic plan: proceed Anesthesia type and monitoring: general GIVS and standard monitoring Results Review: All pre-operative results and documents have been reviewed as part of the pre- operative evaluation. Informed Consent: The patient's anesthetic plan and its attendant risks and benefits were discussed with the patient/family/POA. Questions were solicited and answers provided to the satisfaction of the patient/family/POA.
--- NOTE | 2024-06-21 15:19 | SUR.OPER ---
EGD: end 1512, COLON: start 1517
[2024-06-21] MEDS: SIMETHICONE ORAL SUSPENSION 20 MG/0.3 ML 30 ML BOTTLE 0.6 ML PO (15:23)
[2024-06-21] MEDS: ACETAMINOPHEN 325 MG TABLET 650 MG PO (17:06)
--- NOTE | 2024-06-21 17:06 | P.PNGI_ITS ---
Progress Note: A&P Assessment and Plan (1) Ascites: Qualifiers: Ascites type: other type Qualified Code(s): R18.8 - Other ascites Code(s): R18.8 - Other ascites Status: Acute Assessment and Plan: The patient's iron deficiency anemia remains unexplained by the EGD and colonoscopy findings. While large adenomas were identified, particularly in the right colon, none exhibited definitive signs of malignancy or active bleeding.To further investigate the anemia, a video capsule endoscopy referral was placed to evaluate the small bowel, which can be performed at our institution. Following an extensive discussion with the patient and his , he will be referred to [facility] for specialized endoscopic polypectomy, likely requiring multiple sessions due to the lesions number and size. For ascites management, as previously noted, a diuretic regimen of spironolactone 100 mg daily and furosemide 40 mg daily was initiated. He will follow up in our clinic in two months and be discharged with strict adherence to a low-sodium diet. (2) Sessile colonic polyp: Code(s): K63.5 - Polyp of colon Status: Acute (3) Cirrhosis: Code(s): K74.60 - Unspecified cirrhosis of liver Status: Acute Subjective Date/time seen: 06/21/24 17:06 Interval history: The patient feels well. approximately 1 L of ascitic fluid removed yesterday. Please see EGD and colonoscopy report from today. Exam Narrative: Unchanged from yesterday. Objective Data Vital Signs Vital Signs: Vital Signs - 24 hr 06/20/24 20:00 06/20/24 21:48 06/21/24 06:00 Temperature 97.7 F 96.9 F L Pulse Rate 74 76 Respiratory Rate 16 16 Blood Pressure 140/73 147/65 H Pulse Oximetry 92 100 Oxygen Delivery Room Air Oxygen Flow Rate 06/21/24 08:00 06/21/24 13:58 06/21/24 16:04 Temperature 97 F L Pulse Rate 86 69 Respiratory Rate 18 16 Blood Pressure 146/69 H 101/54 L Pulse Oximetry 90 99 Oxygen Delivery Room Air Room Air Simple Face Mask Oxygen Flow Rate 4 06/21/24 16:14 06/21/24 16:24 Temperature Pulse Rate 70 67 Respiratory Rate 20 20 Blood Pressure 115/57 L 128/62 Pulse Oximetry 95 97 Oxygen Delivery Room Air Room Air Oxygen Flow Rate Intake/Output Intake/Output: Intake & Output 06/18/24 06/19/24 06/20/24 06/21/24 23:59 23:59 23:59 23:59 Intake Total 1150 2320 800 300 Output Total 1000 600 Balance 1150 2320 -200 -300 Meds/Results Medications: Active Medications Generic Name Dose Route Start Last Admin Trade Name Freq PRN Reason Stop Dose Admin Acetaminophen 650 mg 06/18/24 18:53 06/21/24 17:06 Acetaminophen 325 Mg Tablet PO 650 mg Q4H PRN Administration Mild Pain (1-3) or Fever Albuterol 2.5 mg 06/18/24 23:14 Albuterol Sulfate Neb 2.5 Mg/3 Ml Inh INHALATION Q4H PRN shortness of breath or wheezing Aspirin 81 mg 06/19/24 09:00 06/19/24 09:15 Aspirin 81 Mg Enteric Tablet PO 81 mg DAILY GARRY Administration Atorvastatin Calcium 20 mg 06/19/24 09:00 06/21/24 09:23 Atorvastatin 20 Mg Tablet PO 20 mg DAILY GARRY Administration Clonazepam 1 mg 06/18/24 23:30 06/20/24 20:34 Clonazepam (*Crx) 0.5 Mg Tablet PO 1 mg QHS GARRY Administration Dextrose 12.5 gm 06/18/24 23:19 Dextrose 50% 25 Gm/50 Ml Syringe IV PUSH PRN PRN Hypoglycemia Protocol Enalapril Maleate 10 mg 06/19/24 09:00 06/21/24 09:23 Enalapril Maleate 10 Mg Tablet PO 10 mg DAILY GARRY Administration Furosemide 40 mg 06/21/24 09:00 06/21/24 09:23 Furosemide 40 Mg Tablet PO 40 mg DAILY GARRY Administration Glucagon 1 mg 06/18/24 23:19 Glucagon For Inj 1 Mg Vial IM PRN PRN Hypoglycemia Protocol Glucose 15 gm 06/18/24 23:19 Glucose Oral Gel 15 Gm Of Glucse In 37.5 Gm Tube PO PRN PRN Hypoglycemia Protocol Dextrose 1,000 mls @ 100 mls/hr 06/18/24 23:19 Dextrose 5% 1,000 Ml IVPB PRN PRN Hypoglycemia Protocol Insulin Aspart 3 - 6 units 06/19/24 08:00 06/21/24 12:17 Insulin Aspart (*Bkc) 100 Units/Ml SUB-Q Not Given TIDWM GARRY Protocol Insulin Glargine 70 units 06/19/24 21:00 06/20/24 20:42 Insulin Glargine (*Bkc) 100 Units/Ml SUB-Q Not Given HS GARRY Ondansetron HCl 4 mg 06/18/24 18:53 Ondansetron Inj 4 Mg/2 Ml Vial IV PUSH Q4H PRN Nausea Perflutren Lipid Microsphere 0 ml 06/19/24 06:06 Perflutren Lipid Microspheres 1.5 Ml Vial Diluted To 10 Ml Total Volume IV PUSH 06/22/24 06:06 ONCE PRN adequate visualization Protocol Sertraline HCl 100 mg 06/19/24 09:00 06/21/24 09:23 Sertraline Hcl 50 Mg Tablet PO 100 mg DAILY GARRY Administration Simethicone 0.6 ml 06/21/24 15:22 06/21/24 15:23 Simethicone Oral Suspension 20 Mg/0.3 Ml 30 Ml Bottle PO 0.6 ml ONCE PRN Administration Gas Discomfort Spironolactone 100 mg 06/20/24 09:00 06/21/24 09:23 Spironolactone 50 Mg Tablet PO 100 mg QAM GARRY Administration Tamsulosin HCl 0.4 mg 06/19/24 09:00 06/21/24 09:23 Tamsulosin Hcl 0.4 Mg Capsule PO 0.4 mg DAILY GARRY Administration Trazodone HCl 100 mg 06/18/24 23:20 06/20/24 20:34 Trazodone Hcl 50 Mg Tablet PO 100 mg QHS GARRY Administration Radiology Results: ITS Impressions Abdomen/Pelvis CT 06/18/24 16:02 IMPRESSION: 1. Mild pulmonary edema. 2. Small right pleural effusion. 3. Small pericardial effusion. 4. Moderate volume of ascites. Paracentesis Ultrasound 06/20/24 15:56 IMPRESSION: 1. Successful ultrasound-guided paracentesis yielding 1000 mL of yellow fluid. Labs Labs: Laboratory Results - last 24 hr 06/19/24 06/20/24 06/21/24 20:19 20:18 05:24 WBC RBC Hgb Hct MCV MCH MCHC RDW Plt Count MPV Immature Gran % (Auto) Neut % (Auto) Lymph % (Auto) [place] % (Auto) Eos % (Auto) Baso % (Auto) Lymph # (Auto) [place] # (Auto) Eos # (Auto) Baso # (Auto) Abs Immat Gran (auto) Absolute Neuts (auto) Absolute Nucleated RBC Band Neutrophils % Nucleated RBC % Platelet Estimate Large Platelets Giant Platelets % Immature Plt Fraction Hypochromasia Anisocytosis Ovalocytes Schistocytes Sodium Potassium Chloride Carbon Dioxide Anion Gap BUN Creatinine Estim Creat Clear Calc Estimated GFR Glucose POC Capillary Glucose 135 H 105 Calcium Magnesium Total Bilirubin AST ALT Alkaline Phosphatase Total Protein Albumin Hepatitis A Ab Total Reactive A Hep B Core Total Ab Non-reactive 06/21/24 06/21/24 06/21/24 05:34 07:33 12:09 WBC 6.5 RBC 4.01 L Hgb 8.8 L Hct 31.8 L MCV 79.3 L MCH 21.9 L MCHC 27.7 L RDW 20.1 H Plt Count 149 L MPV TNP Immature Gran % (Auto) 0.8 H Neut % (Auto) 78.6 H Lymph % (Auto) 12.3 L [place] % (Auto) 5.5 Eos % (Auto) 2.0 Baso % (Auto) 0.8 Lymph # (Auto) 0.80 L [place] # (Auto) 0.4 Eos # (Auto) 0.1 Baso # (Auto) 0.1 Abs Immat Gran (auto) 0.05 H Absolute Neuts (auto) 5.1 Absolute Nucleated RBC 0.000 Band Neutrophils % Not Reportable Nucleated RBC % 0.0 Platelet Estimate Adequate Large Platelets Present Giant Platelets Present % Immature Plt Fraction 6.9 Hypochromasia 1+ Anisocytosis 2+ Ovalocytes 1+ Schistocytes None seen Sodium 144 Potassium 3.6 Chloride 105 Carbon Dioxide 28 Anion Gap 11 BUN 12 D Creatinine 0.88 Estim Creat Clear Calc 86 Estimated GFR > 60 Glucose 103 POC Capillary Glucose 132 H 91 Calcium 9.3 Magnesium 2.0 Total Bilirubin 2.0 H AST 24 ALT 15 Alkaline Phosphatase 70 Total Protein 7.0 Albumin 4.4 Hepatitis A Ab Total Hep B Core Total Ab 06/21/24 13:58 WBC RBC Hgb Hct MCV MCH MCHC RDW Plt Count MPV Immature Gran % (Auto) Neut % (Auto) Lymph % (Auto) [place] % (Auto) Eos % (Auto) Baso % (Auto) Lymph # (Auto) [place] # (Auto) Eos # (Auto) Baso # (Auto) Abs Immat Gran (auto) Absolute Neuts (auto) Absolute Nucleated RBC Band Neutrophils % Nucleated RBC % Platelet Estimate Large Platelets Giant Platelets % Immature Plt Fraction Hypochromasia Anisocytosis Ovalocytes Schistocytes Sodium Potassium Chloride Carbon Dioxide Anion Gap BUN Creatinine Estim Creat Clear Calc Estimated GFR Glucose POC Capillary Glucose 96 Calcium Magnesium Total Bilirubin AST ALT Alkaline Phosphatase Total Protein Albumin Hepatitis A Ab Total Hep B Core Total Ab
[2024-06-21 17:16] LABS: Glucose Point of Care 106 mg/dl (65-105)
[2024-06-21] MEDS: INSULIN GLARGINE (*BKC) 100 UNITS/ML 70 UNITS SUB-Q (20:15)
[2024-06-21] MEDS: clonazePAM (*CRX) 0.5 MG TABLET 1 MG PO (20:18)
[2024-06-21] MEDS: traZODone HCL 50 MG TABLET 100 MG PO (20:19)
[2024-06-21 21:18] LABS: Glucose Point of Care 221 mg/dl (65-105)
[2024-06-22 05:29] VITALS: BP 143/68; PULSE 76; RESP 20; TEMP 36.2; O2SAT 95
[2024-06-22 05:59] LABS: Basophils Absolute Auto 0.1 K/mm3 (0.0-0.1); Basophils Percent Auto 0.9 % (0.2-1.2); Eosinophils Absolute Auto 0.1 K/mm3 (0-0.3); Eosinophils Percent Auto 1.9 % (0-4.4); Hematocrit 31.1 % (42.0-52.0); Hemoglobin 8.5 g/dL (14.0-18.0); Immature Granulocyte Absolute 0.05 K/mm3 (0.00-0.031); Immature Granulocyte Percent A 0.7 % (0-0.5); Immature Platelet Fraction Pct 6.2 % (0.9-11.2); Lymphocytes Absolute Auto 0.87 K/mm3 (0.9-3.2); Lymphocytes Percent Auto 12.7 % (18.3-44.2); Mean Corpuscular HGB Conc 27.3 g/dl (32-36); Mean Corpuscular Hemoglobin 22.5 pg (26-34); Mean Corpuscular Volume 82.5 fl (80-100); Mean Platelet Volume 11.2 fl (7.4-10.4); Monocytes Absolute Auto 0.4 K/mm3 (0.1-0.6); Monocytes Percent Auto 6.1 % (2.6-8.5); Neutrophils Absolute Auto 5.3 K/mm3 (1.3-6.7); Neutrophils Percent Auto 77.7 % (45.5-73.1); Platelet Count Result 144 k/mm3 (150-375); Red Blood Count 3.77 M/mm3 (4.6-6.20); Red Cell Distribution Width 21.2 % (11.5-14.5); White Blood Count 6.8 K/mm3 (4.5-10.0)
[2024-06-22 06:25] LABS: Alanine Aminotransferase 14 U/L (6-50); Albumin Level 3.9 g/dL (3.5-5.1); Alkaline Phosphatase 68 U/L (38-126); Anion Gap 8 mmol/L (4-12); Aspartate Amino Transferase 21 U/L (17-59); Bilirubin,Total 1.7 mg/dL (0.2-1.3); Blood Urea Nitrogen 9 mg/dL (9-20); Calcium 8.7 mg/dL (8.4-10.2); Carbon Dioxide 27 mmol/L (22-30); Chloride 107 mmol/L (98-107); Estimated CRCL calculation 84 ml/min; Estimated Glomerular Filt Rate > 60; Glucose 112 mg/dL (65-110); Magnesium 1.9 mg/dL (1.6-2.3); Potassium 4.1 mmol/L (3.4-5.0); Sodium 142 mmol/L (137-145)
[2024-06-22 06:43] LABS: Anisocytosis 2+; Hypochromasia 1+; Ovalocytes 1+; Platelet Estimate Slightly Decreased (Adequate); Schistocytes None Seen
[2024-06-22 07:43] LABS: Glucose Point of Care 111 mg/dl (65-105)
--- NOTE | 2024-06-22 08:07 | PM.PNCARD ---
Progress Note: A&P Assessment and Plan (1) Diastolic dysfunction: Onset Date: 04/2022 Code(s): I51.89 - Other ill-defined heart diseases Status: Acute Assessment and Plan: Acute on chronic. On diuretics including Lasix 40 mg PO daily and may added Spironolactone 100 mg daily which would benefit ascites that could be related to cirrhosis of liver. Will sign off, please call with any questions. (2) Mixed hyperlipidemia: Code(s): E78.2 - Mixed hyperlipidemia Status: Chronic Assessment and Plan: On Atorvastatin. (3) Hypertension: Qualifiers: Hypertension type: primary hypertension Qualified Code(s): I10 - Essential (primary) hypertension Code(s): I10 - Essential (primary) hypertension Status: Chronic Assessment and Plan: Stable. (4) Severe pulmonary hypertension: Code(s): I27.20 - Pulmonary hypertension, unspecified Status: Acute Assessment and Plan: Due to ESTHER and COPD. (5) Pulmonary edema: Code(s): J81.1 - Chronic pulmonary edema Status: Acute Assessment and Plan: Resolved. Probably due to high out heart failure from anemia. Correct underlying cause for anemia in progress which could be GI related with hemoccult positive stool or other. No evidence of bleeding from endoscopies but showed large polyps. Plan for capsule endoscopy. Subjective Date/time seen: 06/22/24 08:07 Interval history: Denies chest pain or sob or abdominal pain. Exam Const: General: cooperative, healthy appearing and comfortable Orientation/consciousness: oriented to person, oriented to place and oriented to time Resp: Auscultation: clear to auscultation bilaterally, no crackles, no rales, no rhonchi and no wheezes Cardio: Rate: regular rate Rhythm: regular rhythm Heart sounds: no murmurs Peripheral pulses: dorsalis pedis present Neuro: General: oriented to person, oriented to place and oriented to time Extrem: Right lower extremity: edema Left lower extremity: no edema Other: Mild-mod edema of right leg Objective Data Vital Signs Vital Signs: Vital Signs - 24 hr 06/21/24 13:58 06/21/24 16:00 06/21/24 16:04 Temperature 97 F L 97.5 F L Pulse Rate 86 79 69 Respiratory Rate 18 18 16 Blood Pressure 146/69 H 138/58 L 101/54 L Pulse Oximetry 90 95 99 Oxygen Delivery Room Air Simple Face Mask Oxygen Flow Rate 4 06/21/24 16:14 06/21/24 16:24 06/21/24 20:00 Temperature Pulse Rate 70 67 80 Respiratory Rate 20 20 20 Blood Pressure 115/57 L 128/62 Pulse Oximetry 95 97 90 Oxygen Delivery Room Air Room Air CPAP Oxygen Flow Rate 06/21/24 20:17 06/21/24 23:33 06/22/24 05:29 Temperature 97.4 F L 97.2 F L Pulse Rate 80 81 76 Respiratory Rate 20 20 Blood Pressure 137/56 L 143/68 H Pulse Oximetry 90 91 95 Oxygen Delivery CPAP Oxygen Flow Rate Intake/Output Intake/Output: Intake & Output 06/19/24 06/20/24 06/21/24 06/22/24 23:59 23:59 23:59 23:59 Intake Total 2320 800 700 150 Output Total 1000 1300 Balance 2320 -200 -600 150 Meds/Results Medications: Active Medications Generic Name Dose Route Start Last Admin Trade Name Freq PRN Reason Stop Dose Admin Acetaminophen 650 mg 06/18/24 18:53 06/21/24 17:06 Acetaminophen 325 Mg Tablet PO 650 mg Q4H PRN Administration Mild Pain (1-3) or Fever Albuterol 2.5 mg 06/18/24 23:14 Albuterol Sulfate Neb 2.5 Mg/3 Ml Inh INHALATION Q4H PRN shortness of breath or wheezing Aspirin 81 mg 06/19/24 09:00 06/19/24 09:15 Aspirin 81 Mg Enteric Tablet PO 81 mg DAILY GARRY Administration Atorvastatin Calcium 20 mg 06/19/24 09:00 06/21/24 09:23 Atorvastatin 20 Mg Tablet PO 20 mg DAILY GARRY Administration Clonazepam 1 mg 06/18/24 23:30 06/21/24 20:18 Clonazepam (*Crx) 0.5 Mg Tablet PO 1 mg QHS GARRY Administration Dextrose 12.5 gm 06/18/24 23:19 Dextrose 50% 25 Gm/50 Ml Syringe IV PUSH PRN PRN Hypoglycemia Protocol Enalapril Maleate 10 mg 06/19/24 09:00 06/21/24 09:23 Enalapril Maleate 10 Mg Tablet PO 10 mg DAILY GARRY Administration Furosemide 40 mg 06/21/24 09:00 06/21/24 09:23 Furosemide 40 Mg Tablet PO 40 mg DAILY GARRY Administration Glucagon 1 mg 06/18/24 23:19 Glucagon For Inj 1 Mg Vial IM PRN PRN Hypoglycemia Protocol Glucose 15 gm 06/18/24 23:19 Glucose Oral Gel 15 Gm Of Glucse In 37.5 Gm Tube PO PRN PRN Hypoglycemia Protocol Dextrose 1,000 mls @ 100 mls/hr 06/18/24 23:19 Dextrose 5% 1,000 Ml IVPB PRN PRN Hypoglycemia Protocol Insulin Aspart 3 - 6 units 06/19/24 08:00 06/22/24 07:54 Insulin Aspart (*Bkc) 100 Units/Ml SUB-Q Not Given TIDWM GARRY Protocol Insulin Glargine 70 units 06/19/24 21:00 06/21/24 20:15 Insulin Glargine (*Bkc) 100 Units/Ml SUB-Q 70 units HS GARRY Administration Ondansetron HCl 4 mg 06/18/24 18:53 Ondansetron Inj 4 Mg/2 Ml Vial IV PUSH Q4H PRN Nausea Sertraline HCl 100 mg 06/19/24 09:00 06/21/24 09:23 Sertraline Hcl 50 Mg Tablet PO 100 mg DAILY GARRY Administration Simethicone 0.6 ml 06/21/24 15:22 06/21/24 15:23 Simethicone Oral Suspension 20 Mg/0.3 Ml 30 Ml Bottle PO 0.6 ml ONCE PRN Administration Gas Discomfort Spironolactone 100 mg 06/20/24 09:00 06/21/24 09:23 Spironolactone 50 Mg Tablet PO 100 mg QAM GARRY Administration Tamsulosin HCl 0.4 mg 06/19/24 09:00 06/21/24 09:23 Tamsulosin Hcl 0.4 Mg Capsule PO 0.4 mg DAILY GARRY Administration Trazodone HCl 100 mg 06/18/24 23:20 06/21/24 20:19 Trazodone Hcl 50 Mg Tablet PO 100 mg QHS GARRY Administration Radiology Results: ITS Impressions Abdomen/Pelvis CT 06/18/24 16:02 IMPRESSION: 1. Mild pulmonary edema. 2. Small right pleural effusion. 3. Small pericardial effusion. 4. Moderate volume of ascites. Paracentesis Ultrasound 06/20/24 15:56 IMPRESSION: 1. Successful ultrasound-guided paracentesis yielding 1000 mL of yellow fluid. Labs Labs: Laboratory Results - last 24 hr 06/21/24 06/21/24 06/21/24 12:09 13:58 17:06 WBC RBC Hgb Hct MCV MCH MCHC RDW Plt Count MPV Immature Gran % (Auto) Neut % (Auto) Lymph % (Auto) [place] % (Auto) Eos % (Auto) Baso % (Auto) Lymph # (Auto) [place] # (Auto) Eos # (Auto) Baso # (Auto) Abs Immat Gran (auto) Absolute Neuts (auto) Absolute Nucleated RBC Band Neutrophils % Nucleated RBC % Platelet Estimate % Immature Plt Fraction Hypochromasia Anisocytosis Ovalocytes Schistocytes Sodium Potassium Chloride Carbon Dioxide Anion Gap BUN Creatinine Estim Creat Clear Calc Estimated GFR Glucose POC Capillary Glucose 91 96 106 H Calcium Magnesium Total Bilirubin AST ALT Alkaline Phosphatase Total Protein Albumin 06/21/24 06/22/24 06/22/24 20:11 05:47 07:30 WBC 6.8 RBC 3.77 L Hgb 8.5 L Hct 31.1 L MCV 82.5 MCH 22.5 L MCHC 27.3 L RDW 21.2 H Plt Count 144 L MPV 11.2 H Immature Gran % (Auto) 0.7 H Neut % (Auto) 77.7 H Lymph % (Auto) 12.7 L [place] % (Auto) 6.1 Eos % (Auto) 1.9 Baso % (Auto) 0.9 Lymph # (Auto) 0.87 L [place] # (Auto) 0.4 Eos # (Auto) 0.1 Baso # (Auto) 0.1 Abs Immat Gran (auto) 0.05 H Absolute Neuts (auto) 5.3 Absolute Nucleated RBC 0.000 Band Neutrophils % Not Reportable Nucleated RBC % 0.0 Platelet Estimate Slightly decreased % Immature Plt Fraction 6.2 Hypochromasia 1+ Anisocytosis 2+ Ovalocytes 1+ Schistocytes None seen Sodium 142 Potassium 4.1 Chloride 107 Carbon Dioxide 27 Anion Gap 8 BUN 9 Creatinine 0.91 Estim Creat Clear Calc 84 Estimated GFR > 60 Glucose 112 H POC Capillary Glucose 221 H 111 H Calcium 8.7 Magnesium 1.9 Total Bilirubin 1.7 H AST 21 ALT 14 Alkaline Phosphatase 68 Total Protein 7.0 Albumin 3.9
[2024-06-22] MEDS: ENALAPRIL MALEATE 10 MG TABLET PO (08:53)
[2024-06-22] MEDS: FUROSEMIDE 40 MG TABLET PO (08:53)
[2024-06-22] MEDS: ATORVASTATIN 20 MG TABLET PO (08:54)
[2024-06-22] MEDS: ASPIRIN 81 MG ENTERIC TABLET PO (08:54)
[2024-06-22] MEDS: TAMSULOSIN HCL 0.4 MG CAPSULE PO (08:54)
[2024-06-22] MEDS: SERTRALINE HCL 50 MG TABLET 100 MG PO (08:54)
[2024-06-22] MEDS: SPIRONOLACTONE 50 MG TABLET 100 MG PO (08:54)
[2024-06-22 11:17] LABS: Glucose Point of Care 136 mg/dl (65-105)
--- NOTE | 2024-06-22 11:18 | P.DS_ITS ---
DS: Admitting Diagnosis Discharge Date 06/22/24 Admitting Diagnosis iron deficiency anemia transfusion of blood during current hospitalization pericardial effusion ascites hypertension obstructive sleep apnea BPH insulin-dependent diabetes mellitus DS: Discharge Diagnosis Discharge Diagnosis (1) Iron deficiency anemia: Qualifiers: Iron deficiency anemia type: unspecified iron deficiency Qualified Code(s): D50.9 - Iron deficiency anemia, unspecified Code(s): D50.9 - Iron deficiency anemia, unspecified Status: Acute (2) MetALD: Code(s): K76.0 - Fatty (change of) liver, not elsewhere classified; F10.90 - Alcohol use, unspecified, uncomplicated Status: Acute (3) Pericardial effusion: Code(s): I31.39 - Other pericardial effusion (noninflammatory) Status: Acute (4) Insulin dependent diabetes mellitus: Status: Acute (5) Occult blood positive stool: Code(s): R19.5 - Other fecal abnormalities Status: Acute (6) Severe pulmonary hypertension: Code(s): I27.20 - Pulmonary hypertension, unspecified Status: Acute (7) Obstructive sleep apnea on CPAP: Code(s): G47.33 - Obstructive sleep apnea (adult) (pediatric); Z99.89 - Dependence on other enabling machines and devices Status: Chronic (8) BPH loc w urin obs/LUTS: Code(s): N40.1 - Benign prostatic hyperplasia with lower urinary tract symptoms Status: Acute (9) Acute on chronic heart failure with preserved ejection fraction (HFpEF): Code(s): I50.33 - Acute on chronic diastolic (congestive) heart failure Status: Acute DS: Summary Hospital Course Reason for hospitalization: iron deficiency anemia transfusion of blood during current hospitalization pericardial effusion ascites hypertension obstructive sleep apnea BPH insulin-dependent diabetes mellitus Hospital Course: This is a 68-year-old male with a significant past medical history of COPD, ESTHER, GERD, diastolic dysfunction, BPH, type 2 diabetes mellitus who presented to the hospital with abnormal labs. His CBC showed a hemoglobin of 5.7. He was brought in for further evaluation. Workup in the hospital included an abdo men/pelvis CT which showed mild pulmonary edema, small right pleural effusion, small pericardial effusion, moderate volume of ascites. Initial labs showed a hemoglobin of 5.2, hematocrit 19.7, INR was 1.3, bicarb 21, anion gap 13, BUN 31, iron 22, ferritin 4.92. He was given 1unit of blood which brought his hemoglobin up to 6.6 and he was given another unit of blood which brought him up to 7.0 on his hemoglobin. Patient was found to have cirrhosis of the liver with moderate ascites and had a paracentesis yielding 1 L of ascites fluid. GI was consulted and took patient for an EGD and colonoscopy however did not find any signs of bleeding. EGD showed gastritis. Colonoscopy showed multiple cecal polyps which were excised and sent for pathology. He was also found to have diverticulosis without perforation or abscess. GI plans to refer him to a tertiary care center for discussion of management. On 06/20/2024 patient's hemoglobin dropped to 6.7 requiring a 3rd unit of blood to be given. He was also given an iron infusion and started on ferrous sulfate. Hemoglobin today is 8.5. He is stable for discharge at this time. He will need to follow up with Hematology regarding his anemia and thrombocytopenia however we feel this is due to his cirrhosis of the liver. He will continue with ferrous sulfate 325 mg twice a day. He will need to follow up with the GI team regarding his pathology reports from his colonoscopy as well as being referred to tertiary care GI specialist that deals with cirrhosis. final diagnosis: iron deficiency anemia, pericardial effusion, ascites Status at Discharge Cognitive/behavioral status at discharge: Alert oriented x4 Functional status at discharge: independent ambulation Overall status at discharge: patient is progressing back to baseline Time Spent with Patient Time attestation: Total time spent providing and/or coordinating discharge services: Time spent: Greater than 30 minutes Exam Narrative: General: In no acute distress, well nourished Head: atraumatic, no encephalopathy Eyes: PERRLA, sclera clear ENT: moist mucous membranes, nasal passages clear Neck: supple, no JVD, no adenopathy, trachea midline Cardiac: Normal S1 and S2. No murmur, gallops or friction rubs, peripheral pulses intact. Respiratory: Lungs clear to auscultation, no adventitious lung sounds Gastrointestinal: soft, distended, non-tender, normoactive bowel sounds. : voiding without difficulty. Extremities: moves all extremities well, no edema Skin: clean, dry, intact. No wounds or lesions. Neuro: Alert and oriented x4, cranial nerves intact, no neuro deficits. Psych: normal mood, normal affect, interactive DS: Data Data Completed and Pending Completed studies during hospitalization: abdomen pelvis CT paracentesis ultrasound Pending studies at discharge: Pending at discharge 06/21/24 16:05 Surgical [PTH] Routine Labs on day of discharge: Labs from last 24 hours 06/22/24 06/22/24 06/22/24 11:10 07:30 05:47 WBC 6.8 RBC 3.77 L Hgb 8.5 L Hct 31.1 L MCV 82.5 MCH 22.5 L MCHC 27.3 L RDW 21.2 H Plt Count 144 L MPV 11.2 H Immature Gran % (Auto) 0.7 H Neut % (Auto) 77.7 H Lymph % (Auto) 12.7 L Bartow % (Auto) 6.1 Eos % (Auto) 1.9 Baso % (Auto) 0.9 Lymph # (Auto) 0.87 L Bartow # (Auto) 0.4 Eos # (Auto) 0.1 Baso # (Auto) 0.1 Abs Immat Gran (auto) 0.05 H Absolute Neuts (auto) 5.3 Absolute Nucleated RBC 0.000 Band Neutrophils % Not Reportable Nucleated RBC % 0.0 Platelet Estimate Slightly decreased % Immature Plt Fraction 6.2 Hypochromasia 1+ Anisocytosis 2+ Ovalocytes 1+ Schistocytes None seen Sodium 142 Potassium 4.1 Chloride 107 Carbon Dioxide 27 Anion Gap 8 BUN 9 Creatinine 0.91 Estim Creat Clear Calc 84 Estimated GFR > 60 Glucose 112 H POC Capillary Glucose 136 H 111 H Calcium 8.7 Magnesium 1.9 Total Bilirubin 1.7 H AST 21 ALT 14 Alkaline Phosphatase 68 Total Protein 7.0 Albumin 3.9 06/21/24 06/21/24 06/21/24 20:11 17:06 13:58 WBC RBC Hgb Hct MCV MCH MCHC RDW Plt Count MPV Immature Gran % (Auto) Neut % (Auto) Lymph % (Auto) Bartow % (Auto) Eos % (Auto) Baso % (Auto) Lymph # (Auto) Bartow # (Auto) Eos # (Auto) Baso # (Auto) Abs Immat Gran (auto) Absolute Neuts (auto) Absolute Nucleated RBC Band Neutrophils % Nucleated RBC % Platelet Estimate % Immature Plt Fraction Hypochromasia Anisocytosis Ovalocytes Schistocytes Sodium Potassium Chloride Carbon Dioxide Anion Gap BUN Creatinine Estim Creat Clear Calc Estimated GFR Glucose POC Capillary Glucose 221 H 106 H 96 Calcium Magnesium Total Bilirubin AST ALT Alkaline Phosphatase Total Protein Albumin 06/21/24 12:09 WBC RBC Hgb Hct MCV MCH MCHC RDW Plt Count MPV Immature Gran % (Auto) Neut % (Auto) Lymph % (Auto) Bartow % (Auto) Eos % (Auto) Baso % (Auto) Lymph # (Auto) Bartow # (Auto) Eos # (Auto) Baso # (Auto) Abs Immat Gran (auto) Absolute Neuts (auto) Absolute Nucleated RBC Band Neutrophils % Nucleated RBC % Platelet Estimate % Immature Plt Fraction Hypochromasia Anisocytosis Ovalocytes Schistocytes Sodium Potassium Chloride Carbon Dioxide Anion Gap BUN Creatinine Estim Creat Clear Calc Estimated GFR Glucose POC Capillary Glucose 91 Calcium Magnesium Total Bilirubin AST ALT Alkaline Phosphatase Total Protein Albumin Procedures/Treatments: EGD/colonoscopy ultrasound-guided paracentesis Discharge Plan Discharge Attending physician on discharge: Murtaza Jerry Consulting providers: Hermann Benitez Discharging Clinician: Juana Dobson Anticipated Discharge Date/Time: 06/22/24 11:09 Patient Disposition: Home, Self-Care Activity: as tolerated Diet: as tolerated and low sodium Discharge Instructions: * Cardiology recommending that you stay on Lasix 40 mg daily instead of twice a day and then we added spironolactone 100mg daily to your regimen * Continue with low sodium diet as recommended by cardiology team * GI increased your Protonix to twice daily * Follow up with GI in 1 week * Follow up with your primary care doctor in 1 week. Get referral to switchboard troubleshooter--Dr. Suarez for further work up of your iron deficiency anemia (low hemoglobin) and thrombocytopenia (low platelet count) * You do have an iron deficiency anemia as your iron level was found to be 22. Normal range is 49-181. Ferritin was also low 4.92, normal range is 11.1-264. Cirrhosis of the liver is known to cause iron deficiency anemia as the liver's role of iron metabolism. The liver plays a crucial role in storing and regulating iron levels in your body. This is more a production problem not a bleeding problem. * You can still watch for signs and symptoms of bleeding which include bright red blood in stool or urine, vomiting bright red blood, nose bleeds, bleeding gums, or cuts that do not stop bleeding, low blood pressure, feeling lightheaded,dizzy, or feelings of passing out when standing. * Your platelet count is also low which is likely due to your cirrhosis of the liver. Platelet count ranging 121-149 on labs (150-375 is normal range). * Recheck labs in 1 week. * Continue to take ferrous sulfate for your anemia. You were given iron infusions while here as well as 2 units of blood while inpatient. Patient Instructions: Heart Failure (DC), Cirrhosis of the Liver (DC), Iron Deficiency Anemia (GEN), Ascites (DC) Patient Language: Romansh Stand Alone Forms: General Discharge Information Follow-up/Referrals: Joey Suarez MD [Physician] - 2 Weeks (thrombocytopenia and anemia) Nav Crews MD [Physician] - Call for Appointment Rip Andrea MD [Primary Care Provider] - 1 Week Discharge Medications: New furosemide 40 mg Tablet 40 mg PO DAILY Qty: 30 0RF spironolactone [Aldactone] 50 mg Tablet 100 mg PO QAM Qty: 30 0RF pantoprazole [Protonix] 40 mg tablet,delayed release (DR/EC) 40 mg PO BID Qty: 60 0RF ferrous sulfate 325 mg (65 mg iron) tablet 325 mg PO BID Qty: 60 0RF Continued albuterol sulfate 2.5 mg /3 mL (0.083 %) solution for nebulization 2.5 mg inhalation Q4H PRN (Reason: shortness of breath or wheezing) aspirin [Adult Low Dose Aspirin] 81 mg tablet,delayed release (DR/EC) 81 mg PO DAILY enalapril maleate 20 mg tablet 10 mg PO DAILY tamsulosin [Flomax] 0.4 mg capsule 0.4 mg PO DAILY Qty: 14 0RF trazodone 100 mg tablet 100 mg PO QHS Qty: 90 3RF (DME) pen needle, diabetic [BD Ultra-Fine Ankita Pen Needle] 32 gauge x 32 needle See Rx Instructions .Route Qty: 100 3RF Rx Instructions: use once daily to inject insulin (DME) lancets 30 gauge misc See Rx Instructions .Route Qty: 100 0RF Rx Instructions: As directed atorvastatin 20 mg tablet 20 mg PO DAILY Qty: 90 2RF pioglitazone 30 mg tablet 30 mg PO DAILY Qty: 90 3RF clonazepam 1 mg tablet 1 mg PO QHS Qty: 30 5RF Rx Instructions: administer 30 minutes before bedtime metformin 500 mg tablet extended release 24 hr See Rx Instructions .ROUTE .COMPLEX Qty: 360 2RF Dose Instruction: TAKE 2 TABLETS BY MOUTH TWICE DAILY Rx Instructions: TAKE 2 TABLETS BY MOUTH TWICE DAILY albuterol sulfate 90 mcg/actuation HFA aerosol inhaler 2 inh inhalation Q4H PRN (Reason: shortness of breath or wheezing) Qty: 8.5 5RF insulin glargine [Lantus Solostar U-100 Insulin] 100 unit/mL (3 mL) insulin pen 80 unit subcut QPM Qty: 24 4RF sertraline 100 mg tablet 100 mg PO DAILY Qty: 90 1RF Discontinued furosemide 40 mg tablet 40 mg PO BID pantoprazole 40 mg tablet,delayed release (DR/EC) 40 mg PO DAILY Qty: 90 1RF Other Ambulatory Orders: Complete Blood Count with Diff (Routine) Timeframe: 1 Week Location: Determined by Patient Ordered By: Juana Dobson Comprehensive Metabolic Panel (Routine) Timeframe: 1 Week Location: Determined by Patient Ordered By: Juana Dobson Date of admission: 06/19/24 17:08 Primary Care Provider: Rip Andrea Admitting Provider: Mirza Santana Attending physician on admission: Juana Dobson Condition: Improved Quality VTE Prophylaxis VTE prophylaxis: mechanical ordered (SCDs) Hospitalist MIPS Heart Failure (Exclusion) Patient has history of Heart Transplant or Left Ventricular Assistive Device?: No IF YES, STOP HERE Heart Failure (Qualifier) Patient has current or prior documentation of LVEF less than or equal to 40%, or mod/servere depressed LVSF?: No IF NO, STOP HERE
[2024-06-22 14:00] VITALS: BP 136/58; PULSE 79; RESP 18; TEMP 36.4; O2SAT 93
[2024-06-23 19:13] LABS: Total Protein Peritoneal Fluid 3.1 g/dL
== END 2024-06-22 15:05 | disposition home or self-care (01) | DRG 811 ==
LOC: ANHED 11:17 → ANH3MEDSUR 20:01
PROVIDERS: Internal Medicine; Internal Medicine Gastroenterology; Nurse Practitioner Family; Admitting Provider Internal Medicine; Emergency Provider Student in an Organized Health Care Education/Training Program; PCP Family Medicine Adolescent Medicine; Visit Provider Nurse Practitioner Acute Care
PROC: 0DJ08ZZ Inspection of Upper Intestinal Tract, Via Natural or Artificial Opening Endoscopic (ICD-10-PCS; principal; 2024-06-21 15:45)
PROC: 0DJD8ZZ Inspection of Lower Intestinal Tract, Via Natural or Artificial Opening Endoscopic (ICD-10-PCS; CPT 45378; 2024-06-21 15:45)
DX: D50.9 Iron deficiency anemia, unspecified (principal); I50.33 Acute on chronic diastolic (congestive) heart failure; I31.39 Other pericardial effusion (noninflammatory); K70.31 Alcoholic cirrhosis of liver with ascites; K29.30 Chronic superficial gastritis without bleeding; D12.0 Benign neoplasm of cecum; D12.2 Benign neoplasm of ascending colon; D12.4 Benign neoplasm of descending colon; K57.30 Diverticulosis of large intestine without perforation or abscess without bleeding; K63.5 Polyp of colon; I11.0 Hypertensive heart disease with heart failure; K70.0 Alcoholic fatty liver; D69.59 Other secondary thrombocytopenia; E11.9 Type 2 diabetes mellitus without complications; G47.33 Obstructive sleep apnea (adult) (pediatric); N40.0 Benign prostatic hyperplasia without lower urinary tract symptoms; K21.9 Gastro-esophageal reflux disease without esophagitis; J44.9 Chronic obstructive pulmonary disease, unspecified; E78.2 Mixed hyperlipidemia; Z98.1 Arthrodesis status; Z87.891 Personal history of nicotine dependence
CPT/HCPCS: 36415; 36430; 49083; 74177; 80053; 82040; 82274; 82728; 82948; 83540; 83550; 83735; 83880; 84157; 85014; 85018; 85025; 85055; 85610; 85730; 86704; 86708; 86803; 86850; 86900; 86901; 86923; 87340; 88305; 89051; 93005; 93306; 96361; 96365; 96366; 96375; 99285; A9270; G0378; J1756; J1815; J1938; J1940; J2003; J2704; J3475; J7050; J7120; P9016; Q9967

== ENCOUNTER 2024-07-18 05:24 | Outpatient (CLI) | payer MEDICARE, SELFPAY ==
--- OUTSIDE RECORDS SUMMARY | 2024-07-18 05:26 | XMS_ITS | Continuity of Care Document ---
Author Organization [facility] Address [address] [place] [address] [facility] [address] [place] [address] Phone Care Team Providers Care Otc Clerk Name Role Phone Brandon Vergara Unavailable Unavailable Procedures Procedure Date Office/outpatient Visit, Est Office/outpatient Visit, Est Eye Exam & Treatment Advance Directives Directive Yes / No Effective Date File Name No Information Encounters Encounter Description Practice Location Reason(s) For Visit Diagnoses Date Provider Providers Copied on Encounter Office/outpat ient Visit, [place] [facility], [address] [place] [address] [address], [place], [place], [id number], tel:[phone] [facility] No Information [address]. [address] [place] [address], [facility], [place]. tel:[phone] Referring Provider: Rip Andrea MD, [address] [place] [address], [address]. tel:[phone] Office/outpat ient Visit, [facility], [address] [place] [address] [address], [place], [place], [id number], tel:[phone] [facility] No Information [address]. [address] [place] [address], [facility], [place]. tel:[phone] Referring Provider: Rip Andrea MD, [address] [place] [address], [address]. tel:[phone] [facility], [address], [place], [place], [id number], [place] tel:[phone] [facility] No Information [address] Low. [address] [place] [facility], [address], [place], [place], [id number], [place]. tel:[phone] Referring Provider: Rip Andrea MD, [address] [place] [address], [address]. tel:[phone] Family History Family Member Type Diagnosis Age [...]
--- OUTSIDE RECORDS SUMMARY | 2024-07-18 05:26 | XMS_ITS | Encounter Summary ---
Author Organization [facility] Address [address] [place] [address] Care Team Providers Care Mechanical Unit Repairer Name Role Phone Rip Andrea MD Primary Care Provider + Reason for Visit * Reason Comments Refill Request Encounter Details Date Type Department Care Team (Late st Contact Info) Description 10/07/2021 Refill [facility] [address] [place] [address] Rachael Blancas, ABLE BODIED TANKERMAN-RESIDENTIAL REMODELING SUBCONTRACTOR [address] [address] Refill Request Social History Tobacco Use Types [...] at Not on file Legal Sex Male 9:12 AM CDT Gender Identity Not on file Sexual Orientation Not on file documented as of this encounter Functional Status * Is person deaf or have serious hearing difficulty? Answer Date of Assessment Author No 08/21/2021 3:59 PM CDT Preethi Reyes RN * Is person blind or have serious difficulty seeing? Answer Date of Assessment Author No 08/21/2021 3:59 PM CDT Preethi Reyes RN * Does person have serious difficulty walking/climbing stairs? Answer Date of Assessment Author No 08/21/2021 3:59 PM CDT Preethi Reyes RN * Does person have difficulty dressing/bathing? Answer Date of Assessment Author No 08/21/2021 3:59 PM CDT Preethi Reyes RN * Does person have difficulty doing errands alone? Answer Date of Assessment Author No 08/21/2021 3:59 PM KELSEYT Preethi Reyes RN documented as of this encounter Mental Status * Does person have difficulty concentrating/remembering/making decisions? Answer Entry Date Author No 08/21/2021 3:59 PM KELSEYT Preethi Reyes RN documented in this encounter Plan of Treatment Upcoming Encounters Date Type Department Care Team (Latest Contact Info) Description 08/08/2024 10:00 AM CDT Hospital Encounter [facility] [address] [place] [id number] Paresh Sanchez MD [address] [place] [address] [address] [place] [address] Surgery General 08/08/2024 10:00 AM CDT - 08/08/2024 12:00 PM CDT Surgery [facility] [address] [place] [id number] [place] [address] [place] [address] [address] [place] [address] Diag Colon + EMRs 05/09/2025 2:30 PM MANAGER INFORMATION Video Visit [facility] - Hematology/Oncology [address] [place] [address] Bia Lipscomb, GC [address] [place] [address] Scheduled Procedures Name Priority Associated Diagnoses Date/Ti me COLONOSCOPY DIAGNOSTIC Polyp of colon, unspecified part of colon, unspecified type 08/08/2024 10:00 AM CDT documented as of this encounter Visit Diagnoses Not on filedocumented in this encounter Care Teams Mechanical Unit Repairer Relationship Specialty Start Date End Date Rip Andrea MD [address] [address] PCP - General 08/22/17 documented as of this encounter
--- OUTSIDE RECORDS SUMMARY | 2024-07-18 05:26 | XMS_ITS | Clinical Summary ---
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 Not on file Not on f ile Not on file Last Filed Vital Signs Vital Sign Reading Time Taken Comments Blood Pressure 132/61 02/23/2018 11:28 AM GAS DISTRIBUTION AND EMERGENCY CLERK Pulse 80 02/23/2018 11:23 AM GAS DISTRIBUTION AND EMERGENCY CLERK Temperature 36.8 C (98.2 F) 02/23/2018 10:49 AM GAS DISTRIBUTION AND EMERGENCY CLERK Respiratory Rate 18 02/23/2018 11:2 3 AM GAS DISTRIBUTION AND EMERGENCY CLERK Oxygen Saturation 95% 02/23/2018 11: 23 AM GAS DISTRIBUTION AND EMERGENCY CLERK Inhaled Oxygen Concentration - - Weight 113.9 kg (251 lb 3.2 oz) 018 10:49 AM GAS DISTRIBUTION AND EMERGENCY CLERK Height 175.3 cm (5' 9 ) 02/23/2018 10:4 9 AM GAS DISTRIBUTION AND EMERGENCY CLERK Body Mass Index 37.1 02/23/2018 10:49 AM GAS DISTRIBUTION AND EMERGENCY CLERK Plan of Treatment Health Maintenance Due Date Last Done Comments Colorectal Cancer Screening Colonoscopy (10 Years) 1955 Hepatitis C 09/05/1973 DTaP, Tdap and Td Vaccines ( 1 - Tdap) 09/05/1974 Pneumococcal Vaccine: 50+ Ye ars (1 of 1 - PCV) 09/05/2005 Zoster Vaccines (1 of 2) 09/05/2005 COVID-19 Vaccine ( - 2023-2 5 season) [...] to complete this topic Insurance Care Teams Casting Wheel Operator Helper Relationship Specialty Start Date End Date Rip Andrea MD [phone] [address] PCP - General FAMILY PRACTICE 01/16/18
--- OUTSIDE RECORDS SUMMARY | 2024-07-18 05:26 | XMS_ITS | Encounter Summary ---
Author Organization [facility] Address [address] [facility] [facility] [place] [address] Care Team Providers Care Driller Machine Name Role Phone Rip Andrea MD Primary Care Provider + Reason for Visit * Reason Comments Refill Request Encounter Details Date Type Department Care Team (Late st Contact Info) Description 10/03/2021 Refill [facility] [address] [place] [address] Rachael Blancas, MANAGER EDUCATION-SENIOR BUSINESS ARCHITECT [address] [address] Refill Request Social History Tobacco Use Types [...] Description 08/08/2024 10:00 AM CDT Hospital Encounter [facility] [address] [place] [phone] Paresh Sanchez MD [address] [place] [address] [address] [place] [address] Surgery General 08/08/2024 10:00 AM CDT - 08/08/2024 12:00 PM CDT Surgery [facility] [address] [place] [phone] [place] [address] [place] [address] [address] [place] [address] Diag Colon + EMRs 05/09/2025 2:30 PM ONLINE BANKING SPECIALIST Video Visit [facility] - Hematology/Oncology [address] [place] [address] Bia Lipscomb, GC [address] [place] [address] Scheduled Procedures Name Priority Associated Diagnoses Date/Ti me COLONOSCOPY DIAGNOSTIC Polyp of colon, unspecified part of colon, unspecified type 08/08/2024 10:00 AM CDT documented as of this encounter Visit Diagnoses Not on filedocumented in this encounter Care Teams Driller Machine Relationship Specialty Start Date End Date Rip Andrea MD [address] [address] PCP - General 08/22/17 documented as of this encounter
--- OUTSIDE RECORDS SUMMARY | 2024-07-18 05:26 | XMS_ITS | Clinical Summary ---
Author Organization [facility] Clarice flores [facility] Address [address] [facility] [place] [address] Care Team Providers Care Wood Die Maker Name Role Phone Unavailable Primary Care Provider Unavailabl e Social History Tobacco Use Types Packs/Day Years Used Date Smoking Tobacco: Never Assessed Sex and Gender Information Value Date Recorded Sex Assigned at Not on file Legal Sex Male 1:38 PM CDT Gender Identity Not on file Sexual Orientation Not on file Plan of Treatment Upcoming Encounters Date Type Department Care Team (Late st Contact Info) Description 10/17/2024 3:00 PM CDT Office Visit [facility] Oncology and Hematology - [place] [address] [facility] [address] [place] [address] Joey Suarez MD [address] [facility] [address] [place] [address] Health Maintenance Due Date Last Done Comments DTAP/TDAP/TD VACCINES (1 - Tdap) 09/05/1974 COLORECTAL SCREENING 09/05/2000 Colorectal Cancer Screening 09/05/2000 FIT-DNA Q 3 years 09/05/2000 FIT/FOBT Q 1 year 09/05/2000 Flex Sig/CT Colonography Q 5 years 09/05/2000 PNEUMOCOCCAL VACCINE 50+ YEARS (1 of 1 - PCV) 09/06/19 06 ZOSTER VACCINE (1 of 2) 09/05/2005 INFLUENZA VACCINE (#1) 2023 RSV VACCINE (60+ or ) (1 - 1-dose 75+ series) 09/05/[address] [place] [place] [id number]
--- OUTSIDE RECORDS SUMMARY | 2024-07-18 05:26 | XMS_ITS | Clinical Summary ---
Author Organization [facility] Address [address] [place] [address] Care Team Providers Care Rn Case Manager Name Role Phone Rip Andrea MD Primary Care Provider + Source Comments [facility],non-owned Affiliates and Associated Physician Practices is amultiple site organization consisting of ambulatory clinics and hospital sitesin [place], [place], [place] and [place]. This disclosure is being madepursuant to the Care Everywhere program and may not contain all information available regarding this patient. Last updated 17.[facility] Allergies No known active allergies Medications * Be aware that medications may not be up to date on this document. Alwaysverify current medications with the patient. atorvastatin (LIPITOR) 20 MG tablet Take 1 (one) tablet by mouth once daily 2 08/12/19 18 Active metFORMIN (GLUCOPHAGE) 500 MG tablet Take 1 (one) tablet by mouth 2 times daily 3 08/13/19 18 Active pantoprazole EC (PROTONIX) 40 MG tablet Take 1 (one) tablet by mouth once daily Active enalapril (VASOTEC) 20 MG tablet Take 1 (one) tablet by mouth once daily Active sertraline (ZOLOFT) 100 MG tablet Take 1 (one) tablet by mouth once daily Active BREZTRI AEROSPHERE 160-9-4.8 MCG/ACT AERO Inhale 2 puffs by mouth 2 times daily 05/26/19 22 Active Basaglar KwikPen (BASAGLAR) pen Inject 80 (eighty) Units subcutaneously at bedtime 05/15/19 22 Active traZODone (DESYREL) 100 MG tablet Take 1 (one) tablet by mouth once daily 03/16/20 21 Active magnesium 250 MG tablet Take 250 mg by mouth once daily Active melatonin 10 MG capsule Take 1 (one) capsule by mouth at bedtime Active tadalafil (CIALIS) 20 MG tablet Take 20 mg by mouth once daily 06/19/19 22 Active calcium carbonate (TUMS) 500 MG chew tablet Take 1 (one) tablet by mouth every 4 hours as needed 08/26/19 22 Active Additional Information Patient not taking.Reported on 10/05/2023 diphenhydrAMINE (BENADRYL ALLERGY) 25 MG capsule Take 1 (one) capsule by mouth every 6 hours as needed for Allergies or Insomnia 08/26/19 22 Active bisacodyl (DULCOLAX) 10 MG suppository Insert 1 (one) suppository into the rectum once daily as needed for Constipation 08/26/19 22 Active Additional Information Patient not taking.Reported on 03/31/2022 polyethylene glycol 3350 (MIRALAX) 17 g packetIndications: Cervical radiculopathy Take 17 (seventeen) g by mouth once daily as needed for Constipation 08/26/19 22 Active Additional Information Patient not taking.Reported on 03/31/2022 multivitamin daily tabletIndications: Cervical radiculopathy Take 1 (one) tablet by mouth once daily 08/27/19 22 Active LORazepam (ATIVAN) 1 MG tablet TAKE 1 TABLET BY MOUTH EVERY DAY AT BEDTIME NEEDED FOR SLEEP 09/02/19 22 Active Pixplit NEXT TEST test strip FOR E11.9 TEST BLOOD SUGAR DAILY 07/04/19 22 Active hydrOXYzine HCl (ATARAX) 25 MG tablet Take 25 mg by mouth Active gabapentin (NEURONTIN) 300 MG capsule Take 1 (one) capsule by mouth 3 times daily 90 capsule 09/11/19 22 Active Additional Information Patient not taking.Reported on 03/31/2022 oxyCODONE-Acetamin ophen (PERCOCET PO) Take 325 mg by mouth once daily Active BACLOFEN PO Take 10 mg by mouth 3 times daily Active Cyclobenzaprine HCl (FLEXERIL PO) Take 5 mg by mouth 3 times daily Active Nerve Stimulator (TENS THERAPY PAIN RELIEF) DEVIIndications: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 Use 1 device as needed (Apply to posterior spine as needed) 1 device 10/15/19 22 Active Additional Information Patient not taking.Reported on 10/05/2023 Elastic Bandages & Supports (ADJUSTABLE ARM SLING) MISCIndications:Ri ght arm weakness,Fusion of spine of cervicothoracic region Use 1 device as needed 1 Each 10/15/19 Active Additional Information Patient not taking.Reported on 10/05/2023 gabapentin (NEURONTIN) 300 MG capsule Take 1 (one) capsule by mouth 3 times daily 270 capsule 2 10/15/19 22 Active Additional Information Patient not taking.Reported on 10/05/2023 oxyCODONE-acetamin ophen (PERCOCET) 5-325 MG tablet Take 1 (one) tablet by mouth every 8 hours as needed for Pain 90 tablet 10/20/19 Active Additional Information Patient not taking.Reported on 10/05/2023 Farxiga 10 MG tablet Take 1 (one) tablet by mouth once daily 12/22/19 22 Active BD Pen Needle Micro U/F 32G X 6 MM MISC USE ONE DAILY TO INJECT INSULIN 12/23/19 22 Active cyclobenzaprine (Flexeril) 5 MG tabletIndications: Spasm of muscle TAKE 1 TABLET BY MOUTH THREE TIMES A DAY NEEDED 90 tablet 1 02/23/20 22 Active Additional Information Patient not taking.Reported on 10/05/2023 tiZANidine (Zanaflex) 2 MG capsuleIndications :Spasm of muscle TAKE 1 CAPSULE BY MOUTH EVERY 8 HOURS NEEDED FOR MUSCLE SPASMS 60 capsule 05/03/19 23 Active Additional Information Patient not taking.Reported on 10/05/2023 albuterol HFA (Proventil; Ventolin; Proair) 108 (90 Base) MCG/ACT inhaler Inhale 2 (two) puffs by mouth every 6 hours as needed for Shortness of Breath (As needed) 01/30/20 23 Active clonazePAM (KlonoPIN) 1 MG tablet Take 1 (one) tablet by mouth daily with breakfast 09/15/19 24 Active furosemide (Lasix) 40 MG tablet Take 1 (one) tablet by mouth 2 times daily 09/15/19 24 Active pioglitazone (Actos) 30 MG tablet Take 1 (one) tablet by mouth once daily 08/22/19 24 Active insulin glargine (Lantus/Semglee) 100 units/mL pen Inject 80 (eighty) Units subcutaneously at bedtime Active tamsulosin (Flomax) 0.4 MG capsule Take 1 (one) capsule by mouth once daily 06/21/19 25 Active clonazePAM (KlonoPIN) 1 MG tablet Take 1 (one) tablet by mouth at bedtime Active spironolactone (Aldactone) 50 MG tablet Take 2 (two) tablets by mouth once daily Active ferrous sulfate 325 (65 FE) MG tablet Take 1 (one) tablet by mouth once daily Active aspirin EC (Ecotrin) 81 MG tablet Take 1 (one) tablet by mouth at bedtime Active pantoprazole EC (Protonix) 40 MG tablet Take 1 (one) tablet by mouth 2 times daily Active albuterol (Proventil;Ventoli n) (5 MG/ML) 0.5% nebulizer solution Inhale 0.5 mL by mouth 4 times daily as needed for Shortness of Breath or Wheezing Active polyethylene glycol (Golytely) solution Take 4,000 mL by mouth once for 1 dose 4000 mL 06/26/19 25 2024 polyethylene glycol (Golytely) solutionIndication s:Polyp of colon, unspecified part of colon, unspecified type Take 4,000 mL by mouth once for 1 dose Please see instructions sent via mail. 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 logistics analyst (1mo follow up colon + emrs for colon polyps with Dr. Zheng) 07/09/2024 8:00 AM CDT Anesthesia Event [facility] [address] [place] [phone] Mona Greer MD Singh, Jaganjot, DO 07/09/2024 7:55 AM CDT - 07/09/2024 10:25 AM CDT Surgery [facility] [address] [place] [address] Paresh Sanchez MD COLONOSCOPY+EMR 07/09/2024 6:50 AM CDT - 07/09/2024 10:59 AM CDT Hospital Encounter [facility] [address] [place] [address] Paresh Sanchez MD Surgery General Discharge Disposition: Home or Self Care 07/09/2024 Orders Only [facility] - GI [address] [place] [address] Paresh Sanchez MD Polyposis of colon 07/09/2024 Travel 07/03/2024 Travel 06/25/2024 Telephone [facility] [address] [place] [address] Kirti Modi Procedure (External Referral, Colonoscopy+EMR, Dr. Crews ) from Last 3 Months Immunizations Immunization Administration Dates Next Due CovOptimalize.me primary monoval ent 12+ yr 0.3mL Purple [...] 04/19/2017 Smokeless Tobacco: Never Tobacco Cessation:Counseling Given: Not Answered Alcohol Use Standard Drinks/Week Comments Not Currently 1 (1 standard drink = 0.6 oz pur e alcohol) Hunger Vital Sign Answer Date Recorded Within [...] Sign Reading Time Taken Comments Blood Pressure 157/72 07/09/2024 10:45 AM CDT Pulse 70 07/09/2024 10:45 AM CDT Temperature 36.4 C (97.6 F) 07/09/2024 10:03 AM CDT Respiratory Rate 15 07/09/2024 10:45 AM CDT Oxygen Saturation 97% 07/09/2024 10:45 AM CDT Inhaled Oxygen Concentration - - Weight 103 kg (227 lb 1.6 oz) 07/09/2024 7:12 AM CDT Height 172.7 cm (5' 8 ) 07/09/2024 7:12 AM CDT Body Mass Index 34.53 07/09/2024 7:12 AM CDT Plan of Treatment Upcoming Encounters Date Type Department Care Team (Latest Contact Info) Description 08/08/2024 10:00 AM CDT Hospital Encounter [facility] [address] [place] [phone] [place] [address] [place] [address] [address] [place] [address] Surgery General 08/08/2024 10:00 AM CDT - 08/08/2024 12:00 PM CDT Surgery [facility] [address] [place] [phone] [place] [address] [place] [address] [address] [place] [address] Diag Colon + EMRs 05/09/2025 2:30 PM 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 Visit [facility] - Hematology/Oncology [address] [place] [phone] Bia Lipscomb, GC [address] [place] [address] Scheduled Procedures Name Priority Associated Diagnoses Date/Ti me COLONOSCOPY DIAGNOSTIC Polyp of colon, unspecified part of colon, unspecified type 08/08/2024 10:00 AM CDT Health Maintenance Due Date Last Done Comments COLOGUARD (AGES 45-75) - COLON CA SCREENING 1955 CT COLONOGRAPHY - COLON CA SCREENING 1955 FIT - COLON CA SCREENING 1955 [...] VACCINE ( season) 2023 12/19/2020, 06/06/2020, 05/16/2020 DEPRESSION SCREENING 03/21/2024 MEDICARE AWV CALENDAR YEAR 2024 INFLUENZA VACCINE (Season Ended) 2024 01/15/2022, 12/19/2020 SCREENING FOR DIABETES 07/10/2027 , 08/25/2021, 08/25/2021, Additional history exists COLON MONITORING 07/09/2034 07/09/2024, 07/09/2024 COLONOSCOPY - COLON CA SCREENING 07/09/2034 07/09/2024, 07/09/2024 Colorectal Cancer Screening 07/09/2034 HEPATITIS B VACCINE Aged Out No longe [...] this topic Medical Devices Implanted Type 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 Device Identifier Shelf Expiration Date Model / Serial / Lot Stimulan Rapid Cure Implanted:Qty: 1 on 08/21/2021 by Karson Fournier MD at [facility] N/A: Spine Cervical Biocompstes 03/20/2024 [id number] / / [id number] Description:MIXED WITH 500MG VANCOMYCIN POWDER Screw 4.5mm 28mm Ma Spne Bone Implanted:Qty: 3 on 08/21/2021 by Karson Fournier MD at [facility] N/A: Spine Cervical Med[employer] [id number] / / Dayo Spnl 240mm 3.5mm Std Implanted:Qty: 2 on 08/21/2021 by Karson Fournier MD at [facility] N/A: Spine Cervical [employer] Inc [id number] / / Lev Bone Void 10ml Dbm Grftn Algrf Ptty - [id number] Implanted:Qty: 1 on 08/21/2021 by Karson Fournier MD at [facility] N/A: Spine Cervical Med[employer] Inc 06/30/2024 [id number] / [id number] / Screw Set M6 Spne Oc Upr Thor Infnt Implanted:Qty: 16 on 08/21/2021 by Karson Fournier MD at [facility] N/A: Spine Cervical Medtronic Sofamor Danek Spine [id number] / / Screw 4mm 26mm Ma Spne Bone Implanted:Qty: 1 on 08/21/2021 by Karson Fournier MD at [facility] N/A: Spine Cervical [employer] Inc [id number] / / Screw 4mm 22mm Ma Spne Bone Implanted:Qty: 1 on 08/21/2021 by Karson Fournier MD at [facility] N/A: Spine Cervical [employer] Inc [id number] / / Screw 3.5mm 16mm Ma Spne Bone Implanted:Qty: 3 on 08/21/2021 by Karson Fournier MD at [facility] N/A: Spine Cervical [employer] Inc [id number] / / Screw 3.5mm 18mm Ma Spne Bone Implanted:Qty: 2 on 08/21/2021 by Karson Fournier MD at [facility] N/A: Spine Cervical Med[employer] Inc [id number] / / Screw 3.5mm 20mm Ma Spne Bone Implanted:Qty: 3 on 08/21/2021 by Karson Fournier MD at [facility] N/A: Spine Cervical Med[employer] Inc [id number] / / Screw 3.5mm 22mm Ma Spne Bone Implanted:Qty: 2 on 08/21/2021 by Karson Fournier MD at [facility] N/A: Spine Cervical Med[employer] Inc [id number] / / Screw 4.5mm 26mm Ma Spne Bone Implanted:Qty: 1 on 08/21/2021 by Karson Fournier MD at [facility] N/A: Spine Cervical Med[employer] Inc [id number] / / Procedures Procedure Name Priority Date/Time Associated Diagnosis Comments PATHOLOGY TISSUE Routine 07/09/2024 8:21 AM CDT History of colon polyps [place] COLONOSCOPY, DIAGNOSTIC 07/09/2024 7:55 AM CDT History of colon polyps GLUCOSE - POINT OF CARE Routine 07/09/2024 7:35 AM CDT ENDOSCOPY, COLON, DIAGNOSTIC Routine 07/09/2024 7:24 AM CDT from Last 3 Months Results * PATHOLOGY TISSUE (07/09/2024 8:21 AM CDT) Case Report Surgical Pathology Report Case: [id number] Authorizing Provider: Paresh Sanchez, Collected: 07/09/2024 08:21 AM Ordering Location: [facility] Received: 07/09/2024 11:03 AM Pathologist: Rosi Webber MD Specimens: A) - Polyp Cecum, Cecum polyps B) - Large Intestine, Right/Ascending Colon, Ascending/proximal transverse colon polyps 07/10/2024 2:15 PM CDT [facility] Final Diagnosis Large intestine, cecum polyps, biopsy (A): - Tubular adenoma(s), fragmented Large intestine, ascending/proximal transverse colon polyps, polypectomy (B): - Tubular adenoma(s), fragmented 07/10/2024 2:15 PM CDT [facility] at 1415 CDT Microscopic Description and Comment Microscopic examination substantiates the final diagnosis. 07/10/2024 2:15 PM [facility] Clinical History The patient is a 68-year-old man who presents for therapeutic procedure for colon polyps. Operative procedure/findings: Colonoscopy - three 8-12 mm cecal polyps, resected and retrieved; five 10-16 mm ascending colon polyps, resected and retrieved; four 25-40 mm ascending colon sessile granular lateral spreading polyps, removed via piecemeal mucosal resection. 07/10/2024 2:15 PM [facility] Gross Description The requisition and specimen(s) are identified with the patient's name Román Barber . Received in formalin, specimen A , consists of multiple yellow-parrish tissue fragments, 0.3-0.7 cm and 1.1 x 0.8 x 0.3 cm aggregate, submitted in toto in cassette A1. Received in formalin, specimen B , consists of a multiple pink-parrish polypoid fragments and five polyps. The fragments are 2.4 x 1.7 x 0.4 cm in aggregate, 0.3-1.3 cm. The 5 polyps are pink-parrish and bosselated, 1.2-1.4 cm. The polyp resection margins are inked and the specimen is submitted entirely as follows: B1-B2- Fragments B3-B4- Each with two bisected polyps (differentially inked) B5- One bisected polyp./BAJ 07/10/2024 2:15 PM [facility] Pathologist Location at [facility] 07/10/2024 2:15 PM [facility] Disclaimer The performance characteristics of all immunohistochemical and indirect immunofluorescence stains (if any) cited in this report were determined by the Histopathology Laboratory of [facility]. Some of these tests were developed by our own laboratory and have not been cleared or approved by the US Food and Drug Administration. The FDA does not require this test to go through premarket FDA review. These tests are used for clinical purposes. They should not be regarded as investigational or for research. This laboratory is certified under the Clinical Laboratory Improvement Amendments (CLIA) as qualified to perform high complexity clinical laboratory testing. This case has been personally reviewed and interpreted by the attending (teaching) pathologist. 07/10/2024 2:15 PM [facility] Embedded Images 07/10/2024 2:15 PM CDT [facility] Biopsy, NOS POLYP OF CECUM / Unknown 07/09/2024 8:21 AM CDT 07/09/2024 11:03 AM CDT Comment:Pre-op diagnosis: History of colon polyps [Z86.0100] Biopsy, NOS (Large Intestine, Right/Ascending Colon) 07/09/2024 8:24 AM CDT 07/09/2024 11:03 AM CDT Comment:Pre-op diagnosis: History of colon polyps [Z86.0100] Paresh Hernandez MD LAB - PATHOLOGY/CYTO LOGY ORDERABLES Final Result Performing Organization Address City/[facility]/ZIP Co de Phone Number [facility] [address] [place] [address], [facility] [phone] * (ABNORMAL) GLUCOSE - POINT OF CARE (07/09/2024 7:35 AM CDT) Pathologist [facility] Glucose WB/POC 102(H) 70 - 99 mg/dL 07/09/2024 11:56 AM CDT [facility] Specimen Type Cap Fingerstick 2024 11:56 AM CDT [facility] Blood BLOOD SPECIMEN / Unknown 07/09/2024 7:35 AM CDT 07/09/2024 11:56 AM CDT Paresh Hernandez MD LAB - POINT OF CARE ORDERABLES Final Result [facility] [address] [place] [address], [place] [phone] * Endoscopy, Colon, Diagnostic (07/09/2024 7:24 AM CDT) Report Endoscopy POC Endoscopy Department Report _ Patient Name: Román Barber Procedure Date: 07/09/2024 7:24 AM Date of : 1955 Classification: Outpatient Gender: Male Ethnicity: Not or Race: White _ Providers: Paresh Hernandez MD Referring MD: Nav Crews MD; Rip Andrea MD Procedure: Colonoscopy Indications: Therapeutic procedure for colon polyps Medications: Monitored Anesthesia Care. See the Anesthesia note for documentation of the administered medications. Patient Profile: 68M presents as direct access referral for colonoscopy w/ polypectomies/EMR s. Recent exam at OSH: 8 subcm polyps removed (path n/a), one 10 mm cecal polyp not removed, four 15-35 mm ascending colon polyps not removed, one 30 mm transverse colon polyp not removed. Description of Procedure: After I obtained informed consent, the scope was passed under direct vision. Throughout the procedure, the patient's blood pressure, pulse, and oxygen saturations were monitored continuously. The [id number]-[id number] was introduced through the anus and advanced to the cecum, identified by appendiceal orifice and ileocecal valve. The colonoscopy was performed without difficulty. The patient tolerated the procedure well. The quality of the bowel preparation was evaluated using the BBPS ([place] Bowel Preparation Scale) with scores of: Right Colon = 2 (minor amount of residual staining, small fragments of stool and/or opaque liquid, but mucosa seen well), Transverse Colon = 3 (entire mucosa seen well with no residual staining, small fragments of stool or opaque liquid) and Left Colon = 3 (entire mucosa seen well with no residual staining, small fragments of stool or opaque liquid). The total BBPS score equals 8. The quality of the bowel preparation was adequate. Findings: Three sessile polyps were found in the cecum. The polyps were 8 to 12 mm in size. These polyps were removed with a cold snare. Resection and retrieval were complete. Five sessile polyps were found in the ascending colon. The polyps were 10 to 16 mm in size. These polyps were removed with a cold snare. Resection and retrieval were complete. Four sessile granular laterally spreading (Chiquita Is) polyps were found in the ascending and proximal transverse colon. The polyps were 25 to 40 mm in size. Preparations were made for mucosal resection. Eleview was injected into the submucosal space to raise the lesions. Piecemeal mucosal resection using a snare was performed. Resection and retrieval were complete. Resected tissue margins were examined and clear of polyp tissue. To prevent bleeding after the polypectomy, nine hemostatic clips were successfully placed (DuraClip - MR conditional). There was no bleeding at the end of the procedure. Only limited exam was performed from the remainder of the colon due to need for large specimen retrieval, prolonged procedure and perceived risks. Multiple other large polyps were noted for which polypectomy and EMR will likely be necessary. The perianal and digital rectal examinations were normal. Estimated Blood Loss: Estimated blood loss was minimal. Complications: No immediate complications. Impression: - Three 8 to 12 mm sessile polyps in the cecum, removed with a cold snare. Resected and retrieved. - Five 10 to 16 mm sessile polyps in the ascending colon, removed with a cold snare. Resected and retrieved. - Four 25 to 40 mm sessile granular laterally spreading polyps in the ascending colon, removed via piecemeal mucosal resection. Resected and retrieved. Nine clips placed for prophylaxis (DuraClip, MR conditional). - Only limited exam performed from the remainder of the colon. Multiple other large polyps noted. Moderate Sedation: . Recommendation: - Monitor for fevers, bleeding, pain. - Resume previous diet as tolerated. - Hold any anticoagulant medications ( blood thinners ) for 5 days. Resume rest of home medications today. - Follow-up pathology / biopsy results. Further management accordingly. - Plan for repeat Colonoscopy in 1 month for resection of multiple other large polyps. - Further evaluation by Genetics Counselor to rule out underlying hereditary / genetic disorder. - Early colorectal cancer screening of first degree relatives via Colonoscopy. - The potential complications and concerning symptoms/findings , including but not limited to early or delayed fevers, infection, pain, bleeding, perforation, were discussed with the patient/caregiver . Emergency contact information was provided. Attending Participation: I personally performed the entire procedure. Procedure Code(s): --- Professional --- 15334, Colonoscopy, flexible; with endoscopic mucosal resection 13564, 59, Colonoscopy, flexible; with removal of tumor(s), polyp(s), or other lesion(s) by snare technique Diagnosis Code(s): --- Professional --- D12.0, Benign neoplasm of cecum D12.2, Benign neoplasm of ascending colon K63.5, Polyp of colon CPT copyright 2021 [employer]. All rights reserved. The codes documented in this report are preliminary and upon electrician supervisor airplane review may be revised to meet current compliance requirements. Paresh Hernandez MD 07/09/2024 10:08:49 AM Note Initiated On: 07/09/2024 7:24 AM Number of Addenda: [id number] [place] [address] PROVATION 07/09/2024 7:24 AM CDT Paresh Hernandez MD GI PROCEDURE ORDERAB LES Edited Result - Final [facility] PROVATION from Last 3 Months Insurance [facility] MANAGED MEDICARE ADV [facility] MANAGED MEDICARE ADV SELF PAY NO INSURANCE Member Subscriber Plan / Payer (Ef fective for All Dates) Name:Román Barber Member ID:Not on file Relation to Subscriber:Not on file Name:ROMÁN BARBER Pan CHILDRESS Subscriber ID:Not on file (Home) Address: [address] [place], [place] [id number] Payer ID:Not on file Group ID:Not on file Type:Self Pay Address: [place], [place] [facility] MANAGED MEDICARE ADV Advance Directives * Full Code (Latest Code Status on File) Date Activated Date Inactivated Comments 08/21/2021 12:41 PM 08/25/2021 2:23 PM Care Teams Rn Case Manager Relationship Specialty Start Date End Date Rip Andrea MD [address] [place] [id number] PCP - General 08/22/17
--- OUTSIDE RECORDS SUMMARY | 2024-07-18 05:26 | XMS_ITS | Clinical Summary ---
Author Organization [facility] Address [address], [address] [address] Phone Care Team Providers Care Postdoctoral Fellow Name Role Phone Rip Andrea MD Primary [...] patient's age to complete this topic Insurance [facility] Care Teams Postdoctoral Fellow Relationship Specialty Start Date End Date Rip Andrea MD [address] [place] [address] PCP - General Family Medicine 04/13/17
[2024-07-18] MEDS: SIMETHICONE ORAL SUSPENSION 20 MG/0.3 ML 30 ML BOTTLE 0.6 ML IRRIGATION (06:24)
--- NOTE | 2024-07-18 06:27 | SUR.OPER ---
Patient brought to GI Lab. Instructions for patient undergoing Capsule Endoscopy reviewed with patient. Consent form signed. Sensor array applied to patient's abdomen and connected to recorded. Patient swallowed capsule with 14 ozs of water infused with Simethicone. Patient instructed they may have clear liquids at 0815 this AM and eat or drink at 1015 this AM. Patient instructed to return to GI Lab at 1500 this afternoon for removal of recording device and to call [phone] or to return to the hospital if any nausea and vomiting or abdominal pain is experienced.
== END 2024-07-18 05:25 | disposition home or self-care (01) ==
PROVIDERS: PCP Family Medicine Adolescent Medicine; Referring Provider Internal Medicine Gastroenterology; Visit Provider Internal Medicine Gastroenterology
PROC: 0DJ07ZZ Inspection of Upper Intestinal Tract, Via Natural or Artificial Opening (ICD-10-PCS; CPT 91110; principal; 2024-07-18 07:00)
DX: Z01.818 Encounter for other preprocedural examination (principal); D50.9 Iron deficiency anemia, unspecified
CPT/HCPCS: 91110

== ENCOUNTER 2024-07-25 09:46 | Outpatient (CLI) | payer MEDICARE, SELFPAY ==
--- NOTE | ~2024-07-25 | US_ITS ---
Limited ABDOMINAL ULTRASOUND (Doppler ultrasound interrogation techniques used as needed for this exa m.) Ordering provider: Geovanny Ribeiro DO History: . K74.60 - Unspecified cirrhosis of liver . Comparison: None. FINDINGS: PANCREAS: Normal echotexture and size of the visualized portion. PORTAL VEIN: Hepatopedal flow demonstrated. LIVER: Nodular surface is noted. Otherwise, Normal size and echotexture. No focal hepatic lesions or perihepatic fluid collections are identified. BILIARY DUCTS: No intra or extrahepatic biliary dilation. Common bile duct measures 3.9 mm in diamete r which is normal for patient's age. GALLBLADDER: Normal. No stones, sludge, gallbladder wall thickening or pericholecystic fluid. Wall th ickness is 2 mm. Negative sonographic Aranda's sign. IVC: Patent. Aorta: Patent. FREE FLUID: None visualized within the upper abdomen. IMPRESSION: Liver cirrhosis. Otherwise, limited abdominal ultrasound. Reviewed, dictated and finalized at location A.
--- OUTSIDE RECORDS SUMMARY | 2024-07-25 10:22 | XMS_ITS | Continuity of Care Document ---
Author Organization formerly [facility] Address [address] [place] [address] [facility] [address] [place] [address] Phone Care Team Providers Care Business Case Analyst Name Role Phone Brandon Vergara Unavailable Unavailable Procedures Procedure Date Office/outpatient Visit, Est Office/outpatient Visit, Est Eye Exam & Treatment Advance Directives Directive Yes / No Effective Date File Name No Information Encounters Encounter Description Practice Location Reason(s) For Visit Diagnoses Date Provider Providers Copied on Encounter Office/outpat ient Visit, [facility], [address] [place] [address] [address], [place], [place], [id number], tel:[phone] [facility] No Information 9 Krishnascarmen Brandon. [address] [place] [address], [facility], [place]. tel:[phone] Referring Provider: Rip Andrea MD, [address] [place] [address], [address]. tel:[phone] Office/outpat ient Visit, [facility], [address] [place] [address] [address], [place], [place], [id number], tel:[phone] [facility] No Information 3200 8 Krishnasamy Brandon. [address] [place] [address], [place], [place], [facility], [place]. tel:[phone] Referring Provider: Rip Andrea MD, [address] [place] [address], [address]. tel:[phone] [facility], [address], [place], [place], [id number], [place] tel:[phone] [facility] No Information 7 William Low. [address] [facility], [address], [place], [place], [id number], [place]. tel:[phone] Referring Provider: Rip Andrea MD, [address] [place] [address], [address]. tel:[phone] Family History Family Member Type Diagnosis Age At Onset No Information Payers Payer name Insurance type Covered democrat ID Authoriza tion(s) No Information Social History [...]
--- OUTSIDE RECORDS SUMMARY | 2024-07-25 10:22 | XMS_ITS | Encounter Summary ---
Author Organization [facility] Address [address] [place] [address] Care Team Providers Care Data Control Clerk Name Role Phone Rip Andrea MD Primary Care Provider + Reason for Visit * Reason Comments Refill Request Encounter Details Date Type Department Care Team (Late st Contact Info) Description 10/07/2021 Refill [facility] [address] [place] [address] Rachael Blancas, CART DRIVER-DIAMOND CLEANER [address] [address] Refill Request Social History Tobacco Use Types [...] Description 08/08/2024 10:00 AM CDT Hospital Encounter [facility]COPY [address] [place] [phone] Paresh Sanchez MD [address] [place] [address] 2L [place] [address] Surgery General 08/08/2024 10:00 AM CDT - 08/08/2024 12:00 PM CDT Surgery [facility] ENDOSCOPY [address] [place] [phone] [place] [address] [place] [address] [address] [place] [address] Diag Colon + EMRs 05/09/2025 2:30 PM FIELD HAULER Video Visit [facility] - Hematology/Oncology [address] [place] [address] Bia Lipscomb, GC [address] [place] [address] Scheduled Procedures Name Priority Associated Diagnoses Date/Ti me COLONOSCOPY DIAGNOSTIC Polyp of colon, unspecified part of colon, unspecified type 08/08/2024 10:00 AM CDT documented as of this encounter Visit Diagnoses Not on filedocumented in this encounter Care Teams Data Control Clerk Relationship Specialty Start Date End Date Rip Andrea MD [address] [address] PCP - General 08/22/17 documented as of this encounter
--- OUTSIDE RECORDS SUMMARY | 2024-07-25 10:22 | XMS_ITS | Clinical Summary ---
Author Organization [facility] Clarice flores [facility] Address [address] [place] [address] Care Team Providers Care Disc Inspector Name Role Phone Unavailable Primary Care Provider [...] Description 10/17/2024 3:00 PM CDT Office Visit [facility] Oncology and Hematology - Javon [address] [facility] [address] [place] [address] Joey Suarez MD [address] [facility] [address] [place] [address] Health Maintenance Due Date Last [...] (1 - 1-dose 75+ series) 09/05/[address] [place] [place] [id number]
--- OUTSIDE RECORDS SUMMARY | 2024-07-25 10:22 | XMS_ITS | Clinical Summary ---
Author Organization [facility] Address [address] [place] [address] Care Team Providers Care Paralegal Instructor Name Role Phone Rip Andrea MD Primary Care Provider + Source Comments [facility],non-owned Affiliates and Associated Physician Practices is amultiple site organization consisting of ambulatory clinics and hospital sitesin [place], [place], [place]. This disclosure is being madepursuant to the Care Everywhere program and may not contain all information available regarding this patient. Last updated 17.[facility] Allergies No known active allergies Medications * [...] BEDTIME NEEDED FOR SLEEP 09/02/19 22 Active Neolane NEXT TEST test strip FOR E11.9 TEST [...] Care Team Description 07/16/2024 Travel 07/10/2024 Telephone [facility] - GI [address] [facility], [place] [address] Issac Bernard, ornamental metal worker helper (1mo follow up colon + emrs for colon polyps with Dr. Zheng) 07/09/2024 8:00 AM CDT Anesthesia Event [facility] ENDOSCOPY [address] [place] [address] Mona Greer MD Singh, Jaganjot, DO 07/09/2024 7:55 AM CDT - 07/09/2024 10:25 AM CDT Surgery [facility] END[facility] [address] [place] [address] Paresh Sanchez MD COLONOSCOPY+EMR 07/09/2024 6:50 AM CDT - 07/09/2024 10:59 AM CDT Hospital Encounter [facility] OP [address] [place] [address] Paresh Sanchez MD Surgery General Discharge Disposition: Home or Self Care 07/09/2024 Orders Only [facility] - GI [address] [facility] [place] [address] Paresh Sanchez MD Polyposis of colon 07/09/2024 Travel 07/03/2024 Travel 06/25/2024 Telephone [facility] ENDOSCOPY [address] [place] [address] Kirti Modi Procedure (External Referral, Colonoscopy+EMR, Dr. Crews ) from Last 3 Months Immunizations Immunization Administration Dates Next Due CovSailPlay primary monoval ent 12+ yr 0.3mL Purple [...] Description 08/08/2024 10:00 AM CDT Hospital Encounter [facility] [address] [place] [address] [place] [address] [place] [address] [address] [place] [address] Surgery General 08/08/2024 10:00 AM CDT - 08/08/2024 12:00 PM CDT Surgery [facility] [address] [place] [phone] [place] [address] [place] [address] [address] [place] [address] Diag Colon + EMRs 05/09/2025 2:30 PM LINEN SUPERVISOR Video Visit [facility] - Hematology/Oncology [address] [place] [address] Bia Lipscomb, GC [address] [place] [address] Scheduled Procedures Name Priority Associated Diagnoses Date/Ti [...] this topic Medical Devices Implanted Type Area Wallpaper Scraper Device Identifier Shelf Expiration Date Model / Serial / Lot Stimulan Rapid Cure Implanted:Qty: 1 on 08/21/2021 by Karson Fournier MD at [facility] N/A: Spine Cervical Biocompstes 03/20/2024 [id number] / / [id number] Description:MIXED WITH 500MG VANCOMYCIN POWDER Screw 4.5mm 28mm Ma Spne Bone Implanted:Qty: 3 on 08/21/2021 by Karson Fournier MD at [facility] N/A: Spine Cervical Med[employer] Inc [id number] / / Dayo Spnl 240mm 3.5mm Std Implanted:Qty: 2 on 08/21/2021 by Karson Fournier MD at [facility] N/A: Spine Cervical [employer] Inc [id number] / / Lev Bone Void 10ml Dbm Grftn Algrf Ptty - [id number] Implanted:Qty: 1 on 08/21/2021 by Karson Fournier MD at [facility] N/A: Spine Cervical Med[employer]onic Inc 06/30/2024 [id number] / [id number] / Screw Set M6 Spne Oc Upr Thor Infnt Implanted:Qty: 16 on 08/21/2021 by Karson Fournier MD at [facility] N/A: Spine Cervical Medtronic Sofamor Danek Spine [id number] / / Screw 4mm 26mm Ma Spne Bone Implanted:Qty: 1 on 08/21/2021 by Karson Fournier MD at [facility] N/A: Spine Cervical Med[employer] Inc [id number] / / Screw 4mm 22mm Ma Spne Bone Implanted:Qty: 1 on 08/21/2021 by Karson Fournier MD at [facility] N/A: Spine Cervical Med[employer] Inc [id number] / / Screw 3.5mm 16mm Ma Spne Bone Implanted:Qty: 3 on 08/21/2021 by Karson Fournier MD at [facility] N/A: Spine Cervical Med[employer] Inc [id number] / / Screw 3.5mm 18mm Ma Spne Bone Implanted:Qty: 2 on 08/21/2021 by Karson Fournier MD at [facility] N/A: Spine Cervical [employer] Inc [id number] / / Screw 3.5mm 20mm Ma Spne Bone Implanted:Qty: 3 on 08/21/2021 by Karson Fournier MD at [facility] N/A: Spine Cervical Med[employer] Inc [id number] / / Screw 3.5mm 22mm Ma Spne Bone Implanted:Qty: 2 on 08/21/2021 by Karson Fournier MD at [facility] N/A: Spine Cervical Med[employer] Inc [id number] / / Screw 4.5mm 26mm Ma Spne Bone Implanted:Qty: 1 on 08/21/2021 by Karson Fournier MD at [facility] N/A: Spine Cervical Med[employer] Inc [id number] / / Procedures Procedure Name Priority Date/Time Associated Diagnosis Comments PATHOLOGY TISSUE Routine 07/09/2024 8:21 AM CDT History of colon polyps MD COLONOSCOPY, DIAGNOSTIC 07/09/2024 7:55 AM CDT History of colon polyps GLUCOSE - POINT OF CARE Routine 07/09/2024 7:35 AM CDT ENDOSCOPY, COLON, DIAGNOSTIC Routine 07/09/2024 7:24 AM CDT from Last 3 Months Results * PATHOLOGY TISSUE (07/09/2024 8:21 AM CDT) Case Report Surgical Pathology Report Case: [id number] Authorizing Provider: Paresh Sanchez, Collected: 07/09/2024 08:21 AM Ordering Location: [facility] Received: 07/09/2024 11:03 AM Pathologist: Rosi [...] substantiates the final diagnosis. 07/10/2024 2:15 PM [facility] Clinical History The patient is a 68-year-old man who presents for therapeutic procedure for colon polyps. Operative procedure/findings: Colonoscopy - three 8-12 mm cecal polyps, resected and retrieved; five 10-16 mm ascending colon polyps, resected and retrieved; four 25-40 mm ascending colon sessile granular lateral spreading polyps, removed via piecemeal mucosal resection. 07/10/2024 2:15 PM [facility] Gross Description The requisition and [...] B5- One bisected polyp./BAJ 07/10/2024 2:15 PM [facility] Pathologist Location at [facility] 07/10/2024 2:15 PM [facility] Disclaimer The performance characteristics of all immunohistochemical and indirect immunofluorescence stains (if any) cited in this report were determined by the Histopathology Laboratory of [facility]. Some of these tests were developed [...] the attending (teaching) pathologist. 07/10/2024 2:15 PM [facility] Embedded Images 07/10/2024 2:15 PM CDT [facility] Biopsy, NOS POLYP OF CECUM / Unknown 07/09/2024 8:21 AM CDT 07/09/2024 11:03 AM CDT Comment:Pre-op diagnosis: History of colon polyps [Z86.0100] Biopsy, NOS (Large Intestine, Right/Ascending Colon) 07/09/2024 8:24 AM CDT 07/09/2024 11:03 AM CDT Comment:Pre-op diagnosis: History of colon polyps [Z86.0100] Paresh Hernandez MD LAB - PATHOLOGY/CYTO LOGY ORDERABLES Final Result Performing Organization Address City/[facility]/ZIP Co de Phone Number [facility] [address] [place] [address], [facility] [phone] * (ABNORMAL) GLUCOSE - POINT OF CARE (07/09/2024 7:35 AM CDT) Pathologist [facility] Glucose WB/POC 102(H) 70 - 99 mg/dL 07/09/2024 11:56 AM CDT [facility] Specimen Type Cap Fingerstick 2024 11:56 AM CDT [facility] Blood BLOOD SPECIMEN / Unknown 07/09/2024 7:35 AM CDT 07/09/2024 11:56 AM CDT Paresh Hernandez MD LAB - POINT OF CARE ORDERABLES Final Result [facility] [address] [place] [address], [place] [phone] * Endoscopy, Colon, Diagnostic (07/09/2024 7:24 AM [...] bowel preparation was evaluated using the BBPS (Gillette Bowel Preparation Scale) with scores of: Right [...] entire procedure. Procedure Code(s): --- Professional --- 61616, Colonoscopy, flexible; with endoscopic mucosal resection 14644, 59, Colonoscopy, flexible; with removal of tumor(s), polyp(s), or other lesion(s) by snare technique Diagnosis Code(s): --- Professional --- D12.0, Benign neoplasm of cecum D12.2, Benign neoplasm of ascending colon K63.5, Polyp of colon CPT copyright 2021 [employer]. All rights reserved. The codes documented in this report are preliminary and upon machine design checker review may be revised to meet current compliance requirements. Paresh Hernandez MD 07/09/2024 10:08:49 AM Note Initiated On: 07/09/2024 7:24 AM Number of Addenda: [id number] [place] [address] PROVATION 07/09/2024 7:24 AM CDT Paresh Hernandez MD GI PROCEDURE ORDERAB LES Edited Result - Final [facility] PROVATION from Last 3 Months Insurance [facility] MANAGED MEDICARE ADV [facility] MANAGED MEDICARE ADV SELF PAY NO INSURANCE Member Subscriber Plan / Payer (Ef fective for All Dates) Name:Román Barber Member ID:Not on file Relation to Subscriber:Not on file Name:ROMÁN BARBER Pan CHILDRESS Subscriber ID:Not on file (Home) Address: [address] [place], [place] [id number] Payer ID:Not on file Group ID:Not on file Type:Self Pay Address: [place], [place] [facility] MANAGED MEDICARE ADV Advance Directives * Full Code (Latest Code Status on File) Date Activated Date Inactivated Comments 08/21/2021 12:41 PM 08/25/2021 2:23 PM Care Teams Paralegal Instructor Relationship Specialty Start Date End Date Rip Andrea MD [address] [place] [address] PCP - General 08/22/17
--- OUTSIDE RECORDS SUMMARY | 2024-07-25 10:22 | XMS_ITS | Encounter Summary ---
Author Organization [facility] Address [address] [place] [address] Care Team Providers Care Recyclable Materials Sorter Name Role Phone Rip Andrea MD Primary Care Provider + Reason for Visit * Reason Comments Refill Request Encounter Details Date Type Department Care Team (Late st Contact Info) Description 10/03/2021 Refill [facility] [address] [place] [address] Rachael Blancas, VOLUNTEER PATIENT REPRESENTATIVE-HYDROCHLORIC AREA SUPERVISOR [address] [address] Refill Request Social History Tobacco Use Types [...] Description 08/08/2024 10:00 AM CDT Hospital Encounter [facility] ENDOSCOPY [address] [place] [phone] Paresh Sanchez MD [address] [place] [address] 2[address] [place] [address] Surgery General 08/08/2024 10:00 AM CDT - 08/08/2024 12:00 PM CDT Surgery [facility] ENDOSCOPY [address] [place] [address] [place] [address] [place] [address] [address] [place] [address] Diag Colon + EMRs 05/09/2025 2:30 PM TACK COVERER Video Visit [facility] - Hematology/Oncology [address] [place] [address] Bia Lipscomb, GC [address] [place] [address] Scheduled Procedures Name Priority Associated Diagnoses Date/Ti me COLONOSCOPY DIAGNOSTIC Polyp of colon, unspecified part of colon, unspecified type 08/08/2024 10:00 AM CDT documented as of this encounter Visit Diagnoses Not on filedocumented in this encounter Care Teams Recyclable Materials Sorter Relationship Specialty Start Date End Date Rip Andrea MD [address] [address] PCP - General 08/22/17 documented as of this encounter
--- OUTSIDE RECORDS SUMMARY | 2024-07-25 10:22 | XMS_ITS | Clinical Summary ---
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 Not on file Not on f ile Not on file Last Filed Vital Signs Vital Sign Reading Time Taken Comments Blood Pressure 132/61 02/23/2018 11:28 AM ONLINE ACTIVIST Pulse 80 02/23/2018 11:23 AM ONLINE ACTIVIST Temperature 36.8 C (98.2 F) 02/23/2018 10:49 AM ONLINE ACTIVIST Respiratory Rate 18 02/23/2018 11:2 3 AM ONLINE ACTIVIST Oxygen Saturation 95% 02/23/2018 11: 23 AM ONLINE ACTIVIST Inhaled Oxygen Concentration - - Weight 113.9 kg (251 lb 3.2 oz) 018 10:49 AM ONLINE ACTIVIST Height 175.3 cm (5' 9 ) 02/23/2018 10:4 9 AM ONLINE ACTIVIST Body Mass Index 37.1 02/23/2018 10:49 AM ONLINE ACTIVIST Plan of Treatment Health Maintenance Due Date [...] to complete this topic Insurance Care Teams It Network Engineer Relationship Specialty Start Date End Date Rip Andrea MD [address] [address] PCP - General FAMILY PRACTICE 01/16/18
--- OUTSIDE RECORDS SUMMARY | 2024-07-25 10:22 | XMS_ITS | Clinical Summary ---
Author Organization [facility] Address [address], [address] [address] Phone Care Team Providers Care Manpower Development Advisor Name Role Phone Rip Andrea MD Primary [...] patient's age to complete this topic Insurance [facility] Care Teams Manpower Development Advisor Relationship Specialty Start Date End Date Rip Andrea MD [address] [place] [address] PCP - General Family Medicine 04/13/17
== END 2024-07-25 09:47 | disposition home or self-care (01) ==
PROVIDERS: PCP Family Medicine Adolescent Medicine; Visit Provider Family Medicine
DX: K74.60 Unspecified cirrhosis of liver (principal)
CPT/HCPCS: 76705

== ENCOUNTER 2024-10-17 15:19 | Outpatient (CLI) | payer MEDICARE, SELFPAY ==
--- OUTSIDE RECORDS SUMMARY | 2024-10-17 15:22 | XMS_ITS | Clinical Summary ---
Author Organization [facility] [employer] Address [address] [place] [address] Care Team Providers Care Soil Conservation Aide Name Role Phone Rip Andrea MD Primary Care Provider + Source Comments [facility] [employer],non-owned Affiliates and Associated Physician Practices is amultiple site organization consisting of ambulatory clinics and hospital sitesin [place], [place], [place] and [place]. This disclosure is being madepursuant to the Care Everywhere program and may not contain all information available regarding this patient. Last updated 17.[facility] [employer] Allergies No known active allergies Medications * [...] BEDTIME NEEDED FOR SLEEP 09/02/19 22 Active Echobit NEXT TEST test strip FOR E11.9 TEST [...] for Shortness of Breath or Wheezing Active Active Problems Problem Noted Date Diagnosed Date Cervical radiculopathy 07/01/2021 Lumbar radiculopathy 01/16/2018 Cervical myelopathy Encounters Date Type Department Care Team Description 08/10/2024 Orders Only [facility] - GI [address] [facility], [place] [address] Paresh Sanchez MD Polyposis of colon 08/10/2024 Telephone [facility] [address] [place] [id number] Kirti Modi Procedure (Colonoscopy 6 month follow up, Dr. Zheng) 08/08/2024 10:00 AM CDT - 08/08/2024 12:00 PM CDT Surgery [facility] [address] [place] [id number] Paresh Sanchez MD Diag Colon + EMRs 08/08/2024 9:55 AM CDT Anesthesia Event [facility] [address] [place] [id number] Karen Salinas MD 08/08/2024 9:18 AM CDT - 08/08/2024 12:39 PM CDT Hospital Encounter [facility] [address] [place] [address] Paresh Sanchez MD Surgery General Discharge Disposition: Home or Self Care 08/08/2024 Travel from Last 3 Months Immunizations Immunization Administration Dates Next Due Covid Pfizer primary monoval ent 12+ yr 0.3mL Purple [...] Sign Reading Time Taken Comments Blood Pressure 144/62 08/08/2024 12:15 PM CDT Pulse 76 08/08/2024 12:15 PM CDT Temperature 36.6 C (97.8 F) 08/08/2024 11:50 AM CDT Respiratory Rate 14 08/08/2024 12:1 5 PM CDT Oxygen Saturation 98% 08/08/2024 12: 15 PM CDT Inhaled Oxygen Concentration - - Weight 102.4 kg (225 lb 11.2 oz) 08/08/2024 9:31 AM CDT Height 172.7 cm (5' 8) 08/08/2024 9:31 AM CDT Body Mass Index 34.32 08/08/2024 9:31 AM CDT Plan of Treatment Upcoming Encounters Date Type Department Care Team (Latest Contact Info) Description 02/11/2025 7:55 AM RIVET DRIVER Hospital Encounter [facility] [address] [place] [phone] Paresh Sanchez MD [address] [facility] 2L DIV [place] [phone] Surgery General 02/11/2025 7:55 AM RIVET DRIVER - 02/11/2025 9:00 AM RIVET DRIVER Surgery [facility] [address] [place] [phone] [place] [address] [place] [address] [address] DIV OF GASTR[place] [phone] COLONOSCOPY+/-EMR 05/09/2025 2:30 PM RIVET DRIVER Video Visit [facility] - Hematology/Oncology [address] [place] [phone] Bia Lipscomb, GC [address] [place] [address] Scheduled Procedures Name Priority Associated Diagnoses Date/Ti me COLONOSCOPY DIAGNOSTIC History of colon polyps 02/11/2025 7:55 AM RIVET DRIVER Health Maintenance Due Date Last Done Comments [...] MEDICARE AWV CALENDAR YEAR 2024 INFLUENZA VACCINE (#1) 2024 01/15/2022, 2020 SCREENING FOR DIABETES 08/09/2027 , 07/09/2024, 08/25/2021, Additional history exists COLON MONITORING 08/08/2034 08/08/2024, , 07/09/2024, Additional history exists COLONOSCOPY - COLON CA SCREENING 08/08/2034 08/08/2024, 08/08/2024, 07/09/2024, Additional history exists Colorectal Cancer Screening 08/08/2034 HEPATITIS B VACCINE Aged Out No longe [...] this topic Medical Devices Implanted Type Area Regional Business Development Manager Device Identifier Shelf Expiration Date Model / Serial / Lot Stimulan Rapid Cure Implanted:Qty: 1 on 08/21/2021 by Karson Fournier MD at [facility] N/A: Spine Cervical Biocompstes 03/20/2024 [id number] / / [id number] Description:MIXED WITH 500MG VANCOMYCIN POWDER Screw 4.5mm 28mm Ma Spne Bone Implanted:Qty: 3 on 08/21/2021 by Karson Fournier MD at [facility] N/A: Spine Cervical [employer] [id number] / / Dayo Spnl 240mm 3.5mm Std Implanted:Qty: 2 on 08/21/2021 by Karson Fournier MD at [facility] N/A: Spine Cervical [employer] Inc [id number] / / Lev Bone Void 10ml Dbm Grftn Algrf Ptty - [id number] Implanted:Qty: 1 on 08/21/2021 by Karson Fournier MD at [facility] N/A: Spine Cervical [employer] Inc 06/30/2024 [id number] / [id number] / Screw Set M6 Spne Oc Upr Thor Infnt Implanted:Qty: 16 on 08/21/2021 by Karson Fournier MD at [facility] N/A: Spine Cervical Medtronic Sofamor Danek Spine [id number] / / Screw 4mm 26mm Ma Spne Bone Implanted:Qty: 1 on 08/21/2021 by Karson Fournier MD at [facility] N/A: Spine Cervical Med[employer] Inc [id number] / / Screw 4mm 22mm Ma Spne Bone Implanted:Qty: 1 on 08/21/2021 by Karson Fournier MD at [facility] N/A: Spine Cervical Med[employer] Inc [id number] / / Screw 3.5mm 16mm Ma Spne Bone Implanted:Qty: 3 on 08/21/2021 by Karson Fournier MD at [facility] N/A: Spine Cervical [employer] Inc [id number] / / Screw 3.5mm 18mm Ma Spne Bone Implanted:Qty: 2 on 08/21/2021 by Karson Fournier MD at [facility] N/A: Spine Cervical [employer] Inc [id number] / / Screw 3.5mm 20mm Ma Spne Bone Implanted:Qty: 3 on 08/21/2021 by Karson Fournier MD at [facility] N/A: Spine Cervical Med[employer] Inc [id number] / / Screw 3.5mm 22mm Ma Spne Bone Implanted:Qty: 2 on 08/21/2021 by Karson Fournier MD at [facility] N/A: Spine Cervical Med[employer] Inc [id number] / / Screw 4.5mm 26mm Ma Spne Bone Implanted:Qty: 1 on 08/21/2021 by Karson Fournier MD at [facility] N/A: Spine Cervical [employer] Inc [id number] / / Procedures Procedure Name Priority Date/Time Associated Diagnosis Comments PATHOLOGY TISSUE Routine 08/08/2024 10:1 5 AM CDT Polyp of colon, unspecified part of colon, unspecified type VT COLONOSCOPY, DIAGNOSTIC 08/08/2024 9:50 AM CDT Polyp of colon, unspecified part of colon, unspecified type GLUCOSE - POINT OF CARE Routine 08/08/2024 9:42 AM CDT ENDOSCOPY, COLON, DIAGNOSTIC Routine 08/08/2024 9:34 AM CDT from Last 3 Months Results * PATHOLOGY TISSUE (08/08/2024 10:15 AM CDT) Case Report Surgical Pathology Report Case: [id number] Authorizing Provider: Paresh Sanchez, Collected: 08/08/2024 10:15 AM Ordering Location: [facility] Received: 08/08/2024 12:36 PM Pathologist: Rosi Webber MD Specimens: A) - Polyp Ascending, Ascending Colon Polyps x4 B) - Polyp Transverse, Transverse Colon Polyps C) - Polyp Descending, Descending Colon Polyps D) - Polyp Sigmoid, Sigmoid Colon Polyp 08/09/2024 10:23 AM CDT [facility] Final Diagnosis Large intestine, ascending colon polyps x 4, biopsy (A): - Tubular adenoma(s), fragmented Large intestine, transverse colon polyps, biopsy (B): - Tubular adenoma(s), fragmented Large intestine, descending colon polyps, biopsy (C): - Tubular adenoma(s), fragmented Large intestine, sigmoid colon polyp, biopsy (D): - Tubular adenoma 08/09/2024 10:23 AM CDT [facility] at 1023 CDT Microscopic Description and Comment Microscopic examination substantiates the final diagnosis. 08/09/2024 10:23 AM CDT [facility] Clinical History The patient is a 68-year-old man who presents for high risk colon cancer surveillance (personal history of colonic polyps). Operative procedure/findings: Colonoscopy - four 6-10 mm ascending colon polyps, two 8-12 mm transverse colon polyps, 14 mm transverse colon polyp, 40 mm transverse colon polyp, six 6-12 mm descending colon polyps, and 4 mm sigmoid colon polyp, all resected and retrieved 08/09/2024 10:23 AM [facility] Gross Description The requisition and specimen(s) are identified with the patient's name Román Barber. Received in formalin, specimen A, consists of multiple parrish-white tissue fragments, 0.6-1.0 cm, 2.0 x 1.5 x 0.3 cm in aggregate, submitted in toto in cassette A1. Received in formalin, specimen B, consists of multiple parrish-white tissue fragments, 0.3-1.5 cm, 6.0 x 1.5 x 0.3 cm in aggregate, submitted in toto in cassette B1-B3. Received in formalin, specimen C, consists of multiple parrish-white tissue fragments, 0.6-1.3 cm, 4.0 x 1.0 x 0.3 cm in aggregate, submitted in toto in cassette C1-C2. Received in formalin, specimen D, consists of a 1.0 x 0.5 x 0.3 cm parrish-white tissue fragment, submitted in toto in cassette D1. LT 08/09/2024 10:23 AM [facility] Pathologist Location at [facility] 08/09/2024 10:23 AM [facility] Disclaimer The performance characteristics of all immunohistochemical and indirect immunofluorescence stains (if any) cited in this report were determined by the Histopathology Laboratory of [facility]. Some of these tests were developed by [...] and interpreted by the attending (teaching) pathologist. 08/09/2024 10:23 AM [facility] Embedded Images 08/09/2024 10:23 AM [facility] Biopsy, NOS POLYP / Unknown 08/08/2024 1 0:15 AM CDT 08/08/2024 12:36 PM CDT Comment:Pre-op diagnosis: Polyp of colon, unspecified part of colon, unspecified type [K63.5] Biopsy, NOS POLYP / Unknown 08/08/2024 1 0:29 AM CDT 08/08/2024 12:36 PM CDT Comment:Pre-op diagnosis: Polyp of colon, unspecified part of colon, unspecified type [K63.5] Biopsy, NOS POLYP / Unknown 08/08/2024 1 1:19 AM CDT 08/08/2024 12:36 PM CDT Comment:Pre-op diagnosis: Polyp of colon, unspecified part of colon, unspecified type [K63.5] Biopsy, NOS POLYP OF SIGMOID COLON / Unknown 08/08/2024 11:34 AM CDT 08/08/2024 12:36 PM CDT Comment:Pre-op diagnosis: Polyp of colon, unspecified part of colon, unspecified type [K63.5] Paresh Hernandez MD LAB - PATHOLOGY/CYTO LOGY ORDERABLES Final Result Performing Organization Address City/[facility]/ZIP Co de Phone Number [facility] [address] [place] [address], [facility] [phone] * GLUCOSE - POINT OF CARE (08/08/2024 9:42 AM CDT) [facility] Glucose WB/POC 95 70 - 99 mg/dL 08/08/2024 10:12 AM CDT [facility] Specimen Type Venous 08/08/2024 10:12 AM CDT [facility] Blood BLOOD SPECIMEN / Unknown 08/08/2024 9:42 AM CDT 08/08/2024 10:12 AM CDT Paresh Hernandez MD LAB - POINT OF CARE ORDERABLES Final Result [facility] [address] [place] [id number], [facility] [phone] * Endoscopy, Colon, Diagnostic (08/08/2024 9:34 AM CDT) Report Endoscopy POC Endoscopy Department Report _ Patient Name: Román Barber Procedure Date: 08/08/2024 9:34 AM Date of : 1955 Classification: Outpatient Gender: Male Ethnicity: Not or Race: White _ Providers: Paresh Hernandez MD Referring MD: Nav Crews MD; Rip Andrea MD Procedure: Colonoscopy Indications: High risk colon cancer surveillance: Personal history of colonic polyps Medications: Monitored Anesthesia Care. See the Anesthesia note for documentation of the administered medications. Patient Profile: 68M presents as direct access referral for colonoscopy w/ polypectomies/EMRs . Recent exam at OSH: 8 subcm polyps removed (path n/a), one 10 mm cecal polyp not removed, four 15-35 mm ascending colon polyps not removed, one 30 mm transverse colon polyp not removed. Colonoscopy 06/2024: Three polyps in cecum measuring up to 12 mm removed (TA/s), nine polyps in ascending colon measuring up to 40 mm removed (TA/s), only limited exam could be performed from the remainder of the colon, multiple other large polyps pending removal. Description of Procedure: After I obtained informed consent, the scope was passed under direct vision. Throughout the procedure, the patient's blood pressure, pulse, and oxygen saturations were monitored continuously. The [id number] was introduced through the anus and advanced to the cecum, identified by appendiceal orifice and ileocecal valve. The colonoscopy was performed without difficulty. The patient tolerated the procedure well. The quality of the bowel preparation was evaluated using the BBPS (Denver Bowel Preparation Scale) with scores of: Right Colon = 2 (minor amount of residual staining, small fragments of stool and/or opaque liquid, but mucosa seen well), Transverse Colon = 3 (entire mucosa seen well with no residual staining, small fragments of stool or opaque liquid) and Left Colon = 2 (minor amount of residual staining, small fragments of stool and/or opaque liquid, but mucosa seen well). The total BBPS score equals 7. The quality of the bowel preparation was adequate. Findings: Four sessile polyps were found in the ascending colon. The polyps were 6 to 10 mm in size. These polyps were removed with a cold snare. Resection and retrieval were complete. Two sessile polyps were found in the transverse colon. The polyps were 8 to 12 mm in size. These polyps were removed with a cold snare. Resection and retrieval were complete. A 14 mm polyp was found in the transverse colon. The polyp was sessile. Preparations were made for mucosal resection. Eleview was injected to raise the lesion. Snare mucosal resection was performed. Resection and retrieval were complete. Resected tissue margins were examined and clear of polyp tissue. A 40 mm polyp was found in the transverse colon. The polyp was Chiquita classification IIa (superficial, elevated). Preparations were made for mucosal resection. Eleview was injected to raise the lesion. Piecemeal mucosal resection using a snare was performed. Resection and retrieval were complete. Resected tissue margins were examined and clear of polyp tissue. To prevent bleeding after the polypectomy, six hemostatic clips were successfully placed (MR conditional). Clip data processing consultant: [employer]. There was no bleeding at the end of the procedure. Six sessile polyps were found in the descending colon. The polyps were 6 to 12 mm in size. These polyps were removed with a cold snare. Resection and retrieval were complete. A 4 mm polyp was found in the sigmoid colon. The polyp was sessile. The polyp was removed with a cold snare. Resection and retrieval were complete. Scattered diverticula were found in the sigmoid colon. The exam was otherwise without abnormality on direct and retroflexion views. Estimated Blood Loss: Estimated blood loss was minimal. Complications: No immediate complications. Impression: - Four 6 to 10 mm polyps in the ascending colon, removed with a cold snare. Resected and retrieved. - Two 8 to 12 mm polyps in the transverse colon, removed with a cold snare. Resected and retrieved. - One 14 mm polyp in the transverse colon, removed via en-bloc mucosal resection (EMR). Resected and retrieved. - One 40 mm Chiquita IIs polyp in the transverse colon, removed via piecemeal mucosal resection (EMR). Resected and retrieved. Six clips placed for prophylaxis (DuraClip, MR conditional). - Six 6 to 12 mm polyps in the descending colon, removed with a cold snare. Resected and retrieved. - One 4 mm polyp in the sigmoid colon, removed with a cold snare. Resected and retrieved. - Diverticulosis in the sigmoid colon. Moderate Sedation: . Recommendation: - Monitor for fevers, bleeding, pain. - Resume previous diet as tolerated. - Hold any anticoagulant medications (blood thinners) for 5 days. Resume rest of home medications today. - Follow-up pathology / biopsy results. Further management accordingly. - Plan for repeat Colonoscopy in 6 months. - Further evaluation by Genetics Counselor to rule out underlying hereditary / genetic disorder. - Early colorectal cancer screening of first degree relatives via Colonoscopy. - The potential complications and concerning symptoms/findings, including but not limited to early or delayed fevers, infection, pain, bleeding, perforation, were discussed with the patient/caregiver. Emergency contact information was provided. Attending Participation: I personally performed the entire procedure. Procedure Code(s): --- Professional --- 85929, Colonoscopy, flexible; with endoscopic mucosal resection 20425, 59, Colonoscopy, flexible; with removal of tumor(s), polyp(s), or other lesion(s) by snare technique Diagnosis Code(s): --- Professional --- Z86.010, Personal history of colonic polyps D12.2, Benign neoplasm of ascending colon D12.3, Benign neoplasm of transverse colon (hepatic flexure or splenic flexure) D12.4, Benign neoplasm of descending colon D12.5, Benign neoplasm of sigmoid colon K57.30, Diverticulosis of large intestine without perforation or abscess without bleeding CPT copyright 2021 [employer]. All rights reserved. The codes documented in this report are preliminary and upon sheet metal supervisor review may be revised to meet current compliance requirements. Paresh Hernandez MD 08/08/2024 11:45:09 AM Note Initiated On: 08/08/2024 9:34 AM Number of Addenda: [address] [place] [address] [facility] PR[facility]ATION 08/08/2024 9:34 AM CDT Paresh Hernandez MD GI PROCEDURE ORDERAB LES Edited Result - Final [facility] PR[facility]ATION from Last 3 Months Insurance [facility] MANAGED MEDICARE ADV [facility] MANAGED MEDICARE ADV SELF PAY NO INSURANCE Member Subscriber Plan / Payer (Ef fective for All Dates) Name:Román Barber Jr Member ID:Not on file Relation to Subscriber:Not on file Name:ROMÁN BARBER JR Subscriber ID:Not on file (Home) Address: [address] [place] [id number] Payer ID:Not on file Group ID:Not on file Type:Self Pay Address: [place], [place] [facility] MANAGED MEDICARE ADV Advance Directives * Full Code (Latest Code Status on File) Date Activated Date Inactivated Comments 08/21/2021 12:41 PM 08/25/2021 2:23 PM Care Teams Soil Conservation Aide Relationship Specialty Start Date End Date Rip Andrea MD [address] [address] PCP - General 08/22/17
--- OUTSIDE RECORDS SUMMARY | 2024-10-17 15:22 | XMS_ITS | Encounter Summary ---
Author Organization [facility] Address [address] [place] [address] Care Team Providers Care Health Technician Hearing Name Role Phone Rip Andrea MD Primary Care Provider [phone]- [phone] Encounter Details Date Type Department Care Team (Late st Contact Info) Description 10/17/2024 3:00 PM CDT Office Visit [facility] Oncology and Hematology - [place] [address] [facility] [address] [place] [address] Joey Suarez MD [address] [facility] [address] [place] [address] Chronic anemia (Primary Dx) Social History Tobacco Use Types Packs/Day Years Used Date Smoking Tobacco: Former Cigarettes 3 50 0 10/17/1966 - 10/17/2016 Smokeless Tobacco: Never Tobacco Cessation:Counseling Given: Not Answered Alcohol Use Standard Drinks/Week Comments Not Currently 0 (1 standard drink = 0.6 oz pur e alcohol) Sex and Gender Information Value Date Recorded Sex Assigned at Not on file Legal Sex Male 1:38 PM CDT Gender Identity Not on file Sexual Orientation Not on file documented as of this encounter Last Filed Vital Signs Vital Sign Reading Time Taken Comments Blood Pressure 152/64 10/17/2024 2:57 PM CDT Pulse 86 10/17/2024 2:53 PM CDT Temperature 36.4 C (97.6 F) 10/17/2024 2:53 PM CDT Respiratory Rate 16 10/17/2024 2:53 PM CDT Oxygen Saturation 91% 10/17/2024 2:53 PM CDT Inhaled Oxygen Concentration - - Weight 111.9 kg (246 lb 12.8 oz) 10/17/2024 2:53 PM CDT Height 172.7 cm (5' 8) 10/17/2024 2:53 PM CDT Body Mass Index 37.53 10/17/2024 2:53 PM CDT documented in this encounter Plan of Treatment Upcoming Encounters Date Type Department Care Team (Late st Contact Info) Description 10/31/2024 4:30 PM CDT Telephone Check Up [facility] Oncology and Hematology - [place] [address] [facility] [address] [place] [address] Joey Suarez MD [address] [facility] [address] [place] [address] Scheduled Orders Name Type Priority Associated Diagnoses Orde r Schedule CBC WITH DIFFERENTIAL Lab Stat Chronic anemia Expected: 10/17/2024, Expires: 10/17/2025 COMPREHENSIVE METABOLIC PANEL Lab Stat Chronic anemia Expected: 10/17/2024, Expires: 10/17/2025 FERRITIN Lab Routine Chronic anemia Expected: 10/17/2024, Expires: 10/17/2025 IRON, TIBC, AND PERCENT SATURATION Lab Routine Chronic anemia Expected: 10/17/2024, Expires: 10/17/2025 LACTATE DEHYDROGENASE Lab Routine Chronic anemia Expected: 10/17/2024, Expires: 10/17/2025 METHYLMALONIC ACID Lab Routine Chronic anemia Expected: 10/17/2024, Expires: 10/17/2025 TRANSFERRIN RECEPTOR TFR SOLUBLE Lab Routine Chronic anemia Expected: 10/17/2024, Expires: 10/17/2025 VITAMIN B12 AND FOLATE Lab Routine Chronic anemia Expected: 10/17/2024, Expires: 10/17/2025 documented as of this encounter Visit Diagnoses Diagnosis Chronic anemia- Primary Anemia, unspecified documented in this encounter Care Teams Health Technician Hearing Relationship Specialty Start Date End Date Rip Andrea MD [address] [place] [address] PCP - General Family Practice 10/17/24 documented as of this encounter
--- OUTSIDE RECORDS SUMMARY | 2024-10-17 15:22 | XMS_ITS | Clinical Summary ---
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 Not on file Not on f ile Not on file Last Filed Vital Signs Vital Sign Reading Time Taken Comments Blood Pressure 132/61 02/23/2018 11:28 AM GOLD MINER Pulse 80 02/23/2018 11:23 AM GOLD MINER Temperature 36.8 C (98.2 F) 02/23/2018 10:49 AM GOLD MINER Respiratory Rate 18 02/23/2018 11:2 3 AM GOLD MINER Oxygen Saturation 95% 02/23/2018 11: 23 AM GOLD MINER Inhaled Oxygen Concentration - - Weight 113.9 kg (251 lb 3.2 oz) 018 10:49 AM GOLD MINER Height 175.3 cm (5' 9) 02/23/2018 10:4 9 AM GOLD MINER Body Mass Index 37.1 02/23/2018 10:49 AM GOLD MINER Plan of Treatment Health Maintenance Due Date [...] to complete this topic Insurance Care Teams Process Specialist Relationship Specialty Start Date End Date Rip Andrea MD [address] [address] PCP - General FAMILY PRACTICE 01/16/18
--- OUTSIDE RECORDS SUMMARY | 2024-10-17 15:22 | XMS_ITS | Clinical Summary ---
Author Organization [facility] Address [address], [address] [address] Phone Care Team Providers Care Salt Washer Harvesting Station Name Role Phone Rip Andrea MD Primary [...] Virus (HCV) Screening 1955 TdaP Immunization 1955 Cologuard 09/05/2000 Colonoscopy 09/05/2000 Colorectal Cancer Screening 09/05/2000 Immunochemical Fecal Occult Blood 09/05/2000 Pneumococcal Immunization (5 0+ years) (1 of 1 - PCV) 09/05/2005 Zoster Immunization (1 of 2) 09/05/2005 SARS-COV-2 Immunization (1 - 2023- season) 2023 Influenza Immunization (#1) 2024 Respiratory Syncytial Virus (RSV) Immunization (Adult) (1 - 1-dose 75+ series) 09/05/2030 Hepatitis B Immunization Aged Out No longer eligible based on patient's age to complete this topic Human Papillomavirus (HPV) Immunization Aged Out No longer eligible b ased on patient's age to complete this topic Meningococcal Immunization (ACWY) Aged Out No longer eligible based on patient's age to complete this topic Rotavirus Immunization Aged Out No lo nger eligible based on patient's age to complete this topic Insurance Care Teams Salt Washer Harvesting Station Relationship Specialty Start Date End Date Rip Andrea MD PCP - General Family Medicine 04/13/17
--- OUTSIDE RECORDS SUMMARY | 2024-10-17 15:22 | XMS_ITS | Encounter Summary ---
Author Organization [facility] Address [address] [place] [address] Care Team Providers Care Batch Mixer Operator Name Role Phone Rip Andrea MD Primary Care Provider + Reason for Visit * Reason Comments Refill Request Encounter Details Date Type Department Care Team (Late st Contact Info) Description 10/03/2021 Refill [facility] [address] [place] [address] Rachael Blancas, DIESEL RETROFIT DESIGNER-CANDY SUPERVISOR [address] [address] Refill Request Social History Tobacco Use Types [...] 08/21/2021 3:59 PM KELSEYT Preethi Reyes RN * Is person blind or have serious difficulty seeing? Answer Date of Assessment Author No 08/21/2021 3:59 PM KELSEYT Preethi Reyes RN * Does person have serious difficulty walking/climbing stairs? Answer Date of Assessment Author No 08/21/2021 3:59 PM KELSEYT Preethi Reyes RN * Does person have difficulty dressing/bathing? Answer Date of Assessment Author No 08/21/2021 3:59 PM KELSEYT Preethi Reyes RN * Does person have difficulty doing errands alone? Answer Date of Assessment Author No 08/21/2021 3:59 PM Preethi Mccall RN documented as of this encounter Mental Status * Does person have difficulty concentrating/remembering/making decisions? Answer Entry Date Author No 08/21/2021 3:59 PM Preethi Mccall RN documented in this encounter Plan of Treatment Upcoming Encounters Date Type Department Care Team (Latest Contact Info) Description 02/11/2025 7:55 AM HUMAN RESOURCES RECRUITER Hospital Encounter [facility] ENDOSCOPY [address] [place] [phone] Paresh Sanchez MD [address] [facility] [facility] 2L [place] [address] Surgery General 02/11/2025 7:55 AM HUMAN RESOURCES RECRUITER - 02/11/2025 9:00 AM HUMAN RESOURCES RECRUITER Surgery [facility] ENDOSCOPY [address] [place] [address] Paresh Sanchez MD [address] [facility] [facility] 2L [place] [address] COLONOSCOPY+/-EMR 05/09/2025 2:30 PM HUMAN RESOURCES RECRUITER Video Visit [facility] - Hematology/Oncology [address] [place] [address] Bia Lipscomb, [address] [place] [address] Scheduled Procedures Name Priority Associated Diagnoses Date/Ti me COLONOSCOPY DIAGNOSTIC History of colon polyps 02/11/2025 7:55 AM HUMAN RESOURCES RECRUITER documented as of this encounter Visit Diagnoses Not on filedocumented in this encounter Care Teams Batch Mixer Operator Relationship Specialty Start Date End Date Rip Andrea MD [address] [address] PCP - General 08/22/17 documented as of this encounter
--- OUTSIDE RECORDS SUMMARY | 2024-10-17 15:22 | XMS_ITS | Encounter Summary ---
Author Organization [facility] Address [address] [facility] [place] [address] Care Team Providers Care Pulley Man Name Role Phone Rip Andrea MD Primary Care Provider + Reason for Visit * Reason Comments Refill Request Encounter Details Date Type Department Care Team (Late st Contact Info) Description 10/07/2021 Refill [facility] [address] [place] [address] Rachael Blancas, ADMISSIONS MANAGER RN-FOOD PROCESSING SCIENTIST [address] [address] Refill Request Social History Tobacco Use Types [...] (Latest Contact Info) Description 02/11/2025 7:55 AM GATEKEEPER Hospital Encounter [facility] ENDOSCOPY [address] [place] [phone] Paresh Sanchez MD [address] [facility] 2L [place] [phone] Surgery General 02/11/2025 7:55 AM GATEKEEPER - 02/11/2025 9:00 AM GATEKEEPER Surgery [facility] ENDOSCOPY [address] [place] [address] Paresh Sanchez MD [address] [facility] 2L [place] [address] COLONOSCOPY+/-EMR 05/09/2025 2:30 PM GATEKEEPER Video Visit [facility] - Hematology/Oncology [address] [place] [address] Bia Lipscomb, [address] [place] [address] Scheduled Procedures Name Priority Associated Diagnoses Date/Ti me COLONOSCOPY DIAGNOSTIC History of colon polyps 02/11/2025 7:55 AM GATEKEEPER documented as of this encounter Visit Diagnoses Not on filedocumented in this encounter Care Teams Pulley Man Relationship Specialty Start Date End Date Rip Andrea MD [address] [address] PCP - General 08/22/17 documented as of this encounter
--- OUTSIDE RECORDS SUMMARY | 2024-10-17 15:22 | XMS_ITS | Clinical Summary ---
Author Organization [facility] Clarice Arshad Address [address] [place] [address] Care Team Providers Care Surgical Clinical Reviewer Name Role Phone Rip Andrea MD Primary Care Provider +1- [phone] Allergies No known active allergies Medications albuterol sulfate HFA 90 mcg/actuation aerosol inhaler INHALE 2 PUFFS BY MOUTH EVERY 4 HOURS NEEDED FOR SHORTNESS OF BREATH OR WHEEZING 5 Active aspirin (KAROL) 325 mg tablet Take 325 mg by mouth daily. Active atorvastatin (LIPITOR) 20 mg tablet Take 1 Tablet by mouth daily. 5 Active clonazePAM (KlonoPIN) 1 mg tablet Take 1 mg by mouth. 5 Active enalapril (VASOTEC) 20 mg tablet Take 1 Tablet by mouth daily. 5 Active FeroSuL 325 mg (65 mg iron) tablet Take 1 Tablet by mouth 2 times daily. 5 Active furosemide (LASIX) 40 mg tablet Take 2 Tablets by mouth daily. 5 Active Lantus Solostar U-100 Insulin 100 unit/mL (3 mL) solution for injection ADMINISTER 80 UNITS UNDER THE SKIN EVERY EVENING 5 Active metFORMIN (GLUCOPHAGE XR) 500 mg Extended Release 24 hour tablet Take 2 Tablets by mouth 2 times daily. 5 Active pantoprazole (PROTONIX) 40 mg Tablet, Delayed Release (E.C.) Take 40 mg by mouth 2 times daily. Active pioglitazone (ACTOS) 30 mg tablet Take 1 Tablet by mouth daily. 5 Active spironolactone (ALDACTONE) 100 mg tablet Take 1 Tablet by mouth daily. 5 Active sertraline (ZOLOFT) 100 mg tablet Take 100 mg by mouth daily. Active tamsulosin (FLOMAX) 0.4 mg capsule Take 1 Capsule by mouth daily. Active traZODone (DESYREL) 100 mg tablet Take 100 mg by mouth daily at bedtime. Active Active Problems No known active problems Encounters Date Type Department Care Team Description 10/17/2024 3:00 PM CDT Office Visit [facility] Oncology and Hematology - [address] [place] [phone] Joey Suarez MD Chronic anemia (Primary Dx) from Last 3 Months Family History Medical History Relation Name Comments No Known Problems Brother 1 No Known Problems Brother 2 No Known Problems Child 1 No Known Problems Child 2 Lung Cancer Father Diabetes Mother Heart Disease Mother Lung Cancer Sister 1 No Known Problems Sister 2 No Known Problems Sister 3 Relation Name Status Comments Brother 1 Alive Brother 2 Alive Child 1 Alive Child 2 Alive Father Mother Sister 1 Sister 2 Alive Sister 3 Alive Social History Tobacco Use Types Packs/Day Years [...] Mass Index 37.53 10/17/2024 2:53 PM CDT Plan of Treatment Upcoming Encounters Date Type Department Care Team (Late st Contact Info) Description 10/31/2024 4:30 PM CDT Telephone Check Up [facility] Oncology and Hematology - [place] [address] [facility] [address] [place] [address] Joey Suarez MD [address] [facility] [address] [place] [address] Health Maintenance Due Date Last Done Comments DTAP/TDAP/TD VACCINES (1 - Tdap) 09/05/1974 FIT-DNA Q 3 years 09/05/2000 FIT/FOBT Q 1 year 09/05/2000 Flex Sig/CT Colonography Q 5 years 09/05/2000 PNEUMOCOCCAL VACCINE 50+ YEA RS (1 of 1 - PCV) 09/05/2005 ZOSTER VACCINE (1 of 2) 09/05/2005 Medicare Advantage ([place]) Prev entative Visit/Annual Wellness Visit 03/21/2024 INFLUENZA VACCINE (#1) 2024 RSV VACCINE (60+ or ) (1 - 1-dose 75+ series) 09/05/2030 COLORECTAL SCREENING 08/08/2034 08/08/2024, 08/09/19 25 Colorectal Cancer Screening 08/08/[address] [place] [address] [place] [address] Care Teams Surgical Clinical Reviewer Relationship Specialty Start Date End Date Rip Andrea MD [address] [place] [address] PCP - General Family Practice 10/17/24
[2024-10-17 15:34] LABS: Hematocrit 31.7 % (42.0-52.0); Hemoglobin 11.0 g/dL (14.0-18.0); Immature Granulocyte Percent A 1.4 % (0-0.5); Lymphocytes Absolute Auto 1.17 K/mm3 (0.9-3.2); Mean Corpuscular HGB Conc 34.7 g/dl (32-36); Mean Corpuscular Hemoglobin 30.5 pg (26-34); Mean Corpuscular Volume 87.8 fl (80-100); Nucleated Red Blood Cells Absolute Auto 0.000 K/mm3 (0.0-0.012); Nucleated Red Blood Cells Perc 0.0 % (0.0-0.2); Platelet Count Result 151 k/mm3 (150-375); Red Blood Count 3.61 M/mm3 (4.6-6.20); White Blood Count 8.6 K/mm3 (4.5-10.0)
[2024-10-17 16:42] LABS: Iron 67 ug/dL (49-181)
[2024-10-17 16:46] LABS: Alanine Aminotransferase 23 U/L (6-50); Albumin Level 4.5 g/dL (3.5-5.1); Alkaline Phosphatase 74 U/L (38-126); Anion Gap 12 mmol/L (4-12); Aspartate Amino Transferase 33 U/L (17-59); Bilirubin,Total 0.8 mg/dL (0.2-1.3); Blood Urea Nitrogen 33 mg/dL (9-20); Calcium 9.6 mg/dL (8.4-10.2); Carbon Dioxide 22 mmol/L (22-30); Chloride 103 mmol/L (98-107); Estimated Glomerular Filt Rate > 60; Glucose 215 mg/dL (65-110); Potassium 4.6 mmol/L (3.4-5.0); Sodium 137 mmol/L (137-145); Total Protein 7.8 g/dL (6.3-8.2)
[2024-10-17 16:58] LABS: Percent Iron Saturation 16 % (20-50)
[2024-10-17 17:24] LABS: Ferritin 13.40 ng/mL (11.1-264)
[2024-10-17 17:59] LABS: Vitamin B12 414.0 pg/mL (239-931)
== END 2024-10-17 15:20 | disposition home or self-care (01) ==
PROVIDERS: PCP Family Medicine Adolescent Medicine; Visit Provider Internal Medicine Hematology & Oncology
DX: D64.9 Anemia, unspecified (principal)
CPT/HCPCS: 36415; 80053; 82607; 82728; 82746; 83540; 83550; 83615; 83921; 84238; 85025

== ENCOUNTER 2024-10-22 14:20 | Outpatient (CLI) | payer MEDICARE, SELFPAY ==
--- NOTE | ~2024-10-22 | CT_ITS ---
CT Scan of the Chest without Contrast: Clinical Indication: Lung cancer screening, nicotine dependence Technique: Contiguous sections were acquired throughout the chest without intravenous contrast. Dose reduction technique was used on this scan by utilizing automated exposure control and iterative recon struction technique. The dose-length product (DLP) was 387.09 mGy-cm. COMPARISON: 09/29/2023 Findings: Stable mildly prominent mediastinal lymph nodes. Coronary artery calcifications are present. There is no evidence of pleural or pericardial effusion. The lungs are clear. No pulmonary nodules or infiltrates are noted. Images through the upper abdomen reveal probable splenomegaly, partially imaged. Impression: Lung RADS 1: Negative. 12 month follow-up screening CT advised. Reviewed, dictated and finalized at location . Impression: Lung RADS 1: Negative. 12 month follow-up screening CT advised.
--- OUTSIDE RECORDS SUMMARY | 2024-10-22 14:33 | XMS_ITS | Encounter Summary ---
Author Organization [facility] Address [address] [facility] [place] [address] Care Team Providers Care Pipe Fitter Supervisor Maintenance Name Role Phone Rip Andrea MD Primary Care Provider + Reason for Visit * Reason Comments Refill Request Encounter Details Date Type Department Care Team (Late st Contact Info) Description 10/03/2021 Refill [facility] [address] [place] [address] Rachael Blancas, OUT AND OUT CIGAR MAKER HAND-TRAFFIC SIGN SUPERVISOR [address] [address] Refill Request Social History Tobacco Use Types [...] (Latest Contact Info) Description 02/11/2025 7:55 AM METAL ORGAN PIPE MAKER Hospital Encounter [facility] ENDOSCOPY [address] [place] [phone] Paresh Sanchez MD [address] [facility] 2L [place] [address] Surgery General 02/11/2025 7:55 AM METAL ORGAN PIPE MAKER - 02/11/2025 9:00 AM METAL ORGAN PIPE MAKER Surgery [facility] ENDOSCOPY [address] [place] [address] Paresh Sanchez MD [address] [facility] 2L [place] [address] COLONOSCOPY+/-EMR 05/09/2025 2:30 PM METAL ORGAN PIPE MAKER Video Visit [facility] - Hematology/Oncology [address] [place] [address] Bia Lipscomb, [address] [place] [address] Scheduled Procedures Name Priority Associated Diagnoses Date/Ti me COLONOSCOPY DIAGNOSTIC History of colon polyps 02/11/2025 7:55 AM METAL ORGAN PIPE MAKER documented as of this encounter Visit Diagnoses Not on filedocumented in this encounter Care Teams Pipe Fitter Supervisor Maintenance Relationship Specialty Start Date End Date Rip Andrea MD [address] [address] PCP - General 08/22/17 documented as of this encounter
--- OUTSIDE RECORDS SUMMARY | 2024-10-22 14:33 | XMS_ITS | Clinical Summary ---
Author Organization 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 Not on file Not on f ile Not on file Last Filed Vital Signs Vital Sign Reading Time Taken Comments Blood Pressure 132/61 02/23/2018 11:28 AM REGIONAL SALES MANAGER Pulse 80 02/23/2018 11:23 AM REGIONAL SALES MANAGER Temperature 36.8 C (98.2 F) 02/23/2018 10:49 AM REGIONAL SALES MANAGER Respiratory Rate 18 02/23/2018 11:2 3 AM REGIONAL SALES MANAGER Oxygen Saturation 95% 02/23/2018 11: 23 AM REGIONAL SALES MANAGER Inhaled Oxygen Concentration - - Weight 113.9 kg (251 lb 3.2 oz) 018 10:49 AM REGIONAL SALES MANAGER Height 175.3 cm (5' 9) 02/23/2018 10:4 9 AM REGIONAL SALES MANAGER Body Mass Index 37.1 02/23/2018 10:49 AM REGIONAL SALES MANAGER Plan of Treatment Health Maintenance Due Date [...] to complete this topic Insurance Care Teams Leather Fitter Relationship Specialty Start Date End Date Rpi Andrea MD [address] [address] PCP - General FAMILY PRACTICE 01/16/18
--- OUTSIDE RECORDS SUMMARY | 2024-10-22 14:33 | XMS_ITS | Encounter Summary ---
Author Organization [facility] Address [address] [place] [address] Care Team Providers Care Optical Mechanic Name Role Phone Rip Andrea MD Primary Care Provider +1- [phone] Encounter Details Date Type Department Care Team ([facility] Contact Info) Description 10/22/2024 Orders Only [facility] Oncology and Hematology [facility] [address] [place] [address] Joey Suarez MD [facility] [employer] [address] [place] [address] Social History Tobacco Use Types Packs/Day Years Used Date Smoking Tobacco: Former Cigarettes 3 50 0 10/17/1966 - 10/17/2016 Smokeless Tobacco: Never Alcohol Use Standard Drinks/Week Comments Not Currently 0 (1 standard drink = 0.6 oz pur e alcohol) Sex and Gender Information Value Date Recorded Sex Assigned at Not on file Legal Sex Male 1:38 PM CDT Gender Identity Not on file Sexual Orientation Not on file documented as of this encounter Plan of Treatment Upcoming Encounters Date Type Department Care Team (Late Contact Info) Description 10/31/2024 4:30 PM CDT Telephone Check Up [facility] Oncology and Hematology [facility] [address] [place] [address] Joey Suarez MD [address] [employer] [address] [place] [address] documented as of this encounter Procedures Procedure Name Priority Date/Time Associated Diagnosis Comments METHYLMALONIC ACID Routine 10/17/2024 10 :40 AM CDT CHG SOLUBLE TRANSFERRIN RECEPTOR Routine 10/17/2024 10:34 AM CDT documented in this encounter Results * METHYLMALONIC ACID (10/17/2024 10:40 AM CDT) Blood us Joey Suarez MD CHEMISTRY ORDERABLES Final Resu lt * CHG SOLUBLE TRANSFERRIN RECEPTOR (10/17/2024 10:34 AM CDT) us Joey Suarez MD CHG - LABORATORY Final Result documented in this encounter Visit Diagnoses Not on filedocumented in this encounter Care Teams Optical Mechanic Relationship Specialty Start Date End Date Rip Andrea MD [address] [place] [address] PCP - General Family Practice 10/17/24 documented as of this encounter
--- OUTSIDE RECORDS SUMMARY | 2024-10-22 14:33 | XMS_ITS | Clinical Summary ---
Author Organization [facility] Clarice Arshad Address [address] [place] [address] Care Team Providers Care Family Support Specialist Name Role Phone Rip Andrea MD Primary Care Provider +1- [phone] Allergies No known active allergies Medications albuterol [...] Encounters Date Type Department Care Team Description 10/22/2024 Orders Only [facility] Oncology and Hematology - [place] [place] [phone] Joey Suarez MD 10/18/2024 Orders Only [facility] Oncology and Hematology - [facility] [address] [place] [address] Joey Suarez MD 10/17/2024 3:00 PM CDT Office Visit [facility] Oncology and Hematology - [facility] [facility] [address] [place] [address] Joey Suarez MD Chronic anemia (Primary Dx) [...] 10/31/2024 4:30 PM CDT Telephone Check Up [facility] Oncology and Hematology - [place]on [address] [facility] [address] [place] [address] Joey Suarez MD [address] [facility] [address] [place] [address] Health Maintenance Due Date Last Done Comments Pre-Diabetes and Diabetes Screening 1955 DTAP/TDAP/TD VACCINES (1 - Tdap) 09/05/1974 FIT-DNA Q 3 years 09/05/2000 FIT/FOBT Q 1 year 09/05/2000 Flex Sig/CT Colonography Q 5 years 09/05/2000 Lung Cancer Screening 09/05/2005 PNEUMOCOCCAL VACCINE 50+ YEA RS (1 of 1 - PCV) 09/05/2005 ZOSTER VACCINE (1 of 2) 09/05/2005 Abdominal Aortic Aneurysm (AAA) Screening 09/05/2020 INFLUENZA VACCINE (#1) 2024 RSV VACCINE (60+ or ) (1 - 1-dose 75+ series) 09/05/2030 COLORECTAL SCREENING 08/08/2034 08/08/2024, 08/09/19 25 Colorectal Cancer Screening 08/08/2034 Procedures Procedure Name Priority Date/Time Associated Diagnosis Comments METHYLMALONIC ACID Routine 10/17/2024 10 :40 AM CDT CHG SOLUBLE TRANSFERRIN RECEPTOR Routine 10/17/2024 10:34 AM CDT COMPREHENSIVE METABOLIC PANEL Routine 10/17/2024 8:38 AM CDT IRON, TIBC, AND PERCENT SATURATION Routine 10/17/2024 8:36 AM CDT COMPREHENSIVE METABOLIC PANEL Routine 10/17/2024 8:32 AM CDT from Last 3 Months Results * METHYLMALONIC ACID (10/17/2024 10:40 AM CDT) Blood us Joey Suarez MD CHEMISTRY ORDERABLES Final Resu lt * CHG SOLUBLE TRANSFERRIN RECEPTOR (10/17/2024 10:34 AM CDT) us Joey Suarez MD [facility] - LABORATORY Final Result * COMPREHENSIVE METABOLIC PANEL (10/17/2024 8:38 AM CDT) Only the most recent of2 resultswithin the time period is included. Blood us Joey Suarez MD CHEMISTRY ORDERABLES Final Resu lt * IRON, TIBC, AND PERCENT SATURATION (10/17/2024 8:36 AM CDT) Blood us Joey Suarez MD CHEMISTRY ORDERABLES Final Resu lt from Last [address] [place] [id number] Care Teams Family Support Specialist Relationship Specialty Start Date End Date Rip Andrea MD [address] [place] [address] PCP - General Family Practice 10/17/24
--- OUTSIDE RECORDS SUMMARY | 2024-10-22 14:33 | XMS_ITS | Clinical Summary ---
Author Organization [facility] Address [address] [place] [address] Care Team Providers Care Head Of Operation And Logistics Name Role Phone Rip Andrea MD Primary Care Provider + Source Comments [facility],non-owned Affiliates and Associated Physician Practices is amultiple site organization consisting of ambulatory clinics and hospital sitesin [place], [place], [place] and [place]. This disclosure is being madepursuant to the Care Everywhere program and may not contain all information available regarding this patient. Last updated 17.[facility] Allergies No known active allergies Medications * [...] BEDTIME NEEDED FOR SLEEP 09/02/19 22 Active First Aid Shot Therapy NEXT TEST test strip FOR E11.9 TEST [...] Department Care Team Description 08/10/2024 Orders Only [facility] - GI [address] [facility], [place] [address] Paresh Sanchez MD Polyposis of colon 08/10/2024 Telephone [facility] [address] [place] [phone] Kirti Modi Procedure (Colonoscopy 6 month follow up, Dr. Zheng) 08/08/2024 10:00 AM CDT - 08/08/2024 12:00 PM CDT Surgery [facility] [address] [place] [address] Paresh Sanchez MD Diag Colon + EMRs 08/08/2024 9:55 AM CDT Anesthesia Event [facility] [address] [place] [phone] Karen Salinas MD 08/08/2024 9:18 AM CDT - 08/08/2024 12:39 PM CDT Hospital Encounter [facility] [address] [place] [address] Paresh Sanchez MD Surgery General Discharge Disposition: [...] (Latest Contact Info) Description 02/11/2025 7:55 AM MOTTLER MACHINE FEEDER Hospital Encounter [facility] [address] [place] [address] Paresh Sanchez MD [address] [facility] 2L DIV [place] [address] Surgery General 02/11/2025 7:55 AM MOTTLER MACHINE FEEDER - 02/11/2025 9:00 AM MOTTLER MACHINE FEEDER Surgery [facility] [address] [place] [address] [place] [address] [place] [address] 2L DIV [place] [phone] COLONOSCOPY+/-EMR 05/09/2025 2:30 PM MOTTLER MACHINE FEEDER Video Visit [facility] - Hematology/Oncology [address] [place] [phone] Bia Lipscomb, GC [address] [place] [address] Scheduled Procedures Name Priority Associated Diagnoses Date/Ti me COLONOSCOPY DIAGNOSTIC History of colon polyps 02/11/2025 7:55 AM MOTTLER MACHINE FEEDER Health Maintenance Due Date Last Done Comments [...] this topic Medical Devices Implanted Type Area Slabber Light Device Identifier Shelf Expiration Date Model / Serial / Lot Stimulan Rapid Cure Implanted:Qty: 1 on 08/21/2021 by Karson Fournier MD at [facility] N/A: Spine Cervical Biocompstes 03/20/2024 620-005 / / [id number] Description:MIXED WITH 500MG VANCOMYCIN POWDER Screw 4.5mm 28mm Ma Spne Bone Implanted:Qty: 3 on 08/21/2021 by Karson Fournier MD at [facility] N/A: Spine Cervical Medtronic Inc [id number] / / Dayo Spnl 240mm 3.5mm Std Implanted:Qty: 2 on 08/21/2021 by Karson Fournier MD at [facility] N/A: Spine Cervical Medtronic Inc [id number] / / Lev Bone Void 10ml Dbm Grftn Algrf Ptty - [id number] Implanted:Qty: 1 on 08/21/2021 by Karson Fournier MD at [facility] N/A: Spine Cervical Medtronic Inc 06/30/2024 [id number] / [id number] / Screw Set M6 Spne Oc Upr Thor Infnt Implanted:Qty: 16 on 08/21/2021 by Karson Fournier MD at [facility] N/A: Spine Cervical Medtronic Sofamor Danek Spine [id number] / / Screw 4mm 26mm Ma Spne Bone Implanted:Qty: 1 on 08/21/2021 by Karson Fournier MD at [facility] N/A: Spine Cervical Medtronic Inc [id number] / / Screw 4mm 22mm Ma Spne Bone Implanted:Qty: 1 on 08/21/2021 by Karson Fournier MD at [facility] N/A: Spine Cervical Medtronic Inc [id number] / / Screw 3.5mm 16mm Ma Spne Bone Implanted:Qty: 3 on 08/21/2021 by Karson Fournier MD at [facility] N/A: Spine Cervical Medtronic Inc [id number] / / Screw 3.5mm 18mm Ma Spne Bone Implanted:Qty: 2 on 08/21/2021 by Karson Fournier MD at [facility] N/A: Spine Cervical Medtronic Inc [id number] / / Screw 3.5mm 20mm Ma Spne Bone Implanted:Qty: 3 on 08/21/2021 by Karson Fournier MD at [facility] N/A: Spine Cervical Medtronic Inc [id number] / / Screw 3.5mm 22mm Ma Spne Bone Implanted:Qty: 2 on 08/21/2021 by Karson Fournier MD at [facility] N/A: Spine Cervical Medtronic Inc [id number] / / Screw 4.5mm 26mm Ma Spne Bone Implanted:Qty: 1 on 08/21/2021 by Karson Fournier MD at [facility] N/A: Spine Cervical Medtronic Inc [id number] / / Procedures Procedure Name Priority Date/Time Associated Diagnosis Comments PATHOLOGY TISSUE Routine 08/08/2024 10:1 5 AM CDT Polyp of colon, unspecified part of colon, unspecified type [place] COLONOSCOPY, DIAGNOSTIC 08/08/2024 9:50 AM CDT Polyp of colon, unspecified part of colon, unspecified type GLUCOSE - POINT OF CARE Routine 08/08/2024 9:42 AM CDT ENDOSCOPY, COLON, DIAGNOSTIC Routine 08/08/2024 9:34 AM CDT from Last 3 Months Results * PATHOLOGY TISSUE (08/08/2024 10:15 AM CDT) Case Report Surgical Pathology Report Case: [id number] Authorizing Provider: Paresh Sanchez, Collected: 08/08/2024 10:15 AM Ordering Location: [facility] Received: 08/08/2024 12:36 PM Pathologist: Rosi [...] all resected and retrieved 08/09/2024 10:23 AM [facility] Gross Description The requisition and [...] in cassette D1. LT 08/09/2024 10:23 AM [facility] Pathologist Location at [facility] 08/09/2024 10:23 AM [facility] Disclaimer The performance characteristics of all immunohistochemical and indirect immunofluorescence stains (if any) cited in this report were determined by the Histopathology Laboratory of [facility]. Some of these tests were developed by [...] the attending (teaching) pathologist. 08/09/2024 10:23 AM [facility] Embedded Images 08/09/2024 10:23 AM [facility] Biopsy, NOS POLYP / Unknown [...] LOGY ORDERABLES Final Result Performing Organization Address City/[facility]/ZIP Co de Phone Number [facility] [address] [place] [address], [facility] [phone] * GLUCOSE - POINT OF CARE (08/08/2024 9:42 AM CDT) [facility] Glucose WB/POC 95 70 - 99 mg/dL 08/08/2024 10:12 AM CDT [facility] Specimen Type Venous 08/08/2024 10:12 AM CDT [facility] Blood BLOOD SPECIMEN / Unknown 08/08/2024 9:42 AM CDT 08/08/2024 10:12 AM CDT Paresh Hernandez MD LAB - POINT OF CARE ORDERABLES Final Result [facility] [address] [place] [phone], [facility] [phone] * Endoscopy, Colon, Diagnostic (08/08/2024 9:34 AM [...] and oxygen saturations were monitored continuously. The CF-[id number] was introduced through the anus and advanced to the cecum, identified by appendiceal orifice and ileocecal valve. The colonoscopy was performed without difficulty. The patient tolerated the procedure well. The quality of the bowel preparation was evaluated using the BBPS ([place] Bowel Preparation Scale) with scores of: Right [...] clips were successfully placed (MR conditional). Clip child care leader: [facility]. There was no bleeding at the end [...] entire procedure. Procedure Code(s): --- Professional --- 18755, Colonoscopy, flexible; with endoscopic mucosal resection 09411, 59, Colonoscopy, flexible; with removal of tumor(s), [...] or abscess without bleeding CPT copyright 2021 [employer]. All rights reserved. The codes documented in this report are preliminary and upon radio television announcer review may be revised to meet current compliance requirements. Paresh Hernandez MD 08/08/2024 11:45:09 AM Note Initiated On: 08/08/2024 9:34 AM Number of Addenda: [address] [place] [address] [facility] 08/08/2024 9:34 AM CDT Paresh Hernandez MD GI PROCEDURE ORDERAB LES Edited Result - Final [facility] from Last 3 Months Insurance [facility] [place] [address] [facility] MANAGED MEDICARE ADV SELF PAY NO INSURANCE Member Subscriber Plan / Payer (Ef fective for All Dates) Name:Román Barber Jr Member ID:Not on file Relation to Subscriber:Not on file Name:ROMÁN BARBER JR Subscriber ID:Not on file (Home) Address: [address] [place] [id number] Payer ID:Not on file Group ID:Not on file Type:Self Pay Address: [place], [place] [facility] MANAGED MEDICARE ADV Advance Directives * Full Code (Latest Code Status on File) Date Activated Date Inactivated Comments 08/21/2021 12:41 PM 08/25/2021 2:23 PM Care Teams Head Of Operation And Logistics Relationship Specialty Start Date End Date Rip Andrea MD [address] [address] PCP - General 08/22/17
--- OUTSIDE RECORDS SUMMARY | 2024-10-22 14:33 | XMS_ITS | Encounter Summary ---
Author Organization [facility] Address [address] [facility] [place] [address] Care Team Providers Care Gusset Folder Name Role Phone Rip Andrea MD Primary Care Provider + Reason for Visit * Reason Comments Refill Request Encounter Details Date Type Department Care Team (Late st Contact Info) Description 10/07/2021 Refill [facility] [address] [place] [address] Rachael Blancas, MOTTLER OPERATOR-ELECTRONIC INTELLIGENCE OFFICER [address] [address] Refill Request Social History Tobacco Use Types [...] (Latest Contact Info) Description 02/11/2025 7:55 AM TEST EQUIPMENT MECHANIC Hospital Encounter [facility] [address] [place] [phone] Paresh Sanchez MD [address] [facility] 2L [place] [address] Surgery General 02/11/2025 7:55 AM TEST EQUIPMENT MECHANIC - 02/11/2025 9:00 AM TEST EQUIPMENT MECHANIC Surgery [facility] [address] [place] [address] Paresh Sanchez MD [address] [facility] 2L [place] [address] COLONOSCOPY+/-EMR 05/09/2025 2:30 PM TEST EQUIPMENT MECHANIC Video Visit [facility] - Hematology/Oncology [address] [place] [address] Bia Lipscomb, [address] [place] [address] Scheduled Procedures Name Priority Associated Diagnoses Date/Ti me COLONOSCOPY DIAGNOSTIC History of colon polyps 02/11/2025 7:55 AM TEST EQUIPMENT MECHANIC documented as of this encounter Visit Diagnoses Not on filedocumented in this encounter Care Teams Gusset Folder Relationship Specialty Start Date End Date Rip Andrea MD [address] [address] PCP - General 08/22/17 documented as of this encounter
--- OUTSIDE RECORDS SUMMARY | 2024-10-22 14:33 | XMS_ITS | Encounter Summary ---
Author Organization [facility] [employer] Address [address] [place] [address] Care Team Providers Care Personal Lines Insurance Advisor Name Role Phone Rip Andrea MD Primary Care Provider [phone]- [phone] Encounter Details Date Type Department Care Team ([facility] Contact Info) Description 10/18/2024 Orders Only [facility] Oncology and Hematology [facility] [address] [place] [address] Joey Suarez MD [facility] [address] [place] [phone] Social History Tobacco Use Types Packs/Day [...] 10/31/2024 4:30 PM CDT Telephone Check Up [facility] Oncology [facility] Hematology [facility] [address] [place] [address] Joey Suarez MD [address] [place] [address] documented as of this encounter Procedures Procedure Name Priority Date/Time Associated Diagnosis Comments COMPREHENSIVE METABOLIC PANEL Routine 10/17/2024 8:38 AM CDT IRON, TIBC, AND PERCENT SATURATION Routine 10/17/2024 8:36 AM CDT COMPREHENSIVE METABOLIC PANEL Routine 10/17/2024 8:32 AM CDT documented in this encounter Results * COMPREHENSIVE METABOLIC PANEL (10/17/2024 8:38 AM CDT) Blood us Joey Suarez MD CHEMISTRY ORDERABLES Final Resu lt * IRON, TIBC, AND PERCENT SATURATION (10/17/2024 8:36 AM CDT) Blood us Joey Suarez MD CHEMISTRY ORDERABLES Final Resu lt * COMPREHENSIVE METABOLIC PANEL (10/17/2024 8:32 AM CDT) Blood us Joey Suarez MD CHEMISTRY ORDERABLES Final Resu lt documented in this encounter Visit Diagnoses Not on filedocumented in this encounter Care Teams Personal Lines Insurance Advisor Relationship Specialty Start Date End Date Rip Andrea MD [address] [place] [address] PCP - General Family Practice 10/17/24 documented as of this encounter
--- OUTSIDE RECORDS SUMMARY | 2024-10-22 14:33 | XMS_ITS | Clinical Summary ---
Author Organization [facility] Address [address], [address] [address] Phone Care Team Providers Care Construction Superintendent Name Role Phone Rip Andrea MD Primary [...] to complete this topic Insurance Care Teams Construction Superintendent Relationship Specialty Start Date End Date Rip Andrea MD PCP - General Family Medicine 04/13/17
== END 2024-10-22 14:21 | disposition home or self-care (01) ==
PROVIDERS: PCP Family Medicine Adolescent Medicine; Visit Provider Nurse Practitioner Family
DX: Z12.2 Encounter for screening for malignant neoplasm of respiratory organs (principal); Z87.891 Personal history of nicotine dependence
CPT/HCPCS: 71271

== ENCOUNTER 2025-01-14 08:03 | Outpatient (CLI) | payer MEDICARE, SELFPAY ==
--- OUTSIDE RECORDS SUMMARY | 2008-10-04 04:45 | XMS_ITS | Continuity of Care Document ---
Author Organization [facility] Address [address] [place] [address] [facility] [address] [place] [address] Phone Care Team Providers Care Flight Test Supervisor Name Role Phone Brandon Vergara Unavailable Unavailable Procedures Procedure Date Office/outpatient Visit, Est Office/outpatient Visit, Est Eye Exam & Treatment Advance Directives Directive Yes / No Effective Date File Name No Information Encounters Encounter Description Practice Location Reason(s) For Visit Diagnoses Date Provider Providers Copied on Encounter Office/outpat ient Visit, [facility], [address] [place] [address] [address], [place], [place], [id number], tel:[phone] [facility] No Information 200 9 Krishnasamy Brandon. [address] [place] [address], [facility][note 3], [place]. tel:[phone] Referring Provider: Rip Andrea MD, [address] [place] [address], [id number]. tel:[phone] Office/outpat ient Visit, [facility], [address] [place] [address] [address], [place], [place], [id number], tel:[phone] [facility] No Information 3200 8 Krishnasamy Brandon. [address] [place] [address], [facility][note 3], [place]. tel:[phone] Referring Provider: Rip Andrea MD, [address] [place] [address], [address]. tel:[phone] [facility], [address] [address], [place], [place], [id number], [place] tel:[phone] [facility]3] No Information 7 William Low. [address] [facility], [address], [place], [place], [id number], [place]. tel:[phone] Referring Provider: Rip Andrea MD, [address] [place] [address], [address]. tel:[phone] Family History Family Member Type Diagnosis Age At Onset No Information Payers Payer name Insurance type Covered green party ID Authoriza tion(s) No Information Social History Type Description Quantity Date Captured Comments Sex Male Smoking Status No Information Chief Complaint And Reason For Visit No Information Reason For Referral Reason For Referral No Information History Of Present Illness Encounter Date Complaint History Of Prese nt Illness No Information Functional Status Date Functional Assessmen t No Information Instructions Date Instruction Additional Infor mation No Information Assessments Type Assessment Date No Information Patient Care Teams Name Effective Dates (start - stop) Status Members No Information
--- NOTE | ~2025-01-14 | US_ITS ---
ULTRASOUND ABDOMEN LIMITED (RIGHT UPPER QUADRANT) Clinical History: K74.60 - Unspecified cirrhosis of liver Comparison: CT abdomen pelvis 06/18/2024 Ultrasound 07/25/2024 Technique: Right upper quadrant sonography Findings: Liver: Enlarged. Nodular surface. Echogenic. No intrahepatic biliary ductal dilatation. Normal hepatopedal flow main portal vein. Common Duct: Normal caliber. 5 mm. Gallbladder: No stones. No wall thickening. No pericholecystic fluid. Pancreas: Unremarkable. IMPRESSION: 1. No acute findings. 2. Cirrhosis, hepatomegaly. No liver lesion identified. Reviewed, dictated and finalized at location R.
--- OUTSIDE RECORDS SUMMARY | 2025-01-14 08:09 | XMS_ITS | Encounter Summary ---
Author Organization [facility] Address [address] [facility] [address] Care Team Providers Care Cyberathlete Name Role Phone Rip Andrea MD Primary Care Provider + Reason for Visit * Reason Comments Refill Request Encounter Details Date Type Department Care Team (Late st Contact Info) Description 10/03/2021 Refill [facility] [address] [place] [address] Rachael Blancas, MENTAL HEALTH PRACTITIONER-REEL BLADE BENDER FURNACE TENDER [address] [address] Refill Request Social History Tobacco Use Types [...] (Latest Contact Info) Description 02/11/2025 7:55 AM MANAGER VALUATION Hospital Encounter [facility] [address] [place] [phone] Paresh Sanchez MD [address] [facility] 2L [place] [address] Surgery General 02/11/2025 7:55 AM MANAGER VALUATION - 02/11/2025 9:00 AM MANAGER VALUATION Surgery [facility] [address] [place] [address] Paresh Sanchez MD [address] [facility] 2L [place] [address] COLONOSCOPY+/-EMR 05/09/2025 2:30 PM MANAGER VALUATION Video Visit [facility] - Hematology/Oncology [address] [place] [address] Bia Lipscomb, [address] [place] [address] Scheduled Procedures Name Priority Associated Diagnoses Date/Ti me COLONOSCOPY DIAGNOSTIC History of colon polyps 02/11/2025 7:55 AM MANAGER VALUATION documented as of this encounter Visit Diagnoses Not on filedocumented in this encounter Care Teams Cyberathlete Relationship Specialty Start Date End Date Rip Andrea MD [address] [address] PCP - General 08/22/17 documented as of this encounter
--- OUTSIDE RECORDS SUMMARY | 2025-01-14 08:09 | XMS_ITS | Clinical Summary ---
Author Organization [facility] [employer] Address [address] [facility] [place] [address] Care Team Providers Care Alternative Dispute Resolution Mediator Name Role Phone Rip Andrea MD Primary Care Provider + Source Comments [facility],non-owned Affiliates and Associated Physician Practices is amultiple site organization consisting of ambulatory clinics and hospital sitesin [place], [place], [place] and [place]. This disclosure is being madepursuant to the Care Everywhere program and may not contain all information available regarding this patient. 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 Use 1 [...] 07/01/2021 Lumbar radiculopathy 01/16/2018 Cervical myelopathy Immunizations Immunization Administration Dates Next Due Curasight primary monoval ent 12+ yr 0.3mL Purple [...] (Latest Contact Info) Description 02/11/2025 7:55 AM SLUG PRESS OPERATOR Hospital Encounter [facility] [address] [place] [phone] Paresh Sanchez MD [address] [facility] 2L [place] [address] Surgery General 02/11/2025 7:55 AM SLUG PRESS OPERATOR - 02/11/2025 9:00 AM SLUG PRESS OPERATOR Surgery [facility] [address] [place] [phone] Paresh Sanchez MD [address] [facility] 2L [place] [address] COLONOSCOPY+/-EMR 05/09/2025 2:30 PM SLUG PRESS OPERATOR Video Visit [facility] - Hematology/Oncology [address] [place] [phone] Bia Lipscomb, GC [address] [place] [address] Scheduled Procedures Name Priority Associated Diagnoses Date/Ti me COLONOSCOPY DIAGNOSTIC History of colon polyps 02/11/2025 7:55 AM SLUG PRESS OPERATOR Health Maintenance Due Date Last Done Comments [...] years 1-dose series) 2015 AAA SCREENING 09/05/2020 DEPRESSION SCREENING 03/21/2024 MEDICARE AWV CALENDAR YEAR 2024 COVID-19 VACCINE ( season) 2024 12/19/2020, 06/06/2020, 05/16/2020 INFLUENZA VACCINE (#1) 2024 01/15/2022, 2020 SCREENING [...] this topic Medical Devices Implanted Type Area Glue Size Machine Operator Device Identifier Shelf Expiration Date Model / Serial / Lot Stimulan Rapid Cure Implanted:Qty: 1 on 08/21/2021 by Karson Fournier MD at [facility] N/A: Spine Cervical Biocompstes 03/20/2024 620-005 / / [id number] Description:MIXED WITH 500MG VANCOMYCIN POWDER Screw 4.5mm 28mm Ma Spne Bone Implanted:Qty: 3 on 08/21/2021 by Karson Fournier MD at [facility] N/A: Spine Cervical Medtronic Inc [id number] / / Dayo Spnl 240mm 3.5mm Std Implanted:Qty: 2 on 08/21/2021 by Karson Fournier MD at [facility] N/A: Spine Cervical Medtronic Inc [id number] / / Lev Bone Void 10ml Dbm Grftn Algrf Ptty - [id number] Implanted:Qty: 1 on 08/21/2021 by Karson Fournier MD at [facility] N/A: Spine Cervical Medtronic Inc 06/30/2024 [id number] / [id number] / Screw Set M6 Spne Oc Upr Thor Infnt Implanted:Qty: 16 on 08/21/2021 by Karson Fournier MD at [facility] N/A: Spine Cervical Medtronic Sofamor Danek Spine [id number] / / Screw 4mm 26mm Ma Spne Bone Implanted:Qty: 1 on 08/21/2021 by Karson Fournier MD at [facility] N/A: Spine Cervical Medtronic Inc [id number] / / Screw 4mm 22mm Ma Spne Bone Implanted:Qty: 1 on 08/21/2021 by Karson Fournier MD at [facility] N/A: Spine Cervical Medtronic Inc [id number] / / Screw 3.5mm 16mm Ma Spne Bone Implanted:Qty: 3 on 08/21/2021 by Karson Fournier MD at [facility] N/A: Spine Cervical Medtronic Inc [id number] / / Screw 3.5mm 18mm Ma Spne Bone Implanted:Qty: 2 on 08/21/2021 by Karson Fournier MD at [facility] N/A: Spine Cervical Medtronic Inc [id number] / / Screw 3.5mm 20mm Ma Spne Bone Implanted:Qty: 3 on 08/21/2021 by Karson Fournier MD at [facility] N/A: Spine Cervical Medtronic Inc [id number] / / Screw 3.5mm 22mm Ma Spne Bone Implanted:Qty: 2 on 08/21/2021 by Karson Fournier MD at [facility] N/A: Spine Cervical Medtronic Inc [id number] / / Screw 4.5mm 26mm Ma Spne Bone Implanted:Qty: 1 on 08/21/2021 by Karson Fournier MD at [facility] N/A: Spine Cervical Medtronic Inc [id number] / / Procedures Procedure Name Priority Date/Time Associated Diagnosis Comments GLUCOSE - POINT OF CARE Routine 08/08/2024 9:42 AM CDT ENDOSCOPY, COLON, DIAGNOSTIC Routine 08/08/2024 9:34 AM CDT from Last 3 Months or Most Recently Relevant to Health Maintenance Results * GLUCOSE - POINT OF CARE (08/08/2024 9:42 AM CDT) Pathologist [facility] Glucose WB/POC 95 70 - 99 mg/dL 08/08/2024 10:12 AM CDT [facility] Specimen Type Venous 08/08/2024 10:12 AM CDT [facility] Blood BLOOD SPECIMEN / Unknown 08/08/2024 9:42 AM CDT 08/08/2024 10:12 AM CDT us Paresh Hernandez MD LAB - POINT OF CARE ORDERABLES Final Result [facility] [address] [place] [address], [facility] [phone] * Endoscopy, Colon, Diagnostic (08/08/2024 9:34 AM CDT) Report Endoscopy POC Endoscopy Department Report _ Patient Name: Devante Barber Procedure Date: 08/08/2024 9:34 AM Date [...] and oxygen saturations were monitored continuously. The CF-[id number] was introduced through the anus and advanced to the cecum, identified by appendiceal orifice and ileocecal valve. The colonoscopy was performed without difficulty. The patient tolerated the procedure well. The quality of the bowel preparation was evaluated using the BBPS ([place] Bowel Preparation Scale) with scores of: Right [...] clips were successfully placed (MR conditional). Clip behavioral health therapist: [employer]. There was no bleeding at the end [...] entire procedure. Procedure Code(s): --- Professional --- 22605, Colonoscopy, flexible; with endoscopic mucosal resection 22138, 59, Colonoscopy, flexible; with removal of tumor(s), [...] or abscess without bleeding CPT copyright 2021 [place] [employer]. All rights reserved. The codes documented in this report are preliminary and upon beam dyer operator review may be revised to meet current compliance requirements. Paresh Hernandez MD 08/08/2024 11:45:09 AM Note Initiated On: 08/08/2024 9:34 AM Number of Addenda: 0 [facility] [address] [place] [address] [facility] 08/08/2024 9:34 AM CDT Paresh Hernandez MD GI PROCEDURE ORDERAB LES Edited Result - Final [facility] from Last 3 Months or Most Recently Relevant to Health Maintenance Insurance [facility] MANAGED MEDICARE ADV [facility] MANAGED MEDICARE ADV SELF PAY NO INSURANCE Member Subscriber Plan / Payer (Ef fective for All Dates) Name:Devante Barber Jr Member ID:Not on file Relation to Subscriber:Not on file Name:DEVANTE BARBER JR Subscriber ID:Not on file (Home) Address: [address] [place] [phone] Payer ID:Not on file Group ID:Not on file Type:Self Pay Address: [place], [place] [facility] MANAGED MEDICARE ADV Advance Directives * Full Code (Latest Code Status on File) Date Activated Date Inactivated Comments 08/21/2021 12:41 PM 08/25/2021 2:23 PM Care Teams Alternative Dispute Resolution Mediator Relationship Specialty Start Date End Date Rip Andrea MD [address] [address] PCP - General 08/22/17
--- OUTSIDE RECORDS SUMMARY | 2025-01-14 08:09 | XMS_ITS | Clinical Summary ---
Author Organization [facility] Clarice Arshad Address [address] [place] [address] Care Team Providers Care Artists' Booking Representative Name Role Phone Rip Andrea MD Primary Care Provider +1- [phone] Allergies No known active allergies Medications albuterol [...] Encounters Date Type Department Care Team Description 12/04/2024 External Device Data ST[facility] ABSTRACTION Provider, Abstract 11/27/2024 External Device Data STL ABSTRACTION Provider, Abstract 10/31/2024 4:30 PM CDT Telephone Check Up [facility] Oncology and Hematology - [place] [address] [place] [address] Joey Suarez MD Chronic anemia (Primary Dx) 10/24/2024 External Device Data ST[facility] ABSTRACTION Provider, Abstract 10/23/2024 External Device Data ST[facility] ABSTRACTION Provider, Abstract 10/23/2024 External Device Data STL ABSTRACTION Provider, Abstract 10/22/[address] [facility] Oncology and Hematology - [place] [address] [place] [address] Joey Suarez MD 10/18/[address] [facility] Oncology and Hematology - [place] [address] [place] [address] Joey Suarez MD 10/17/2024 3:00 PM CDT Office Visit [facility] Oncology and Hematology - [place] [address] [place] [address] Joey Suarez MD Chronic anemia (Primary Dx) [...] Care Team (Late st Contact Info) Description 02/04/2025 10:00 AM PIN WORKER Office Visit [facility] Oncology and Hematology - [place] [address] [place] [address] [facility] [address] [place] [address] Joey Suarez MD [address] [facility] [address] [place] [address] Health Maintenance Due Date Last [...] series) 09/05/2030 COLORECTAL SCREENING 08/08/2034 08/08/2024, 08/09/19 Colorectal Cancer Screening 08/08/2034 Procedures Procedure Name [...] Resu lt from Last 3 Months Insurance [facility] [id number] Care Teams Artists' Booking Representative Relationship Specialty Start Date End Date Rip Andrea MD [address] [place] [address] PCP - General Family Practice 10/17/24
--- OUTSIDE RECORDS SUMMARY | 2025-01-14 08:09 | XMS_ITS | Clinical Summary ---
Author Organization [facility] Address [address], [address] [address] Phone Care Team Providers Care Wheel Alignment Mechanic Name Role Phone Rip Andrea MD [...] 09/05/2005 Zoster Immunization (1 of 2) 09/05/2005 Influenza Immunization (#1) 2024 SARS-COV-2 Immunization ( - season) 2024 Respiratory Syncytial Virus (RSV) Immunization (Adult) [...] to complete this topic Insurance Care Teams Wheel Alignment Mechanic Relationship Specialty Start Date End Date Rip Andrea MD PCP - General Family Medicine 04/13/17
--- OUTSIDE RECORDS SUMMARY | 2025-01-14 08:09 | XMS_ITS | Encounter Summary ---
Author Organization [facility] Address [address] [place] [address] Care Team Providers Care Stock Mixer Name Role Phone Rip Andrea MD Primary Care Provider + Reason for Visit * Reason Comments Refill Request Encounter Details Date Type Department Care Team (Late st Contact Info) Description 10/07/2021 Refill [facility] [address] [place] [address] Rachael Blancas, RENEWALS MANAGER-WATER ATTENDANT [address] [address] Refill Request Social History Tobacco Use Types [...] (Latest Contact Info) Description 02/11/2025 7:55 AM PRINTED CIRCUIT BOARDS BEVELER Hospital Encounter [facility] ENDOSCOPY [address] [place] [id number] Paresh Sanchez MD [address] [facility] [address]L [place] [phone] Surgery General 02/11/2025 7:55 AM PRINTED CIRCUIT BOARDS BEVELER - 02/11/2025 9:00 AM PRINTED CIRCUIT BOARDS BEVELER Surgery [facility] [address] ENDOSCOPY [address] [place] [address] Paresh Sanchez MD [address] [facility] [address] [place] [phone] COLONOSCOPY+/-EMR 05/09/2025 2:30 PM PRINTED CIRCUIT BOARDS BEVELER Video Visit [facility] - Hematology/Oncology [address] [place] [address] Bia Lipscomb, [address] [place] [address] Scheduled Procedures Name Priority Associated Diagnoses Date/Ti me COLONOSCOPY DIAGNOSTIC History of colon polyps 02/11/2025 7:55 AM PRINTED CIRCUIT BOARDS BEVELER documented as of this encounter Visit Diagnoses Not on filedocumented in this encounter Care Teams Stock Mixer Relationship Specialty Start Date End Date Rip Andrea MD [address] [address] PCP - General 08/22/17 documented as of this encounter
--- OUTSIDE RECORDS SUMMARY | 2025-01-14 08:09 | XMS_ITS | Clinical Summary ---
Author Organization 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 Not on file Not on f ile Not on file Last Filed Vital Signs Vital Sign Reading Time Taken Comments Blood Pressure 132/61 02/23/2018 11:28 AM CLINICAL ACADEMIC ALLERGIST Pulse 80 02/23/2018 11:23 AM CLINICAL ACADEMIC ALLERGIST Temperature 36.8 C (98.2 F) 02/23/2018 10:49 AM CLINICAL ACADEMIC ALLERGIST Respiratory Rate 18 02/23/2018 11:2 3 AM CLINICAL ACADEMIC ALLERGIST Oxygen Saturation 95% 02/23/2018 11: 23 AM CLINICAL ACADEMIC ALLERGIST Inhaled Oxygen Concentration - - Weight 113.9 kg (251 lb 3.2 oz) 018 10:49 AM CLINICAL ACADEMIC ALLERGIST Height 175.3 cm (5' 9) 02/23/2018 10:4 9 AM CLINICAL ACADEMIC ALLERGIST Body Mass Index 37.1 02/23/2018 10:49 AM CLINICAL ACADEMIC ALLERGIST Plan of Treatment Health Maintenance Due Date Last Done Comments Colorectal Cancer Screening Colonoscopy (10 Years) 1955 Hepatitis C 09/05/1973 DTaP, Tdap and Td Vaccines ( 1 - Tdap) 09/05/1974 Pneumococcal Vaccine: 50+ Ye ars (1 of 1 - PCV) 09/05/2005 Zoster Vaccines (1 of 2) 09/05/2005 COVID-19 Vaccine ( - 2024-2 6 season) 2024 Influenza Adult (#1) 2024 RSV Immunization or 60+ Years (1 - 1-dose 75+ series) 09/05/2030 Hepatitis A Vaccines Aged Out No long er eligible based on patient's age to complete this topic Meningococcal B Vaccine Aged Out No l onger eligible based on patient's age to complete this topic Meningococcal Vaccine Aged Out No candis rosemary eligible based on patient's age to complete this topic RSV Immunizations Under 20 Months Aged Out No longer eligible based on patient's age to complete this topic Insurance Care Teams Nursery Technician Relationship Specialty Start Date End Date Rip Andrea MD [address] [address] PCP - General FAMILY PRACTICE 01/16/18
== END 2025-01-14 08:04 | disposition home or self-care (01) ==
PROVIDERS: PCP Family Medicine Adolescent Medicine; Visit Provider Internal Medicine Gastroenterology
DX: K74.60 Unspecified cirrhosis of liver (principal)
CPT/HCPCS: 76705

== ENCOUNTER 2025-02-12 13:21 | Outpatient (CLI) | payer MEDICARE, SELFPAY ==
--- OUTSIDE RECORDS SUMMARY | 2025-02-11 06:32 | XMS_ITS | Encounter Summary ---
Author Organization [facility] Address [address] [place] [address] Care Team Providers Care Pr Intern Name Role Phone Rip Andrea MD Primary Care Provider + Reason for Visit * Auth/Cert (Routine) Specialty Diagnoses / Procedures Referred By Angel hernandez Referred To Contact Diagnoses History of colon polyps History of colon polyps [Z86.0100] Procedures NE COLONOSCOPY, DIAGNOSTIC COLONOSCOPY DIAGNOSTIC Referral ID Status Reason Start Date Expiration Date Visits Re quested Visits Authorized [id number] 1 1 Encounter Details Date Type Department Care Team (Latest Contact Info) Description 02/11/2025 6:32 AM SALES SUPPORT ADMINISTRATOR - 02/11/2025 10:03 AM [facility] Hospital Encounter [facility] [address] [place] [phone] Paresh Sanchez MD [address] [phone] Surgery General Discharge Disposition: Home or Self Care Social History Tobacco Use Types Packs/Day Years Used Date Smoking Tobacco: Former Cigarettes 45 0 04/19/1972 - 04/19/2017 Smokeless Tobacco: Never [...] Sign Reading Time Taken Comments Blood Pressure 135/59 02/11/2025 9:50 AM SALES SUPPORT ADMINISTRATOR Pulse 71 02/11/2025 9:50 AM SALES SUPPORT ADMINISTRATOR Temperature 36.7 C (98 F) 02/11/2025 9:27 AM SALES SUPPORT ADMINISTRATOR Respiratory Rate 22 02/11/2025 9:50 AM SALES SUPPORT ADMINISTRATOR Oxygen Saturation 91% 02/11/2025 9:50 AM SALES SUPPORT ADMINISTRATOR Inhaled Oxygen Concentration - - Weight 112 kg (247 lb) 02/11/2025 7:19 AM SALES SUPPORT ADMINISTRATOR Height 172.7 cm (5' 8) 02/11/2025 7:19 AM SALES SUPPORT ADMINISTRATOR Body Mass Index 37.56 02/11/2025 7:19 AM SALES SUPPORT ADMINISTRATOR documented in this encounter Functional Status * Is person deaf or have serious hearing difficulty? Answer Date of Assessment Author No 08/08/2024 11:56 AM KELSEYT Lashay Simental RN * Is person blind or have serious difficulty seeing? Answer Date of Assessment Author No 08/08/2024 11:56 AM KELSEYT Lashay Simental RN * Does person have serious difficulty walking/climbing stairs? Answer Date of Assessment Author No 08/08/2024 11:56 AM KELSEYT Lashay Simental RN * Does person have difficulty dressing/bathing? Answer Date of Assessment Author No 08/08/2024 11:56 AM Lashay Gresham RN * Does person have difficulty doing errands alone? Answer Date of Assessment Author No 08/08/2024 11:56 AM Lashay Gresham RN documented as of this encounter Mental Status * Does person have difficulty concentrating/remembering/making decisions? Answer Entry Date Author No 08/08/2024 11:56 AM Lashay Gresham RN documented in this encounter Discharge Instructions * Discharge Instructions* Kelly Rojas RN - 02/11/2025 8:40 AM SALES SUPPORT ADMINISTRATOR Colonoscopy WHAT YOU NEED TO KNOW: A colonoscopy is a procedure to examine the inside of your colon (intestine) with a scope. Polyps or tissue growths may have been removed during your colonoscopy. It is normal to feel bloated and to have some abdominal discomfort. You should be passing gas. If you have hemorrhoids or you had polypsremoved, you may have a small amount of bleeding. DISCHARGE INSTRUCTIONS: Seek care immediately if: You have a large amount of bright red blood in your bowel movements. Your abdomen is hard and firm and you have severe pain. You have sudden trouble breathing. Call your doctor if: You develop a rash or hives. You have a fever within 24 hours of your procedure. You have nausea and vomiting. You feel anesthesia effects greater than 24 hours. You have not had a bowel movement for 3 days after your procedure. You have questions or concerns about your condition or care. After your colonoscopy: Do not lift, strain, or run until your healthcare provider says it is okay. Rest as much as possible. You have been given medicine to relax you. Do not drive or make importantdecisions for at least 24 hours. Return to your normal activity as directed. Relieve gas and discomfort from bloating by lying on your left side with a heating pad on your abdomen. You may need to take short walks to help the gas move out. Eat small meals until bloating is relieved. If you had polyps removed: For 7 days after your procedure: Do not take aspirin. Do not go on long car rides. Help prevent constipation: Eat a variety of healthy foods. Healthy foods include fruit, vegetables, whole- grain breads, low-fat dairy products, beans, lean meat, and fish. Ask if you need to be on a special diet. Your healthcare provider may recommend that you eat high-fiber foods such as cooked beans. Fiber helps you have regular bowel movements. Drink liquids as directed. Adults should drink between 9 and 13 eight-ounce cups of liquid every day. Ask what amount is best for you. For most people, good liquids to drink are water, juice, and milk. Exercise as directed. Talk to your healthcare provider about the best exercise plan for you. Exercise can help prevent constipation, decrease your blood pressure and improve your health. Follow up with your doctor as directed: Write down your questions so you remember to ask them during your visits. ?? Copyright [employer] 2020 Information is for End User's use only and may not be sold, redistributed or otherwise used for commercial purposes. All illustrations and images included in CareNotes?? are the copyrighted property of [employer] or [employer] The above information is an educational advisor only. It is not intended as medical advice for individual conditions or treatments. Talk to your doctor, nurse or pharmacist before following any medical regimen to see if it is safe and effective for you. S SUPPORT ADMINISTRATOR documented in this encounter Medications at Time of Discharge albuterol (Proventil;Ventolin) (5 MG/ML) 0.5% nebulizer solution Inhale 0.5 mL by mouth 4 times daily as needed for shortness of breath or wheezing albuterol HFA (Proventil; Ventolin; Proair) 108 (90 Base) MCG/ACT inhaler Inhale 2 (two) puffs by mouth every 6 hours as needed for shortness of breath (As needed) 3 aspirin EC (Ecotrin) 81 MG tablet Take 1 (one) tablet by mouth at bedtime atorvastatin (LIPITOR) 20 MG tablet Take 1 (one) tablet by mouth at bedtime continue 2 8 KAROL CONTOUR NEXT TEST test strip FOR E11.9 TEST BLOOD SUGAR DAILY 2 BD Pen Needle Micro U/F 32G X 6 MM MISC USE ONE DAILY TO INJECT INSULIN 2 bisacodyl (DULCOLAX) 10 MG suppository Insert 1 (one) suppository into the rectum once daily as needed for Constipation 2 calcium carbonate (TUMS) 500 MG chew tablet Take 1 (one) tablet by mouth every 4 hours as needed 2 clonazePAM (KlonoPIN) 1 MG tablet Take 1 (one) tablet by mouth at bedtime 4 cyclobenzaprine (Flexeril) 5 MG tabletIndications:Sp asm of muscle TAKE 1 TABLET BY MOUTH THREE TIMES A DAY NEEDED 90 tablet 1 2 diphenhydrAMINE (BENADRYL ALLERGY) 25 MG capsule Take 1 (one) capsule by mouth every 6 hours as needed for Allergies or Insomnia 2 Elastic Bandages & Supports (ADJUSTABLE ARM SLING) MISCIndications:Righ t arm weakness,Fusion of spine of cervicothoracic region Use 1 device as needed 1 Each 2 enalapril (VASOTEC) 20 MG tablet Take 1 (one) tablet by mouth once daily ferrous sulfate 325 (65 FE) MG tablet Take 1 (one) tablet by mouth once daily furosemide (Lasix) 40 MG tablet Take 1 (one) tablet by mouth 2 times daily 4 gabapentin (NEURONTIN) 300 MG capsule Take 1 (one) capsule by mouth 3 times daily 270 capsule 2 2 gabapentin (NEURONTIN) 300 MG capsule Take 1 (one) capsule by mouth 3 times daily 90 capsule 2 insulin glargine (Lantus/Semglee) 100 units/mL pen Inject 50 (fifty) Units subcutaneously at bedtime Take 37 units ivelisse before dos LORazepam (ATIVAN) 1 MG tablet TAKE 1 TABLET BY MOUTH EVERY DAY AT BEDTIME NEEDED FOR SLEEP 2 magnesium 250 MG tablet Take 250 mg by mouth once daily metFORMIN (GLUCOPHAGE) 500 MG tablet Take 1 (one) tablet by mouth 2 times daily 3 8 multivitamin daily tabletIndications:Ce rvical radiculopathy Take 1 (one) tablet by mouth once daily 2 Nerve Stimulator (TENS THERAPY PAIN RELIEF) DEVIIndications:Fusi on of spine of cervicothoracic region Use 1 device as needed (Apply to posterior spine as needed) 1 device 2 oxyCODONE-acetaminop hen (PERCOCET) 5-325 MG tablet Take 1 (one) tablet by mouth every 8 hours as needed for Pain 90 tablet 2 pantoprazole EC (Protonix) 40 MG tablet Take 1 (one) tablet by mouth 2 times daily polyethylene glycol 3350 (MIRALAX) 17 g packetIndications:Ce rvical radiculopathy Take 17 (seventeen) g by mouth once daily as needed for Constipation 2 sertraline (ZOLOFT) 100 MG tablet Take 1 (one) tablet by mouth once daily spironolactone (Aldactone) 50 MG tablet Take 2 (two) tablets by mouth once daily tadalafil (CIALIS) 20 MG tablet Take 20 mg by mouth once daily 2 tirzepatide (Mounjaro) 5 MG/0.5ML injection Inject 5 (five) mg subcutaneously every 7 days (once a week) Tuesdays clear liquids prior to procedure tiZANidine (Zanaflex) 2 MG capsuleIndications:S pasm of muscle TAKE 1 CAPSULE BY MOUTH EVERY 8 HOURS NEEDED FOR MUSCLE SPASMS 60 capsule 3 traZODone (DESYREL) 100 MG tablet Take 1 (one) tablet by mouth once daily 1 documented as of this encounter Progress Notes * Kelly Rojas RN - 02/11/2025 10:02 AM CST Patient meets discharge criteria for post operative care. Post op instructions provided to patient and all questions answered. Patient and family/friend verbalized understanding with read and/or teach back in regard to post op care needs, as well as, to have someone present and available to stay with him/her for 24 hours post anesthesia. Patient escorted out to personal vehicle of family/friend. S SUPPORT ADMINISTRATOR * Valentina Buitrago RN - 02/11/2025 7:41 AM CST 12 lead EKG ordered and completed S SUPPORT ADMINISTRATOR * Louise Díaz RN - 02/06/2025 4:09 PM CST *Not following the instructions below may result in your surgery being cancelled or delayed.* DO NOT eat any SOLID food after midnight the night before surgery including gum, cough drops, candy. DO NOT DRINK any liquids after midnight, small sips of water are fine to take medications with. The physician's office will contact you with the arrival time for your surgery. Same Day Surgery isnot open until 5:30 am, please do not arrive before this time. Bring a list of your medications with the name, dosage and last time taken, If you use an inhaler, CPAP or home oxygen, please bring it with you day of surgery Do not shower the morning or surgery nor apply any lotion, cream, deodorant or makeup the morning of surgery. Do not wear nail italian, body piercings or contact lenses. Do not use any recreational drugs 72 hours prior to surgery Leave all valuables at home such as jewelry and large amounts of money as we have no way to secure them. You cannot drive yourself home after surgery, take any form of public transportation or use Uber, Lyft or a Taxi. Children Under 14 are not allowed in the ACU and cannot be left unattended. DO NOT TAKE the following medications the day of surgery: Medications reviewed with pt DIRECTIONS: Address: [address] [place] [id number] Parking Garage: Please park on the ORANGE side of the garage, take the ORANGE elevators to the 1st floor. The [employer] LOUNGE is the first lounge on the right. Fish Stringer Assembler/Drop Off: Enter through the main entrance and take a right. You will walk down a hallway ending in a ???T?? junction with a large TV on the wall. Make a right at the ???T?? junction. You will then walk to the [employer] LOUNGE at the end of the hallway. Please call with any questions relating to anesthesia for surgery. Pre-Admissions Testing [phone] S SUPPORT ADMINISTRATOR documented in this encounter H&P Notes * Paresh Sanchez MD - 02/11/2025 7:39 AM CST PRE-PROCEDURE HISTORY & PHYSICAL NOTE (Presedation assessment per Anesthesia Team) 02/11/2025 7:39 AM Patient: Devante Hartley, date of 1955 Procedure(s) planned: Colonoscopy Indication(s): Polyp surveillance History: Past Medical History: Diagnosis Date ??? Anxiety ??? Arthritis ??? CHF (congestive heart failure) (HCC) ??? Chronic obstructive pulmonary disease (COPD) (HCC) ??? Cirrhosis of liver (HCC) ??? COPD (chronic obstructive pulmonary disease) (HCC) ??? Diabetes (HCC) type 2 ??? GERD (gastroesophageal reflux disease) ??? History of blood transfusion ??? Hypertension ??? Mixed hyperlipidemia ??? ESTHER (obstructive sleep apnea) wears CPAP ??? Pure hypercholesterolemia ??? Sleep apnea cpap Past Surgical History: Procedure Laterality Date ??? CARPAL TUNNEL SURGERY ??? Cervical Fusion N/A 08/21/2021 N/A; C2-T2 posterior spinal fusion, C3-7 decompression ??? COLONOSCOPY ??? COLONOSCOPY N/A 07/09/2024 N/A; COLONOSCOPY+EMR ??? COLONOSCOPY N/A 08/08/2024 N/A; Diag Colon + EMRs ??? FOOT SURGERY ??? Vasectomy Family History Problem Relation Name Age of Onset ??? Arthritis - Osteo Mother ??? COPD - Chronic Obstructive Pulmonary Disease Mother ??? Diabetes - Type 2 Mother ??? Hearing Loss - Unspecified Mother ??? Other - Cardiac Mother heart disease ??? Cancer - Lung Father ??? Hypertension Father Social History Socioeconomic History ??? Marital status: Spouse name: Not on file ??? Number of children: Not on file ??? Years of education: Not on file ??? Highest education level: Not on file Occupational History ??? Not on file Tobacco Use ??? Smoking status: Former Current packs/day: 0.00 Types: Cigarettes Start date: 04/19/1972 Quit date: 04/19/2017 Years since quittin.8 ??? Smokeless tobacco: Never Vaping Use ??? Vaping status: Never Used Substance and Sexual Activity ??? Alcohol use: Not Currently Alcohol/week: 1.0 standard drink of alcohol Types: 1 Cans of beer per week ??? Drug use: No ??? Sexual activity: Never Partners: Female control/protection: Surgical Other Topics Concern ??? Not on file Social History Narrative ??? Not on file Social Drivers of Health Financial Resource Strain: Not on file Food Insecurity: No Food Insecurity (08/23/2021) Hunger Vital Sign ??? Worried About Running Out of Food in the Last Year: Never true ??? Ran Out of Food in the Last Year: Never true Transportation Needs: Not on file Stress: Not on file Housing Stability: Not on file Allergies Allergen Reactions ??? Trelegy Ellipta [Linfadehvss-Gvwnzsrlx-Bjjvbb] Other Unable to urinate Review of systems: Chest pain: No Shortness of breath: No Abdominal pain: No Physical Exam: BP 144/62 Pulse 75 Temp 98.6 ??F (37 ??C) (Oral) Resp 10 Ht 1.727 m (5' 8) Wt 112 kg (247 lb) GENERAL: Alert, oriented and in no apparent distress. LUNGS: Breathing at baseline CVS: Regular heart rate. ABDOMEN: Soft, non-distended. NEURO: At baseline. ASA III Recent Labs Component Name 08/24/2114308/23/2114408/22/21222 WBC 6.2 7.5 8.8 HGB 9.3* 9.3* 9.8* Recent Labs Component Name 08/24/21143 MCV 76.0* Recent Labs Component Name 08/24/2114308/23/2114408/22/21222 NA 139 140 136 CL 107 110* 105 CO2 24 23 21* BUN 12 10 14 CREATININE 0.87 0.79 0.92 No results for input(s): AST, ALT, ALKPHOS, TBILI, ALB in the last 17575 hours. No results for input(s): CRP in the last 41368 hours. Sedation Plan: MAC by the anesthesia team. The indications, alternatives, benefits and risks of the endoscopic procedure were reviewed with the patient/family. Significant risks such as pain, bleeding, infection, perforation of the viscus, pancreatitis (in the case of EUS/ERCP), and consequences related to sedation such as respiratory arrest and cardiac arrest were discussed. Consequences from these could result in hospital stay, surgicalintervention, pain and suffering, inability to engaging gainful employment for short or intermediate manager and even leading to permanent disability and/or . Failure to accomplish the intent of the procedure or failure to accomplish certain aspect of the procdure was reviewed. The possible need for serial endoscopic procedure was reviewed. Risk of aspiration and consequent pneumonia, respiratory issues, injury to mouth, teeth gums, and throat were discussed. Patient/family understands the risks and consents to go ahead with the procedure. The patient/family was given opportunity to ask questions. The patient's questions were answered to their satisfaction. Procedure Plan: Based on the above assessment, we will perform the procedures indicated above. When the assessment above was not obtained immediately before the procedure, I have reassessed this patient and there are no changes. Paresh Hernandez S SUPPORT ADMINISTRATOR documented in this encounter Miscellaneous Notes * Clinical References AVS - Crystal Kelly, RN - 02/11/2025 8:40 AM SALES SUPPORT ADMINISTRATOR Images from the original note were not included. [id number] Understanding Colon and Rectal Polyps The colon (also called the large intestine) is a muscular tube that forms the last part of the digestive tract. It absorbs water and stores food waste. The colon is about 4 to 6 feet long. The rectumis the last 6 inches of the colon. The colon and rectum have a smooth lining composed of millions of cells. Changes in these cells can lead to growths called polyps in the colon. These can become cancerous and should be removed. Many tests are available to screen for colon cancer. But colonoscopy is the only test that looks directly into the entire large intestine and allows for treatment right away. During colonoscopy, these polyps can be removed. How often you need this test depends on many things. These include your condition, your family history, symptoms, and what the findings were at the previous colonoscopy. When the colon lining changes Changes that happen in the cells that line the colon or rectum can lead to growths called polyps. Over a period of years, polyps can turn into cancer. Removing polyps early may prevent cancer from ever forming. Polyps Polyps are fleshy clumps of tissue that form on the lining of the colon or rectum. Small polyps areusually not cancer (benign). But over time, cells in a polyp can change and become precancerous. Certain types of polyps known as adenomatous polyps and serrated polyps are precancerous. The risk forcancer also increases with the size of the polyp and certain cell and gene features. This means that they may become cancerous if they're not removed. Hyperplastic polyps are benign. They can grow quite large and not turn cancerous. Cancer Almost all colorectal cancers start when polyp cells start growing abnormally. As a cancerous tumorgrows, it may affect more and more of the colon or rectum. In time, cancer can also grow beyond thecolon or rectum and spread to nearby organs or to glands called lymph nodes. The cells can also travel to other parts of the body. This is known as metastasis. The earlier a cancerous tumor is removed, the better the chance of preventing its spread. Last Reviewed Date: 2023 00:00:00 ?? [id number] [employer]. All rights reserved. This information is not intended as a substitute for professional medical care. Always follow your healthcare professional's instructions. S SUPPORT ADMINISTRATOR documented in this encounter Plan of Treatment Upcoming Encounters Date Type Department Care Team (Late st Contact Info) Description 05/09/2025 2:30 PM SALES SUPPORT ADMINISTRATOR Video Visit [facility] - Hematology/Oncology [address] [place] [phone] Bia Lipscomb, [address] [place] [address] Scheduled Orders Name Type Priority Associated Diagnoses Orde r Schedule EKG 12-Lead ECG STAT Lumbar radiculopathy ONCE for 1 Occurrences starting 02/11/2025 until 02/11/2025 documented as of this encounter Procedures Procedure Name Priority Date/Time Associated Diagnosis Comments PATHOLOGY TISSUE Routine 02/11/2025 8:16 AM SALES SUPPORT ADMINISTRATOR History of colon polyps ENDOSCOPY, COLON, DIAGNOSTIC Routine 02/11/2025 7:49 AM SALES SUPPORT ADMINISTRATOR GLUCOSE - POINT OF CARE Routine 02/11/2025 7:32 AM SALES SUPPORT ADMINISTRATOR documented in this encounter Results * PATHOLOGY TISSUE (02/11/2025 8:16 AM SALES SUPPORT ADMINISTRATOR) Case Report Surgical Pathology Report Case: [id number] Authorizing Provider: Paresh Sanchez, Collected: 02/11/2025 08:16 AM Ordering Location: [facility]COPY Received: 02/11/2025 09:44 AM Pathologist: Rosi Webber MD Specimens: A) - Polyp Cecum, Cecum Colon Polyps B) - Polyp Ascending, Ascending Colon Polyps C) - Polyp Transverse, Transverse Colon Polyps D) - Polyp Descending, Descending Colon Polyps E) - Polyp Sigmoid, Sigmoid Colon Polyp 02/12/2025 10:56 AM [facility] Final Diagnosis Large intestine, cecum colon polyps, biopsy (A): - Tubular adenoma(s), fragmented Large intestine, ascending colon polyps, biopsy (B): - Tubular adenoma(s), fragmented Large intestine, transverse colon polyps, biopsy (C): - Tubular adenoma(s), fragmented Large intestine, descending colon polyps, biopsy (D): - Tubular adenoma(s), fragmented Large intestine, sigmoid colon polyp, biopsy (E): - Tubular adenoma, fragmented 02/12/2025 10:56 AM [facility] at 1056 SALES SUPPORT ADMINISTRATOR Microscopic Description and Comment Microscopic examination substantiates the final diagnosis. 02/12/2025 10:56 AM [facility] Clinical History The patient is a 69-year-old man who presents for high risk colon cancer surveillance (personal history of colonic polyps). Operative procedure/findings: Colonoscopy - two 2-4 mm cecal polyps, seven 3-10 mm ascending colon polyps, seven 3-10 mm transverse colon polyps, three 3-6 mm descending colon polyps, 10 mm sigmoid colon polyp, all resected and retrieved 02/12/2025 10:56 AM [facility] Gross Description The requisition and specimen(s) are identified with the patient's name Devante Hartley. Received in formalin, specimen A, consists of five yellow-parrish tissue fragments admixed with digested material, 0.2-0.7 cm and 0.9 x 0.7 x 0.4 cm in aggregate, submitted in toto in cassette A1. Received in formalin, specimen B, contains multiple pink-parrish tissue fragments admixed with digestive material, 0.4-0.9 cm and 1.8 x 1.5 x 0.4 cm in aggregate, submitted in toto in cassettes B1. Received in formalin, specimen C, consists of multiple pink-parrish tissue fragments, 0.2-1.0 cm and 1.5 x 1.5 x 0.3 cm in aggregate, submitted in toto in cassette C1. Received in formalin, specimen D, consists of four pink-parrish tissue fragments, 0.4-1.5 cm and 1.5 x 0.7 x 0.4 cm in aggregate, submitted in toto in cassette D1. Received in formalin, specimen E, consists of a 1.0 x 0.4 x 0.3 cm pink-parrish tissue fragment admixed with digestive material, submitted in toto in cassette E1./JAQUAN 02/12/2025 10:56 AM [facility] Pathologist Location at [facility] 02/12/2025 10:56 AM [facility] Disclaimer The performance characteristics of all immunohistochemical and indirect immunofluorescence stains (if any) cited in this report were determined by the Histopathology Laboratory of [facility]. Some of these tests were developed by [...] and interpreted by the attending (teaching) pathologist. 02/12/2025 10:56 AM [facility] Embedded Images 02/12/2025 10:56 AM [facility] Biopsy, NOS POLYP OF CECUM / Unknown 02/11/2025 8:16 AM SALES SUPPORT ADMINISTRATOR 02/11/2025 9:44 AM SALES SUPPORT ADMINISTRATOR Comment:Pre-op diagnosis: History of colon polyps [Z86.0100] Biopsy, NOS POLYP / Unknown 02/11/2025 8 :19 AM SALES SUPPORT ADMINISTRATOR 02/11/2025 9:44 AM SALES SUPPORT ADMINISTRATOR Comment:Pre-op diagnosis: History of colon polyps [Z86.0100] Biopsy, NOS POLYP / Unknown 02/11/2025 8 :49 AM SALES SUPPORT ADMINISTRATOR 02/11/2025 9:44 AM SALES SUPPORT ADMINISTRATOR Comment:Pre-op diagnosis: History of colon polyps [Z86.0100] Biopsy, NOS POLYP / Unknown 02/11/2025 9 :08 AM SALES SUPPORT ADMINISTRATOR 02/11/2025 9:44 AM SALES SUPPORT ADMINISTRATOR Comment:Pre-op diagnosis: History of colon polyps [Z86.0100] Biopsy, NOS POLYP OF SIGMOID COLON / Unknown 02/11/2025 9:17 AM SALES SUPPORT ADMINISTRATOR 02/11/2025 9:44 AM SALES SUPPORT ADMINISTRATOR Comment:Pre-op diagnosis: History of colon polyps [Z86.0100] us Paresh Hernandez MD LAB - PATHOLOGY/CYTO LOGY ORDERABLES Final Result [facility] [address] [place] [address], [facility] [phone] * Endoscopy, Colon, Diagnostic (02/11/2025 7:49 AM SALES SUPPORT ADMINISTRATOR) Report Endoscopy POC Endoscopy Department Report _ Patient Name: Devante Hartley Procedure Date: 02/11/2025 7:49 AM Date of : 1955 Classification: Outpatient Gender: Male Ethnicity: Not or Race: White _ Providers: Paresh Hernandez MD Referring MD: Nav Crews MD; Rip Andrea MD Procedure: Colonoscopy Indications: High risk colon cancer surveillance: Personal history of colonic polyps Medications: Monitored Anesthesia Care. See the Anesthesia note for documentation of the administered medications. Patient Profile: 69M presents for follow-up colonoscopy. Previous exam at OSH: 8 subcm polyps removed (path n/a), one 10 mm cecal polyp not removed, four 15-35 mm AC polyps not removed, one 30 mm TVC polyp not removed. 06/2024 Colonoscopy: Three polyps in cecum measuring up to 12 mm removed (TA/s), nine polyps in AC measuring up to 40 mm removed (TA/s), only limited exam could be performed from the remainder of colon. 07/2024 Colonoscopy: Four polyps in AC measuring up to 10 mm removed (TA/s), three polyps in TVC measuring up to 14 mm removed (TA/s), one 40 mm polyp in TVC removed via piecemeal mucosal resection (TA), six polyps in DC measuring up to 12 mm removed (TA/s), one 4 mm polyp in SC removed (TA). Description of Procedure: After I obtained informed [...] bowel preparation was evaluated using the BBPS ([place] Bowel Preparation Scale) with scores of: Right Colon = 2 (minor amount of residual staining, small fragments of stool and/or opaque liquid, but mucosa seen well), Transverse Colon = 2 (minor amount of residual staining, small fragments of stool and/or opaque liquid, but mucosa seen well) and Left Colon = 3 (entire mucosa seen well with no residual staining, small fragments of stool or opaque liquid). The total BBPS score equals 7. The quality of the bowel preparation was adequate. Findings: Two sessile polyps were found in the cecum. The polyps were 2 to 4 mm in size. These polyps were removed with a cold snare. Resection and retrieval were complete. Seven sessile polyps were found in the ascending colon. The polyps were 3 to 10 mm in size. These polyps were removed with a cold snare. Resection and retrieval were complete. Seven sessile polyps were found in the transverse colon. The polyps were 3 to 10 mm in size. These polyps were removed with a cold snare. Resection and retrieval were complete. Three sessile polyps were found in the descending colon. The polyps were 3 to 6 mm in size. These polyps were removed with a cold snare. Resection and retrieval were complete. A 10 mm polyp was found in the sigmoid colon. The polyp was sessile. The polyp was removed with a cold snare. Resection and retrieval were complete. Scattered medium-mouthed diverticula were found in the sigmoid colon. The exam was otherwise without abnormality on direct and retroflexion views. The perianal and digital rectal examinations were normal. Estimated Blood Loss: Estimated blood loss was minimal. Complications: No immediate complications. Impression: - Two 2 to 4 mm polyps in the cecum, removed with a cold snare. Resected and retrieved. - Seven 3 to 10 mm polyps in the ascending colon, removed with a cold snare. Resected and retrieved. - Seven 3 to 10 mm polyps in the transverse colon, removed with a cold snare. Resected and retrieved. - Three 3 to 6 mm polyps in the descending colon, removed with a cold snare. Resected and retrieved. - One 10 mm polyp in the sigmoid colon, removed with a cold snare. Resected and retrieved. - Diverticulosis in the sigmoid colon. - The examination was otherwise normal on direct and retroflexion views. Moderate Sedation: . Recommendation: - Return to hospital pool for ongoing care. Further management per GI consult / Liver team. - Monitor for fevers, bleeding, pain. - Resume previous diet as tolerated. - Hold any anticoagulant medications (blood thinners) for 2 days. Resume rest of home medications today. - Follow-up pathology / biopsy results. Further management accordingly. - Plan for repeat Colonoscopy in 1 year. - Further evaluation by Genetics Counselor to [...] entire procedure. Procedure Code(s): --- Professional --- 02110, Colonoscopy, flexible; with removal of tumor(s), polyp(s), or other lesion(s) by snare technique Diagnosis Code(s): --- Professional --- Z86.0100, Personal history of colon polyps, unspecified D12.0, Benign neoplasm of cecum D12.2, Benign neoplasm of ascending colon D12.3, Benign neoplasm of transverse colon (hepatic flexure or splenic flexure) D12.4, Benign neoplasm of descending colon D12.5, Benign neoplasm of sigmoid colon K57.30, Diverticulosis of large intestine without perforation or abscess without bleeding CPT copyright 2022 [employer]. All rights reserved. The codes documented in this report are preliminary and upon assistant professor of geography review may be revised to meet current compliance requirements. Paresh Hernandez MD 02/11/2025 9:28:15 AM Note Initiated On: 02/11/2025 7:49 AM Number of Addenda: 0 [facility] [address] [place], [place] [id number] [place] [address] [facility] 02/11/2025 7:49 AM SALES SUPPORT ADMINISTRATOR Paresh Hernandez MD GI PROCEDURE ORDERAB LES Edited Result - Final [facility] * (ABNORMAL) GLUCOSE - POINT OF CARE (02/11/2025 7:32 AM SALES SUPPORT ADMINISTRATOR) Glucose WB/POC 139(H) 70 - 99 mg/dL 02/11/2025 7:33 AM SALES SUPPORT ADMINISTRATOR [facility] Specimen Type Venous 02/11/2025 7:33 AM SALES SUPPORT ADMINISTRATOR [facility] Blood BLOOD SPECIMEN / Unknown 02/11/2025 7:32 AM SALES SUPPORT ADMINISTRATOR 02/11/2025 7:33 AM SALES SUPPORT ADMINISTRATOR Paresh Hernandez MD LAB - POINT OF CARE ORDERABLES Final Result [facility] [address] [place] [address], [facility] [phone] documented in this encounter Visit Diagnoses Diagnosis Lumbar radiculopathy- Primary Thoracic or lumbosacral neuritis or radiculitis, unspecified History of colon polyps Personal history of colonic polyps documented in this encounter Administered Medications Inactive Administered Medications - up to 3 most recent administrations Medication Order MAR Action Action Date Dose Rate Site lactated ringers infusion at 20 mL/hr, Intravenous, PRE-OP CONTINUOUS, Starting on Tue02/11/25 at 0715, Until Tue02/11/25 at 0928, Pre-op Restarted 02/11/2025 8:00 AM SALES SUPPORT ADMINISTRATOR $ New Bag/Syringe 02/11/2025 7:31 AM SALES SUPPORT ADMINISTRATOR 20 mL/hr 20 mL/ hr documented in this encounter Active and Recently Administered Medications Times are shown in SALES SUPPORT ADMINISTRATOR. Continuous Medication Order 02/09/2025 02/10/2025 02/11/2025 lactated ringers infusion (CANCELED) at 20 mL/hr, Intravenous, PRE-OP CONTINUOUS, Starting on Tue02/11/25 at 0715, Until Tue02/11/25 at 0928, Pre-op 0731 ($ New Bag/Syri nge - Provider: Valentina Buitrago RN)0759 (Paused - Provider: ANGELINE Cheema - Comment: Switch to gravity)0800 (Restarted - Provider: ANGELINE Cheema)0922 (Anesthesia Volume Adjustment - Provider: ANGELINE Cheema) documented in this encounter Care Teams Pr Intern Relationship Specialty Start Date End Date Rip Andrea MD [address] [address] PCP - General 08/22/17 documented as of this encounter
--- OUTSIDE RECORDS SUMMARY | 2025-02-11 07:55 | XMS_ITS | Encounter Summary ---
Author Organization [facility] Address [address] [place] [address] Care Team Providers Care Hat Trimmer Name Role Phone Rip Andrea MD Primary Care Provider + Reason for Visit * Auth/Cert (Routine) Specialty Diagnoses / Procedures Referred By Angel hernandez Referred To Contact Diagnoses History of colon polyps History of colon polyps [Z86.0100] Procedures [facility]ONOSCOPY DIAGNOSTIC Referral ID Status Reason Start Date Expiration Date Visits Re quested Visits Authorized [id number] 1 1 Encounter Details Date Type Department Care Team (Late st Contact Info) Description 02/11/2025 7:55 AM SPOUT TENDER - 02/11/2025 9:00 AM [facility] [address] [place] [address] Paresh Sanchez MD [address] [place] [address] COLONOSCOPY+/-EMR Social History Tobacco Use Types Packs/Day Years [...] Reading Time Taken Comments Blood Pressure 144/62 02/11/2025 7:34 AM SPOUT TENDER Pulse 75 02/11/2025 7:34 AM SPOUT TENDER Temperature 37 C (98.6 F) 02/11/2025 7:19 AM SPOUT TENDER Respiratory Rate 10 02/11/2025 7:34 AM SPOUT TENDER Oxygen Saturation - - Inhaled Oxygen Concentration - - Weight 112 kg (247 lb) 02/11/2025 7:19 AM SPOUT TENDER Height 172.7 cm (5' 8) 02/11/2025 7:19 AM SPOUT TENDER Body Mass Index 37.56 02/11/2025 7:19 AM SPOUT TENDER documented in this encounter Functional Status * [...] Simental RN * Does person have difficulty doing errands alone? Answer Date of Assessment Author No 08/08/2024 11:56 AM Lashay Gresham RN documented as of this encounter Mental Status * Does person have difficulty concentrating/remembering/making decisions? Answer Entry Date Author No 08/08/2024 11:56 AM Lashay Gresham RN documented in this encounter Discharge Instructions * Discharge Instructions* Kelly Rojas RN - 02/11/2025 8:40 AM SPOUT TENDER Colonoscopy WHAT YOU NEED TO KNOW: A [...] ask them during your visits. ?? Copyright [employer] 2020 Information is for End User's use only and may not be sold, redistributed or otherwise used for commercial purposes. All illustrations and images included in CareNotes?? are the copyrighted property of [employer]. or [employer] The above information is an cafe aide only. It is not intended as medical advice for individual conditions or treatments. Talk to your doctor, nurse or pharmacist before following any medical regimen to see if it is safe and effective for you. T TENDER documented in this encounter Medications at Time [...] escorted out to personal vehicle of family/friend. T TENDER * Valentina Buitrago RN - 02/11/2025 7:41 AM CST 12 lead EKG ordered and completed T TENDER * Louise Díaz RN - 02/06/2025 4:09 [...] morning of surgery. Do not wear nail mohawk, body piercings or contact lenses. Do not [...] surgery: Medications reviewed with pt DIRECTIONS: Address: [address] [place], [place] [id number] Parking Garage: Please park on the ORANGE side of the garage, take the ORANGE elevators to the 1st floor. The [email or web address] LOUNGE is the first lounge on the right. Supervisor Soakers/Drop Off: Enter through the main entrance and take a right. You will walk down a hallway ending in a ???T?? junction with a large TV on the wall. Make a right at the ???T?? junction. You will then walk to the [employer] [place] at the end of the hallway. Please call with any questions relating to anesthesia for surgery. Pre-Admissions Testing [phone] T TENDER documented in this encounter H&P Notes * [...] file Allergies Allergen Reactions ??? Trelegy Ellipta [Usfarawzmza-Dcuzgfulq-Exqmud] Other Unable to urinate Review of systems: [...] ALT, ALKPHOS, TBILI, ALB in the last 68803 hours. No results for input(s): CRP in the last 52293 hours. Sedation Plan: MAC by the anesthesia [...] to engaging gainful employment for short or termite technician and even leading to permanent disability and/or [...] and there are no changes. Paresh Hernandez T TENDER documented in this encounter Miscellaneous Notes * Clinical References AVS - Kelly Rojas, RN - 02/11/2025 8:40 AM SPOUT TENDER Images from the original note were not included. [id number] Understanding Colon and Rectal Polyps The colon [...] spread. Last Reviewed Date: 2023 00:00:00 ?? [id number] [employer]. All rights reserved. This information is not intended as a substitute for professional medical care. Always follow your healthcare professional's instructions. T TENDER documented in this encounter Plan of Treatment Upcoming Encounters Date Type Department Care Team (Late st Contact Info) Description 05/09/2025 2:30 PM SPOUT TENDER Video Visit [facility] - Hematology/Oncology [address] [place] [address] Bia Lipscomb, [address] [place] [address] Scheduled Orders Name Type Priority Associated Diagnoses Orde r Schedule EKG 12-Lead ECG STAT Lumbar radiculopathy ONCE for 1 Occurrences starting 02/11/2025 until 02/11/2025 documented as of this encounter Procedures Procedure Name Priority Date/Time Associated Diagnosis Comments PATHOLOGY TISSUE Routine 02/11/2025 8:16 AM SPOUT TENDER History of colon polyps ENDOSCOPY, COLON, DIAGNOSTIC Routine 02/11/2025 7:49 AM SPOUT TENDER GLUCOSE - POINT OF CARE Routine 02/11/2025 7:32 AM SPOUT TENDER documented in this encounter Results * PATHOLOGY TISSUE (02/11/2025 8:16 AM SPOUT TENDER) Case Report Surgical Pathology Report Case: [id number] Authorizing Provider: Paresh Sanchez, Collected: 02/11/2025 08:16 AM [facility] Received: 02/11/2025 09:44 AM Pathologist: Rosi Webber MD Specimens: A) - Polyp Cecum, Cecum Colon Polyps B) - Polyp Ascending, Ascending Colon Polyps C) - Polyp Transverse, Transverse Colon Polyps D) - Polyp Descending, Descending Colon Polyps E) - Polyp Sigmoid, Sigmoid Colon Polyp 02/12/2025 10:56 AM [facility] Final Diagnosis Large intestine, cecum colon polyps, biopsy (A): - Tubular adenoma(s), fragmented Large intestine, ascending colon polyps, biopsy (B): - Tubular adenoma(s), fragmented Large intestine, transverse colon polyps, biopsy (C): - Tubular adenoma(s), fragmented Large intestine, descending colon polyps, biopsy (D): - Tubular adenoma(s), fragmented Large intestine, sigmoid colon polyp, biopsy (E): - Tubular adenoma, fragmented 02/12/2025 10:56 AM [facility] at [address]56 SPOUT TENDER Microscopic Description and Comment Microscopic examination substantiates the final diagnosis. 02/12/2025 10:56 AM [facility] Clinical History The patient is a 69-year-old man who presents for high risk colon cancer surveillance (personal history of colonic polyps). Operative procedure/findings: Colonoscopy - two 2-4 mm cecal polyps, seven 3-10 mm ascending colon polyps, seven 3-10 mm transverse colon polyps, three 3-6 mm descending colon polyps, 10 mm sigmoid colon polyp, all resected and retrieved 02/12/2025 10:56 AM [facility] Gross Description The requisition and [...] toto in cassette E1./JAQUAN 02/12/2025 10:56 AM [facility] Pathologist Location at [facility] 02/12/2025 10:56 AM [facility] Disclaimer The performance characteristics of all immunohistochemical and indirect immunofluorescence stains (if any) cited in this report were determined by the Histopathology Laboratory of [facility]. Some of these tests were developed by [...] the attending (teaching) pathologist. 02/12/2025 10:56 AM [facility] Embedded Images 02/12/2025 10:56 AM [facility] Biopsy, NOS POLYP OF CECUM / Unknown 02/11/2025 8:16 AM SPOUT TENDER 02/11/2025 9:44 AM SPOUT TENDER Comment:Pre-op diagnosis: History of colon polyps [Z86.0100] Biopsy, NOS POLYP / Unknown 02/11/2025 8 :19 AM SPOUT TENDER 02/11/2025 9:44 AM SPOUT TENDER Comment:Pre-op diagnosis: History of colon polyps [Z86.0100] Biopsy, NOS POLYP / Unknown 02/11/2025 8 :49 AM SPOUT TENDER 02/11/2025 9:44 AM SPOUT TENDER Comment:Pre-op diagnosis: History of colon polyps [Z86.0100] Biopsy, NOS POLYP / Unknown 02/11/2025 9 :08 AM SPOUT TENDER 02/11/2025 9:44 AM SPOUT TENDER Comment:Pre-op diagnosis: History of colon polyps [Z86.0100] Biopsy, NOS POLYP OF SIGMOID COLON / Unknown 02/11/2025 9:17 AM SPOUT TENDER 02/11/2025 9:44 AM SPOUT TENDER Comment:Pre-op diagnosis: History of colon polyps [Z86.0100] us Paresh Hernandez MD LAB - PATHOLOGY/CYTO LOGY ORDERABLES Final Result [facility] [address] [place] [address], [facility] [phone] * Endoscopy, Colon, Diagnostic (02/11/2025 7:49 AM SPOUT TENDER) Report Endoscopy POC Endoscopy Department Report _ [...] bowel preparation was evaluated using the BBPS ([place] Bowel Preparation Scale) with scores of: Right [...] entire procedure. Procedure Code(s): --- Professional --- 71650, Colonoscopy, flexible; with removal of tumor(s), polyp(s), [...] or abscess without bleeding CPT copyright 2022 [employer]. All rights reserved. The codes documented in this report are preliminary and upon food and beverage coordinator review may be revised to meet current compliance requirements. Paresh Hernandez MD 02/11/2025 9:28:15 AM Note Initiated On: 02/11/2025 7:49 AM Number of Addenda: 0 [facility] [address] [place] [address] [facility] 02/11/2025 7:49 AM SPOUT TENDER Paresh Hernandez MD GI PROCEDURE ORDERAB LES Edited Result - Final [facility] * (ABNORMAL) GLUCOSE - POINT OF CARE (02/11/2025 7:32 AM SPOUT TENDER) Pathologist [facility] Glucose WB/POC 139(H) 70 - 99 mg/dL 02/11/2025 7:33 AM SPOUT TENDER [facility] Specimen Type Venous 02/11/2025 7:33 AM SPOUT TENDER [facility] Blood BLOOD SPECIMEN / Unknown 02/11/2025 7:32 AM SPOUT TENDER 02/11/2025 7:33 AM SPOUT TENDER Paresh Hernandez MD LAB - POINT OF CARE ORDERABLES Final Result [facility] [address] [place] [address], [facility] [phone] documented in this encounter Visit Diagnoses Diagnosis Lumbar radiculopathy- Primary Thoracic or lumbosacral neuritis or radiculitis, unspecified History of colon polyps Personal history of colonic polyps History of colon polyps Personal history of colonic polyps documented in this encounter Administered Medications Inactive Administered Medications - up to 3 most recent administrations Medication Order MAR Action Action Date Dose Rate Site lactated ringers infusion at 20 mL/hr, Intravenous, PRE-OP CONTINUOUS, Starting on Tue02/11/25 at 0715, Until Tue02/11/25 at 0928, Pre-op Restarted 02/11/2025 8:00 AM SPOUT TENDER $ New Bag/Syringe 02/11/2025 7:31 AM SPOUT TENDER 20 mL/hr 20 mL/ hr documented in this encounter Active and Recently Administered Medications Times are shown in SPOUT TENDER. Continuous Medication Order 02/09/2025 02/10/2025 02/11/2025 lactated [...] Cheema) documented in this encounter Care Teams Hat Trimmer Relationship Specialty Start Date End Date Rip Andrea MD [address] [address] PCP - General 08/22/17 documented as of this encounter
--- OUTSIDE RECORDS SUMMARY | 2025-02-11 08:00 | XMS_ITS | Encounter Summary ---
Author Organization [facility] Address [address] [place] [address] Care Team Providers Care Cap Sewer Name Role Phone Rip Andrea MD Primary Care Provider + Reason for Visit * Auth/Cert (Routine) Specialty Diagnoses / Procedures Referred By Angel hernandez Referred To Contact Diagnoses History of colon polyps History of colon polyps [Z86.0100] Procedures DC COLONOSCOPY, DIAGNOSTIC COLONOSCOPY DIAGNOSTIC Referral ID Status Reason Start Date Expiration Date Visits Re quested Visits Authorized [id number] 1 1 Encounter Details Date Type Department Care Team (Late st Contact Info) Description 02/11/2025 8:00 AM CROSSBAR SWITCH ADJUSTER Anesthesia Event [facility] ENDOSCOPY [address] [place] [address] Karen Salinas MD [address] [place] [address] Suzy Mathias, [facility] [address] [facility] [place] [address] Anesthesia Record Procedure Summary Procedure Name Responsible Anesthesiologist Anesthesia Start Time Anesthesia Stop Time COLONOSCOPY+/-EMR Karen Salinas MD 02/11/25 0800 1 04/13/24 0930 Events Date Time Event Comment 02/11/2025 0742 0800 An Start 0800 Pt In Room 0800 An Start Data 0801 Timeout Anesthesia part icipated in timeout at the time documented in the record by nursing. 0803 PT Reassessment 0804 Induction 0805 Anes Ready 0807 Proc Start 0916 Proc Stop 0918 An Emergence 0926 an stop data 0926 Pt out of Room 0930 An Stop Vitals: Vitals Value Taken Time BP 121/59 02/11/25 09:30 Temp 98.2 02/11/25 09:30 Pulse 75 02/11/25 09:30 Resp 15 02/11/25 09:30 SpO2 94 02/11/25 09:30 Meds Name Total lidocaine PF 2% 50 mg propofol 500 mg/50 mL injection 1,081.12 mg glycopyrrolate 0.4 mg/2mL injection 0.2 mg hyoscyamine (Levsin) injection 0.5 mg lactated ringers infusion 600 mL * Agents Name Insp. N2O Exp. N2O O2 * Blood No blood administrations on file. Lines, Drains, and Airways Type Details Placement Removal Drain 08/21/21; 1148; Dr Fournier; 1; Round; Joviian; 10fr; General Anesthesia 08/21/21 1148 by Marilin Allen, NATHONY Peripheral IV Date: 02/11/25; Time : 07; Orientation: Anterior, Distal, Right, Upper; Location: Arm; Gauge: 20 G 02/11/25 0731 by Valentina Buitrago RN 02/11/25 1000 by Kelly Rojas RN documented in this encounter Social History Tobacco Use Types Packs/Day Years [...] 08/08/2024 11:56 AM Lashay Gresham RN * Is person blind or have serious difficulty seeing? Answer Date of Assessment Author No 08/08/2024 11:56 AM Lashay Gresham RN * Does person have serious difficulty walking/climbing stairs? Answer Date of Assessment Author No 08/08/2024 11:56 AM Lashay Gresham RN * Does person have difficulty dressing/bathing? [...] Lashay Gresham RN documented in this encounter Progress Notes * Karen Salinas MD - 02/11/2025 9:54 AM CST ANESTHESIA POSTOP EVALUATION NOTE Procedure: COLONOSCOPY+/-EMR Devante Pan Jr Hartley is a 69 year old male Patient Vitals for the past 6 hrs: BP Temp Pulse Resp SpO2 Pain Rating Score #1 Pain Scale/Observation 02/11/25 0719 156/72 37 ??C 79 10 -- 1 N 02/11/25 0734 144/62 -- 75 10 -- -- -- 02/11/25 0927 125/66 36.7 ??C 77 24 90 % -- No/denies pain 02/11/25 0930 125/66 -- 76 12 93 % -- -- 02/11/25 0934 130/74 -- 78 18 92 % -- -- 02/11/25 0940 -- -- 70 14 94 % -- -- Anesthesia Type: MAC Pre-op Diagnosis Codes: * History of colon polyps [Z86.0100] Mental Status: awake Neuro Status: No numbness, tingling or visual disturbances Respiratory Function: natural Cardiac Function: stable Postop Pain: acceptable to the patient Postop Hydration: adequate Postop Nausea: none Assessment: no apparent anesthetic complications, patient tolerated procedure well and no evidence of recall Patient Disposition: Release from Anesthesia Care NOTABLE EVENTS: No notable events documented. SBAR SWITCH ADJUSTER * Karen Salinas MD - 02/07/2025 8:18 AM CST Images from the original note were not included. ANESTHESIA PREOPERATIVE EVALUATION NOTE Procedure: COLONOSCOPY+/-EMR Vitals: No data found. LMP: No LMP for male patient. OB Status: unknown ANESTHESIA PRE-EVALUATION NOTE History of Present Illness: 69 year old male with colon polyps. He is scheduled for colonoscopy +/- EMR with Dr. Zheng. Medical history is significant for obesity, HTN, HLD, COPD, ESTHER, GERD, DM, anxiety, depression and fatty liver. The patient is a current non-smoker (quit 2017). Physical Exam: Orientation X3 Airway/Mallampati Score: I Mouth Opening Distance: 3 fingerwidths Neck ROM: full Teeth: edentulous Heart: normal - S1 S2 Abdomen Exam: obese Review of Systems: History of anesthetic complications: No Sleep Apnea Risk: Yes, CPAP - compliant Malignant Hyperthermia: No GERD: Yes, well controlled Poor Exercise Tolerance: No (could walk 1-2 blocks- limited by back pain and SOB) Recent Chest Pain: No Shortness of Breath: No AICD/Pacemaker: No Renal Disease: No Please add this immediately after Diagnostic tests and before Anes Plan in floating window Start of PAT Evaluation: - if patient taking JOSEPH-I or ARB or Entresto then hold ONLY AM dose on DOS unless severe CHF or poorly controlled HTN This evaluation was based on phone / chart review Wt Readings from Last 3 Encounters: 08/08/24 102.4 kg (225 lb 11.2 oz) 07/09/24 103 kg (227 lb 1.6 oz) 10/05/23 112.9 kg (249 lb) Temp Readings from Last 3 Encounters: 08/08/24 36.6 ??C (Oral) 07/09/24 36.4 ??C (Axillary) 10/05/23 36.6 ??C (Temporal) BP Readings from Last 3 Encounters: 08/08/24 144/62 07/09/24 157/72 10/05/23 147/72 Pulse Readings from Last 3 Encounters: 08/08/24 76 07/09/24 70 10/05/23 93 Past Medical History[1] - Right click and Expand and make smart list editable Past Surgical History[2] - Right click and Expand and make smart list editable I. Perioperative Cardiac Risk Index 1 (TINY 2a) 1. Is the Surgical Procedure High-Risk? NO 2. History of Ischemic Heart Disease? NO 3. History of CHF? no I 4. History of Cerebro VD? Prior TIA or stroke no If yes then paste summary of most any relevant neurovascular imaging or carotid duplex results here: 5. Insulin-Dependent Diabetes? yes 6. Preoperative Creatinine > 2 mg/dl? no Recent Labs Component Name 08/24/2114308/23/2114408/22/21222 POTASSIUM 3.7 3.9 3.9 CO2 24 23 21* BUN 12 10 14 CREATININE 0.87 0.79 0.92 EGFR >90 >90 >90 GLUCOSE 161* 125* 157* CALCIUM 8.5 8.1* 8.0* Recent Labs Component Name 08/24/2114308/23/2114408/22/21222 WBC 6.2 7.5 8.8 HGB 9.3* 9.3* 9.8* HCT 30.7* 31.2* 32.4* PLTCOUNT 133* 129* 148* RCRI >= 1? RCRI >=1 = elevated risk1 Functional capacity > 4 METS? (2 sets of stairs or 4blocks)? no If RCRI >= 1 AND non low-risk surgery (eg cataracts, endo) then MACE score = >= 1% and may need further workup (eg BNP, hsT, stress TTE) if METS < 4 or unknown1 (TINY 2a) If RCRI >= 1 without active cardiac symptoms AND low risk surgery then no further w/u needed II. Consults and follow up: NO III. CIEDs: Does patient have a CIED (cardiovascular implantable electronic device eg: PM, AICD)? no Call [phone] or discuss with PAT staff all patients with CIEDs: Anselmo Information needed (technical aid, mode, indication for CIED, battery life): IV. Most recent EKG (within 6 mo if elevated risk or new sx) 2 Results for orders placed or performed during the hospital encounter of 08/19/21 EKG 12-LEAD Result Value Ref Range Ventricular Rate 79 BPM Atrial Rate 79 BPM P-R Interval 226 ms QRS Duration ms 90 ms Q-T Interval ms 368 ms QTC Calculation (Bezet) 421 ms Calculated P [employer] 31 degrees Calculated R [employer] 79 degrees Calculated T [employer] 63 degrees Interpretation EKG SINUS RHYTHM WITH 1ST DEGREE A-V BLOCK POSSIBLE SEPTAL INFARCT , AGE UNDETERMINED ABNORMAL ECG NO PREVIOUS ECGS AVAILABLE Confirmed by fellow CORAZON DAMON MD ([id number]) on 08/20/2021 11:30:48 AM Confirmed by Koby Hernandez ([id number]) on 08/21/2021 8:40:38 AM V. Anticoagulants: Are they receiving antiplatelet/anticoagulant medications (besides ASA)? What isthe periop plan? NO For patients scheduled for epidurals (eg HIPEC) - hold Xa antagonists for no less than 72 hrs No results for input(s): APT, INR, PTT in the last 01343 hours.6 . Previous blood transfusion? yes If HLA antibodies present then update problem list with #R76.9 and specify under comments which antibodies, and discuss w/ staff Recent Labs Component Name 08/21/21 0624 08/21/21 0602 ABORH B NEG B NEG ABSCG - NEG VII. ESTHER score 1 (TINY 2a) If >=5 and patient wishes for sleep study referral then complete order set ref99 and add patient to CPAP folder VIII. Known or suspected difficult airway no IX. Frailty screen:1 (TINY 2a) No data recorded X. Suboxone (Buprenorphine / Naloxone) therapy? Dose? N/A XI. Aprepitant ordered (from [facility] outpatient pharmacy) and pt will take 40 mg po 2-3 before surgeryAND pateint counseld to to use backup contraception for 1 month? no XII GLP-1 Agonists5 yes AND pt instructed to initiate a clear liquid diet for 24 hrs prior to surgery XIII. Home meds Right click and Expand and make smart list editable Medications Ordered Prior to Encounter[3] Oncology 08/08/2024 10:15 Pre-Medications ondansetron (Zofran) IV 4 mg XIV. Allergies - if allergy to Aplha-Gal medications and or severe Sulfa allergy then please discuss with staff. Right click and Expand and make smart list editable Allergies[4] XV. Additional testing needed within 3 months prior to DOS (if possible, else on DOS) - CBC w/o diff if ASA >= 3 OR expected blood loss >250 OR previously abnormal - BMP if ASA >= 3 AND non low- risk procedure / previously abnormal - CMP (instead of BMP) for patient with chronic liver disease or previously abnormal Recent Labs Component Name 08/24/21 0144 WBC 6.2 HGB 9.3* HCT 30.7* PLTCOUNT 133* Additional orders needed on DOS : - Anesthesia preop order set [id number] AND Ad hoc orders (at bottom oforder set) as below: - EPOC whole blood K+ for patient with ESRD or poorly controlled K+ - Urine test when applicable (order # [id number] for POC) - check Body Temperature regulation - Tylenol 1000 mg po (hold for endoscopies and h/o cirrhosis, alpha-gall allergy) Choose Options --> Phase of care --> choose correct procedure -> preop --> sign and hold XV. XV. Labs ordered today and needing review ? (if possible else DOS) :none Labs ordered for DOS (eg POC glucose, whole blood K for ESRD, hCG, etc POC glucose Summary: Devante Hartley is a 69 year old male presenting for COLONOSCOPY+/-EMR. They have an ASA score of 3 and are at elevated risk (RCRI >=1) for MACE Follow up results - have ALL the above ordered labs and vital signs been reviewed? YES - results are grossly WNL for this patient They ARE OPTIMIZED - PAT EVALUATION COMPLETE Suzy Mathias, RAYNA-RECREATION THERAPIST 02/07/2025 8:29 AM forthis procedure. Vital signs updated in chart AND right click to make editable (so as not to autodelete upon discharge from [facility]? yes Preoperative plan was not discussed with PAT attending, preoperative plan and physical exam will bediscussed with attending in holding area. Final clearance pending evaluation by the attending Anesthesiologist on the day of surgery. Refs: 2023 AHA/ACC/ACS/ASNC/HRS/SCA/SCCT/SCMR/SVM Guideline for Perioperative Cardiovascular Management for Noncardiac Surgery 2. Practice Advisory for Preanesthesia Evaluation. 2012. Anesthesiology V 116, No 3. 3. [place] Cardiovascular Society Guidelines on Perioperative Cardiac Risk Assessment and Management for Patients Who Undergo Noncardiac Surgery Shantell Ahmadi et al. [place] Journal of Cardiology, Volume 33, Issue 1, 2017. 4. Lisa JARVIS. 2014 ACC/AHA guideline on perioperative cardiovascular evaluation and management ofpatients undergoing noncardiac surgery: executive summary: a report of the [place] College [employer] Card[employer]/[place] Heart Association Task Force on Practice Guidelines. Circulation. 2014 Feb 9;130(24): 2215-45. 5. Yoli Gr, Marcellus Fay, Shira Acevedo, Sourav Stahl; Perioperative Management of Patients Taking Glucagon-like Peptide-1 Receptor Agonists: Applying Evidence to ClinicalPractice. Anesthesiology 2023; 141:[id number] End of PAT Evaluation: ANESTHESIA PLAN ASA Score: 3 NPO Status: No liquids within 2 hours and Continuous clear liquids Anesthesia Plan: general and TIVA Planned Induction: intravenous Planned Postop Destination: endo Anesthetic plan was discussed with: patient Anesthetic Plan discussion was: Consented The patient's procedural Anesthetic Plan was discussed with the attending, anesthesiologist plumber assistant and anesthesiologist. Overall additional findings/comments: 12L EKG-unable to see p waves routinely on rhythm strip. BMI, Height, Weight Tobacco History Estimated body mass index is 38.47 kg/m?? as calculated from the following: Height as of this encounter: 1.727 m (5' 8). Weight as of this encounter: 114.8 kg (253 lb). History[5] Alcohol History Drug History Social History Substance and Sexual Activity Alcohol Use Not Currently Alcohol/week: 1.0 standard drink of alcohol Types: 1 Cans of beer per week Social History Substance and Sexual Activity Drug Use No Outpatient Medications: Inpatient Medications: Medications[6] Medications[7] Allergies: Allergies[8] Relevant Problems Problem List: Patient Active Problem List Diagnosis Date Noted Cervical myelopathy (HCC) Priority: High Cervical radiculopathy 07/01/2021 Priority: High Lumbar radiculopathy 01/16/2018 Priority: High Medical History: Past Medical History: Diagnosis Date Anxiety Arthritis CHF (congestive heart failure) (HCC) Chronic obstructive pulmonary disease (COPD) (HCC) Cirrhosis of liver (HCC) COPD (chronic obstructive pulmonary disease) (HCC) Diabetes (HCC) type 2 GERD (gastroesophageal reflux disease) History of blood transfusion Hypertension Mixed hyperlipidemia ESTHER (obstructive sleep apnea) wears CPAP Pure hypercholesterolemia Sleep apnea cpap Surgical History: Past Surgical History: Procedure Laterality Date CARPAL TUNNEL SURGERY Cervical Fusion N/A 08/21/2021 N/A; C2-T2 posterior spinal fusion, C3-7 decompression COLONOSCOPY COLONOSCOPY N/A 07/09/2024 N/A; COLONOSCOPY+EMR COLONOSCOPY N/A 08/08/2024 N/A; Diag Colon + EMRs FOOT SURGERY Vasectomy 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 unknown OB History No obstetric history on file. Covid Vaccine: Lab Results: No results found for requested labs within last 120 days. No results found for requested labs within last 120 days. [1] Past Medical History: Diagnosis Date Anxiety Arthritis CHF (congestive heart failure) (HCC) Chronic obstructive pulmonary disease (COPD) (HCC) Cirrhosis of liver (HCC) COPD (chronic obstructive pulmonary disease) (HCC) Diabetes (HCC) type 2 GERD (gastroesophageal reflux disease) History of blood transfusion Hypertension Mixed hyperlipidemia ESTHER (obstructive sleep apnea) wears CPAP Pure hypercholesterolemia Sleep apnea cpap [2] Past Surgical History: Procedure Laterality Date CARPAL TUNNEL SURGERY Cervical Fusion N/A 08/21/2021 N/A; C2-T2 posterior spinal fusion, C3-7 decompression COLONOSCOPY COLONOSCOPY N/A 07/09/2024 N/A; COLONOSCOPY+EMR COLONOSCOPY N/A 08/08/2024 N/A; Diag Colon + EMRs FOOT SURGERY Vasectomy [3] No current facility-administered medications on file prior to encounter. Current Outpatient Medications on File Prior to Encounter Medication Sig Dispense Refill albuterol (Proventil;Ventolin) (5 MG/ML) 0.5% nebulizer solution Inhale 0.5 mL by mouth 4 times daily as needed for shortness of breath or wheezing albuterol HFA (Proventil; Ventolin; Proair) 108 (90 Base) MCG/ACT inhaler Inhale 2 (two) puffs by mouth every 6 hours as needed for shortness of breath (As needed) aspirin EC (Ecotrin) 81 MG tablet Take 1 (one) tablet by mouth at bedtime atorvastatin (LIPITOR) 20 MG tablet Take 1 (one) tablet by mouth at bedtime continue 2 KAROL CONTOUR NEXT TEST test strip FOR E11.9 TEST BLOOD SUGAR DAILY BD Pen Needle Micro U/F 32G X 6 MM MISC USE ONE DAILY TO INJECT INSULIN bisacodyl (DULCOLAX) 10 MG suppository Insert 1 (one) suppository into the rectum once daily as needed for Constipation (Patient not taking: Reported on 10/14/2021) calcium carbonate (TUMS) 500 MG chew tablet Take 1 (one) tablet by mouth every 4 hours as needed (Patient not taking: Reported on 10/05/2023) clonazePAM (KlonoPIN) 1 MG tablet Take 1 (one) tablet by mouth at bedtime cyclobenzaprine (Flexeril) 5 MG tablet TAKE 1 TABLET BY MOUTH THREE TIMES A DAY NEEDED (Patient not taking: Reported on 10/05/2023) 90 tablet 1 diphenhydrAMINE (BENADRYL ALLERGY) 25 MG capsule Take 1 (one) capsule by mouth every 6 hours as needed for Allergies or Insomnia Elastic Bandages & Supports (ADJUSTABLE ARM SLING) MISC Use 1 device as needed (Patient not taking: Reported on 10/05/2023) 1 Each 0 enalapril (VASOTEC) 20 MG tablet Take 1 (one) tablet by mouth once daily ferrous sulfate 325 (65 FE) MG tablet Take 1 (one) tablet by mouth once daily furosemide (Lasix) 40 MG tablet Take 1 (one) tablet by mouth 2 times daily gabapentin (NEURONTIN) 300 MG capsule Take 1 (one) capsule by mouth 3 times daily (Patient not taking: Reported on 10/05/2023) 270 capsule 2 gabapentin (NEURONTIN) 300 MG capsule Take 1 (one) capsule by mouth 3 times daily (Patient not taking: Reported on 10/14/2021) 90 capsule 0 insulin glargine (Lantus/Semglee) 100 units/mL pen Inject 50 (fifty) Units subcutaneously at bedtime Take 37 units ivelisse before dos LORazepam (ATIVAN) 1 MG tablet TAKE 1 TABLET BY MOUTH EVERY DAY AT BEDTIME NEEDED FOR SLEEP magnesium 250 MG tablet Take 250 mg by mouth once daily (Patient not taking: Reported on 10/14/2021) metFORMIN (GLUCOPHAGE) 500 MG tablet Take 1 (one) tablet by mouth 2 times daily 3 multivitamin daily tablet Take 1 (one) tablet by mouth once daily Nerve Stimulator (TENS THERAPY PAIN RELIEF) JANET Use 1 device as needed (Apply to posterior spine as needed) (Patient not taking: Reported on 10/05/2023) 1 device 0 oxyCODONE-acetaminophen (PERCOCET) 5-325 MG tablet Take 1 (one) tablet by mouth every 8 hours as needed for Pain 90 tablet 0 pantoprazole EC (Protonix) 40 MG tablet Take 1 (one) tablet by mouth 2 times daily polyethylene glycol 3350 (MIRALAX) 17 g packet Take 17 (seventeen) g by mouth once daily as needed for Constipation (Patient not taking: Reported on 10/14/2021) sertraline (ZOLOFT) 100 MG tablet Take 1 (one) tablet by mouth once daily spironolactone (Aldactone) 50 MG tablet Take 2 (two) tablets by mouth once daily tadalafil (CIALIS) 20 MG tablet Take 20 mg by mouth once daily (Patient not taking: Reported on 10/14/2021) tirzepatide (Mounjaro) 5 MG/0.5ML injection Inject 5 (five) mg subcutaneously every 7 days (once a week) Tuesdays 24 clear liquids prior to procedure tiZANidine (Zanaflex) 2 MG capsule TAKE 1 CAPSULE BY MOUTH EVERY 8 HOURS NEEDED FOR MUSCLE SPASMS (Patient not taking: Reported on 10/05/2023) 60 capsule 0 traZODone (DESYREL) 100 MG tablet Take 1 (one) tablet by mouth once daily [4] Allergies Allergen Reactions Trelegy Ellipta [Zasjxixjgxl-Rdlrpeooo-Arpgws] Other Unable to urinate [5] Social History Tobacco Use Smoking Status Former Current packs/day: 0.00 Types: Cigarettes Start date: 04/19/1972 Quit date: 04/19/2017 Years since quittin.8 Smokeless Tobacco Never [6] Outpatient Medications Marked as Taking for the 02/11/25 encounter (Hospital Encounter) Medication Sig Last Dose/Taking albuterol Inhale 0.5 mL by mouth 4 times daily as needed for shortness of breath or wheezing TakingAs Needed albuterol HFA Inhale 2 (two) puffs by mouth every 6 hours as needed for shortness of breath (As needed) Taking As Needed aspirin EC Take 1 (one) tablet by mouth at bedtime Taking atorvastatin Take 1 (one) tablet by mouth at bedtime continue Taking clonazePAM Take 1 (one) tablet by mouth at bedtime Taking enalapril Take 1 (one) tablet by mouth once daily Taking ferrous sulfate Take 1 (one) tablet by mouth once daily Taking furosemide Take 1 (one) tablet by mouth 2 times daily Taking insulin glargine Inject 50 (fifty) Units subcutaneously at bedtime Take 37 units ivelisse before dos Taking metFORMIN Take 1 (one) tablet by mouth 2 times daily Taking pantoprazole EC Take 1 (one) tablet by mouth 2 times daily Taking sertraline Take 1 (one) tablet by mouth once daily Taking spironolactone Take 2 (two) tablets by mouth once daily Taking tirzepatide Inject 5 (five) mg subcutaneously every 7 days (once a week) Tuesdays 24 clear liquids prior to procedure Taking traZODone Take 1 (one) tablet by mouth once daily Taking [7] No current facility-administered medications for this encounter. [8] Allergies Allergen Reactions Trelegy Ellipta [Vxkeoalokvv-Laesivtln-Umvrvr] Other Unable to urinate SBAR SWITCH ADJUSTER SBAR SWITCH ADJUSTER SBAR SWITCH ADJUSTER documented in this encounter Miscellaneous Notes * Anesthesia Transfer of Care - Byron Esquivel CAA - 02/11/2025 9:30 AM CROSSBAR SWITCH ADJUSTER ANESTHESIA TRANSFER OF CARE NOTE Today's Date: 02/11/2025 Date of : 1955 Patient: Devante Hartley Procedure(s) with comments: COLONOSCOPY+/-EMR - A. Cecum Colon Polyps Cold Snare x2 B. Ascending Colon Polyps Cold Snare x7 C. Transverse Colon Polyps Cold Snare x7 D. Descending Colon Polyps Cold Snare x3 E. Sigmoid Colon Polyp Cold Snare x1 Surgeon(s): Primary: Paresh Sanchez MD Preop Diagnosis: Pre-op Diagnois: * History of colon polyps [Z86.0100] Pre-op Meds (From admission, onward) Start Stop Status Route Frequency Ordered 02/11/25 0802 glycopyrrolate (Robinul) injection -- Sent IV PRN 02/11/25 0803 02/11/25 0844 hyoscyamine injection -- Sent SC PRN 02/11/25 0844 02/11/25 0802 lidocaine HCl (PF) (Xylocaine MPF) 2 % injection -- Sent IV PRN 02/11/25 0803 02/11/25 0805 propofol (Diprivan) infusion -- Sent IV PRN 02/11/25 0807 Post-op Diagnosis: * History of colon polyps [Z86.0100] . Allergies[1] Vitals: Vitals Value Taken Time BP 121/59 02/11/25 09:30 Temp 98.2 02/11/25 09:30 Pulse 75 02/11/25 09:30 Resp 15 02/11/25 09:30 SpO2 94 02/11/25 09:30 Patient Vitals for the past 3 hrs: BP Temp Pulse Resp Pain Rating Score #1 02/11/25 0734 144/62 -- 75 10 -- 02/11/25 0719 156/72 37 ??C 79 10 1 Lines, Drains, and Airways Type Details Placement Removal Drain 08/21/21; 1148; Dr Fournier; 1; Round; Accordian; 10fr; General Anesthesia 08/21/21 1148 by Marilin Allen RN Peripheral IV Date: 02/11/25; Time: 730; Orientation: Anterior, Distal, Right, Upper; Location: Arm; Gauge: 20 G 02/11/25 0731 by Valentina Buitrago RN Intraprocedure I/O Totals Intake lactated ringers infusion 600.00 mL Total Intake 600 mL Patient Transfer Location: Endo Recovery Transport Airway: spontaneous respirations Notable Events: None Handoff Given? Yes Checklist or Protocol - The franco handoff elements that must be included in the transfer of care checklist include: 1. Identification of patient. 2. Identification of responsible practitioner (PACU nurse or advanced practitioner). 3. Discussion of pertinent medical history. 4. Discussion of the surgical/procedure course (procedure, reason for surgery, procedure performed). 5. Intraoperative anesthetic management and issue/concerns. 6. Expectations/Plans for the early post-procedure period. 7. Opportunity for questions and acknowledgement of understanding of report from the receiving PACUteam. NOTABLE EVENTS: No notable events documented. ANGELINE Cheema [1] Allergies Allergen Reactions Trelegy Ellipta [Tolkiaavdfz-Xskzmrufa-Kdaigq] Other Unable to urinate SBAR SWITCH ADJUSTER documented in this encounter Plan of Treatment Upcoming Encounters Date Type Department Care Team (Late st Contact Info) Description 05/09/2025 2:30 PM CROSSBAR SWITCH ADJUSTER Video Visit [facility] - Hematology/Oncology [address] [place] [address] Bia Lipscomb, TEREZA [address] [place] [address] documented as of this encounter Visit Diagnoses Not on filedocumented in this encounter Administered Medications Inactive Administered Medications - up to 3 most recent administrations Medication Order MAR Action Action Date Dose Rate Site glycopyrrolate (Robinul) injection Intravenous, PRN, Starting on Tue02/11/25 at 0802, Until Tue02/11/25 at 0931, Anesthesia Intra-op $ Given 02/11/2025 8:02 AM CROSSBAR SWITCH ADJUSTER 0.2 mg hyoscyamine injection Subcutaneous, PRN, Starting on Tue02/11/25 at 0844, Until Tue02/11/25 at 0931, Anesthesia Intra-op $ Given 02/11/2025 8:44 AM CROSSBAR SWITCH ADJUSTER 0.5 mg lactated ringers infusion at 20 mL/hr, Intravenous, PRE-OP CONTINUOUS, Starting on Tue02/11/25 at 0715, Until Tue02/11/25 at 0928, Pre-op Restarted 02/11/2025 8:00 AM CROSSBAR SWITCH ADJUSTER $ New Bag/Syringe 02/11/2025 7:31 AM CROSSBAR SWITCH ADJUSTER 20 mL/hr 20 mL/ hr lidocaine HCl (PF) (Xylocaine MPF) 2 % injection Intravenous, PRN, Starting on Tue02/11/25 at 0802, Until Tue02/11/25 at 0931, Anesthesia Intra-op $ Given 02/11/2025 8:02 AM CROSSBAR SWITCH ADJUSTER 50 mg propofol (Diprivan) infusion Intravenous, PRN, Starting on Tue02/11/25 at 0805, Until Tue02/11/25 at 0931, Anesthesia Intra-op Rate Change 02/11/2025 8:23 AM CROSSBAR SWITCH ADJUSTER 120 mcg/kg/min 80.64 mL/hr $ New Bag/Syringe 02/11/2025 8:07 AM CROSSBAR SWITCH ADJUSTER 150 mcg/kg/min 10 0.8 mL/hr $ Given 02/11/2025 8:05 AM CROSSBAR SWITCH ADJUSTER 100 mg documented in this encounter Care Teams Cap Sewer Relationship Specialty Start Date End Date Rip Andrea MD [address] [place] [id number] PCP - General 08/22/17 documented as of this encounter
[2025-02-12 13:31] LABS: Hematocrit 34.7 % (42.0-52.0); Hemoglobin 11.6 g/dL (14.0-18.0); Mean Corpuscular HGB Conc 33.4 g/dl (32-36); Mean Corpuscular Hemoglobin 29.0 pg (26-34); Mean Corpuscular Volume 86.8 fl (80-100); Platelet Count Result 182 k/mm3 (150-375); Red Blood Count 4.00 M/mm3 (4.6-6.20); White Blood Count 10.9 K/mm3 (4.5-10.0)
[2025-02-12 13:35] LABS: Blood Urea Nitrogen 18 mg/dL (8-26); Carbon Dioxide 22 mmol/L (22-30); Chloride 101 mmol/L (98-109); Estimated Glomerular Filt Rate 60; Glucose 136 mg/dL (70-105); Ionized Calcium (POC) 1.16 mmol/L (1.11-1.31); Potassium 4.1 mmol/L (3.5-4.9); Sodium 137 mmol/L (138-146)
--- OUTSIDE RECORDS SUMMARY | 2025-02-12 14:00 | XMS_ITS | Encounter Summary ---
Author Organization [facility] DALIAKamida [facility] Address [address] [place] [address] Care Team Providers Care Heating And Refrigeration Inspector Name Role Phone Rip Andrea MD Primary Care Provider +1- [phone] Reason for Visit * Reason Comments Follow Up Encounter Details Date Type Department Care Team (Late st Contact Info) Description 02/12/2025 2:00 PM CARPET INSTALLER HELPER Office Visit [facility] Oncology and Hematology - Javon [address] [facility] [address] [place] [address] Joey Suarez MD [address] [facility] [address] [place] [address] Chronic anemia (Primary Dx) Social [...] Sign Reading Time Taken Comments Blood Pressure 135/67 02/12/2025 1:44 PM CARPET INSTALLER HELPER Pulse 84 02/12/2025 1:40 PM CARPET INSTALLER HELPER Temperature 36.6 C (97.9 F) 02/12/2025 1:40 PM CARPET INSTALLER HELPER Respiratory Rate 16 02/12/2025 1:40 PM CARPET INSTALLER HELPER Oxygen Saturation - - Inhaled Oxygen Concentration - - Weight 112.6 kg (248 lb 3.2 oz) 02/12/2025 1:40 PM CARPET INSTALLER HELPER Height - - Body Mass Index 37.74 10/17/2024 2:53 PM CDT documented in this encounter Progress Notes * Joey Suarez MD - 02/12/2025 2:23 PM CST HEMATOLOGY / ONCOLOGY PROGRESS NOTE Patient Identification: Name: Devante Hartley Age: 69 y.o. Sex: male : 1955 DIAGNOSIS Chronic anemia CURRENT TREATMENT Iron 325 mg twice a day with vitamin C 500 mg daily TREATMENT HISTORY SUBJECTIVE Patient came to the office for follow-up visit. He denies any bleeding and bruising. Weight and appetite stable. Denies any chest pain and shortness of breath. He has been taking oral iron twice a day and tolerating it well. No other new complaints. Review of system Constitutional: Patient did not mention fevers, sweats, weight and appetite stable, denies any excessive tiredness and fatigue HEENT: Patient did not mention sinus congestion, hearing or vision problems Respiratory: Patient did not mention cough, dyspnea, wheeze Cardiovascular: Patient did not mention chest pain, exertional chest pressure/discomfort, nausea, syncope, shortness of breath GI: Patient did not mention constipation, diarrhea, dsyphagia, reflux symptoms, vomiting, melena : Patient did not mention dysuria, frequency, incontinence, urgency Integumentary system: no lymphadenopathy, sweats, flushing Musculoskeletal: Patient not mention: myalgia, arthralgia Neurological: Patient did not mention blurry or disturbed vision, numbness/weakness, dizziness Skin: No lumps, bumps or rashes. 12 point review of system was reviewed Objective: Vital signs in last 24 hours: As per nursing note Exam: HEENT: Atraumatic, external ears normal, nose normal, oropharynx moist, no pharyngeal exudates. no sinus tenderness Neck- normal range of motion, no tenderness, supple Cardiovascular: Normal rate, normal rhythm, no murmurs, no gallops, no rubs GI: Soft, nondistended, normal bowel sounds, nontender, no splenomegaly, no hepatomegaly, no mass, no rebound, no guarding : No costovertebral angle tenderness Musculoskeletal: No edema, no tenderness, no deformities. Back- no tenderness Integument: Well hydrated, no rash, Digits and nails inspection normal Lymphatic: No lymphadenopathy noted Neurologic: Alert & oriented x 3, CN 2-12 normal, normal motor function, normal sensory function, no focal deficits noted Exam as above PATH LABS Labs from October 17 showed creatinine 1.1 B12 414 folic acid 7.3 hemoglobin 11 MCV 87.8 iron 67 saturation 16 ferritin 13 soluble transferrin receptor elevated at 39.8 Labs from February 12 showed WBC 10.9 hemoglobin 11.6 platelet 1 82,000 ferritin 29 iron 54 saturation 16 creatinine 1.2 Assessment: Plan: There are no active problems to display for this patient. Chronic anemia. Patient was diagnosed with liver cirrhosis.Patient underwent EGD on June 21, 2024 showed gastritis. Colonoscopy was also performed on the same date that showed colon polyps with diverticulosis without any bleeding. Capsule enteroscopy was done on July 25 that showed AVM in the jejunumwithout any bleeding. Labs showed improvement in the hemoglobin and iron studies. Patient will continue iron 325 mg twicea day with vitamin C 500 mg daily. No need for iron infusion. I will see him back in 6 months with repeat labs. Liver cirrhosis secondary to fatty liver. He will follow-up with the gastroenterology service. I have recommended regular exercise and weight loss. Type 2 diabetes. Patient is on metformin and will follow-up with the primary care physician. Gastritis. Stable on Protonix. Follow-up in 6 months 02/12/2025 Joey Suarez MD ET INSTALLER HELPER documented in this encounter Plan of Treatment Upcoming Encounters Date Type Department Care Team (Late st Contact Info) Description 08/14/2025 11:30 AM CDT Office Visit [facility] Oncology and Hematology - Javon [address] [facility] [address] [place] [address] Joey Suarez MD [address] [facility] [address] [place] [address] Scheduled Orders Name Type Priority Associated Diagnoses Orde r Schedule CBC WITHOUT DIFFERENTIAL Lab Stat Chronic anemia Expected: 08/12/2025, Expires: 02/12/2026 BASIC METABOLIC PANEL Lab Stat Chronic anemia Expected: 08/12/2025, Expires: 02/12/2026 FERRITIN Lab Routine Chronic anemia Expected: 08/12/2025, Expires: 02/12/2026 IRON, TIBC, AND PERCENT SATURATION Lab Routine Chronic anemia Expected: 08/12/2025, Expires: 02/12/2026 VITAMIN B12 AND FOLATE Lab Routine Chronic anemia Expected: 08/12/2025, Expires: 02/12/2026 documented as of this encounter Visit Diagnoses Diagnosis Chronic anemia- Primary Anemia, unspecified documented in this encounter Care Teams Heating And Refrigeration Inspector Relationship Specialty Start Date End Date Rip Andrea MD [address] [place] [address] PCP - General Family Practice 10/17/24 documented as of this encounter
--- OUTSIDE RECORDS SUMMARY | 2025-02-12 14:59 | XMS_ITS | Clinical Summary ---
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 Not on file Not on f ile Not on file Last Filed Vital Signs Vital Sign Reading Time Taken Comments Blood Pressure 132/61 02/23/2018 11:28 AM SWEATER DESIGNER Pulse 80 02/23/2018 11:23 AM SWEATER DESIGNER Temperature 36.8 C (98.2 F) 02/23/2018 10:49 AM SWEATER DESIGNER Respiratory Rate 18 02/23/2018 11:2 3 AM SWEATER DESIGNER Oxygen Saturation 95% 02/23/2018 11: 23 AM SWEATER DESIGNER Inhaled Oxygen Concentration - - Weight 113.9 kg (251 lb 3.2 oz) 018 10:49 AM SWEATER DESIGNER Height 175.3 cm (5' 9) 02/23/2018 10:4 9 AM SWEATER DESIGNER Body Mass Index 37.1 02/23/2018 10:49 AM SWEATER DESIGNER Plan of Treatment Health Maintenance Due Date [...] to complete this topic Insurance Care Teams Tobacco Drying Machine Operator Relationship Specialty Start Date End Date Rip Andrea MD [address] [address] PCP - General FAMILY PRACTICE 01/16/18
--- OUTSIDE RECORDS SUMMARY | 2025-02-12 14:59 | XMS_ITS | Clinical Summary ---
Author Organization [facility] Clarice Arshad Address [address] [place] [address] Care Team Providers Care Stitch Wheeler Name Role Phone Rip Andrea MD Primary Care Provider +1- [phone] Allergies Active Allergy Reactions Criticality Noted Date Comments Fluticasone-Umeclidi n-Vilanter Other (See Comments) 02/12/2025 Unable to use the bathroom Medications albuterol sulfate HFA 90 mcg/actuation aerosol [...] mg by mouth 2 times daily. Active spironolactone (ALDACTONE) 100 mg tablet Take 1 Tablet by mouth daily. Active sertraline (ZOLOFT) 100 mg tablet Take 100 mg by mouth daily. Active tamsulosin (FLOMAX) 0.4 mg capsule Take 1 Capsule by mouth daily. 5 Active traZODone (DESYREL) 100 mg tablet Take 100 mg by mouth daily at bedtime. 5 Active Mounjaro 2.5 mg/0.5 mL Pen Injector ADMINISTER 2.5 MG UNDER THE SKIN WEEKLY FOR 4 WEEKS Active Active Problems No known active problems Encounters Date Type Department Care Team Description 02/12/2025 2:00 PM CASE MANAGERS Office Visit [facility] Oncology and Hematology [facility] [address] [place] [address] Joey Suarez MD Chronic anemia (Primary Dx) 02/11/2025 Telephone [facility] Oncology [facility] [address] [place] [address] Joey Suarez MD labs for appt 12/04/2024 External Device Data STL ABSTRACTION Provider, Abstract 11/27/2024 External Device Data STL ABSTRACTION Provider, Abstract from Last 3 Months Family History Medical [...] Comments Blood Pressure 135/67 02/12/2025 1:44 PM CASE MANAGERS Pulse 84 02/12/2025 1:40 PM CASE MANAGERS Temperature 36.6 C (97.9 F) 02/12/2025 1:40 PM CASE MANAGERS Respiratory Rate 16 02/12/2025 1:40 PM CASE MANAGERS Oxygen Saturation 91% 10/17/2024 2:53 PM CDT Inhaled Oxygen Concentration - - Weight 112.6 kg (248 lb 3.2 oz) 02/12/2025 1:40 PM CASE MANAGERS Height 172.7 cm (5' 8) 10/17/2024 2:53 PM CDT Body Mass Index 37.74 10/17/2024 2:53 PM CDT Plan of Treatment Upcoming Encounters Date Type Department Care Team (Late st Contact Info) Description 08/14/2025 11:30 AM CDT Office Visit [facility] Oncology and Hematology [facility] [address] [facility] [address] [place] [address] Joey Suarez MD [address] [facility] [address] [place] [address] Health Maintenance Due Date Last Done Comments Pre-Diabetes and Diabetes Screening 1955 DTAP/TDAP/TD VACCINES (1 - Tdap) 09/05/1974 FIT-DNA Q 3 years 09/05/2000 FIT/FOBT Q 1 year 09/05/2000 Flex Sig/CT Colonography Q 5 years 09/05/2000 Lung Cancer Screening 09/05/2005 PNEUMOCOCCAL VACCINE 50+ YEA RS (1 of 1 - PCV) 09/05/2005 ZOSTER VACCINE (1 of 2) 09/05/2005 Abdominal Aortic Aneurysm (A AA) Screening 09/05/2020 Medicare Advantage (MD) Prev entative Visit/Annual Wellness Visit 03/21/2024 INFLUENZA VACCINE (#1) 2024 RSV VACCINE (60+ or ) (1 - 1-dose 75+ series) 09/05/2030 COLORECTAL SCREENING 02/11/2035 02/11/2025, 08/08/2024, 08/08/2024 Colorectal Cancer Screening 02/11/2035 Procedures Procedure Name Priority Date/Time Associated Diagnosis Comments IRON, TIBC, AND PERCENT SATURATION Routine 01/29/2025 7:21 AM CASE MANAGERS Chronic anemia FERRITIN Routine 01/29/2025 7:21 AM CASE MANAGERS Chronic anemia from Last 3 Months Results * (ABNORMAL) IRON, TIBC, AND PERCENT SATURATION (01/29/2025 7:21 AM CASE MANAGERS) IRON 54 50 - 180 mcg/dL [facility] TIBC 337 250 - 425 mcg/dL (calc) [facility] IRON % SATURATION 16(L) 20 - 48 % (calc) [facility] Comment: FASTING:YES AN UPDATE OR CORRECTION HAS BEEN MADE TO NAME FASTING: YES Test Performed at: [place] [id number] Josette Pandya MD Blood 01/29/2025 7:21 AM CASE MANAGERS 01/29/2025 7:21 AM CASE MANAGERS Joey Suarez MD CHEMISTRY ORDERABLES Final Resu lt Performing Organization Address City/[facility]/ZIP Co de Phone Number [facility] [phone] [facility] [address] [place] [address] * FERRITIN (01/29/2025 7:21 AM CASE MANAGERS) FERRITIN 29 24 - 380 ng/mL [facility] Comment: FASTING:YES AN UPDATE OR CORRECTION HAS BEEN MADE TO NAME FASTING: YES Test Performed at: [facility] [address] [place] [address] Josette Pandya MD Blood 01/29/2025 7:21 AM CASE MANAGERS 01/29/2025 7:21 AM CASE MANAGERS Joey Suarez MD CHEMISTRY ORDERABLES Final Resu lt [facility] [phone] [facility] [address] [place] [address] from Last 3 Months Insurance Care Teams Stitch Wheeler Relationship Specialty Start Date End Date Rip Andrea MD [address] [place] [address] PCP - General Family Practice 10/17/24
--- OUTSIDE RECORDS SUMMARY | 2025-02-12 15:00 | XMS_ITS | Clinical Summary ---
Author Organization [facility] Address [address], [address] [address] Phone Care Team Providers Care Crop Grain Or Livestock Farmer Name Role Phone Rip Andrea MD Primary [...] Virus (HCV) Screening 1955 TdaP Immunization 1955 Varicella Immunization (1 of 2 - 13+ 2-dose series) 09/05/1968 Cologuard 09/05/2000 Colonoscopy 09/05/2000 Colorectal Cancer Screening 09/05/2000 Immunochemical Fecal Occult Blood 09/05/2000 Pneumococcal Immunization (5 0+ years) (1 of 1 - PCV) 09/05/2005 Zoster Immunization (1 of 2) 09/05/2005 Influenza Immunization (#1) 2024 SARS-COV-2 Immunization ( - 2024- season) 2024 Respiratory Syncytial Virus (RSV) Immunization [...] patient's age to complete this topic [place] [address] [place] [address] Care Teams Crop Grain Or Livestock Farmer Relationship Specialty Start Date End Date Rip Andrea MD PCP - General Family Medicine 04/13/17
--- OUTSIDE RECORDS SUMMARY | 2025-02-12 15:00 | XMS_ITS | Encounter Summary ---
Author Organization [facility] [employer] [facility] Address [address] [place] [address] Care Team Providers Care Supervisor Chassis Assembly Name Role Phone Rip Andrea MD Primary Care Provider +1- [phone] Reason for Visit * Reason Onset Date Comments labs for appt 02/11/2025 Encounter Details Date Type Department Care Team (Late st Contact Info) Description 02/11/2025 Telephone [facility] Oncology and Hematology - Javon [address] [facility] [address] [place] [address] Joey Suarez MD [address] [facility] [address] [place] [address] labs for appt Social History Tobacco Use Types Packs/Day Years [...] on file documented as of this encounter Miscellaneous Notes * Telephone Encounter - Rosi Segura - 02/11/2025 9:25 AM CST LVM for patient regarding labs for his appointment. He went to [facility] and got labs done but it lookslike they only did 2 out of the 4 ordered. I asked him to give our office a call back. BOWL PAINT TRIMMER documented in this encounter Plan of Treatment Upcoming Encounters Date Type Department Care Team (Late st Contact Info) Description 08/14/2025 11:30 AM CDT Office Visit [facility] Oncology and Hematology - Rudd [address] [facility] [address] [place] [address] Joey Suarez MD [address] [facility] [address] [place] [address] documented as of this encounter Visit Diagnoses Not on filedocumented in this encounter Care Teams Supervisor Chassis Assembly Relationship Specialty Start Date End Date Rip Andrea MD [address] [place] [phone] PCP - General Family Practice 10/17/24 documented as of this encounter
--- OUTSIDE RECORDS SUMMARY | 2025-02-12 15:00 | XMS_ITS | Encounter Summary ---
Author Organization [facility] Address [address] [place] [address] Care Team Providers Care Control Room Supervisor Name Role Phone Rip Andrea MD Primary Care Provider + Reason for Visit * Reason Comments Refill Request Encounter Details Date Type Department Care Team (Late st Contact Info) Description 10/03/2021 Refill [facility] [address] [place] [address] Rcahael Blancas, ENGINEER-HOISTING PILE DRIVING ENGINEER [address] [address] Refill Request Social History Tobacco Use Types [...] No 08/21/2021 3:59 PM Preethi Mccall RN * Is person blind or have serious difficulty seeing? Answer Date of Assessment Author No 08/21/2021 3:59 PM KELSEYT Preethi Reyes RN * Does person have serious difficulty walking/climbing stairs? Answer Date of Assessment Author No 08/21/2021 3:59 PM Preethi Mccall RN * Does person have difficulty dressing/bathing? Answer Date of Assessment Author No 08/21/2021 3:59 PM Preethi Mccall RN * Does person have difficulty doing [...] st Contact Info) Description 05/09/2025 2:30 PM FIELD COORDINATOR Video Visit [facility] - Hematology/Oncology [address] [place] [address] Bia Lipscomb, [address] [place] [address] documented as of this encounter Visit Diagnoses Not on filedocumented in this encounter Care Teams Control Room Supervisor Relationship Specialty Start Date End Date Rip Andrea MD [address] [facility] [address] [place] [address] PCP - General 08/22/17 documented as of this encounter
--- OUTSIDE RECORDS SUMMARY | 2025-02-12 15:00 | XMS_ITS | Encounter Summary ---
Author Organization [facility] Address [address] [facility] [place] [address] Care Team Providers Care Scientific Aide Name Role Phone Rip Andrea MD Primary Care Provider + Encounter Details Date Type Department Care Team (Latest Contact Info) Description 02/11/2025 Travel Social History Tobacco Use Types Packs/Day Years [...] of Assessment Author No 08/08/2024 11:56 AM CDT Lashay Simental RN * Is person blind or have serious difficulty seeing? Answer Date of Assessment Author No 08/08/2024 11:56 AM CDT Lashay Simental RN * Does person have [...] Lashay Gresham RN documented in this encounter Plan of Treatment Upcoming Encounters Date Type Department Care Team (Late st Contact Info) Description 05/09/2025 2:30 PM WIND FARM OPERATIONS MANAGER Video Visit [facility] - Hematology/Oncology [address] [place] [phone] Bia Lipscomb, [address] [place] [address] documented as of this encounter Visit Diagnoses Not on filedocumented in this encounter Care Teams Scientific Aide Relationship Specialty Start Date End Date Rip Andrea MD [address] [address] PCP - General 08/22/17 documented as of this encounter
--- OUTSIDE RECORDS SUMMARY | 2025-02-12 15:00 | XMS_ITS | Clinical Summary ---
Author Organization [facility] Address [address] [place] [address] Care Team Providers Care Ruffling Machine Operator Name Role Phone Rip Andrea MD Primary Care Provider + Source Comments [facility],non-owned Affiliates and Associated Physician Practices is amultiple site organization consisting of ambulatory clinics and hospital sitesin [place], [place], [place] and [place]. This disclosure is being madepursuant to the Care Everywhere program and may not contain all information available regarding this patient. Last updated 17.[facility] Allergies Active Allergy Reactions Criticality Noted Date Comments Roofmviqmxz-Jaqgknbvk-Flciqj Other Medium 025 Unable to urinate Medications * Be aware that medications may not be up to date on this document. Alwaysverify current medications with the patient. atorvastatin (LIPITOR) 20 MG tablet Take 1 (one) tablet by mouth at bedtime continue 2 018 Active metFORMIN (GLUCOPHAGE) 500 MG tablet Take 1 (one) tablet by mouth 2 times daily 3 018 Active enalapril (VASOTEC) 20 MG tablet Take 1 (one) tablet by mouth once daily Active sertraline (ZOLOFT) 100 MG tablet Take 1 (one) tablet by mouth once daily Active traZODone (DESYREL) 100 MG tablet Take 1 (one) tablet by mouth once daily 12/27/2 021 Active magnesium 250 MG tablet Take 250 mg by mouth once daily Active tadalafil (CIALIS) 20 MG tablet Take 20 mg by mouth once daily Active calcium carbonate (TUMS) 500 MG chew tablet Take 1 (one) tablet by mouth every 4 hours as needed Active Additional Information Patient not taking.Reported on 10/05/2023 diphenhydrAMINE (BENADRYL ALLERGY) 25 MG capsule Take 1 (one) capsule by mouth every 6 hours as needed for Allergies or Insomnia Active bisacodyl (DULCOLAX) 10 MG suppository Insert 1 (one) suppository into the rectum once daily as needed for Constipation Active Additional Information Patient not taking.Reported on 03/31/2022 polyethylene glycol 3350 (MIRALAX) 17 g packetIndications: Cervical radiculopathy Take 17 (seventeen) g by mouth once daily as needed for Constipation Active Additional Information Patient not taking.Reported on 03/31/2022 multivitamin daily tabletIndications: Cervical radiculopathy Take 1 (one) tablet by mouth once daily Active LORazepam (ATIVAN) 1 MG tablet TAKE 1 TABLET BY MOUTH EVERY DAY AT BEDTIME NEEDED FOR SLEEP Active KAROL CONTOUR NEXT TEST test strip FOR E11.9 TEST BLOOD SUGAR DAILY Active gabapentin (NEURONTIN) 300 MG capsule Take 1 (one) capsule by mouth 3 times daily 90 capsule Active Additional Information Patient not taking.Reported on 03/31/2022 Nerve Stimulator (TENS THERAPY PAIN RELIEF) DEVIIndications: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 Use 1 device as needed (Apply to posterior spine as needed) 1 device Active Additional Information Patient not taking.Reported on 10/05/2023 Elastic Bandages & Supports (ADJUSTABLE ARM SLING) MISCIndications:Ri ght arm weakness,Fusion of spine of cervicothoracic region Use 1 device as needed 1 Each Active Additional Information Patient not taking.Reported on 10/05/2023 gabapentin (NEURONTIN) 300 MG capsule Take 1 (one) capsule by mouth 3 times daily 270 capsule 2 07/27/2 022 Active Additional Information Patient not taking.Reported on 10/05/2023 oxyCODONE-acetamin ophen (PERCOCET) 5-325 MG tablet Take 1 (one) tablet by mouth every 8 hours as needed for Pain 90 tablet 022 Active BD Pen Needle Micro U/F 32G X 6 MM MISC USE ONE DAILY TO INJECT INSULIN Active cyclobenzaprine (Flexeril) 5 MG tabletIndications: Spasm of muscle TAKE 1 TABLET BY MOUTH THREE TIMES A DAY NEEDED 90 tablet 1 022 Active Additional Information Patient not taking.Reported on 10/05/2023 tiZANidine (Zanaflex) 2 MG capsuleIndications :Spasm of muscle TAKE 1 CAPSULE BY MOUTH EVERY 8 HOURS NEEDED FOR MUSCLE SPASMS 60 capsule 023 Active Additional Information Patient not taking.Reported on 10/05/2023 albuterol HFA (Proventil; Ventolin; Proair) 108 (90 Base) MCG/ACT inhaler Inhale 2 (two) puffs by mouth every 6 hours as needed for shortness of breath (As needed) 023 Active clonazePAM (KlonoPIN) 1 MG tablet Take 1 (one) tablet by mouth at bedtime Active furosemide (Lasix) 40 MG tablet Take 1 (one) tablet by mouth 2 times daily 024 Active insulin glargine (Lantus/Semglee) 100 units/mL pen Inject 50 (fifty) Units subcutaneously at bedtime Take 37 units ivelisse before dos Active spironolactone (Aldactone) 50 MG tablet Take [...] needed for shortness of breath or wheezing Active tirzepatide (Mounjaro) 5 MG/0.5ML injection Inject 5 (five) mg subcutaneously every 7 days (once a week) Tuesdays 24 clear liquids prior to procedure Active pantoprazole EC (PROTONIX) 40 MG tablet Take 1 (one) tablet by mouth once daily 2024 Discontin ued(List Clean-Up) BREZTRI AEROSPHERE 160-9-4.8 MCG/ACT AERO Inhale 2 puffs by mouth 2 times daily 022 2024 Discontin ued(List Clean-Up) Basaglar Kari (BASAGLAR) pen Inject 80 (eighty) Units subcutaneously at bedtime 2024 Discontin ued(List Clean-Up) melatonin 10 MG capsule Take 1 (one) capsule by mouth at bedtime 2024 Discontin ued(List Clean-Up) hydrOXYzine HCl (ATARAX) 25 MG tablet Take 25 mg by mouth 2024 Discontin ued(List Clean-Up) oxyCODONE-Acetamin ophen (PERCOCET PO) Take 325 mg by mouth once daily 2024 Discontin ued(List Clean-Up) BACLOFEN PO Take 10 mg by mouth 3 times daily 2024 Discontin ued(List Clean-Up) Cyclobenzaprine HCl (FLEXERIL PO) Take 5 mg by mouth 3 times daily 2024 Discontin ued(List Clean-Up) Farxiga 10 MG tablet Take 1 (one) tablet by mouth once daily 022 2024 Discontin ued(List Clean-Up) pioglitazone (Actos) 30 MG tablet Take 1 (one) tablet by mouth once daily 024 2024 Discontin ued(List Clean-Up) tamsulosin (Flomax) 0.4 MG capsule Take 1 (one) capsule by mouth once daily 2024 Discontin ued(List Clean-Up) clonazePAM (KlonoPIN) 1 MG tablet Take 1 (one) tablet by mouth at bedtime 2024 Discontin ued(List Clean-Up) polyethylene glycol (Golytely) solution Take 4,000 mL by mouth once for 1 dose 4000 mL 2024 Active Problems Problem Noted Date Diagnosed Date Cervical radiculopathy 07/01/2021 Lumbar radiculopathy 01/16/2018 Cervical myelopathy Encounters Date Type Department Care Team Description 02/11/2025 8:00 AM MARINE CHRONOMETER ASSEMBLER Anesthesia Event [facility] [address] [place] [address] Karen Salinas MD OsterSuzy rich, THREAD PULLER-TELEGRAPH LINEMAN 02/11/2025 7:55 AM MARINE CHRONOMETER ASSEMBLER - 02/11/2025 9:00 AM MARINE CHRONOMETER ASSEMBLER Surgery [facility] [address] [place] [address] Paresh Sanchez MD COLONOSCOPY+/-EMR 02/11/2025 6:32 AM MARINE CHRONOMETER ASSEMBLER - 02/11/2025 10:03 AM MARINE CHRONOMETER ASSEMBLER Hospital Encounter [facility] [address] [place] [address] Paresh Sanchez MD Surgery General Discharge Disposition: Home or Self Care 02/11/2025 Travel 02/06/2025 Travel 02/01/2025 Telephone [facility] [address] [place] [address] Kirti oMdi Procedure (Procedure Confirmation) from Last 3 Months Immunizations Immunization Administration Dates Next Due Covid [employer] primary monoval ent 12+ yr 0.3mL Purple [...] Comments Blood Pressure 135/59 02/11/2025 9:50 AM MARINE CHRONOMETER ASSEMBLER Pulse 71 02/11/2025 9:50 AM MARINE CHRONOMETER ASSEMBLER Temperature 36.7 C (98 F) 02/11/2025 9:27 AM MARINE CHRONOMETER ASSEMBLER Respiratory Rate 22 02/11/2025 9:50 AM MARINE CHRONOMETER ASSEMBLER Oxygen Saturation 91% 02/11/2025 9:50 AM MARINE CHRONOMETER ASSEMBLER Inhaled Oxygen Concentration - - Weight 112 kg (247 lb) 02/11/2025 7:19 AM MARINE CHRONOMETER ASSEMBLER Height 172.7 cm (5' 8) 02/11/2025 7:19 AM MARINE CHRONOMETER ASSEMBLER Body Mass Index 37.56 02/11/2025 7:19 AM MARINE CHRONOMETER ASSEMBLER Plan of Treatment Upcoming Encounters Date Type Department Care Team (Late st Contact Info) Description 05/09/2025 2:30 PM MARINE CHRONOMETER ASSEMBLER Video Visit [facility] - Hematology/Oncology [address] [place] [phone] Bia Lipscomb, [address] [place] [address] Health Maintenance Due Date Last Done Comments COLOGUARD (AGES 45-75) - COLON CA SCREENING 1955 CT COLONOGRAPHY - COLON CA SCREENING 1955 FIT - COLON CA SCREENING 1955 FLEX SIG - COLON CA SCREENING 1955 HEPATITIS C SCREENING 09/01/1973 DTAP/TDAP/TD VACCINES (1 - Tdap) 09/05/1974 PNEUMOCOCCAL VACCINE 50+ (1 of 1 - PCV) 09/05/2005 ZOSTER VACCINE (1 of 2) 09/05/2005 AAA SCREENING 09/05/2020 DEPRESSION SCREENING 03/21/2024 MEDICARE AWV CALENDAR YEAR 2024 COVID-19 VACCINE ( season) 2024 12/24/2021, 12/23/2021, 07/04/2021, Additional history exists SCREENING FOR DIABETES 02/12/2028 , 08/08/2024, 07/09/2024, Additional history exists Respiratory Syncytial Virus (RSV) Vaccine Pt: or over 60 yrs (1 - 1-dose 75+ series) 09/05/2030 COLON MONITORING 02/11/2035 02/11/2025, , 08/08/2024, Additional history exists COLONOSCOPY - COLON CA SCREENING 02/11/2035 02/11/2025, 08/08/2024, 08/08/2024, Additional history exists Colorectal Cancer Screening 02/11/2035 INFLUENZA VACCINE Completed 12/19/2024, , 01/15/2022, Additional history exists HEPATITIS B VACCINE Aged [...] this topic Medical Devices Implanted Type Area Ore Smelter Device Identifier Shelf Expiration Date Model / Serial / Lot Stimulan Rapid Cure Implanted:Qty: 1 on 08/21/2021 by Karson Fournier MD at [facility] N/A: Spine Cervical Biocompstes 03/20/2024 [id number] / / [id number] Description:MIXED WITH 500MG VANCOMYCIN POWDER Screw 4.5mm 28mm Ma Spne Bone Implanted:Qty: 3 on 08/21/2021 by Karson Fournier MD at [facility] N/A: Spine Cervical [employer] [id number] / / Dayo Spnl 240mm 3.5mm Std Implanted:Qty: 2 on 08/21/2021 by Karson Fournier MD at [facility] N/A: Spine Cervical [employer] [id number] / / Lev Bone Void 10ml Dbm Grftn Algrf Ptty - [id number] Implanted:Qty: 1 on 08/21/2021 by Karson Fournier MD at [facility] N/A: Spine Cervical [employer] Inc 06/30/2024 [id number] / [id number] / Screw Set M6 Spne Oc Upr Thor Infnt Implanted:Qty: 16 on 08/21/2021 by Karson Fournier MD at [facility] N/A: Spine Cervical Medtronic Sofamor Danek Spine [id number] / / Screw 4mm 26mm Ma Spne Bone Implanted:Qty: 1 on 08/21/2021 by Karson Fournier MD at [facility] N/A: Spine Cervical [employer] Inc [id number] / / Screw 4mm 22mm Ma Spne Bone Implanted:Qty: 1 on 08/21/2021 by Karson Fournier MD at [facility] N/A: Spine Cervical [employer] Inc [id number] / / Screw 3.5mm 16mm Ma Spne Bone Implanted:Qty: 3 on 08/21/2021 by Karson Fournier MD at [facility] N/A: Spine Cervical [employer] [id number] / / Screw 3.5mm 18mm Ma Spne Bone Implanted:Qty: 2 on 08/21/2021 by Karson Fournier MD at [facility] N/A: Spine Cervical [employer] [id number] / / Screw 3.5mm 20mm Ma Spne Bone Implanted:Qty: 3 on 08/21/2021 by Karson Fournier MD at [facility] N/A: Spine Cervical [employer] [id number] / / Screw 3.5mm 22mm Ma Spne Bone Implanted:Qty: 2 on 08/21/2021 by Karson Fournier MD at [facility] N/A: Spine Cervical [employer] Inc [id number] / / Screw 4.5mm 26mm Ma Spne Bone Implanted:Qty: 1 on 08/21/2021 by Karson Fournier MD at [facility] N/A: Spine Cervical [employer] Inc [id number] / / Procedures Procedure Name Priority Date/Time Associated Diagnosis Comments PATHOLOGY TISSUE Routine 02/11/2025 8:16 AM MARINE CHRONOMETER ASSEMBLER History of colon polyps ENDOSCOPY, COLON, DIAGNOSTIC Routine 02/11/2025 7:49 AM MARINE CHRONOMETER ASSEMBLER GLUCOSE - POINT OF CARE Routine 02/11/2025 7:32 AM MARINE CHRONOMETER ASSEMBLER from Last 3 Months Results * PATHOLOGY TISSUE (02/11/2025 8:16 AM MARINE CHRONOMETER ASSEMBLER) Case Report Surgical Pathology Report Case: [id number] Authorizing Provider: Paresh Sanchez, Collected: 02/11/2025 08:16 AM Ordering Location: [facility]COPY Received: 02/11/2025 09:44 AM Pathologist: Rosi Webber MD Specimens: A) - Polyp Cecum, Cecum Colon Polyps B) - Polyp Ascending, Ascending Colon Polyps C) - Polyp Transverse, Transverse Colon Polyps D) - Polyp Descending, Descending Colon Polyps E) - Polyp Sigmoid, Sigmoid Colon Polyp 02/12/2025 10:56 AM [facility] Final Diagnosis Large intestine, cecum colon polyps, biopsy (A): - Tubular adenoma(s), fragmented Large intestine, ascending colon polyps, biopsy (B): - Tubular adenoma(s), fragmented Large intestine, transverse colon polyps, biopsy (C): - Tubular adenoma(s), fragmented Large intestine, descending colon polyps, biopsy (D): - Tubular adenoma(s), fragmented Large intestine, sigmoid colon polyp, biopsy (E): - Tubular adenoma, fragmented 02/12/2025 10:56 AM [facility] PATHOLOGY LAB at [address] MARINE CHRONOMETER ASSEMBLER Microscopic Description and Comment Microscopic examination substantiates the final diagnosis. 02/12/2025 10:56 AM [facility]OLOGY LAB Clinical History The [...] all resected and retrieved 02/12/2025 10:56 AM [facility] Gross Description The [...] toto in cassette E1./JAQUAN 02/12/2025 10:56 AM [facility] LAB Pathologist Location at [facility] 02/12/2025 10:56 AM [facility] PATHOLOGY LAB Disclaimer The performance characteristics of all immunohistochemical and indirect immunofluorescence stains (if any) cited in this report were determined by the Histopathology Laboratory of [facility]. Some of these tests were developed [...] the attending (teaching) pathologist. 02/12/2025 10:56 AM [facility]OLOGY LAB Embedded Images 02/12/2025 10:56 AM [facility] LAB Biopsy, NOS POLYP OF CECUM / Unknown 02/11/2025 8:16 AM MARINE CHRONOMETER ASSEMBLER 02/11/2025 9:44 AM MARINE CHRONOMETER ASSEMBLER Comment:Pre-op diagnosis: History of colon polyps [Z86.0100] Biopsy, NOS POLYP / Unknown 02/11/2025 8 :19 AM MARINE CHRONOMETER ASSEMBLER 02/11/2025 9:44 AM MARINE CHRONOMETER ASSEMBLER Comment:Pre-op diagnosis: History of colon polyps [Z86.0100] Biopsy, NOS POLYP / Unknown 02/11/2025 8 :49 AM MARINE CHRONOMETER ASSEMBLER 02/11/2025 9:44 AM MARINE CHRONOMETER ASSEMBLER Comment:Pre-op diagnosis: History of colon polyps [Z86.0100] Biopsy, NOS POLYP / Unknown 02/11/2025 9 :08 AM MARINE CHRONOMETER ASSEMBLER 02/11/2025 9:44 AM MARINE CHRONOMETER ASSEMBLER Comment:Pre-op diagnosis: History of colon polyps [Z86.0100] Biopsy, NOS POLYP OF SIGMOID COLON / Unknown 02/11/2025 9:17 AM MARINE CHRONOMETER ASSEMBLER 02/11/2025 9:44 AM MARINE CHRONOMETER ASSEMBLER Comment:Pre-op diagnosis: History of colon polyps [Z86.0100] Paresh Hernandez MD LAB - PATHOLOGY/CYTO LOGY ORDERABLES Final Result [facility]Y LAB [address] [place] [address], [facility] [phone] * Endoscopy, Colon, Diagnostic (02/11/2025 7:49 AM MARINE CHRONOMETER ASSEMBLER) Report Endoscopy POC Endoscopy Department Report _ Patient Name: Román Perla Jr Barber Procedure Date: 02/11/2025 7:49 AM Date of [...] bowel preparation was evaluated using the BBPS ([place] Bowel Preparation Scale) with scores of: Right [...] entire procedure. Procedure Code(s): --- Professional --- 10146, Colonoscopy, flexible; with removal of tumor(s), polyp(s), [...] or abscess without bleeding CPT copyright 2022 [employer]. All rights reserved. The codes documented in this report are preliminary and upon blindstitch machine operator review may be revised to meet current compliance requirements. Paresh Hernandez MD 02/11/2025 9:28:15 AM Note Initiated On: 02/11/2025 7:49 AM Number of Addenda: [id number] [place] [address] PROVATION 02/11/2025 7:49 AM MARINE CHRONOMETER ASSEMBLER us Paresh Hernandez MD GI PROCEDURE ORDERAB LES Edited Result - Final [facility] [employer]ATION * (ABNORMAL) GLUCOSE - POINT OF CARE (02/11/2025 7:32 AM MARINE CHRONOMETER ASSEMBLER) Glucose WB/POC 139(H) 70 - 99 mg/dL 02/11/2025 7:33 AM MARINE CHRONOMETER ASSEMBLER [facility] Specimen Type Venous 02/11/2025 7:33 AM MARINE CHRONOMETER ASSEMBLER [facility] Blood BLOOD SPECIMEN / Unknown 02/11/2025 7:32 AM MARINE CHRONOMETER ASSEMBLER 02/11/2025 7:33 AM MARINE CHRONOMETER ASSEMBLER Paresh Hernandez MD LAB - POINT OF CARE ORDERABLES Final Result [facility] [address] [place] [address], [place] [phone] from Last 3 Months Insurance [facility] MANAGED MEDICARE ADV [facility] MANAGED MEDICARE ADV SELF PAY NO INSURANCE Member Subscriber Plan / Payer (Ef fective for All Dates) Name:Román Barber Jr Member ID:Not on file Relation to Subscriber:Not on file Name:ROMÁN BARBER JR Subscriber ID:Not on file (Home) Address: [address] [place] [id number] Payer ID:Not on file Group ID:Not on file Type:Self Pay Address: [place], [place] [facility] MANAGED MEDICARE ADV Advance Directives * Full Code (Latest Code Status on File) Date Activated Date Inactivated Comments 08/21/2021 12:41 PM 08/25/2021 2:23 PM Care Teams Ruffling Machine Operator Relationship Specialty Start Date End Date Rip Andrea MD [address] [address] PCP - General 08/22/17
--- OUTSIDE RECORDS SUMMARY | 2025-02-12 15:00 | XMS_ITS | Encounter Summary ---
Author Organization [facility] Address [address] [place] [address] Care Team Providers Care Customer Manager Name Role Phone Rip Andrea MD Primary Care Provider + Reason for Visit * Reason Comments Refill Request Encounter Details Date Type Department Care Team (Late st Contact Info) Description 10/07/2021 Refill [facility] [address] [place] [address] Rachael Blancas, ELECTRIC CLOCK MECHANIC-TISSUE INSERTER [address] [address] Refill Request Social History Tobacco Use Types [...] st Contact Info) Description 05/09/2025 2:30 PM CTC OPERATOR Video Visit [facility] - Hematology/Oncology [address] [place] [address] Bia Lipscomb, [address] [place] [address] documented as of this encounter Visit Diagnoses Not on filedocumented in this encounter Care Teams Customer Manager Relationship Specialty Start Date End Date Rip Andrea MD [address] [facility] [address] [place] [address] PCP - General 08/22/17 documented as of this encounter
== END 2025-02-12 13:22 | disposition home or self-care (01) ==
LOC: ANHLAB 13:22
PROVIDERS: PCP Family Medicine; Visit Provider Internal Medicine Hematology & Oncology
DX: D64.9 Anemia, unspecified (principal)
CPT/HCPCS: 36415; 80047; 85027